=== PATIENT | female | born 1950 | race Two or more races ===

== ENCOUNTER 2020-08-19 11:34 | Outpatient (REF) | payer MEDICARE, MEDICAID, SELFPAY | END 2020-08-19 11:35 | disposition home or self-care (01) | LOC: HO.LAB 11:34 | PROVIDERS: PCP Nurse Practitioner Family; Visit Provider Internal Medicine | DX: Z20.828 Contact with and (suspected) exposure to other viral communicable diseases (principal) | CPT/HCPCS: 87635 ==

== ENCOUNTER 2020-09-21 17:20 | Outpatient (REF) | payer MEDICARE, MEDICAID, SELFPAY | END 2020-09-21 17:21 | disposition home or self-care (01) | LOC: HO.LAB 17:20 | PROVIDERS: PCP Nurse Practitioner Family; Visit Provider Internal Medicine | DX: Z20.828 Contact with and (suspected) exposure to other viral communicable diseases (principal) | CPT/HCPCS: C9803; U0003 ==

== ENCOUNTER 2020-11-17 10:04 | Outpatient (REF) | payer MEDICARE, MEDICAID, SELFPAY ==
--- NOTE | 2020-11-17 10:09 | MM_ITS ---
EXAMINATION: MM SCREENING DIGITAL BREAST TOMOSYNTHESIS, BILATERAL CLINICAL INFORMATION: Screening. Asymptomatic. The lifetime risk of breast cancer based on the Tyrer-Cuzick Model is 3.1%. COMPARISON: Mammography: July 17, 2019 and studies dating back to May 09, 2012 TECHNIQUE: Digital breast tomosynthesis is performed in both the craniocaudal and mediolateral oblique views along with computer-aided detection (CAD). Synthesized 2D images are generated from the tomosynthesis. FINDINGS: There are scattered areas of fibroglandular density (ACR BI-RADS breast composition Category b). There are no significant masses, abnormal calcifications, or other abnormalities. MM/MM tomosynthesis screening BI IMPRESSION: There are no significant changes from prior study. ASSESSMENT: BI-RADS 1: Negative RECOMMENDATION: Routine annual mammography screening. This patient's information was entered into a reminder system with a target due date for their next mammogram.
== END 2020-11-17 10:05 | disposition home or self-care (01) ==
LOC: HO.MAMMO 10:04
PROVIDERS: PCP Internal Medicine; Visit Provider Internal Medicine
DX: Z12.31 Encounter for screening mammogram for malignant neoplasm of breast (principal)
CPT/HCPCS: 77063; 77067

== ENCOUNTER 2021-01-13 12:54 | Outpatient (REF) | payer MEDICARE, MEDICAID, SELFPAY ==
--- NOTE | ~2021-01-13 | XR_ITS ---
EXAMINATION: XR LUMBOSACRAL SPINE CLINICAL INFORMATION: Low back pain COMPARISON: None TECHNIQUE: Three views of the lumbosacral spine. FINDINGS: There is normal lumbar lordosis. The vertebral heights, alignment are normal. There is loss of disc height virtually at every disc level with mild ventral spondylosis. There is no visible acute fracture, dislocation or lytic process seen. The soft tissues are normal. XR/XR lumbar spine 2-3V IMPRESSION: Mild degenerative disc changes L2-L3 through L5-S1 disc levels. No visible acute fracture or dislocation seen.
== END 2021-01-13 12:55 | disposition home or self-care (01) ==
LOC: HO.XRAY 12:54
PROVIDERS: PCP Nurse Practitioner Family; Visit Provider Nurse Practitioner Family
DX: M54.5 Low back pain (principal)
CPT/HCPCS: 72100

== ENCOUNTER 2021-02-17 13:07 | Outpatient (REF) | payer MEDICARE, MEDICAID, SELFPAY | END 2021-02-17 13:08 | disposition home or self-care (01) | LOC: HO.LAB 13:07 | PROVIDERS: Visit Provider Internal Medicine | DX: Z20.822 Contact with and (suspected) exposure to COVID-19 (principal) | CPT/HCPCS: C9803; U0003; U0005 ==

== ENCOUNTER 2021-11-27 14:19 | Emergency (ER) | payer MEDICARE, MEDICAID, SELFPAY ==
--- NOTE | ~2021-11-27 | XR_ITS ---
EXAMINATION: XR HUMERUS, LEFT CLINICAL INFORMATION: Fall COMPARISON: None TECHNIQUE: AP and lateral views of the left humerus. FINDINGS: The bones and soft tissues are normal. No fracture. Imaged portions of the shoulder and elbow are unremarkable. XR/XR humerus LT IMPRESSION: No fracture.
--- NOTE | ~2021-11-27 | XR_ITS ---
EXAMINATION: XR RIBS, LEFT CLINICAL INFORMATION: Fall, rib pain. COMPARISON: None TECHNIQUE: 3 views of the left ribs were obtained. FINDINGS: The lungs are well-expanded and clear of acute process. The heart size and pulmonary vascularity is normal. No gross bony abnormality seen. Multiple views of left ribs reveal no visible acute fracture or bony abnormality. The soft tissues are normal. XR/XR ribs LT min 3V w CXR1V IMPRESSION: Unremarkable chest and left rib exam.
[2021-11-27 14:24] VITALS: BP 161/67; PULSE 76; RESP 16; TEMP 36.1; O2SAT 99; BMI 24.5
--- NOTE | 2021-11-27 15:05 | ED_ITS ---
HPI - Fall General Chief Complaint: Fall Stated Complaint: fell 11/25 arm rib pain Time Seen by Provider: 11/27/21 14:55 Source: patient Mode of arrival: ambulatory Limitations: no limitations History of Present Illness HPI Narrative: Pt slipped and fell on steps 2 nights ago. Pt with pain to left upper arm and left ribs. Pt denies hitting head, no SOB, no pain with inspiration. Pt denies blood thinners. complaint: fall Onset (ago): day(s) (2 days ago) Fall from: standing Place fall occurred: home Loss of consciousness: none Prolonged down time: no Symptoms prior to fall: none Context: tripped/slipped Location of injury: chest (left ribs) Severity: moderate Quality: dull Associated symptoms (after fall): denies Related Data Allergies Allergy/AdvReac Type Severity Reaction Status Date / Time Seafood Allergy Mild THROAT Uncoded 07/16/20 14:58 ITCHING Shellfish Allergy Mild UNKNOWN Uncoded 07/16/20 14:58 seeafood Allergy Unknown throat Uncoded 01/30/18 00:00 swelling, itching Review of Systems Verdana 4l Review of Systems: Verdana 4d Verdana 4d Constitutional : No trauma, No Weight loss, No Fever, No Chills, ENT/Mouth : No Hearing loss, No Ear Pain, No Nasal Congestion, No Sinus Pain, No Hoarseness, No sore throat, No Rhinorrhea, No Swallowing Difficulty Cardiovascular : No ChestChest Pain, No SOB, left rib pain Respiratory : No Cough, No Dyspnea Gastrointestinal : No Nausea, No Vomiting, No Diarrhea, No abdominal Pain, Genitourinary : No Dysuria, No Urinary Frequency, No Hematuria, No Urinary or Bowel Incontinence/retention? Musculoskeletal : No Back pain, No neck pain, No joint stiffness, No joint swelling Skin : No Skin Lesions, No rash or signs of infection Neuro : No Weakness, No radiation, No Numbness, No Paresthesias, No headache, Psych : No SI/HI/thoughts of self injury Yes all other systems are reviewed and are negative [facility] Past Medical History Attestation statement: The following information was validated with the patient. Medical History (Updated 11/27/21 @ 16:05 by ROMERO Salcedo) Diabetes GERD (gastroesophageal reflux disease) HTN (hypertension) Hyperlipidemia Hypothyroid Social History Social History Advance Directives: Yes Advance Directives Information Provided: No Advance Directives on File: No Physical Exam Verdana 4l Vital Signs: Verdana 4d Verdana 4d Vital Signs: Verdana 4d Verdana 4Bd Last Vital Signs Verdana 4d Entomology Professor New 4d Hector New 4d Temp 97 F 11/27/21 14:24 Entomology Professor New 4d Pulse 76 11/27/21 14:24 Entomology Professor New 4d Resp 16 11/27/21 14:24 BP 161/67 H 11/27/21 14:24 Pulse Ox 99 11/27/21 14:24 BMI result Body Mass Index 24.5 vital signs have been reviewed as normal and appeared to be correct.? Blood pressure elevated, probably due to pain.? Heart rate normal.? Respiration rate normal.? Temperature normal.? Oxygen saturation normal. Appearance: Alert. Oriented X3. No acute distress. ? Head: Normal external exam. Normocephalic. Atraumatic.? Eyes: PERRLA. EOMI. Conjunctiva and sclera normal. Eyelids normal. ? ENT: EAC normal. Pharynx normal. Neck: Normal inspection. Neck supple. Normal ROM. No adenopathy. No meningeal signs. No neck mass noted. CVS: Normal heart rate and rhythm. Heart sound normal. No murmurs noted. Respiratory: No respiratory distress. Painless inspiration. Breath sounds normal. No wheezes/rales/rhonchi noted. Chest tenderness left lateral ribs. Moderate ecchymosis over same.? No accessory muscle usage noted or decreased air movement noted. Abdomen: Soft and nontender. Bowel sounds normal in all 4 quadrants. No distention noted.? No organomegaly noted.? No visible injury noted. Back: ?No CVA tenderness.? Full range of motion noted. Skin: Skin warm and dry.? ? Normal skin turgor. No rashes/lesions/lacerations noted. Extremities: ? Extremities exhibit normal range of motion.?ecchymmosis left upper arm, full ROM Extremities nontender. Normal gait Neuro: Oriented X 3.? No motor deficit noted. No sensory deficit noted. MDM - Fall Imaging Data left ribs and left humerus: Attestation: I personally reviewed and interpreted this imaging study as follows: Radiologist's impression: Fall, rib pain. COMPARISON: None TECHNIQUE: 3 views of the left ribs were obtained. FINDINGS: The lungs are well-expanded and clear of acute process. The heart size and pulmonary vascularity is normal. No gross bony abnormality seen. Multiple views of left ribs reveal no visible acute fracture or bony abnormality. The soft tissues are normal. XR/XR ribs LT min 3V w CXR1V IMPRESSION: Unremarkable chest and left rib exam. Discharge Plan Discharge Clinical Impression: Rib contusion, Ecchymosis Patient Disposition: Home, Self-Care Instructions: Rib Contusion (ED), Ecchymosis (ED) Additional Instructions: Your xrays are normal today. There are no broken bones. You may take tylenol or motrin as needed for pain. A bruise or contusion to the ribs usually takes several weeks to heal. Please follow up with your primary care provider as needed. Return to ER if worsening symtoms. Interventions: ED Discharge Assessment Last Done: 11/27/21 16:18 Discharge Date/Time: 11/27/21 16:18 Print Language: Latvian
== END 2021-11-27 16:18 | disposition home or self-care (01) ==
PROVIDERS: Emergency Provider Emergency Medicine
DX: S20.212A Contusion of left front wall of thorax, initial encounter (principal); S40.022A Contusion of left upper arm, initial encounter; W01.0XXA Fall on same level from slipping, tripping and stumbling without subsequent striking against object, initial encounter; E11.9 Type 2 diabetes mellitus without complications; I10 Essential (primary) hypertension; E78.5 Hyperlipidemia, unspecified; Y93.9 Activity, unspecified; Y92.039 Unspecified place in apartment as the place of occurrence of the external cause; Y99.9 Unspecified external cause status
CPT/HCPCS: 71101; 73060; 99283

== ENCOUNTER 2021-12-13 15:06 | Outpatient (REF) | payer OTHER, MEDICAID, SELFPAY ==
--- NOTE | ~2021-12-13 | MM_ITS ---
EXAMINATION: MM SCREENING DIGITAL BREAST TOMOSYNTHESIS, BILATERAL CLINICAL INFORMATION: Screening. Asymptomatic. The lifetime risk of breast cancer based on the Tyrer-Cuzick Model is 3%. COMPARISON: Mammography: 11/17/2020, 07/17/2019, 07/04/2018 TECHNIQUE: Digital breast tomosynthesis is performed in both the craniocaudal and mediolateral oblique views along with computer-aided detection (CAD). Synthesized 2D images are generated from the tomosynthesis. FINDINGS: There are scattered areas of fibroglandular density (ACR BI-RADS breast composition Category b). There are no significant masses, abnormal calcifications, or other abnormalities. Parenchymal pattern is similar to prior studies. There is no developing density or architectural abnormality. Incidental bilateral vascular calcifications again noted. The axilla and skin contours are unremarkable. No significant changes. MM/MM tomosynthesis screening BI IMPRESSION: No mammographic evidence of malignancy. ASSESSMENT: BI-RADS 1: Negative RECOMMENDATION: Routine annual mammography screening. This patient's information was entered into a reminder system with a target due date for their next mammogram.
== END 2021-12-13 15:07 | disposition home or self-care (01) ==
LOC: HO.MAMMO 15:06
PROVIDERS: PCP Nurse Practitioner Family; Visit Provider Nurse Practitioner Family
DX: Z12.31 Encounter for screening mammogram for malignant neoplasm of breast (principal)
CPT/HCPCS: 77063; 77067

== ENCOUNTER 2022-02-12 13:15 | Emergency (ER) | payer OTHER, MEDICAID, SELFPAY ==
--- NOTE | ~2022-02-12 | CT_ITS ---
EXAMINATION: CT ABDOMEN AND PELVIS WITHOUT CONTRAST CLINICAL INFORMATION: Evaluate for stones, right flank pain COMPARISON: 03/28/2013 TECHNIQUE: Multidetector volumetric imaging was performed from the superior aspect of the liver through the pubic symphysis. Sagittal and coronal reformatted images were obtained on the technologist's workstation. This CT examination was performed using dose optimization techniques as appropriate, variously including the following: *Automated exposure control *Adjustment of mA and/or kV according to patient size (this includes techniques or standardized protocols for targeted exams where dose is matched to indication/reason for exam; i.e. extremities or head) *Use of iterative reconstruction technique DLP: 358 mGy-cm FINDINGS: LUNG BASES: The visualized lung bases are unremarkable. LIVER, GALLBLADDER, AND BILIARY TREE: The liver is normal in size, shape, and attenuation. No focal hepatic lesion or biliary ductal dilatation is present. There is 0.5 cm low-attenuation lesion in the gallbladder most likely polyp PANCREAS: Unremarkable. SPLEEN: Unremarkable. ADRENAL GLANDS: Unremarkable. KIDNEYS AND URETERS: The kidneys are normal in size, shape, and attenuation. No hydronephrosis, hydroureter, or calculi seen. No perinephric stranding. Vascular calcifications seen in the right kidney. There is no hydronephrosis or BLADDER: Unremarkable. GASTROINTESTINAL TRACT: The small and large bowel are unremarkable. The appendix demonstrate appendicoliths. ABDOMINAL WALL: No significant hernia is appreciated. LYMPH NODES: Normal. VASCULAR: Unremarkable. PELVIC VISCERA: Uterus is heterogeneous and enlarged with multiple calcified fibroids OSSEOUS STRUCTURES: Degenerative changes at the level of L4-L5 and L5-S1 CT/CT abdomen pelvis wo con IMPRESSION: No evidence of nephrolithiasis. Calcified uterine fibroids. Gallbladder polyp. Fleischner guidelines were followed.
[2022-02-12 13:25] VITALS: BP 159/71; PULSE 80; RESP 18; O2SAT 96
[2022-02-12 13:29] VITALS: BP 146/78; BP 159/71; PULSE 80; PULSE 88; RESP 18; TEMP 36.9; O2SAT 97; O2SAT 99; BMI 24.7
--- NOTE | 2022-02-12 13:32 | ED.BACK ---
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: EMS Limitations: no limitations Related Data Allergies Allergy/AdvReac Type Severity Reaction Status Date / Time Seafood Allergy Mild THROAT Uncoded 07/16/20 14:58 ITCHING Shellfish Allergy Mild UNKNOWN Uncoded 07/16/20 14:58 seeafood Allergy Unknown throat Uncoded 01/30/18 00:00 swelling, itching PMFSH Past Medical History Medical History (Updated 11/28/21 @ 00:01 by Background Daemon) Diabetes GERD (gastroesophageal reflux disease) HTN (hypertension) Hyperlipidemia Hypothyroid Social History Social History Advance Directives: Yes Advance Directives Information Provided: Yes Advance Directives on File: No Physical Exam Vital Signs: Vital Signs: Last Vital Signs Temp 98.4 F 02/12/22 13:29 Pulse 80 02/12/22 13:29 Resp 18 02/12/22 13:29 BP 159/71 H 02/12/22 13:29 Pulse Ox 97 02/12/22 13:29 BMI result Body Mass Index 24.7
[2022-02-12 13:51] LABS: MANUAL DIFF FLAG NO
--- NOTE | 2022-02-12 13:52 | ED_ITS ---
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 Mode of arrival: EMS Limitations: no limitations History of Present Illness MD elicited complaint: flank pain Pertinent past history: none Onset (ago): day(s) (3) Pain Consistency: constant Location: R flank Severity: severe Quality: stabbing Radiation: RLQ Migration to: RLQ Exacerbating factors: nothing Relieving factors: nothing Associated symptoms: nausea Related Data Previous Rx's Medication Instructions Recorded cyclobenzaprine 5 mg tablet 5 mg PO TID PRN #10 tab 02/12/22 hydrocodone 5 mg-acetaminophen 325 1 tab PO Q6H PRN #7 tab 02/12/22 mg tablet lidocaine 5 % topical ointment 1 appl TOPICAL DAILY PRN #30 g 02/12/22 Allergies Allergy/AdvReac Type Severity Reaction Status Date / Time Seafood Allergy Mild THROAT Uncoded 07/16/20 14:58 ITCHING Shellfish Allergy Mild UNKNOWN Uncoded 07/16/20 14:58 seeafood Allergy Unknown throat Uncoded 01/30/18 00:00 swelling, itching Review of Systems Review of Systems Constitutional : No Weight loss, No Fever, No Chills ENT/Mouth : No sore throat, No Rhinorrhea Eyes: No Swelling, No Redness Cardiovascular : No Chest Pain, No SOB, NoEdema Respiratory : No Cough, No Sputum, No Wheezing Gastrointestinal : Positive Nausea, no Vomiting, no Diarrhea, positive abdominal Pain, No Hematochezia, No Melena Genitourinary : No Dysuria, No Urinary Frequency, No Hematuria, No Urgency Musculoskeletal : No joint pain, No Myalgias, No Joint Swelling Skin : No Skin Lesions, No rash Neuro : No Weakness, No Numbness, No Dizziness, No Headache Psych : No Anxiety/Panic, No Depression Heme/Lymph: No Bruising, No Lymphadenopathy Endocrine : No Polyuria, No Polydipsia All other systems reviewed and are negative. [facility] Past Medical History Attestation statement: The following information was validated with the patient. Medical History Diabetes GERD (gastroesophageal reflux disease) HTN (hypertension) Hyperlipidemia Hypothyroid Social History Social History (Updated 02/12/22 @ 13:53 by Susan Chahal DO) Patient Tobacco Use Status: Never used Tobacco Advance Directives: Yes Advance Directives Information Provided: Yes Advance Directives on File: No Physical Exam ED Vital Signs: Vital Signs - 24 hr 02/12/22 13:25 02/12/22 13:29 Temperature 98.4 F Pulse Rate 80 80 Respiratory Rate 18 18 Blood Pressure 159/71 H 159/71 H Pulse Oximetry 96 97 BMI result Body Mass Index 24.7 Appearance: Alert. Oriented X3. No acute distress. Eyes: Pupils equal, round and reactive to light. ENT: Pharynx normal. Neck: Normal inspection. Neck supple. CVS: Normal heart rate and rhythm. Pulses normal. Respiratory: No respiratory distress. Breath sounds normal. Abdomen: Soft and non-tender. Back: R CVA ttp Skin: Skin warm and dry. Normal skin color. Normal skin turgor. Extremities: No lower extremity edema. No calf ttp Neuro: Oriented X 3. No motor deficit. No sensory deficit. Course Course Course Narrative: CT scan negative signed out pending urine if negative stable for DC MDM - Abdominal Pain MDM Narrative Medical decision making narrative: 72 yo female with hx of HTN, DM, HLD here with c/o R flank pain without trauma or injury radiating to right lower groin with nausea - at this time will need labs, CT scan for renal colic, UA, IV morphine for pain. Dispo per results and findings. Lab Data Result diagrams: 02/12/22 13:47 02/12/22 13:47 Labs: Lab Results 02/12/22 02/12/22 02/12/22 Range/Units 13:47 13:47 13:47 WBC 8.3 (4.8-10.8) X10*3/uL RBC 3.94 L (4.20-5.50) X10*6/uL Hgb 12.1 (12.0-16.0) g/dl Hct 36.2 L (37.0-47.0) % MCV 91.9 (80.0-98.0) fL MCH 30.7 (27.0-33.0) pg MCHC 33.4 (31.0-35.0) g/dl RDW 12.9 (11.0-16.0) % Plt Count 328 (160-400) X10*3/uL MPV 10.6 (9.4-12.3) fL Immature Gran % (Auto) 0.4 (0.0-0.4) % Neut % (Auto) 68.5 (45-73) % Lymph % (Auto) 23.0 (20-40) % Jefferson % (Auto) 5.9 (2-11) % Eos % (Auto) 1.6 (0-4) % Baso % (Auto) 0.6 (0-2) % Lymph # (Auto) 1.9 (1.2-4.9) X10*3/uL Jefferson # (Auto) 0.5 (0.1-1.2) X10*3/uL Eos # (Auto) 0.1 (0.0-0.4) X10*3/uL Baso # (Auto) 0.1 (0.0-0.2) X10*3/uL Abs Immat Gran (auto) 0.03 (0.00-0.03) X10*3/uL Absolute Neuts (auto) 5.7 (2.0-8.3) x10*3/uL Absolute Nucleated RBC 0.000 (0.0-0.012) X10*3/uL Nucleated RBC % (auto) 0.0 (0.0-0.2) /100WBC Sodium 137 (135-145) mmol/L Potassium 4.4 (3.3-5.1) mmol/L Chloride 100 (96-108) mmol/L Carbon Dioxide 22 (22-29) mmol/L Anion Gap 19 (12-20) BUN 20 H (9-16) mg/dL Creatinine 1.07 (0.5-1.4) mg/dL Estim Creat Clear Calc 41.6 Estimated GFR 51 Random Glucose 212 H (60-115) mg/dL Calcium 10.1 (8.4-10.2) mg/dL Magnesium 1.8 (1.6-2.6) mg/dL Total Bilirubin 0.8 (0.0-1.0) mg/dL Direct Bilirubin 0.3 (0.0-0.5) mg/dL AST 23 (5-31) U/L ALT 25 (0-31) U/L Alkaline Phosphatase 73 (39-117) U/L Total Protein 7.7 (6.5-8.0) g/dL Albumin 4.5 (3.5-5.0) g/dL Lipase 35 (8-78) U/L COVID-19 (NEO) Negative (Negative) COVID-19 Clin Com See Note Discharge Plan Discharge Clinical Impression: Acute right flank pain Patient Disposition: Still a Patient Instructions: Flank Pain (ED) Additional Instructions: return to ED for any worsening symptoms or concerns CT/CT abdomen pelvis wo con IMPRESSION: No evidence of nephrolithiasis. Calcified uterine fibroids. Gallbladder polyp. ? ? Fleischner guidelines were followed. NON EMERGENT ULTRASOUND OF GALLBLADDER WITH DOCTOR - NOT CAUSE OF TODAY'S SYMPTOMS Prescriptions: New lidocaine 5 % ointment 1 appl topical DAILY PRN (Reason: pain) Qty: 30 0RF cyclobenzaprine 5 mg tablet 5 mg PO TID PRN (Reason: muscle spasm) Qty: 10 0RF hydrocodone-acetaminophen 5-325 mg tablet 1 tab PO Q6H PRN (Reason: pain) Qty: 7 0RF Referrals: Elly Pierce [Primary Care Provider] - 3 days Print Language: Tanzanian
[2022-02-12 13:53] LABS: Basophils Absolute Auto 0.1 X10*3/uL (0.0-0.2); Basophils Percent Auto 0.6 % (0-2); Eosinophils Absolute Auto 0.1 X10*3/uL (0.0-0.4); Eosinophils Percent Auto 1.6 % (0-4); Hematocrit 36.2 % (37.0-47.0); Hemoglobin 12.1 g/dl (12.0-16.0); Imm Gran Abs Auto 0.03 X10*3/uL (0.00-0.03); Imm Gran Pct Auto 0.4 % (0.0-0.4); Lymphocytes Absolute Auto 1.9 X10*3/uL (1.2-4.9); Mean Corpuscular HGB Conc 33.4 g/dl (31.0-35.0); Mean Corpuscular Hemoglobin 30.7 pg (27.0-33.0); Mean Corpuscular Volume 91.9 fL (80.0-98.0); Mean Platelet Volume 10.6 fL (9.4-12.3); Monocytes Absolute Auto 0.5 X10*3/uL (0.1-1.2); Monocytes Percent Auto 5.9 % (2-11); Neutrophils Absolute Auto 5.7 x10*3/uL (2.0-8.3); Neutrophils Percent Auto 68.5 % (45-73); Platelet Count 328 X10*3/uL (160-400); Red Blood Count 3.94 X10*6/uL (4.20-5.50); Red Cell Distribution Width 12.9 % (11.0-16.0); White Blood Count 8.3 X10*3/uL (4.8-10.8)
[2022-02-12 14:11] LABS: Alanine Aminotransferase 25 U/L (0-31); Albumin Level 4.5 g/dL (3.5-5.0); Alkaline Phosphatase 73 U/L (39-117); Anion Gap 19 (12-20); Aspartate Amino Transferase 23 U/L (5-31); Bilirubin Direct 0.3 mg/dL (0.0-0.5); Bilirubin Total 0.8 mg/dL (0.0-1.0); Blood Urea Nitrogen 20 mg/dL (9-16); COVID-19 Test Negative (Negative); Calcium 10.1 mg/dL (8.4-10.2); Carbon Dioxide 22 mmol/L (22-29); Chloride 100 mmol/L (96-108); Creatinine Clr Calc Pharmacy 41.6; Estimated Glomerular Filt Rate 51; Glucose Random 212 mg/dL (60-115); IDNOW Serial# 16C4AD1C; Lipase 35 U/L (8-78); Magnesium 1.8 mg/dL (1.6-2.6); Potassium 4.4 mmol/L (3.3-5.1); Sodium 137 mmol/L (135-145); Total Protein 7.7 g/dL (6.5-8.0)
[2022-02-12] MEDS: Morphine Sulfate 4 MG/ML CARTRIDGE IVPUSH ×2 (14:36→17:07)
[2022-02-12] MEDS: ondansetron HCL 4 MG/2 ML VIAL IVPUSH (14:36)
[2022-02-12] MEDS: 0.9 % Sodium Chloride 1,000 ML 999 ML IVCONT (14:37)
[2022-02-12 16:55] VITALS: BP 168/65; PULSE 88; RESP 20; TEMP 36.7; O2SAT 97
[2022-02-12 17:18] LABS: Appearance Urine CLEAR; Color Urine STRAW; Glucose Urine UA >=1000 MG/DL (NEG); Leukocyte Esterase Urine NEG (NEG); Nitrite Urine NEG (NEG); PH 5.5 (5.0-8.0); Urine Blood NEG (NEG); Urine Ketones 40 MG/DL (NEG); Urine Protein NEG (NEG-TRACE)
[2022-02-12 17:42] LABS: WBC Urine 0-2 /HPF (0-4)
[2022-02-12 17:43] LABS: RBC Urine 0 /HPF (0); Squamous Epithelial Cell Urine TRACE /LPF
== END 2022-02-12 18:33 | disposition home or self-care (01) ==
PROVIDERS: Emergency Provider Emergency Medicine; PCP Nurse Practitioner Family
DX: R10.31 Right lower quadrant pain (principal); I10 Essential (primary) hypertension; E11.9 Type 2 diabetes mellitus without complications; Z20.822 Contact with and (suspected) exposure to COVID-19
CPT/HCPCS: 74176; 80048; 80076; 81001; 83690; 83735; 85025; 87635; 96361; 96374; 96375; 96376; 99283; 99284; J2270; J2405

== ENCOUNTER 2022-03-04 12:20 | Outpatient (REF) | payer OTHER, MEDICAID, SELFPAY ==
--- NOTE | ~2022-03-04 | US_ITS ---
EXAMINATION: US ABDOMEN COMPLETE CLINICAL INFORMATION: Follow up gallbladder polyp seen on CT. COMPARISON: CT of abdomen and pelvis without contrast dated 02/12/2022. Ultrasound abdomen complete dated 09/03/2014. Bilateral renal ultrasound dated 06/13/2011. TECHNIQUE: Real-time imaging of the abdominal viscera. FINDINGS: PANCREAS: Normal. ABDOMINAL AORTA: The proximal, mid, and distal segments are normal in caliber. INFERIOR VENA CAVA: Visualized portions are normal. LIVER: Liver echotexture is slightly increased. The liver is normal in size. The liver contour is normal. No focal hepatic lesion. There is no intrahepatic biliary duct dilatation seen. GALLBLADDER: Normal. The gallbladder is physiologically distended without evidence of stones, sludge, polyps, wall thickening or pericholecystic fluid. COMMON BILE DUCT: Normal in caliber measuring 0.22 cm in diameter. RIGHT KIDNEY: Normal. No hydronephrosis. No renal calculi or focal parenchymal lesions. The kidney measures 10.0 cm in maximum dimension. LEFT KIDNEY: Normal. No hydronephrosis. No renal calculi or focal parenchymal lesions. The kidney measures 10.4 cm in maximum dimension. SPLEEN: Normal. The spleen measures 9.7 cm in maximum dimension. FREE FLUID: None. US/US abdomen complete IMPRESSION: No gallstones or gallbladder wall polyp appreciated. Slightly echogenic liver probably representing fatty infiltration.
== END 2022-03-04 12:21 | disposition home or self-care (01) ==
LOC: HO.US 12:20
PROVIDERS: Visit Provider Nurse Practitioner Family
DX: K82.4 Cholesterolosis of gallbladder (principal)
CPT/HCPCS: 76700

== ENCOUNTER 2022-05-25 10:25 | Outpatient (REF) | payer OTHER, MEDICAID, SELFPAY ==
--- NOTE | ~2022-05-25 | MM_ITS ---
EXAMINATION: BONE DENSITOMETRY CLINICAL INDICATION: Screening. COMPARISON: Previous BD dated 07/17/2019 and baseline BD dated 04/07/2011. TECHNIQUE: Using a [employer] DXA System (software version: 13.1) manufactured by [employer], dual-energy x-ray absorptiometry was performed of the lumbar spine and left hip. The images are of good technical quality. Summary results are attached. FINDINGS: AP SPINE L1-L4: Current: BMD 1.275 g/cm2, Z-score 2.7, T-score 0.8, normal, 3.5% increase from previous, 12.9% increase from baseline (<5% change is not significant). Prior: BMD 1.232 g/cm2. Baseline: BMD 1.129 g/cm2. LEFT FEMUR, NECK: Current: BMD 1.130 g/cm2, Z-score 2.5, T-score 0.7, normal. Prior: BMD 1.118 g/cm2. Baseline: BMD 1.159 g/cm2. LEFT FEMUR, TOTAL: Current: BMD 1.107 g/cm2, Z-score 2.4, T-score 0.8, normal, 1.0% increase from previous, 0.2% decrease from baseline (<5% change is not significant). Prior: BMD 1.096 g/cm2. Baseline: BMD 1.109 g/cm2. IDENTIFIED RISK FACTORS: Menopause, glucocorticoids (chronic). HISTORY OF FRACTURE: None listed. MEDICATIONS: Calcium, vitamin D. MM/XR DEXA axial skeleton IMPRESSION: 1. DIAGNOSIS: Normal bone density based on the lowest T-score value of 0.7 in the femoral neck applying World Health Organization criteria. 2. 10-YEAR FRACTURE RISK PREDICTION, FRAX: According to the guidelines, FRAX calculation should only be performed on patients in the osteopenia bone density category. Therefore, FRAX was not performed on this patient. 3. Treatment Recommendations: NOF guidelines recommend consideration for treatment in postmenopausal women and men age 50 and older presenting with the following: -A hip or vertebral (clinical or morphometric) fracture. -T-score less than or equal to -2.5 at the femoral neck or spine after appropriate evaluation to exclude secondary causes. -Low bone mass at the hip or spine and a 10-year fracture probability by FRAX of greater than or equal to 3% for hip fracture or greater than or equal to 20% for major osteoporotic fracture based on the [place] adapted WHO algorithm. 4. Other Recommendations: All treatment decisions require clinical judgment and consideration of individual patient factors, including patient preferences, comorbidities, previous drug use, risk factors not captured in the FRAX model (e.g. frailty, falls, vitamin D deficiency, increased bone turnover, interval significant decline in bone density) and possible under or overestimation of fracture risk by FRAX. FUTURE SCAN RECOMMENDATION: People with diagnosed cases of osteoporosis or at high risk for fracture should have regular bone mineral density tests. For patients eligible for Medicare, routine testing is allowed once every 2 years. The testing frequency can be increased to one year for patients who have rapidly progressing disease, those who are receiving or discontinuing medical therapy to restore bone mass, or have additional risk factors.
== END 2022-05-25 10:26 | disposition home or self-care (01) ==
LOC: HO.MAMMO 10:25
PROVIDERS: Visit Provider Nurse Practitioner Family
DX: Z13.820 Encounter for screening for osteoporosis (principal); Z78.0 Asymptomatic menopausal state
CPT/HCPCS: 77080

== ENCOUNTER → 2022-07-28 09:55 | Outpatient (BNVA) | payer OTHER, MEDICAID, SELFPAY | PROVIDERS: PCP Nurse Practitioner Family; Visit Provider Anesthesiology | DX: M46.1 Sacroiliitis, not elsewhere classified (principal); M53.3 Sacrococcygeal disorders, not elsewhere classified | CPT/HCPCS: 99202 ==

== ENCOUNTER 2022-08-08 10:43 | Emergency (ER) | payer OTHER, MEDICAID, SELFPAY ==
--- NOTE | ~2022-08-08 | XR_ITS ---
EXAMINATION: XR SHOULDER, RIGHT CLINICAL INFORMATION: Pain COMPARISON: None TECHNIQUE: AP external rotation, Grashey, scapular Y, and axillary views of the right shoulder. FINDINGS: Bone alignment is normal. No fracture or dislocation is seen. The glenohumeral joint is normal. There is arthritis at the acromioclavicular joint. There are soft tissue calcifications seen on the transaxillary view anterior and posterior to the humeral head. XR/XR shoulder RT min 2V IMPRESSION: Degenerative changes.
[2022-08-08 10:48] VITALS: BP 150/69; PULSE 82; RESP 16; TEMP 528.8; TEMP 984; O2SAT 96; BMI 24.3
--- NOTE | 2022-08-08 11:27 | ED.GENADULT ---
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 No known injury or trauma. No radiation of pain into the arm. No associated weakness, numbness or tingling of the arm. No chest pain, shortness of breath, fevers or chills. Patient also reports lower back pain which is chronic. She tells me that she has had some intermittent pain which has radiated to the right lower leg but this pain does feel worse than the right leg. She is scheduled for A steroid injection later this month for her chronic back pain. She denies any associated weakness of the right leg. No numbness or tingling of the right leg. No saddle anesthesia. No bowel or bladder incontinence. Patient taking Tylenol at home for pain Related Data Home Medications Medication Instructions Recorded Confirmed acetaminophen 500 mg tablet mg PO 07/28/22 aspirin 81 mg tablet,delayed 81 mg PO DAILY 07/28/22 release atorvastatin 40 mg tablet 40 mg PO BEDTIME 07/28/22 calcium carbonate 600 mg-vitamin 1 tab PO 07/28/22 D3 10 mcg (400 unit) tablet cetirizine 10 mg tablet 10 mg PO DAILY 07/28/22 empagliflozin 25 mg tablet 25 mg PO DAILY 07/28/22 (Jardiance) fluticasone propionate 50 spray intranasal 07/28/22 mcg/actuation nasal spray,suspension gabapentin 100 mg capsule 100 mg PO TID 07/28/22 hydrochlorothiazide 12.5 mg tablet 12.5 mg PO DAILY 07/28/22 levothyroxine 75 mcg tablet 75 mcg PO DAILY 07/28/22 lisinopril 40 mg tablet 40 mg PO BID 07/28/22 metformin 500 mg tablet,extended 1,000 mg PO BID 07/28/22 release 24 hr metoprolol tartrate 50 mg tablet mg PO 07/28/22 omeprazole 20 mg capsule,delayed 20 mg PO QAM 07/28/22 release repaglinide 1 mg tablet 2 mg PO BID 07/28/22 Previous Rx's Medication Instructions Recorded lidocaine 5 % topical ointment 1 appl topical DAILY PRN pain #30 02/12/22 grams cyclobenzaprine 5 mg tablet 5 mg PO TID PRN muscle spasm #10 08/08/22 tabs diclofenac sodium 1 % topical gel 4 g topical QID PRN pain #100 grams 08/08/22 (Voltaren Arthritis Pain) lidocaine 5 % topical patch 1 patch topical DAILY #15 ea 08/08/22 (Lidoderm) Allergies Allergy/AdvReac Type Severity Reaction Status Date / Time Seafood Allergy Mild THROAT Uncoded 07/16/20 14:58 ITCHING Shellfish Allergy Mild UNKNOWN Uncoded 07/16/20 14:58 seeafood Allergy Unknown throat Uncoded 01/30/18 00:00 swelling, itching Review of Systems Review of Systems: Yes all other systems are reviewed and are negative Constitutional: Constitutional: Reports no additional constitutional complaints, Denies body ache(s), Denies chills, Denies fever(s), Denies headache(s) and Denies weakness Eyes: Eyes: Reports no additional eye complaints and Denies change in vision ENT: Reports system reviewed and no additional complaints, except as documented, Denies dizziness, Denies headache(s), Denies nasal congestion, Denies nasal discharge and Reports neck pain Cardiovascular: Cardiovascular: Reports no additional cardiovascular complaints, Denies chest pain, Denies leg edema and Denies dyspnea Respiratory: Respiratory: Reports no additional respiratory complaints, Denies cough and Denies dyspnea Gastrointestinal: Gastrointestinal: Reports no additional gastrointestinal complaints, Denies abdominal pain, Denies diarrhea, Denies nausea and Denies vomiting Genitourinary: Genitourinary: Reports no additional female genitourinary complaints and Denies urinary incontinence Musculoskeletal: Musculoskeletal: Reports no additional musculoskeletal complaints, Reports back pain, Reports arthralgias, Denies joint swelling, Reports neck pain, Denies numbness, Reports radiating pain into limb and Denies tingling Integumentary/Breasts: Skin/Breast: Reports system reviewed and no additional complaints, except as docu and Denies rash Neurologic: Reports system reviewed and no additional complaints, except as documented, Denies dizziness, Denies headache(s), Denies numbness, Denies tingling and Denies weakness PMFSH Past Medical History Attestation statement: The following information was validated with the patient. Source: old records reviewed and nursing notes reviewed Medical History Diabetes GERD (gastroesophageal reflux disease) HTN (hypertension) Hyperlipidemia Hypothyroid Social History Social History Patient Tobacco Use Status: Never used Tobacco Advance Directives: No Advance Directives Information Provided: Yes Physical Exam ED Vital Signs: Vital Signs - 24 hr 08/08/22 10:48 Temperature 984 F H Pulse Rate 82 Respiratory Rate 16 Blood Pressure 150/69 H Pulse Oximetry 96 Oxygen Delivery Method Room Air BMI result Body Mass Index 24.3 Const General: cooperative, healthy appearing, comfortable and no acute distress Orientation/consciousness: patient oriented x3 Limitations: no limitations HENMT Head: Yes normal to inspection Ears: hearing grossly normal bilaterally Eyes General: appearance normal, both eyes and all related structures Pupils: Equal, round and reactive pupils present Neck Other: Tenderness the right and left trapezius which is worsened with rotation of the head. No midline tenderness, step-offs deformities. No appreciable swelling, thrill or bruit of the neck. Neck: Yes normal visual inspection, Yes full ROM, Yes no lymphadenopathy and Yes no meningeal signs Chest Chest palpation & inspection: normal inspection of the chest Resp Effort & Inspection: normal respiratory effort Auscultation: clear to auscultation bilaterally Cardio Rate: regular rate Rhythm: regular rhythm Peripheral pulses: Peripheral pulses 2+ throughout GI Inspection: Yes normal to inspection General: Yes no CVA tenderness Back/Spine/Pelvis Other: Tenderness to the lumbar mid spine with no step-offs or deformities. Pain is worsened with right straight leg raise. Back: no CVA tenderness Thoracic/Lumbar Spine: thoracic and lumbar spine normal to inspection Skin General skin exam: no rashes or lesions noted Neuro General: patient oriented x3, moves all extremities and no meningeal signs Cranial nerves: Yes CN's II-XII intact bilaterally, Yes Equal, round and reactive pupils present, Yes Bilaterally intact EOM present, Yes Nystagmus not present, Yes Normal facial strength present and Yes Midline tongue present Cognition (Neuro): normal cognition Gait exam (Neuro): Normal gait present Motor exam (neuro): 5/5 motor strength present throughout Sensory Exam: Normal double simultaneous stimulation for sensation Deep tendon reflexes (DTR's): Right patellar reflex intensity grade: 2+ and Left patellar reflex intensity grade: 2+ Extrem Other: Tenderness to the right anterior shoulder and proximal humerus which is worsened with abduction of the extremity. Neurovascularly intact distally. Normal radial and ulnar pulses. Strength is 5/5. Course Course Course Narrative: X-rays of the right shoulder show degenerative changes at likely secondary to underlying arthritis. Patient will be treated with Tylenol, low-dose Flexeril, Voltaren, Lidoderm patches. Recommended heat or ice. Patient has a follow-up appointment already for her lower back pain which is chronic with plan for cortisone injection. Reviewed worrisome signs and symptoms of when to return to the emergency room. Comfortable discharge home. Medical Decision Making MDM Narrative Medical decision making narrative: 72-year-old female here with atraumatic right shoulder pain as well as pain in the right and left trapezius area. Patient also reports chronic lower back pain with pain that radiates into the right leg. Patient has pain over the right shoulder specially over the proximal humerus and anterior shoulder which is worsened with abduction. Patient has had no injury or trauma. She has no real associated weakness, numbness or tingling of extremity. Consider bursitis, tendonitis, underlying bony abnormality. Will check x-rays. Patient also reports some pain of the right and left trapezius which appears musculoskeletal on exam. No midline cervical tenderness or limited range of motion or meningeal signs or lymphadenopathy. Patient also some chronic lower back pain which radiates to the right leg with no associated weakness, sensory changes, incontinence of urine or stool or saddle anesthesia or fever. She is scheduled for a cortisone injection later this month. No overt neurological deficits or red flag symptoms to suggest underlying cord compression, epidural abscess. Medical Records Medical records reviewed: Yes I reviewed the patient's medical records. Lab Data Lab results reviewed: Yes I reviewed the patient's lab results. Imaging Data shoulder x-ray: Attestation: I personally reviewed and interpreted this imaging study as follows: Radiologist's impression: [address] [address] XRay Report Signed Patient: Jacquelyn Scott MR#: [id number] : 1950 Acct:[id number] Age/Sex: 72 / F ADM Date: 08/08/22 Loc: HO.ED Attending Dr: Ordering Physician: Chen Cheema NP Date of Service: 08/08/22 Procedure(s): XR shoulder RT min 2V Accession Number(s): [id number] cc: Chen Cheema NP~ EXAMINATION: XR SHOULDER, RIGHT CLINICAL INFORMATION: Pain? COMPARISON: None? TECHNIQUE: AP external rotation, Grashey, scapular Y, and axillary views of the right shoulder. FINDINGS: Bone alignment is normal. No fracture or dislocation is seen. The glenohumeral joint is normal. There is arthritis at the acromioclavicular joint. There are soft tissue calcifications seen on the transaxillary view anterior and posterior to the humeral head.? XR/XR shoulder RT min 2V IMPRESSION: Degenerative changes. Discharge Plan Discharge Clinical Impression: Osteoarthritis of right shoulder, Chronic back pain, Chronic lumbar radiculopathy, Muscle spasm Patient Disposition: Home, Self-Care Instructions: Osteoarthritis (ED), Lumbar Radiculopathy (ED), Muscle Spasm (ED), Chronic Back Pain (DC) Additional Instructions: Calor o hielo en la diego afectada Estiramiento suave. Whyte radiograf?a muestra artritis en whyte hombro. Seguimiento con whyte m?dico de atenci?n primaria en 1 semana por cualquier problema persistente. Contin?e con Tylenol. Prescriptions: New diclofenac sodium [Voltaren Arthritis Pain] 1 % gel 4 g topical QID PRN (Reason: pain) Qty: 100 0RF cyclobenzaprine 5 mg tablet 5 mg PO TID PRN (Reason: muscle spasm) Qty: 10 0RF lidocaine [Lidoderm] 5 % adhesive patch,medicated 1 patch topical DAILY Qty: 15 0RF Rx Instructions: leave on most painful area for up to 12 hrs No Action lidocaine 5 % ointment 1 appl topical DAILY PRN (Reason: pain) Qty: 30 0RF Jardiance 25 mg tablet 25 mg PO DAILY hydrochlorothiazide 12.5 mg tablet 12.5 mg PO DAILY repaglinide 1 mg tablet 2 mg PO BID metformin 500 mg tablet extended release 24 hr 1,000 mg PO BID fluticasone propionate 50 mcg/actuation spray,suspension intranasal lisinopril 40 mg tablet 40 mg PO BID gabapentin 100 mg capsule 100 mg PO TID metoprolol tartrate 50 mg tablet PO levothyroxine 75 mcg tablet 75 mcg PO DAILY aspirin 81 mg tablet,delayed release (DR/EC) 81 mg PO DAILY cetirizine 10 mg tablet 10 mg PO DAILY acetaminophen 500 mg tablet PO calcium carbonate-vitamin D3 600 mg-10 mcg (400 unit) tablet 1 tab PO omeprazole 20 mg capsule,delayed release(DR/EC) 20 mg PO QAM atorvastatin 40 mg tablet 40 mg PO BEDTIME Referrals: Physician,None [Primary Care Provider] - 10 days (PCP as needed) Interventions: ED Discharge Assessment Last Done: 08/08/22 12:34 Discharge Date/Time: 08/08/22 12:35 Print Language: Slovenian
== END 2022-08-08 12:35 | disposition home or self-care (01) ==
PROVIDERS: Emergency Provider Student in an Organized Health Care Education/Training Program
DX: M19.011 Primary osteoarthritis, right shoulder (principal); G89.29 Other chronic pain; M54.50 Low back pain, unspecified; M54.16 Radiculopathy, lumbar region; M62.830 Muscle spasm of back; E11.9 Type 2 diabetes mellitus without complications; I10 Essential (primary) hypertension; E78.5 Hyperlipidemia, unspecified; Z79.82 Long term (current) use of aspirin; Z79.899 Other long term (current) drug therapy; Z79.84 Long term (current) use of oral hypoglycemic drugs; Z79.02 Long term (current) use of antithrombotics/antiplatelets
CPT/HCPCS: 73030; 99283

== ENCOUNTER 2022-08-16 06:13 | Outpatient (REF) | payer OTHER, MEDICAID, SELFPAY ==
--- NOTE | ~2022-08-16 | FL_ITS ---
EXAMINATION: XR FLUOROSCOPY WITH IMAGES CLINICAL INFORMATION: M53.3 - Sacrococcygeal disorders, not elsewhere classified COMPARISON: CT pelvis 02/12/2022 TECHNIQUE: Fluoroscopy performed by Dr. Solomon Kelley. Fluoroscopy time: 0.2 minutes. Cumulative Dose: 1.43 mGy. DAP: 0.390 Gy-cm2. Images: 1. FINDINGS: Spinal needle overlies the mid right SI joint. There is contrast in the periarticular soft tissues with probable early intra-articular contrast. No definite vasculature communication appreciated. FL/FL guidance in treatment room IMPRESSION: Fluoroscopy for pain management procedure.
== END 2022-08-16 06:14 | disposition home or self-care (01) ==
LOC: CF 06:13
PROVIDERS: Visit Provider Anesthesiology
DX: M46.1 Sacroiliitis, not elsewhere classified (principal); M53.3 Sacrococcygeal disorders, not elsewhere classified
CPT/HCPCS: 27096; J2795

== ENCOUNTER 2022-12-15 09:47 | Outpatient (REF) | payer OTHER, MEDICAID, SELFPAY ==
--- NOTE | ~2022-12-15 | MM_ITS ---
EXAMINATION: MM SCREENING DIGITAL BREAST TOMOSYNTHESIS, BILATERAL CLINICAL INFORMATION: Screening. Asymptomatic. The lifetime risk of breast cancer based on the Tyrer-Cuzick Model is 3%. COMPARISON: Mammography: 12/13/2021, 11/17/2020, 07/17/2019 TECHNIQUE: Digital breast tomosynthesis is performed in both the craniocaudal and mediolateral oblique views along with computer-aided detection (CAD). Synthesized 2D images are generated from the tomosynthesis. FINDINGS: There are scattered areas of fibroglandular density (ACR BI-RADS breast composition Category b). There are no significant masses, abnormal calcifications, or other abnormalities. No architectural abnormality or developing density or significant change from prior studies. There are scattered bilateral predominantly vascular calcifications. The axilla and skin contours are unremarkable. No significant changes. MM/MM tomosynthesis screening BI IMPRESSION: No mammographic evidence of malignancy. ASSESSMENT: BI-RADS 2: Benign RECOMMENDATION: Routine annual mammography screening. This patient's information was entered into a reminder system with a target due date for their next mammogram.
== END 2022-12-15 09:48 | disposition home or self-care (01) ==
LOC: HO.MAMMO 09:47
PROVIDERS: PCP Nurse Practitioner Primary Care
DX: Z12.31 Encounter for screening mammogram for malignant neoplasm of breast (principal)
CPT/HCPCS: 77063; 77067

== ENCOUNTER 2023-03-10 12:27 | Emergency (ER) | payer OTHER, SELFPAY ==
--- NOTE | ~2023-03-10 | CT_ITS ---
EXAMINATION: CT HEAD WITHOUT CONTRAST CLINICAL INFORMATION: Dizziness. Headache. COMPARISON: CT head 05/29/2008 TECHNIQUE: Contiguous axial imaging was performed from the skull base to vertex without intravenous administration of contrast. Coronal and sagittal reformatted images are performed at the CT scanner. [This CT examination was performed using dose optimization techniques as appropriate, variously including the following: *Automated exposure control *Adjustment of mA and/or kV according to patient size (this includes techniques or standardized protocols for targeted exams where dose is matched to indication/reason for exam; i.e. extremities or head) *Use of iterative reconstruction technique] DLP: 609 mGy-cm. FINDINGS: Extra-axial calcification consistent with meningioma right frontal region measuring 9 mm. This measured 6 mm on the CAT scan 05/29/2008. No associated mass effect or edema of the brain parenchyma. Stable 4 mm calcification adjacent to the right tentorial leaflet. There is no evidence of acute intracranial hemorrhage or acute territorial infarction. No abnormal mass-effect or midline shift is seen. Riggins to white matter differentiation is well preserved. No extra-axial fluid collections are identified. The ventricles are normal in size. There is no abnormal attenuation within the brain parenchyma. There is no osseous abnormality. The mastoid air cells and visualized portions of the paranasal sinuses are well-aerated. CT/CT head/brain wo IV con IMPRESSION: No acute intracranial pathology.
--- NOTE | ~2023-03-10 | XR_ITS ---
EXAMINATION: XR CHEST CLINICAL INFORMATION: Chest pain and shortness of breath COMPARISON: Previous chest x-ray October 2021 TECHNIQUE: Frontal view of the chest was obtained. FINDINGS: The cardiac and mediastinal contours are normal. Probable nipple shadow at the left lung base. The lungs are otherwise clear. No pleural effusion or pneumothorax. There are degenerative changes of the spine. XR/XR chest 1V IMPRESSION: No evidence for acute disease in the chest.
--- NOTE | 2023-03-10 12:54 | ED.GENADULT ---
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 She reports the pain shoots down the left posteriorly at times. She states she has a history of similar headaches along with her usual seasonal allergy symptoms. She states they usually do not last this long however. She reports she has some mild intermittent dizziness and shortness of breath as well. No associated chest pain. No current dizziness. She denies any weakness, numbness, tingling, vision changes. She reports the headache is in the occipital region and throbbing. She has not taken any medications for this. MD complaint: Posterior headache Onset (ago): day(s) (3) Location: head Radiation: neck and extremity Severity: moderate Severity scale (1-10): 7 Quality: other (Throbbing) Pain Consistency: constant Relieving factors: none Exacerbating factors: none Associated symptoms: headaches, shortness of breath and other (Dizziness) Treatments prior to arrival: none Related Data Home Medications Medication Instructions Recorded Confirmed acetaminophen 500 mg tablet mg PO 07/28/22 aspirin 81 mg tablet,delayed 81 mg PO DAILY 07/28/22 release atorvastatin 40 mg tablet 40 mg PO BEDTIME 07/28/22 calcium carbonate 600 mg-vitamin 1 tab PO 07/28/22 D3 10 mcg (400 unit) tablet cetirizine 10 mg tablet 10 mg PO DAILY 07/28/22 empagliflozin 25 mg tablet 25 mg PO DAILY 07/28/22 (Jardiance) fluticasone propionate 50 spray intranasal 07/28/22 mcg/actuation nasal spray,suspension gabapentin 100 mg capsule 100 mg PO TID 07/28/22 hydrochlorothiazide 12.5 mg tablet 12.5 mg PO DAILY 07/28/22 levothyroxine 75 mcg tablet 75 mcg PO DAILY 07/28/22 lisinopril 40 mg tablet 40 mg PO BID 07/28/22 metformin 500 mg tablet,extended 1,000 mg PO BID 07/28/22 release 24 hr metoprolol tartrate 50 mg tablet mg PO 07/28/22 omeprazole 20 mg capsule,delayed 20 mg PO QAM 07/28/22 release repaglinide 1 mg tablet 2 mg PO BID 07/28/22 Previous Rx's Medication Instructions Recorded lidocaine 5 % topical ointment 1 appl topical DAILY PRN pain #30 02/12/22 grams cyclobenzaprine 5 mg tablet 5 mg PO TID PRN muscle spasm #10 08/08/22 tabs diclofenac sodium 1 % topical gel 4 g topical QID PRN pain #100 grams 08/08/22 (Voltaren Arthritis Pain) lidocaine 5 % topical patch 1 patch topical DAILY #15 ea 08/08/22 (Lidoderm) Allergies Allergy/AdvReac Type Severity Reaction Status Date / Time Seafood Allergy Mild THROAT Uncoded 08/16/22 10:56 ITCHING Shellfish Allergy Mild UNKNOWN Uncoded 08/16/22 10:56 seeafood Allergy Unknown throat Uncoded 08/16/22 10:56 swelling, itching Review of Systems Review of Systems: Yes all other systems are reviewed and are negative [facility] Past Medical History Medical History Diabetes GERD (gastroesophageal reflux disease) HTN (hypertension) Hyperlipidemia Hypothyroid Social History Social History Patient Tobacco Use Status: Never used Tobacco Advance Directives: No Physical Exam ED Vital Signs: Vital Signs - 24 hr 03/10/23 12:55 03/10/23 14:08 03/10/23 12:57 Temperature 97.8 F Pulse Rate 66 62 59 Respiratory Rate 18 18 Blood Pressure 154/64 H 154/79 H 154/62 H Pulse Oximetry 96 97 Oxygen Delivery Method Room Air Room Air 03/10/23 14:33 03/10/23 14:33 Temperature Pulse Rate 60 60 Respiratory Rate Blood Pressure 157/69 H 156/63 H Pulse Oximetry Oxygen Delivery Method BMI result Body Mass Index 24.1 Appearance: Alert. Oriented X3. No acute distress. Head: normocephalic, atraumatic. Eyes: Pupils equal, round and reactive to light. EOMI, no nystagmus. ENT: Pharynx normal. No tonsillar swelling or exudate. Normal TMs bilaterally. Neck: Normal inspection. Neck supple. CVS: Normal heart rate and rhythm. Pulses normal. Respiratory: No respiratory distress. Breath sounds normal. Abdomen: Soft and nontender. +BS x4 Skin: Skin warm and dry. Normal skin color. Normal skin turgor. No rashes. Extremities: No lower extremity edema. No joint swelling. Neuro/psych: Oriented X 3. No motor deficit. No sensory deficit. CN II-XII intact. Normal speech and cognition. Normal finger to toe and heel to naik bilaterally. Course Course Course Narrative: RME: 73-year-old female with a past medical history of diabetes, GERD, HTN, HLD, hypothyroid presenting to the ED complaining of pounding LENZ x2 days with assoc radiation to brain and LUE, lightheadedness, and SOB. Also reports CP last night. Admits to similar LENZ's in the past Ambulating with steady gait. EKG, labs, UA, CXR, orthostatics ordered Full HPI, ROS and PE to be performed by primary ED provider. Medications Administered Discontinued Medications Generic Name Dose Route Start Last Admin Trade Name Gómezq PRN Reason Stop Dose Admin Acetaminophen 975 mg 03/10/23 14:14 03/10/23 14:33 Acetaminophen 325 Mg Tablet PO 03/10/23 14:15 975 mg ONCE ONE Administration Magnesium Sulfate 2 gm in 50 mls @ 25 mls/hr 03/10/23 13:51 03/10/23 14:18 Magnesium Sulfate/H2o IV 03/10/23 15:50 25 mls/hr ONCE ONE Administration Sodium Chloride 1,000 mls @ 999 mls/hr 03/10/23 14:30 03/10/23 15:39 Ns IVCONT 03/10/23 15:30 Infused .Q1H1M ROLAND Infusion Medical Decision Making Medical Decision Making [facility] Narrative: 73 yo female with history of chronic back pain, DM, HTN, HLD, hypothyroidism, GERD,who presents to the ER for evaluation of an occipital headache for the last 3 days. She is neurologically intact. She denies any current dizziness, states it is mild, comes and goes and is chronic. She denies any history of vertigo. She denies any weakness, numbness, tingling. She reports the aching pain radiates from the back of her head down her neck and arm. She denies any chest pain. Her lab workup was unremarkable. Her orthostatic vital signs are negative. Her EKG has no concerning ischemic changes. She has no current chest pain. Her CT head was unremarkable. She is feeling better after Tylenol. At this time she is stable for discharge home. She was encouraged up with her primary care doctor next week. Return precautions were discussed. Differential Diagnosis Differential Diagnoses: The differential diagnosis associated with the presentation includes Migraine headache, cluster headache, atypical migraine, cervical radiculopathy, muscular strain/spasm, vertigo, no evidence of a posterior stroke Lab Data MDM Lab Attestation statement: I reviewed the patient's lab results. Stable anemia, hypomagnesemia which was replaced IV. 03/10/23 13:12 03/10/23 13:12 Labs: Lab Results 03/10/23 03/10/23 03/10/23 Range/Units 13:12 13:12 13:12 WBC 6.0 (4.8-10.8) X10*3/uL RBC 3.95 L (4.20-5.50) X10*6/uL Hgb 11.8 L (12.0-16.0) g/dl Hct 36.0 L (37.0-47.0) % MCV 91.1 (80.0-98.0) fL MCH 29.9 (27.0-33.0) pg MCHC 32.8 (31.0-35.0) g/dl RDW 13.7 (11.0-16.0) % Plt Count 352 (160-400) X10*3/uL MPV 10.2 (9.4-12.3) fL Immature Gran % (Auto) 0.5 H (0.0-0.4) % Neut % (Auto) 51.2 (45-73) % Lymph % (Auto) 36.8 (20-40) % Clark % (Auto) 8.0 (2-11) % Eos % (Auto) 2.2 (0-4) % Baso % (Auto) 1.3 (0-2) % Lymph # (Auto) 2.2 (1.2-4.9) X10*3/uL Clark # (Auto) 0.5 (0.1-1.2) X10*3/uL Eos # (Auto) 0.1 (0.0-0.4) X10*3/uL Baso # (Auto) 0.1 (0.0-0.2) X10*3/uL Abs Immat Gran (auto) 0.03 (0.00-0.03) X10*3/uL Absolute Neuts (auto) 3.1 (2.0-8.3) x10*3/uL Absolute Nucleated RBC 0.000 (0.0-0.012) X10*3/uL Nucleated RBC % (auto) 0.0 (0.0-0.2) /100WBC PT 11.3 (10.0-13.1) SEC INR 1.0 (0.9-1.1) Sodium 137 (135-145) mmol/L Potassium 4.2 (3.3-5.1) mmol/L Chloride 104 (96-108) mmol/L Carbon Dioxide 24 (22-29) mmol/L Anion Gap 13 (12-20) BUN 19 H (9-16) mg/dL Creatinine 0.87 (0.5-1.4) mg/dL Estim Creat Clear Calc 46.2 Estimated GFR > 60 Random Glucose 206 H (60-115) mg/dL Calcium 9.8 (8.4-10.2) mg/dL Magnesium 1.3 L* (1.6-2.6) mg/dL Total Bilirubin 0.6 (0.0-1.0) mg/dL Direct Bilirubin 0.2 (0.0-0.5) mg/dL AST 20 (5-31) U/L ALT 23 (0-31) U/L Alkaline Phosphatase 65 (39-117) U/L Troponin I High Sens (<3.5-17.0) ng/L B-Natriuretic Peptide (<100) pg/mL Total Protein 7.0 (6.5-8.0) g/dL Albumin 4.4 (3.5-5.0) g/dL Urine Color Urine Appearance Urine pH (5.0-9.0) Ur Specific [place] (1.005-1.025) Urine Protein (Neg-Trace) mg/dL Urine Glucose (UA) (Negative) mg/dL Urine Ketones (Negative) mg/dL Urine Blood (Negative) Urine Nitrite (Negative) Ur Leukocyte Esterase (Negative) Urine RBC (0-2) /HPF Urine WBC (0-5) /HPF Ur Squamous Epith Cells (0-2) /HPF Urine Bacteria (None Seen) Hyaline Casts (0-2) /LPF 03/10/23 03/10/23 03/10/23 Range/Units 13:12 13:12 13:12 WBC (4.8-10.8) X10*3/uL RBC (4.20-5.50) X10*6/uL Hgb (12.0-16.0) g/dl Hct (37.0-47.0) % MCV (80.0-98.0) fL MCH (27.0-33.0) pg MCHC (31.0-35.0) g/dl RDW (11.0-16.0) % Plt Count (160-400) X10*3/uL MPV (9.4-12.3) fL Immature Gran % (Auto) (0.0-0.4) % Neut % (Auto) (45-73) % Lymph % (Auto) (20-40) % Clark % (Auto) (2-11) % Eos % (Auto) (0-4) % Baso % (Auto) (0-2) % Lymph # (Auto) (1.2-4.9) X10*3/uL Clark # (Auto) (0.1-1.2) X10*3/uL Eos # (Auto) (0.0-0.4) X10*3/uL Baso # (Auto) (0.0-0.2) X10*3/uL Abs Immat Gran (auto) (0.00-0.03) X10*3/uL Absolute Neuts (auto) (2.0-8.3) x10*3/uL Absolute Nucleated RBC (0.0-0.012) X10*3/uL Nucleated RBC % (auto) (0.0-0.2) /100WBC PT (10.0-13.1) SEC INR (0.9-1.1) Sodium (135-145) mmol/L Potassium (3.3-5.1) mmol/L Chloride (96-108) mmol/L Carbon Dioxide (22-29) mmol/L Anion Gap (12-20) BUN (9-16) mg/dL Creatinine (0.5-1.4) mg/dL Estim Creat Clear Calc Estimated GFR Random Glucose (60-115) mg/dL Calcium (8.4-10.2) mg/dL Magnesium (1.6-2.6) mg/dL Total Bilirubin (0.0-1.0) mg/dL Direct Bilirubin (0.0-0.5) mg/dL AST (5-31) U/L ALT (0-31) U/L Alkaline Phosphatase (39-117) U/L Troponin I High Sens < 2.7 (<3.5-17.0) ng/L B-Natriuretic Peptide 49 (<100) pg/mL Total Protein (6.5-8.0) g/dL Albumin (3.5-5.0) g/dL Urine Color Yellow Urine Appearance Clear Urine pH 7.0 (5.0-9.0) Ur Specific [place] 1.020 (1.005-1.025) Urine Protein Negative (Neg-Trace) mg/dL Urine Glucose (UA) >=1000 H (Negative) mg/dL Urine Ketones Negative (Negative) mg/dL Urine Blood Negative (Negative) Urine Nitrite Negative (Negative) Ur Leukocyte Esterase Negative (Negative) Urine RBC 0-2 (0-2) /HPF Urine WBC 0-5 (0-5) /HPF Ur Squamous Epith Cells 0-2 (0-2) /HPF Urine Bacteria None Seen (None Seen) Hyaline Casts 0-2 (0-2) /LPF Independent Interpretation I performed an independent interpretation of an: EKG and CT Scan Interpretation: normal CT head, agree w/ radiology EKG with normal sinus rhythm, ventricular rate 67 beats per minute, left bundle-branch block which is old compared to prior 2020. Normal WA interval, normal QTC, no ST segment elevations or depressions. Radiology Impression Discussion of test interpretation with radiology: I have reviewed the radiologist's reading. Radiologist Impression: CT/CT head/brain wo IV con IMPRESSION: No acute intracranial pathology. ? Independent Historian Clinical information obtained from an independent historian. History obtained from or confirmed by: Friend External Record Review External record reviewed: Outpatient record, Prior outpatient labs and Prior outpatient radiology Prescription Management I considered prescription management with: Pain Medication Chronic Conditions Patient?s care impacted by: Diabetes and Hypertension Critical Care Time Critical Care Time Critical Care Time: No Discharge Plan Discharge Clinical Impression: Headache Patient Disposition: Home, Self-Care Instructions: General Headache (ED) Additional Instructions: Your lab workup, EKG, CT head were all unremarkable. Recommend Tylenol 975 mg as needed for headache. Also recommend Excedrin migraine as needed for headaches. Rest and stay hydrated. Follow-up with primary care doctor next week. If you develop new or worsening symptoms call 911 or come back to the ER for further evaluation. Whyte an?lisis de laboratorio, electrocardiograma, tomograf?a computarizada de la clair fueron todos normales. Recomiende Tylenol 975 mg seg?n sea necesario para el dolor de clair. Tambi?n recomiendo Excedrin migra?a seg?n sea necesario para los yuki de clair. Descansa y mantente hidratado. Seguimiento con el m?dico de atenci?n primaria la pr?xima semana. Si desarrolla s?ntomas nuevos o que empeoran, llame al 911 o regrese a la gilmar de emergencias para uzma evaluaci?n adicional. Prescriptions: No Action lidocaine 5 % ointment 1 appl topical DAILY PRN (Reason: pain) Qty: 30 0RF diclofenac sodium [Voltaren Arthritis Pain] 1 % gel 4 g topical QID PRN (Reason: pain) Qty: 100 0RF cyclobenzaprine 5 mg tablet 5 mg PO TID PRN (Reason: muscle spasm) Qty: 10 0RF lidocaine [Lidoderm] 5 % adhesive patch,medicated 1 patch topical DAILY Qty: 15 0RF Rx Instructions: leave on most painful area for up to 12 hrs Jardiance 25 mg tablet 25 mg PO DAILY hydrochlorothiazide 12.5 mg tablet 12.5 mg PO DAILY repaglinide 1 mg tablet 2 mg PO BID metformin 500 mg tablet extended release 24 hr 1,000 mg PO BID fluticasone propionate 50 mcg/actuation spray,suspension intranasal lisinopril 40 mg tablet 40 mg PO BID gabapentin 100 mg capsule 100 mg PO TID metoprolol tartrate 50 mg tablet PO levothyroxine 75 mcg tablet 75 mcg PO DAILY aspirin 81 mg tablet,delayed release (DR/EC) 81 mg PO DAILY cetirizine 10 mg tablet 10 mg PO DAILY acetaminophen 500 mg tablet PO calcium carbonate-vitamin D3 600 mg-10 mcg (400 unit) tablet 1 tab PO omeprazole 20 mg capsule,delayed release(DR/EC) 20 mg PO QAM atorvastatin 40 mg tablet 40 mg PO BEDTIME Referrals: Kimberly Jon, [employer] REPAIR PERSON [Primary Care Provider] - Print Language: Malaysian
[2023-03-10 12:55] VITALS: BP 154/64; PULSE 66; RESP 18; TEMP 36.6; O2SAT 96; BMI 24.1
[2023-03-10 12:57] VITALS: BP 154/62; PULSE 59
--- NOTE | 2023-03-10 12:57 | ECG_ITS ---
Test Reason : weakness Blood Pressure : / mmHG Vent. Rate : 067 BPM Atrial Rate : 067 BPM P-R Int : 142 ms QRS Dur : 122 ms QT Int : 426 ms P-R-T Axes : 000 010 098 degrees QTc Int : 450 ms Normal sinus rhythm Left bundle branch block Abnormal ECG When compared with ECG of 23-APR-2011 12:05, No significant change was found Referred By: Isabelle Barker Electronically Signed By:TRISTEN LAW
[2023-03-10 13:18] LABS: Basophils Absolute Auto 0.1 X10*3/uL (0.0-0.2); Basophils Percent Auto 1.3 % (0-2); Eosinophils Absolute Auto 0.1 X10*3/uL (0.0-0.4); Eosinophils Percent Auto 2.2 % (0-4); Hemoglobin 11.8 g/dl (12.0-16.0); Imm Gran Abs Auto 0.03 X10*3/uL (0.00-0.03); Imm Gran Pct Auto 0.5 % (0.0-0.4); Lymphocytes Absolute Auto 2.2 X10*3/uL (1.2-4.9); Lymphocytes Percent Auto 36.8 % (20-40); MANUAL DIFF FLAG NO; Mean Corpuscular HGB Conc 32.8 g/dl (31.0-35.0); Mean Corpuscular Hemoglobin 29.9 pg (27.0-33.0); Mean Corpuscular Volume 91.1 fL (80.0-98.0); Mean Platelet Volume 10.2 fL (9.4-12.3); Monocytes Absolute Auto 0.5 X10*3/uL (0.1-1.2); Neutrophils Absolute Auto 3.1 x10*3/uL (2.0-8.3); Neutrophils Percent Auto 51.2 % (45-73); Platelet Count 352 X10*3/uL (160-400); Red Blood Count 3.95 X10*6/uL (4.20-5.50); Red Cell Distribution Width 13.7 % (11.0-16.0)
[2023-03-10 13:20] LABS: Appearance Urine Clear; Color Urine Yellow; Glucose Urine UA >=1000 mg/dL (Negative); Leukocyte Esterase Urine Negative (Negative); Nitrite Urine Negative (Negative); UMIC TRIGGER UACC YES; Urine Blood Negative (Negative); Urine Ketones Negative (Negative); Urine Protein Negative (Neg-Trace)
[2023-03-10 13:22] LABS: Bacteria Urine None Seen (None Seen); Hyaline Casts Urine 0-2 /LPF (0-2); RBC Urine 0-2 /HPF (0-2); Squamous Epithelial Cell Urine 0-2 /HPF (0-2); WBC Urine 0-5 /HPF (0-5)
[2023-03-10 13:24] LABS: Prothrombin Time 11.3 SEC (10.0-13.1)
[2023-03-10 13:43] LABS: B Type Natriuretic Peptide 49 pg/mL (<100)
[2023-03-10 13:51] LABS: Alanine Aminotransferase 23 U/L (0-31); Albumin Level 4.4 g/dL (3.5-5.0); Alkaline Phosphatase 65 U/L (39-117); Anion Gap 13 (12-20); Aspartate Amino Transferase 20 U/L (5-31); Bilirubin Direct 0.2 mg/dL (0.0-0.5); Bilirubin Total 0.6 mg/dL (0.0-1.0); Blood Urea Nitrogen 19 mg/dL (9-16); Calcium 9.8 mg/dL (8.4-10.2); Carbon Dioxide 24 mmol/L (22-29); Chloride 104 mmol/L (96-108); Creatinine Clr Calc Pharmacy 46.2; Estimated Glomerular Filt Rate > 60; Glucose Random 206 mg/dL (60-115); Magnesium 1.3 mg/dL (1.6-2.6); Potassium 4.2 mmol/L (3.3-5.1); Sodium 137 mmol/L (135-145); Troponin-I High Sensitivity < 2.7 ng/L (<3.5-17.0)
[2023-03-10 14:08] VITALS: BP 154/79; PULSE 62; RESP 18; O2SAT 97
[2023-03-10] MEDS: Magnesium Sulfate/H2O 2 GM/50 ML PIGGYBACK IV (14:18)
[2023-03-10 14:33] VITALS: BP 156/63; BP 157/69; PULSE 60
[2023-03-10] MEDS: 0.9 % Sodium Chloride 1,000 ML 999 ML IVCONT (14:33)
[2023-03-10] MEDS: Acetaminophen 325 MG TABLET 975 MG PO (14:33)
== END 2023-03-10 16:13 | disposition home or self-care (01) ==
PROVIDERS: Physician Assistant; Emergency Provider Emergency Medicine; PCP Nurse Practitioner Primary Care
DX: R51.9 Headache, unspecified (principal); R06.02 Shortness of breath; R42 Dizziness and giddiness; I10 Essential (primary) hypertension; E11.9 Type 2 diabetes mellitus without complications; E78.5 Hyperlipidemia, unspecified; Z79.02 Long term (current) use of antithrombotics/antiplatelets; Z79.899 Other long term (current) drug therapy
CPT/HCPCS: 36415; 70450; 71045; 80048; 80076; 81001; 83735; 83880; 84484; 85025; 85610; 93005; 96361; 96374; 99284; J3475

== ENCOUNTER 2023-05-10 11:08 | Outpatient (REF) | payer OTHER, SELFPAY ==
[2023-05-10 13:22] LABS: Appearance Urine Clear; Color Urine Yellow; Glucose Urine UA >=1000 mg/dL (Negative); Leukocyte Esterase Urine Negative (Negative); Nitrite Urine Negative (Negative); Specific Gravity - Urine 1.025 (1.005-1.025); UMIC TRIGGER UACC YES; Urine Blood Negative (Negative); Urine Ketones Negative (Negative); Urine Protein Negative (Neg-Trace)
[2023-05-10 13:27] LABS: Bacteria Urine None Seen (None Seen); Hyaline Casts Urine 0-2 /LPF (0-2); RBC Urine 0-2 /HPF (0-2); Squamous Epithelial Cell Urine 0-2 /HPF (0-2); WBC Urine 0-5 /HPF (0-5)
[2023-05-10 14:23] LABS: Anion Gap 15 (12-20); Blood Urea Nitrogen 14 mg/dL (9-16); Calcium 10.9 mg/dL (8.4-10.2); Carbon Dioxide 25 mmol/L (22-29); Chloride 102 mmol/L (96-108); Cholesterol 113 mg/dL; Estimated Glomerular Filt Rate > 60; Glucose Random 136 mg/dL (60-115); HDL Cholesterol 46 mg/dL; LDL Cholesterol Calculated 45 mg/dl; Magnesium 1.7 mg/dL (1.6-2.6); Potassium 4.3 mmol/L (3.3-5.1); Sodium 138 mmol/L (135-145); Triglycerides 112 mg/dL
[2023-05-10 14:37] LABS: Creatinine Urine 55.93 mg/dL; Microalbumin Urine < 5.0 mg/L
[2023-05-10 14:49] LABS: TSH reflex Free T4 0.87 uIU/mL (0.32-4.0)
== END 2023-05-10 11:09 | disposition home or self-care (01) ==
LOC: HO.HHCL 11:08
PROVIDERS: Visit Provider Nurse Practitioner Primary Care
DX: E11.69 Type 2 diabetes mellitus with other specified complication (principal); E78.5 Hyperlipidemia, unspecified; R30.0 Dysuria
CPT/HCPCS: 36415; 80048; 80061; 81001; 82043; 83735; 84443

== ENCOUNTER 2023-05-15 13:43 | Emergency (ER) | payer OTHER, SELFPAY ==
[2023-05-15 13:47] VITALS: BP 158/54; PULSE 67; RESP 16; TEMP 36.4; O2SAT 96; BMI 23.2
--- NOTE | 2023-05-15 13:47 | ED_ITS ---
HPI - General Adult General Chief complaint: Wound/Laceration Stated complaint: l thumb laceration Time Seen by Provider: 05/15/23 20:43 Source: patient Mode of arrival: ambulatory Limitations: language barrier (Serbian-speaking medical delivery technician utilized) History of Present Illness HPI narrative: Patient is a 73-year-old female presents emergency department for evaluation of a laceration to the left thumb that she sustained from a knife prior to arrival while cooking. Last tetanus vaccination is unknown. Bleeding is currently controlled. Denies use of anticoagulants or coagulation disorder. Denies numb ness or tingling. Able to flex and extend the digit. Related Data Home Medications Medication Instructions Recorded Confirmed acetaminophen 500 mg tablet mg PO 07/28/22 aspirin 81 mg tablet,delayed 81 mg PO DAILY 07/28/22 release atorvastatin 40 mg tablet 40 mg PO BEDTIME 07/28/22 calcium carbonate 600 mg-vitamin 1 tab PO 07/28/22 D3 10 mcg (400 unit) tablet cetirizine 10 mg tablet 10 mg PO DAILY 07/28/22 empagliflozin 25 mg tablet 25 mg PO DAILY 07/28/22 (Jardiance) fluticasone propionate 50 spray intranasal 07/28/22 mcg/actuation nasal spray,suspension gabapentin 100 mg capsule 100 mg PO TID 07/28/22 hydrochlorothiazide 12.5 mg tablet 12.5 mg PO DAILY 07/28/22 levothyroxine 75 mcg tablet 75 mcg PO DAILY 07/28/22 lisinopril 40 mg tablet 40 mg PO BID 07/28/22 metformin 500 mg tablet,extended 1,000 mg PO BID 07/28/22 release 24 hr metoprolol tartrate 50 mg tablet mg PO 07/28/22 omeprazole 20 mg capsule,delayed 20 mg PO QAM 07/28/22 release repaglinide 1 mg tablet 2 mg PO BID 07/28/22 Previous Rx's Medication Instructions Recorded lidocaine 5 % topical ointment 1 appl topical DAILY PRN pain #30 02/12/22 grams cyclobenzaprine 5 mg tablet 5 mg PO TID PRN muscle spasm #10 08/08/22 tabs diclofenac sodium 1 % topical gel 4 g topical QID PRN pain #100 grams 08/08/22 (Voltaren Arthritis Pain) lidocaine 5 % topical patch 1 patch topical DAILY #15 ea 08/08/22 (Lidoderm) cephalexin 500 mg capsule 500 mg PO QID 5 days #20 caps 05/15/23 Allergies Allergy/AdvReac Type Severity Reaction Status Date / Time Seafood Allergy Mild THROAT Uncoded 05/15/23 13:47 ITCHING Shellfish Allergy Mild UNKNOWN Uncoded 05/15/23 13:47 seeafood Allergy Unknown throat Uncoded 05/15/23 13:47 swelling, itching Review of Systems Review of Systems: Yes all other systems are reviewed and are negative [facility] Past Medical History Attestation statement: The following information was validated with the patient. Source: old records reviewed Medical History Diabetes GERD (gastroesophageal reflux disease) HTN (hypertension) Hyperlipidemia Hypothyroid Social History Social History Patient Tobacco Use Status: Never used Tobacco Advance Directives: No Advance Directives Information Provided: Yes Physical Exam ED Vital Signs: Vital Signs - 24 hr 05/15/23 13:47 Temperature 97.6 F Pulse Rate 67 Respiratory Rate 16 Blood Pressure 158/54 H Pulse Oximetry 96 Oxygen Delivery Method Room Air BMI result Body Mass Index 23.2 Appearance: Alert.?Oriented to person, place and time. No acute distress.?Normal affect. CVS: Heart sounds normal. Normal heart rate and rhythm.? Pulses normal.?? Respiratory: No respiratory distress.? Lung sounds clear to auscultation bilaterally?? Abdomen: Soft and non-tender. Skin: Skin warm and dry.? Normal skin color.???3 cm linear laceration over left 1st digit DIP Neuro: Moves all extremities spontaneously. Sensation intact bilaterally. Ambulates with normal steady gait. Course Course Course Narrative: This is an RME: Additional HPI, ROS, PE not included below will be deferred to primary provider. 73-year-old female presenting to the emergency department for evaluation of left thumb laceration since today. Patient accidentally lacerated her left thumb on and off while cutting ham today. She is unsure when her last tetanus is.Linear 3 cm partial-thickness laceration noted, no active bleeding. Trauma verses suture repair and wound cleansing needed and main department. Plan: Updated tetanus and wound repair Procedures Laceration Laceration 1: Site: hand Side (If applicable): left Size (cm): 3 Description: linear Depth: simple, single layer Local Anesthetic: lidocaine 1% Amount of anesthesia used (mL): 2 Pre-repair: wound explored, irrigated extensively and deep structures intact Skin layer closed with: nylon Size (cm): 5-0 Number of sutures: 3 Technique: simple, interrupted Medical Decision Making Medical Decision Making MDM Narrative: Patient is a 73-year-old female presents emergency department for evaluation of left thumb laceration. Range of motion is intact. Low suspicion for tendon involvement or acute fracture. Tdap updated. Wound irrigated extensively. No foreign bodies noted. Repair with sutures as per procedure note. Tolerated well. Outpatient follow-up with PCP and/or return to the emergency department for suture removal in 8-10 days. Reviewed signs of infection. All questions answered. Stable for discharge.. Differential Diagnosis Differential Diagnoses: The differential diagnosis associated with the presentation includes (As noted above) Independent Historian Clinical information obtained from an independent historian. History obtained from or confirmed by: Other (Daughter who confirms history) Tests considered The following testing was considered but not selected: Considered XR imaging for evaluation of foreign body and/or acute fracture, based on physical examination did not feel warranted, XR imaging was deferred Prescription Management I considered prescription management with: Pain Medication Chronic Conditions Patient?s care impacted by: Diabetes Discharge Plan Discharge Clinical Impression: Laceration Patient Disposition: Home, Self-Care Additional Instructions: Your tetanus vaccine was updated today. Sutures were placed to year left thumb, these will need to be removed in 8-10 days. You may return back to the [facility] department or follow-up with your primary care provider for removal. Take entire course of antibiotic as prescribed to prevent infection. If you develop increasing pain, swelling, redness, warmth, fevers, chills, pus-like discharge than you should have this re-evaluated. Feel free to return to the emergency department any new or worsening symptoms or concerns. Prescriptions: New cephalexin 500 mg capsule 500 mg PO QID 5 Days Qty: 20 0RF No Action lidocaine 5 % ointment 1 appl topical DAILY PRN (Reason: pain) Qty: 30 0RF diclofenac sodium [Voltaren Arthritis Pain] 1 % gel 4 g topical QID PRN (Reason: pain) Qty: 100 0RF cyclobenzaprine 5 mg tablet 5 mg PO TID PRN (Reason: muscle spasm) Qty: 10 0RF lidocaine [Lidoderm] 5 % adhesive patch,medicated 1 patch topical DAILY Qty: 15 0RF Rx Instructions: leave on most painful area for up to 12 hrs Jardiance 25 mg tablet 25 mg PO DAILY hydrochlorothiazide 12.5 mg tablet 12.5 mg PO DAILY repaglinide 1 mg tablet 2 mg PO BID metformin 500 mg tablet extended release 24 hr 1,000 mg PO BID fluticasone propionate 50 mcg/actuation spray,suspension intranasal lisinopril 40 mg tablet 40 mg PO BID gabapentin 100 mg capsule 100 mg PO TID metoprolol tartrate 50 mg tablet PO levothyroxine 75 mcg tablet 75 mcg PO DAILY aspirin 81 mg tablet,delayed release (DR/EC) 81 mg PO DAILY cetirizine 10 mg tablet 10 mg PO DAILY acetaminophen 500 mg tablet PO calcium carbonate-vitamin D3 600 mg-10 mcg (400 unit) tablet 1 tab PO omeprazole 20 mg capsule,delayed release(DR/EC) 20 mg PO QAM atorvastatin 40 mg tablet 40 mg PO BEDTIME Referrals: Kimberly Jon NP [Primary Care Provider] -
[2023-05-15] MEDS: Lidocaine HCl 1 % MPF 5 ML VIAL SUBCUT (21:37)
[2023-05-15] MEDS: Diphth,Pertus(ACell),Tet Adult 0.5 ML SYRINGE IM (21:37)
[2023-05-15 22:14] VITALS: BP 170/76; PULSE 77; RESP 18; TEMP 36.6; O2SAT 98
== END 2023-05-15 22:30 | disposition home or self-care (01) ==
PROVIDERS: Emergency Provider Student in an Organized Health Care Education/Training Program; PCP Nurse Practitioner Primary Care
DX: S61.012A Laceration without foreign body of left thumb without damage to nail, initial encounter (principal); W26.0XXA Contact with knife, initial encounter; E11.9 Type 2 diabetes mellitus without complications; I10 Essential (primary) hypertension; E78.5 Hyperlipidemia, unspecified; Y93.G1 Activity, food preparation and clean up; Y92.9 Unspecified place or not applicable; Y99.9 Unspecified external cause status
CPT/HCPCS: 12002; 90471; 90715; 99282; 99283; 99284

== ENCOUNTER 2023-05-23 11:08 | Emergency (ER) | payer OTHER, SELFPAY ==
[2023-05-23 11:18] VITALS: BP 137/56; PULSE 63; RESP 18; TEMP 36; O2SAT 97; BMI 23.2
--- NOTE | 2023-05-23 11:23 | ED.GENADULT ---
HPI - General Adult General Chief complaint: General Medical Stated complaint: suture removal Time Seen by Provider: 05/23/23 11:19 Source: patient, family and RN notes reviewed Mode of arrival: ambulatory Limitations: language barrier History of Present Illness HPI narrative: 73-year-old female presents for evaluation of a suture removal to the left thumb. She had 3 sutures placed 8 days ago at this facility after accidentally cutting herself while cooking Denies any issues with the wounds Related Data Home Medications Medication Instructions Recorded Confirmed acetaminophen 500 mg tablet mg PO 07/28/22 aspirin 81 mg tablet,delayed 81 mg PO DAILY 07/28/22 release atorvastatin 40 mg tablet 40 mg PO BEDTIME 07/28/22 calcium carbonate 600 mg-vitamin 1 tab PO 07/28/22 D3 10 mcg (400 unit) tablet cetirizine 10 mg tablet 10 mg PO DAILY 07/28/22 empagliflozin 25 mg tablet 25 mg PO DAILY 07/28/22 (Jardiance) fluticasone propionate 50 spray intranasal 07/28/22 mcg/actuation nasal spray,suspension gabapentin 100 mg capsule 100 mg PO TID 07/28/22 hydrochlorothiazide 12.5 mg tablet 12.5 mg PO DAILY 07/28/22 levothyroxine 75 mcg tablet 75 mcg PO DAILY 07/28/22 lisinopril 40 mg tablet 40 mg PO BID 07/28/22 metformin 500 mg tablet,extended 1,000 mg PO BID 07/28/22 release 24 hr metoprolol tartrate 50 mg tablet mg PO 07/28/22 omeprazole 20 mg capsule,delayed 20 mg PO QAM 07/28/22 release repaglinide 1 mg tablet 2 mg PO BID 07/28/22 Previous Rx's Medication Instructions Recorded lidocaine 5 % topical ointment 1 appl topical DAILY PRN pain #30 02/12/22 grams cyclobenzaprine 5 mg tablet 5 mg PO TID PRN muscle spasm #10 08/08/22 tabs diclofenac sodium 1 % topical gel 4 g topical QID PRN pain #100 grams 08/08/22 (Voltaren Arthritis Pain) lidocaine 5 % topical patch 1 patch topical DAILY #15 ea 08/08/22 (Lidoderm) cephalexin 500 mg capsule 500 mg PO QID 5 days #20 caps 05/15/23 Allergies Allergy/AdvReac Type Severity Reaction Status Date / Time Seafood Allergy Mild THROAT Uncoded 05/15/23 13:47 ITCHING Shellfish Allergy Mild UNKNOWN Uncoded 05/15/23 13:47 seeafood Allergy Unknown throat Uncoded 05/15/23 13:47 swelling, itching PMFSH Past Medical History Medical History Diabetes GERD (gastroesophageal reflux disease) HTN (hypertension) Hyperlipidemia Hypothyroid Social History Social History Patient Tobacco Use Status: Never used Tobacco Physical Exam ED Vital Signs: Vital Signs - 24 hr 05/23/23 11:18 Temperature 96.8 F Pulse Rate 63 Respiratory Rate 18 Blood Pressure 137/56 L Pulse Oximetry 97 Oxygen Delivery Method Room Air BMI result Body Mass Index 23.2 Skin Other: Patient has 3 sutures intact to the dorsal surface of the left thumb. No active bleeding, no surrounding erythema. No evidence of wound dehiscence, wound appears well healed Medical Decision Making Medical Decision Making MDM Narrative: I was easily able to remove 3 sutures from the left thumb without any complications or bleeding. Differential Diagnosis Suture removal Wound check Laceration Puncture Discharge Plan Discharge Clinical Impression: Encounter for removal of sutures Patient Disposition: Home, Self-Care Instructions: Stitches Removal (ED) Prescriptions: No Action lidocaine 5 % ointment 1 appl topical DAILY PRN (Reason: pain) Qty: 30 0RF diclofenac sodium [Voltaren Arthritis Pain] 1 % gel 4 g topical QID PRN (Reason: pain) Qty: 100 0RF cyclobenzaprine 5 mg tablet 5 mg PO TID PRN (Reason: muscle spasm) Qty: 10 0RF lidocaine [Lidoderm] 5 % adhesive patch,medicated 1 patch topical DAILY Qty: 15 0RF Rx Instructions: leave on most painful area for up to 12 hrs cephalexin 500 mg capsule 500 mg PO QID 5 Days Qty: 20 0RF Jardiance 25 mg tablet 25 mg PO DAILY hydrochlorothiazide 12.5 mg tablet 12.5 mg PO DAILY repaglinide 1 mg tablet 2 mg PO BID metformin 500 mg tablet extended release 24 hr 1,000 mg PO BID fluticasone propionate 50 mcg/actuation spray,suspension intranasal lisinopril 40 mg tablet 40 mg PO BID gabapentin 100 mg capsule 100 mg PO TID metoprolol tartrate 50 mg tablet PO levothyroxine 75 mcg tablet 75 mcg PO DAILY aspirin 81 mg tablet,delayed release (DR/EC) 81 mg PO DAILY cetirizine 10 mg tablet 10 mg PO DAILY acetaminophen 500 mg tablet PO calcium carbonate-vitamin D3 600 mg-10 mcg (400 unit) tablet 1 tab PO omeprazole 20 mg capsule,delayed release(DR/EC) 20 mg PO QAM atorvastatin 40 mg tablet 40 mg PO BEDTIME
== END 2023-05-23 11:30 | disposition home or self-care (01) ==
PROVIDERS: Emergency Provider Emergency Medicine; PCP Nurse Practitioner Primary Care
DX: Z48.02 Encounter for removal of sutures (principal); S61.012D Laceration without foreign body of left thumb without damage to nail, subsequent encounter; W26.0XXD Contact with knife, subsequent encounter; I10 Essential (primary) hypertension; E11.9 Type 2 diabetes mellitus without complications; E78.5 Hyperlipidemia, unspecified; Z79.899 Other long term (current) drug therapy
CPT/HCPCS: 99282

== ENCOUNTER 2023-07-29 10:51 | Emergency (ER) | payer OTHER, SELFPAY ==
--- NOTE | ~2023-07-29 | CT_ITS ---
EXAMINATION: CT ABDOMEN AND PELVIS WITHOUT CONTRAST CLINICAL INFORMATION: Right back pain radiating to the right lower abdomen. COMPARISON: CT scan of the abdomen and pelvis dated 02/12/2022 and 03/28/2013. Abdominal ultrasound dated 03/04/2022. TECHNIQUE: Multidetector volumetric imaging was performed from the superior aspect of the liver through the pubic symphysis. Sagittal and coronal reformatted images were obtained on the technologist workstation. This CT examination was performed using dose optimization techniques as appropriate, variously including the following: *Automated exposure control *Adjustment of mA and/or kV according to patient size (this includes techniques or standardized protocols for targeted exams where dose is matched to indication/reason for exam; i.e. extremities or head) *Use of iterative reconstruction technique DLP: 644.07 mGy-cm. FINDINGS: LUNG BASES: Small amount of linear dependent atelectasis seen adjacent to the left major fissure in the lingula. Small amount of reticular opacity with mild traction bronchiolectasis partially included in the paraspinal right lower lobe (series 6, image 1), consistent with minimal scarring, similar to the prior exams. LIVER, GALLBLADDER, AND BILIARY TREE: The liver is normal in size, shape, and attenuation. No focal hepatic lesion on noncontrast imaging. No biliary ductal dilatation is present. The gallbladder is unremarkable with no evidence of radiopaque gallstones, gallbladder wall thickening, or obvious pericholecystic inflammatory changes. PANCREAS: Unremarkable on noncontrast imaging. SPLEEN: Unremarkable. ADRENAL GLANDS: The right adrenal gland is normal. There is a 1 cm diameter low-attenuation left adrenal nodule arising from the lateral limb (series 3, image 20) with mean attenuation values of -6.1 Hounsfield units, consistent with a benign lipid rich adenoma, unchanged dating back to 03/28/2013. KIDNEYS AND URETERS: The kidneys are normal in size, shape, and attenuation. No hydronephrosis, hydroureter, or calculi seen. Mild prominence of the extrarenal pelvis sees is seen bilaterally. The proximal and mid right ureter is mildly dilated down to the crossing iliac vessels with the distal right ureter decompressed. No renal or ureteral calculi are seen. No perinephric stranding. There is a small 0.6 cm low-attenuation mass in the mid right kidney, with mean attenuation values of 8.9 Hounsfield units, consistent with a benign cyst, similar to prior exams. No additional imaging follow-up is recommended. No suspicious renal mass noted. BLADDER: Partially distended and suboptimally assessed, but grossly unremarkable. No bladder calculi seen. PELVIC VISCERA: Uterus anteverted and anteflexed and mildly enlarged for a postmenopausal patient, measuring 7.2 x 4.8 x 6.1 cm, similar to the previous exam. There is a large partially calcified anterior uterine body contour deforming intramural fibroid with subserosal extension, measuring approximately 3.3 cm in diameter. Ovaries bilaterally are prominent in size for the late postmenopausal patient but grossly unremarkable, appearing bilaterally symmetric. Appearance of the pelvic organs is unchanged from prior exams dating back to 03/28/2013. GASTROINTESTINAL TRACT: Large amount of fecal material is seen in the ascending colon and in the descending and rectosigmoid colon. Mild rectal fecal impaction is seen without significant wall thickening or surrounding fat stranding or edema seen to suspect stercoral colitis. Appendix is visualized. There is a 0.6 cm calcified appendicolith within the proximal appendix and more amorphous hyperdensity in the downstream appendix, similar to the previous exam. No abnormal appendiceal dilatation or surrounding periappendiceal fat stranding or edema is seen. ABDOMINAL WALL: No significant hernia is appreciated. LYMPH NODES, VASCULAR: Abdominal aorta is normal in caliber with moderate to severe atherosclerotic calcification seen extending into the branch vessels, including the iliofemoral vessels. No periaortic collections. No significant abdominal or pelvic adenopathy or free fluid collection seen. OSSEOUS STRUCTURES: There is straightening of the normal lumbar lordosis and severe degenerative disc disease is seen at L4-L5 and moderate degenerative disc disease at L5-S1 with disc space narrowing, vertebral endplate sclerosis, spurring, cystic changes and vacuum disc phenomenon. Mild degenerative disc disease is seen in the remaining lumbar spine and in the lower thoracic spine. Mild facet arthropathy seen in the mid and lower lumbar spine. Minimal S-shaped thoracolumbar scoliosis is seen. CT/CT abdomen pelvis wo IV con IMPRESSION: 1. No acute intra-abdominal or pelvic findings seen to explain the patient's right back pain. An appendicolith is noted within the appendix as discussed above, but no evidence of acute appendicitis is seen. 2. Chronic mild prominence of the proximal and mid right ureter down to the crossing iliac vessels at the pelvic brim. No evidence of nephrolithiasis or obstructive uropathy. 3. Prominent amount of fecal material is seen in the colon with mild rectal fecal impaction seen. No evidence of bowel obstruction or perforation. 4. Chronic benign findings of a small left adrenal adenoma and mildly enlarged uterus with large intramural fibroid, and prominent bilateral ovaries. No suspicious pelvic mass. 5. Moderate to severe atherosclerotic vascular calcifications. 6. Degenerative changes in the spine, most severe at L4-L5 and L5-S1.
[2023-07-29 10:54] VITALS: BP 155/92; PULSE 70; RESP 15; TEMP 36.4; O2SAT 98; BMI 23.2
--- NOTE | 2023-07-29 11:09 | ED.GENADULT ---
HPI - General Adult General Chief complaint: Extremity Problem Stated complaint: r hip pain no inj Time Seen by Provider: 07/29/23 11:00 Source: patient and family Mode of arrival: ambulatory Limitations: language barrier History of Present Illness HPI narrative: 73-year-old female with a history of diabetes, hypertension, high cholesterol, hypothyroidism, sacroiliitis presents the ER with complaints of right-sided back pain with trigger radiates to her right buttocks and down her right leg and into her right abdomen. Patient reports she has had pain for 2-3 days. No injury or trauma. She does have this history of sacroiliitis and has had cortisone injections under fluoroscopy and states this pain feels similar however she does not normally have associated abdominal pain with her sacroiliitis. She has no urinary symptoms. No fevers, chills, vomiting, diarrhea. No numbness in the groin. No bowel or bladder incontinence. Patient is ambulatory. Patient has been taking Tylenol at home with continued symptoms of note, patient is Czech-speaking. She has her family at the bedside and they declined parts interpreter services as they want to interpret for the patient and she is comfortable with this plan Related Data Home Medications Medication Instructions Recorded Confirmed acetaminophen 500 mg tablet mg PO 07/28/22 aspirin 81 mg tablet,delayed 81 mg PO DAILY 07/28/22 release atorvastatin 40 mg tablet 40 mg PO BEDTIME 07/28/22 calcium carbonate 600 mg-vitamin 1 tab PO 07/28/22 D3 10 mcg (400 unit) tablet cetirizine 10 mg tablet 10 mg PO DAILY 07/28/22 empagliflozin 25 mg tablet 25 mg PO DAILY 07/28/22 (Jardiance) fluticasone propionate 50 spray intranasal 07/28/22 mcg/actuation nasal spray,suspension gabapentin 100 mg capsule 100 mg PO TID 07/28/22 hydrochlorothiazide 12.5 mg tablet 12.5 mg PO DAILY 07/28/22 levothyroxine 75 mcg tablet 75 mcg PO DAILY 07/28/22 lisinopril 40 mg tablet 40 mg PO BID 07/28/22 metformin 500 mg tablet,extended 1,000 mg PO BID 07/28/22 release 24 hr metoprolol tartrate 50 mg tablet mg PO 07/28/22 omeprazole 20 mg capsule,delayed 20 mg PO QAM 07/28/22 release repaglinide 1 mg tablet 2 mg PO BID 07/28/22 Previous Rx's Medication Instructions Recorded lidocaine 5 % topical ointment 1 appl topical DAILY PRN pain #30 02/12/22 grams cyclobenzaprine 5 mg tablet 5 mg PO TID PRN muscle spasm #10 08/08/22 tabs diclofenac sodium 1 % topical gel 4 g topical QID PRN pain #100 grams 08/08/22 (Voltaren Arthritis Pain) lidocaine 5 % topical patch 1 patch topical DAILY #15 ea 08/08/22 (Lidoderm) cephalexin 500 mg capsule 500 mg PO QID 5 days #20 caps 05/15/23 cyclobenzaprine 10 mg tablet 10 mg PO TID PRN muscle spasm #15 07/29/23 tabs lidocaine 5 % topical patch 1 patch topical DAILY #15 ea 07/29/23 (Lidoderm) naproxen 500 mg tablet 500 mg PO BID PRN pain #20 tabs 07/29/23 Allergies Allergy/AdvReac Type Severity Reaction Status Date / Time Seafood Allergy Mild THROAT Uncoded 05/15/23 13:47 ITCHING Shellfish Allergy Mild UNKNOWN Uncoded 05/15/23 13:47 seeafood Allergy Unknown throat Uncoded 05/15/23 13:47 swelling, itching Review of Systems Review of Systems: Yes all other systems are reviewed and are negative Constitutional: Constitutional: Reports no additional constitutional complaints, Denies body ache(s), Denies chills, Denies fever(s), Denies headache(s) and Denies weakness Eyes: Eyes: Reports no additional eye complaints and Denies change in vision ENT: Reports system reviewed and no additional complaints, except as documented, Denies dizziness, Denies headache(s), Denies nasal congestion, Denies nasal discharge and Denies neck pain Cardiovascular: Cardiovascular: Reports no additional cardiovascular complaints, Denies chest pain, Denies leg edema and Denies dyspnea Respiratory: Respiratory: Reports no additional respiratory complaints, Denies cough and Denies dyspnea Gastrointestinal: Gastrointestinal: Reports no additional gastrointestinal complaints, Reports abdominal pain, Denies diarrhea, Denies nausea and Denies vomiting Genitourinary: Genitourinary: Reports no additional female genitourinary complaints and Denies urinary incontinence Musculoskeletal: Musculoskeletal: Reports no additional musculoskeletal complaints, Reports back pain, Denies arthralgias, Denies joint swelling, Denies neck pain, Denies numbness, Reports radiating pain into limb and Denies tingling Integumentary/Breasts: Skin/Breast: Reports system reviewed and no additional complaints, except as docu and Denies rash Neurologic: Reports system reviewed and no additional complaints, except as documented, Denies Abnormal speech present, Denies dizziness, Denies headache(s), Denies numbness, Denies tingling and Denies weakness PMFSH Past Medical History Attestation statement: The following information was validated with the patient. Source: old records reviewed and nursing notes reviewed Medical History Hyperlipidemia Hypothyroid Diabetes HTN (hypertension) GERD (gastroesophageal reflux disease) Social History Social History Patient Tobacco Use Status: Never used Tobacco Advance Directives: No Advance Directives Information Provided: Yes Physical Exam ED Vital Signs: Vital Signs - 24 hr 07/29/23 10:54 Temperature 97.6 F Pulse Rate 70 Respiratory Rate 15 Blood Pressure 155/92 H Pulse Oximetry 98 Oxygen Delivery Method Room Air BMI result Body Mass Index 23.2 Const General: cooperative, healthy appearing, comfortable and no acute distress Orientation/consciousness: patient oriented x3 Limitations: no limitations HENMT Head: Yes normal to inspection Ears: hearing grossly normal bilaterally General nose exam: Normal external nose present Face and sinus: Yes normal facial exam Mouth: Normal oral and palatal mucosa present Throat: Yes posterior oropharynx normal Eyes General: appearance normal, both eyes and all related structures Pupils: Equal, round and reactive pupils present Neck Neck: Yes normal visual inspection Chest Chest palpation & inspection: normal inspection of the chest Resp Effort & Inspection: normal respiratory effort Auscultation: clear to auscultation bilaterally Cardio Rate: regular rate Rhythm: regular rhythm Peripheral pulses: Peripheral pulses 2+ throughout GI Inspection: Yes normal to inspection and No distended Palpation (GI): Soft to palpation, Tenderness to palpation present (GI) ( Tenderness the suprapubic area and right lower quadrant with no rebound) and no guarding Auscultation: normal bowel sounds Back/Spine/Pelvis Other: pain on palpation to the right posterior SI joint and over the right buttocks. Pain is worsened with straight leg raise right-side. Thoracic/Lumbar Spine: thoracic and lumbar spine normal to inspection Sacroiliac joints: on the right tender to palpation and by passive hyperextension of lower ext Skin General skin exam: no rashes or lesions noted Neuro General: patient oriented x3, no focal motor deficits and normal sensation to monofilament Cranial nerves: Yes Equal, round and reactive pupils present Cognition (Neuro): normal cognition Speech: No Abnormal speech present Gait exam (Neuro): Normal gait present Motor exam (neuro): 5/5 motor strength present throughout Sensory Exam: Normal double simultaneous stimulation for sensation Deep tendon reflexes (DTR's): Right patellar reflex intensity grade: 2+ and Left patellar reflex intensity grade: 2+ Extrem General: Yes normal to inspection Course Course Course Narrative: multiple incidental finding seen on CT scan. These were reviewed with the patient and her daughter. Pain is likely secondary to sacroiliitis. Urine shows no signs of infection. Pain is well controlled. Plan for discharge home with NSAID, muscle relaxant and medicated patches. Patient has had improvement with cortisone injections in the past underneath pain management care in fluoroscopy. I did recommend patient reach out to Pain Management again. Reviewed worrisome signs and symptoms of when to return to the emergency room. Comfortable plan for discharge home Medications Administered Discontinued Medications Generic Name Dose Route Start Last Admin Trade Name Freq PRN Reason Stop Dose Admin Ketorolac Tromethamine 30 mg 07/29/23 11:08 07/29/23 11:20 Ketorolac Tromethamine 30 Mg/Ml Vial IM 07/29/23 11:09 30 mg ONCE ONE Administration Medical Decision Making Medical Decision Making [facility] Narrative: 73-year-old female with a history of diabetes, hypertension, high cholesterol, hypothyroidism, sacroiliitis presents the ER with complaints of right-sided back pain with trigger radiates to her right buttocks and down her right leg and into her right abdomen. Patient reports she has had pain for 2-3 days. No injury or trauma. She does have this history of sacroiliitis and has had cortisone injections under fluoroscopy and states this pain feels similar however she does not normally have associated abdominal pain with her sacroiliitis. She has no urinary symptoms. No fevers, chills, vomiting, diarrhea. No numbness in the groin. No bowel or bladder incontinence. Patient is ambulatory. Patient has been taking Tylenol at home with continued symptoms Of note, patient is Czech-speaking. She has her family at the bedside and they declined parts interpreter services as they want to interpret for the patient and she is comfortable with this plan. Pain on palpation to the right posterior SI joint and over the right buttocks. Pain is worsened with straight leg raise right-side. Mild TTP to suprapubic area and RLQ with no rebound or guarding. Normal neuro exam with no focal neurological deficits or red flag symptoms. Likely sacral ileitis however due to abdominal pain complaints will obtain UA and CT abdomen and pelvis. Patient was provided with analgesia Differential Diagnosis Differential Diagnoses: The differential diagnosis associated with the presentation includes sacroiliitis consider renal colic, UTI, pyelonephritis low concern for appendicitis, diverticulitis, cord compression, cauda equina, epidural abscess,AAA Admission/Observation Consideration of admission/observation: Escalation of care including admission/observation considered Pain is well controlled with no need for her admission for intractable pain. No neurological deficits or red flag symptoms suggest need for MRI and emergent nurse surgery evaluation or transfer to [facility] Lab Data MDM Lab Attestation statement: I reviewed the patient's lab results. Labs: Lab Results 07/29/23 Range/Units 11:13 Urine Color Yellow Urine Appearance Clear Urine pH 8.0 (5.0-9.0) Ur Specific [place] 1.025 (1.005-1.025) Urine Protein Negative (Neg-Trace) mg/dL Urine Glucose (UA) >=1000 H (Negative) mg/dL Urine Ketones Negative (Negative) mg/dL Urine Blood Negative (Negative) Urine Nitrite Negative (Negative) Ur Leukocyte Esterase Negative (Negative) Urine RBC 0-2 (0-2) /HPF Urine WBC 0-5 (0-5) /HPF Ur Squamous Epith Cells 0-2 (0-2) /HPF Urine Bacteria None Seen (None Seen) Hyaline Casts 0-2 (0-2) /LPF Independent Interpretation I performed an independent interpretation of an: CT Scan Interpretation: I independently reviewed the CT scan and agree with the rad report Radiology Impression Discussion of test interpretation with radiology: I have reviewed the radiologist's reading. Radiologist Impression: FINDINGS: LUNG BASES: Small amount of linear dependent atelectasis seen adjacent to the left major fissure in the lingula. Small amount of reticular opacity with mild traction bronchiolectasis partially included in the paraspinal right lower lobe (series 6, image 1), consistent with minimal scarring, similar to the prior exams. LIVER, GALLBLADDER, AND BILIARY TREE: The liver is normal in size, shape, and attenuation. No focal hepatic lesion on noncontrast imaging. No biliary ductal dilatation is present. The gallbladder is unremarkable with no evidence of radiopaque gallstones, gallbladder wall thickening, or obvious pericholecystic inflammatory changes. PANCREAS: Unremarkable on noncontrast imaging. SPLEEN: Unremarkable. ADRENAL GLANDS: The right adrenal gland is normal. There is a 1 cm diameter low-attenuation left adrenal nodule arising from the lateral limb (series 3, image 20) with mean attenuation values of -6.1 Hounsfield units, consistent with a benign lipid rich adenoma, unchanged dating back to 03/28/2013. KIDNEYS AND URETERS: The kidneys are normal in size, shape, and attenuation. No hydronephrosis, hydroureter, or calculi seen. Mild prominence of the extrarenal pelvis sees is seen bilaterally. The proximal and mid right ureter is mildly dilated down to the crossing iliac vessels with the distal right ureter decompressed. No renal or ureteral calculi are seen. No perinephric stranding. There is a small 0.6 cm low-attenuation mass in the mid right kidney, with mean attenuation values of 8.9 Hounsfield units, consistent with a benign cyst, similar to prior exams. No additional imaging follow-up is recommended. No suspicious renal mass noted. BLADDER: Partially distended and suboptimally assessed, but grossly unremarkable. No bladder calculi seen. PELVIC VISCERA: Uterus anteverted and anteflexed and mildly enlarged for a postmenopausal patient, measuring 7.2 x 4.8 x 6.1 cm, similar to the previous exam. There is a large partially calcified anterior uterine body contour deforming intramural fibroid with subserosal extension, measuring approximately 3.3 cm in diameter. Ovaries bilaterally are prominent in size for the late postmenopausal patient but grossly unremarkable, appearing bilaterally symmetric. Appearance of the pelvic organs is unchanged from prior exams dating back to 03/28/2013. GASTROINTESTINAL TRACT: Large amount of fecal material is seen in the ascending colon and in the descending and rectosigmoid colon. Mild rectal fecal impaction is seen without significant wall thickening or surrounding fat stranding or edema seen to suspect stercoral colitis. Appendix is visualized. There is a 0.6 cm calcified appendicolith within the proximal appendix and more amorphous hyperdensity in the downstream appendix, similar to the previous exam. No abnormal appendiceal dilatation or surrounding periappendiceal fat stranding or edema is seen. ABDOMINAL WALL: No significant hernia is appreciated. LYMPH NODES, VASCULAR: Abdominal aorta is normal in caliber with moderate to severe atherosclerotic calcification seen extending into the branch vessels, including the iliofemoral vessels. No periaortic collections. No significant abdominal or pelvic adenopathy or free fluid collection seen. OSSEOUS STRUCTURES: There is straightening of the normal lumbar lordosis and severe degenerative disc disease is seen at L4-L5 and moderate degenerative disc disease at L5-S1 with disc space narrowing, vertebral endplate sclerosis, spurring, cystic changes and vacuum disc phenomenon. Mild degenerative disc disease is seen in the remaining lumbar spine and in the lower thoracic spine. Mild facet arthropathy seen in the mid and lower lumbar spine. Minimal S-shaped thoracolumbar scoliosis is seen. CT/CT abdomen pelvis wo IV con IMPRESSION: 1. No acute intra-abdominal or pelvic findings seen to explain the patient's right back pain. An appendicolith is noted within the appendix as discussed above, but no evidence of acute appendicitis is seen. 2. Chronic mild prominence of the proximal and mid right ureter down to the crossing iliac vessels at the pelvic brim. No evidence of nephrolithiasis or obstructive uropathy. 3. Prominent amount of fecal material is seen in the colon with mild rectal fecal impaction seen. No evidence of bowel obstruction or perforation. 4. Chronic benign findings of a small left adrenal adenoma and mildly enlarged uterus with large intramural fibroid, and prominent bilateral ovaries. No suspicious pelvic mass. 5. Moderate to severe atherosclerotic vascular calcifications. 6. Degenerative changes in the spine, most severe at L4-L5 and L5-S1. Independent Historian clinical information obtained from daughter at the bedside and confirmed with patient External Record Review External record reviewed: Office record reviewed records from Pain Management Dr. Walter bernardo were patient had a cortisone injection on her niece fluoroscopy for her sacroiliitis Tests considered The following testing was considered but not selected: No neurological deficits or red flag symptoms suggest need for MRI Prescription Management I considered prescription management with: Pain Medication see discussion course of care Chronic Conditions Patient?s care impacted by: Diabetes Discharge Plan Discharge Clinical Impression: Sacroiliitis Patient Disposition: Home, Self-Care Instructions: Sacroiliitis (ED) Additional Instructions: your CT scan shows constipation, arthritis in your spine, a small left adrenal adenoma and mildly enlarged uterus and ovaries. These are incidental findings that you can follow-up with your primary care doctor in regards to. Your urine shows no signs of infection You likely have inflammation of your sacroiliac joint. You have had injections of steroids in the past. I do recommend that you follow-up with pain management to have a repeat injection. No heavy lifting or bending Apply heat or ice to the area Take the medications as prescribed Return for any worsening symptoms. valenzuela tomograf?a computarizada muestra estre?imiento, artritis en la columna, un santo?o adenoma suprarrenal marcelina y ?tero y ovarios ligeramente agrandados. Estos son hallazgos incidentales sobre los cuales puede realizar un seguimiento con valenzuela m?dico de atenci?n primaria. Tu orina no muestra signos de infecci?n. Probablemente tengas inflamaci?n de la articulaci?n sacroil?esequiel. Kendrick recibido inyecciones de esteroides en el pasado. Le recomiendo que realice un seguimiento con el control del dolor para repetir la inyecci?n. Sin levantar objetos pesados ??ni agacharse Aplicar calor o hielo en la diego. [place] los medicamentos seg?n lo recetado. Regrese si los s?ntomas empeoran. Prescriptions: New naproxen 500 mg tablet 500 mg PO BID PRN (Reason: pain) Qty: 20 0RF cyclobenzaprine 10 mg tablet 10 mg PO TID PRN (Reason: muscle spasm) Qty: 15 0RF lidocaine [Lidoderm] 5 % adhesive patch,medicated 1 patch topical DAILY Qty: 15 0RF Rx Instructions: leave on most painful area for up to 12 hrs No Action lidocaine 5 % ointment 1 appl topical DAILY PRN (Reason: pain) Qty: 30 0RF diclofenac sodium [Voltaren Arthritis Pain] 1 % gel 4 g topical QID PRN (Reason: pain) Qty: 100 0RF cyclobenzaprine 5 mg tablet 5 mg PO TID PRN (Reason: muscle spasm) Qty: 10 0RF lidocaine [Lidoderm] 5 % adhesive patch,medicated 1 patch topical DAILY Qty: 15 0RF Rx Instructions: leave on most painful area for up to 12 hrs cephalexin 500 mg capsule 500 mg PO QID 5 Days Qty: 20 0RF Jardiance 25 mg tablet 25 mg PO DAILY hydrochlorothiazide 12.5 mg tablet 12.5 mg PO DAILY repaglinide 1 mg tablet 2 mg PO BID metformin 500 mg tablet extended release 24 hr 1,000 mg PO BID fluticasone propionate 50 mcg/actuation spray,suspension intranasal lisinopril 40 mg tablet 40 mg PO BID gabapentin 100 mg capsule 100 mg PO TID metoprolol tartrate 50 mg tablet PO levothyroxine 75 mcg tablet 75 mcg PO DAILY aspirin 81 mg tablet,delayed release (DR/EC) 81 mg PO DAILY cetirizine 10 mg tablet 10 mg PO DAILY acetaminophen 500 mg tablet PO calcium carbonate-vitamin D3 600 mg-10 mcg (400 unit) tablet 1 tab PO omeprazole 20 mg capsule,delayed release(DR/EC) 20 mg PO QAM atorvastatin 40 mg tablet 40 mg PO BEDTIME Referrals: Solomon Kelley MD [Physician] - 1 week Print Language: Czech
[2023-07-29] MEDS: Ketorolac Tromethamine 30 MG/ML VIAL IM (11:20)
[2023-07-29 11:33] LABS: Appearance Urine Clear; Color Urine Yellow; Glucose Urine UA >=1000 mg/dL (Negative); Leukocyte Esterase Urine Negative (Negative); Nitrite Urine Negative (Negative); Specific Gravity - Urine 1.025 (1.005-1.025); UMIC TRIGGER UACC YES; Urine Blood Negative (Negative); Urine Ketones Negative (Negative); Urine Protein Negative (Neg-Trace)
[2023-07-29 11:36] LABS: Bacteria Urine None Seen (None Seen); Hyaline Casts Urine 0-2 /LPF (0-2); RBC Urine 0-2 /HPF (0-2); Squamous Epithelial Cell Urine 0-2 /HPF (0-2); WBC Urine 0-5 /HPF (0-5)
== END 2023-07-29 12:25 | disposition home or self-care (01) ==
PROVIDERS: Nurse Practitioner Family; Emergency Provider Emergency Medicine; PCP Nurse Practitioner Primary Care
DX: M46.1 Sacroiliitis, not elsewhere classified (principal); E11.9 Type 2 diabetes mellitus without complications; I10 Essential (primary) hypertension; E78.5 Hyperlipidemia, unspecified; Z79.899 Other long term (current) drug therapy; Z79.82 Long term (current) use of aspirin; Z79.84 Long term (current) use of oral hypoglycemic drugs
CPT/HCPCS: 74176; 81001; 96372; 99283; 99284; J1885

== ENCOUNTER 2023-11-16 11:44 | Emergency (ER) | payer OTHER, SELFPAY ==
--- NOTE | ~2023-11-16 | CT_ITS ---
EXAMINATION: CT CERVICAL SPINE WITHOUT CONTRAST CLINICAL INFORMATION: Left neck pain. COMPARISON: None TECHNIQUE: CT of the cervical spine was performed without contrast. Multiplanar reformats were rendered and reviewed. This CT examination was performed using dose optimization techniques as appropriate, variously including the following: *Automated exposure control *Adjustment of mA and/or kV according to patient size (this includes techniques or standardized protocols for targeted exams where dose is matched to indication/reason for exam; i.e. extremities or head) *Use of iterative reconstruction technique DLP: 128 mGy-cm FINDINGS: The cervical vertebral bodies demonstrate normal heights. There is mild anterolisthesis of C2 on C3. No fractures seen. Severe degenerative changes are seen at the atlantodental articulation with retrodental pannus noted without significant narrowing of the cervical canal. There is multilevel facet arthropathy. No fracture is seen. The upper lungs are clear. Atheromatous changes are seen within the arteries. There is no acute intracranial abnormality. Cervical soft tissues are within normal limits. SPINAL LEVELS: C2-C3: No posterior disc abnormality. Moderate left facet arthropathy. No spinal canal or neural foraminal stenosis. C3-C4: Disc osteophyte complex with left uncovertebral hypertrophy and severe left facet arthropathy results in severe left neural foraminal stenosis. No spinal canal stenosis. C4-C5: Disc osteophyte complex with uncovertebral hypertrophy and moderate right facet arthropathy. No spinal canal or neural foraminal stenosis. C5-C6: Disc osteophyte complex with uncovertebral hypertrophy. Mild left facet arthropathy. No spinal canal or neural foraminal stenosis. C6-C7: Prominent disc osteophyte complex with uncovertebral hypertrophy resulting in moderate left and mild right neural foraminal stenosis. Mild left facet arthropathy. No spinal canal stenosis. C7-T1: No posterior disc abnormality. No spinal canal or neural foraminal stenosis. CT/CT cervical spine wo IV con IMPRESSION: Multilevel degenerative spondylotic changes without significant narrowing of the spinal canal. Neural foraminal stenosis appears severe on the left at C3-C4 and moderate on the left at C6-C7.
[2023-11-16 11:51] VITALS: BP 122/74; PULSE 65; RESP 15; TEMP 36.6; O2SAT 99; BMI 23.0
--- NOTE | 2023-11-16 11:53 | ECG_ITS ---
Test Reason : chest pain Blood Pressure : / mmHG Vent. Rate : 061 BPM Atrial Rate : 061 BPM P-R Int : 128 ms QRS Dur : 120 ms QT Int : 424 ms P-R-T Axes : 000 010 096 degrees QTc Int : 426 ms Normal sinus rhythm Left bundle branch block Abnormal ECG When compared with ECG of 10-MAR-2023 13:00, No significant changes seen Referred By: Luiz Coon Electronically Signed By:TRISTEN LAW
--- NOTE | 2023-11-16 11:53 | ED_ITS ---
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 No recent fall or neck injury. Related Data Home Medications Medication Instructions Recorded Confirmed acetaminophen 500 mg tablet mg PO 07/28/22 aspirin 81 mg tablet,delayed 81 mg PO DAILY 07/28/22 release atorvastatin 40 mg tablet 40 mg PO BEDTIME 07/28/22 calcium carbonate 600 mg-vitamin 1 tab PO 07/28/22 D3 10 mcg (400 unit) tablet cetirizine 10 mg tablet 10 mg PO DAILY 07/28/22 empagliflozin 25 mg tablet 25 mg PO DAILY 07/28/22 (Jardiance) fluticasone propionate 50 spray intranasal 07/28/22 mcg/actuation nasal spray,suspension gabapentin 100 mg capsule 100 mg PO TID 07/28/22 hydrochlorothiazide 12.5 mg tablet 12.5 mg PO DAILY 07/28/22 levothyroxine 75 mcg tablet 75 mcg PO DAILY 07/28/22 lisinopril 40 mg tablet 40 mg PO BID 07/28/22 metformin 500 mg tablet,extended 1,000 mg PO BID 07/28/22 release 24 hr metoprolol tartrate 50 mg tablet mg PO 07/28/22 omeprazole 20 mg capsule,delayed 20 mg PO QAM 07/28/22 release repaglinide 1 mg tablet 2 mg PO BID 07/28/22 Previous Rx's Medication Instructions Recorded lidocaine 5 % topical ointment 1 appl topical DAILY PRN pain #30 02/12/22 grams cyclobenzaprine 5 mg tablet 5 mg PO TID PRN muscle spasm #10 08/08/22 tabs diclofenac sodium 1 % topical gel 4 g topical QID PRN pain #100 grams 08/08/22 (Voltaren Arthritis Pain) lidocaine 5 % topical patch 1 patch topical DAILY #15 ea 08/08/22 (Lidoderm) cephalexin 500 mg capsule 500 mg PO QID 5 days #20 caps 05/15/23 cyclobenzaprine 10 mg tablet 10 mg PO TID PRN muscle spasm #15 07/29/23 tabs lidocaine 5 % topical patch 1 patch topical DAILY #15 ea 07/29/23 (Lidoderm) naproxen 500 mg tablet 500 mg PO BID PRN pain #20 tabs 07/29/23 oxycodone 5 mg tablet 5 mg PO BEDTIME PRN pain #10 tabs 11/16/23 Allergies Allergy/AdvReac Type Severity Reaction Status Date / Time Seafood Allergy Mild THROAT Uncoded 11/16/23 11:51 ITCHING Shellfish Allergy Mild UNKNOWN Uncoded 11/16/23 11:51 seeafood Allergy Unknown throat Uncoded 11/16/23 11:51 swelling, itching Review of Systems 2 Review of Systems: All other systems are reviewed and are negative Constitutional: Reports as per HPI and Reports no additional constitutional complaints Eyes: Reports as per HPI and Reports no additional eye complaints Reports system reviewed and no additional complaints, except as documented Cardiovascular: Reports as per HPI and Reports no additional cardiovascular complaints Respiratory: Reports as per HPI and Reports no additional respiratory complaints Gastrointestinal: Reports as per HPI and Reports no additional gastrointestinal complaints Genitourinary: Reports no additional female genitourinary complaints Musculoskeletal: Reports no additional musculoskeletal complaints Skin/Breast: Reports system reviewed and no additional complaints, except as docu Psychiatric: Reports no additional psychiatric complaints Endocrine: Reports no additional endocrine complaints Hematologic/Lymphatic: Reports no additional hematologic/lymphatic complaints Allergic/Immunologic: Reports no additional allergic/immunologic complaints Reports system reviewed and no additional complaints, except as documented and Reports Abnormal speech present PMFSH Past Medical History Onset Date is defined in the Problem List Problems that require an onset date and time if occurred within 24 hrs of arrival to the ED Aortic Dissection and Rupture; Neurologic impairment; Cardiopulmonary Arrest; Endotracheal Intubation; Insertion or Replacement of Mechanical Circulatory Assist Device Medical History Hyperlipidemia Hypothyroid Diabetes HTN (hypertension) GERD (gastroesophageal reflux disease) Social History Social History Alcohol intake: never Patient Tobacco Use Status: Never used Tobacco Smoked in Last 30 Days: No Use of substances other than those prescribed or required for medical reasons: No Advance Directives: No Advance Directives Information Provided: Yes Physical Exam ED Vital Signs: Vital Signs - 24 hr 11/16/23 11:51 11/16/23 15:31 Temperature 98 F Pulse Rate 65 60 Respiratory Rate 15 14 Blood Pressure 122/74 156/63 H Pulse Oximetry 99 96 Oxygen Delivery Method Room Air Room Air BMI result Body Mass Index 23.0 Vital signs have been reviewed and appear to be correct. Blood pressure elevated. Heart rate normal. Respiratory rate normal. Temperature normal. Oxygen saturation normal. Appearance: Alert. Oriented X3. No acute distress. Head: Normal external exam. Normocephalic. Atraumatic. No Condon signs noted. No raccoon eyes noted Eyes: PERRLA. EOMI. Conjunctiva and sclera normal. Eyelids normal. ENT: TM's Normal. Pharynx normal. Uvula midline. Moist mucous membranes. No trismus noted. No drooling noted. No muffled voice noted. Neck: Normal inspection. Neck supple. FROM. No adenopathy. Thyroid Normal. No meningeal signs. No neck mass noted, spasm of the sternomastoid muscle, increased pain with turning the head to the right, no step-off, no deformity. CVS: Normal heart rate and rhythm. Heart sound normal. No murmurs noted. Pulses normal throughout. Respiratory: No respiratory distress. Painless inspiration. Breath sounds normal. No wheezes/rales/rhonchi noted. Chest nontender. No accessory muscle usage noted or decreased air movement noted. Abdomen: Soft and nontender. Bowel sounds normal in all 4 quadrants. No distention noted. No organomegaly noted. No visible injury noted. Back: No CVA tenderness. Full range of motion noted. Skin: Skin warm and dry. Normal skin color. Normal skin turgor. No rashes/lesions/lacerations noted. Extremities: No lower extremity edema. Extremities exhibit normal range of motion. Extremities nontender. Neuro: Oriented X 3. Cranial nerve exam: II-XII are grossly intact No motor deficit. No sensory deficit. Reflexes normal. Course Course Course Narrative: RME- 73-year-old female presents for evaluation of left neck pain that radiates down her left arm. Symptoms started over a week ago and she went to a walk-in clinic and was told it was muscular. She reports no improvement. She endorses occasional chest pain. Given her age and vague symptoms will get a cardiac workup that we have a lower suspicion for ACS. Plan for EKG, lab Reevaluation(s) Reevaluation #1: CT of the cervical spine showing multilevel degenerative disease, no acute pathology, normal neuro exam, pain is likely myofascial in origin. As discussed with the patient and daughter to continue heating pad, rest avoid heavy lifting or strenuous activity, will add oxycodone to medication to be used in case of very severe pain. Time: 17:58 Medications Administered Discontinued Medications Generic Name Dose Route Start Last Admin Trade Name Freq PRN Reason Stop Dose Admin Oxycodone HCl 5 mg 11/16/23 15:01 11/16/23 15:42 Oxycodone Hcl Immed Release 5 Mg Tablet PO 11/16/23 15:02 5 mg ONCE ONE Administration Medical Decision Making Differential Diagnosis Differential Diagnoses: The differential diagnosis associated with the presentation includes (ACS, cervical radiculopathy, myofascial cervical pain, soft tissue abscess, severe anemia, electrolyte abnormality.) Admission/Observation Consideration of admission/observation: Escalation of care including admission/observation considered Lab Data MDM Lab Attestation statement: I reviewed the patient's lab results. 11/16/23 12:07 11/16/23 12:07 Labs: Lab Results 11/16/23 Range/Units 12:07 WBC 6.7 (4.8-10.8) X10*3/uL RBC 3.71 L (4.20-5.50) X10*6/uL Hgb 11.4 L (12.0-16.0) g/dl Hct 34.5 L (37.0-47.0) % MCV 93.0 (80.0-98.0) fL MCH 30.7 (27.0-33.0) pg MCHC 33.0 (31.0-35.0) g/dl RDW 13.8 (11.0-16.0) % Plt Count 298 (160-400) X10*3/uL MPV 10.4 (9.4-12.3) fL Immature Gran % (Auto) 0.6 H (0.0-0.4) % Neut % (Auto) 54.9 (45-73) % Lymph % (Auto) 29.4 (20-40) % Cecil % (Auto) 8.1 (2-11) % Eos % (Auto) 5.8 H (0-4) % Baso % (Auto) 1.2 (0-2) % Lymph # (Auto) 2.0 (1.2-4.9) X10*3/uL Cecil # (Auto) 0.5 (0.1-1.2) X10*3/uL Eos # (Auto) 0.4 (0.0-0.4) X10*3/uL Baso # (Auto) 0.1 (0.0-0.2) X10*3/uL Abs Immat Gran (auto) 0.04 H (0.00-0.03) X10*3/uL Absolute Neuts (auto) 3.7 (2.0-8.3) x10*3/uL Absolute Nucleated RBC 0.000 (0.0-0.012) X10*3/uL Nucleated RBC % (auto) 0.0 (0.0-0.2) /100WBC PT 11.2 (11.1-13.3) SEC INR 0.9 (0.9-1.1) APTT 29.6 (26.0-36.4) SEC Sodium 138 (135-145) mmol/L Potassium 4.1 (3.3-5.1) mmol/L Chloride 103 (96-108) mmol/L Carbon Dioxide 25 (22-29) mmol/L Anion Gap 14 (12-20) BUN 22 H (9-16) mg/dL Creatinine 1.07 (0.5-1.4) mg/dL Estim Creat Clear Calc 37.6 Estimated GFR 50 Random Glucose 228 H (60-115) mg/dL Calcium 9.8 D (8.4-10.2) mg/dL Total Bilirubin 0.4 (0.0-1.0) mg/dL AST 18 (5-31) U/L ALT 34 H (0-31) U/L Alkaline Phosphatase 70 (39-117) U/L Troponin I High Sens < 2.7 (<3.5-17.0) ng/L Total Protein 7.2 (6.5-8.0) g/dL Albumin 4.3 (3.5-5.0) g/dL Lipase 57 (8-78) U/L Independent Interpretation I performed an independent interpretation of an: EKG (Normal sinus rhythm at 61 beats per minute, LVH, LBBB) and CT Scan (Cervical:Multilevel degenerative spondylotic changes without significant narrowing of the spinal canal. Neural foraminal stenosis appears severe on the left at C3-C4 and moderate on the left at C6-C7. ) Radiology Impression Discussion of test interpretation with radiology: I have reviewed the radiologist's reading. Discharge Plan Discharge Clinical Impression: Cervical myofascial strain Patient Disposition: Home, Self-Care Instructions: Muscle Strain (ED) Prescriptions: New oxycodone 5 mg tablet 5 mg PO BEDTIME PRN (Reason: pain) Qty: 10 0RF Rx Instructions: Partial Fill upon patient request. No Action lidocaine 5 % ointment 1 appl topical DAILY PRN (Reason: pain) Qty: 30 0RF diclofenac sodium [Voltaren Arthritis Pain] 1 % gel 4 g topical QID PRN (Reason: pain) Qty: 100 0RF cyclobenzaprine 5 mg tablet 5 mg PO TID PRN (Reason: muscle spasm) Qty: 10 0RF lidocaine [Lidoderm] 5 % adhesive patch,medicated 1 patch topical DAILY Qty: 15 0RF Rx Instructions: leave on most painful area for up to 12 hrs cephalexin 500 mg capsule 500 mg PO QID 5 Days Qty: 20 0RF naproxen 500 mg tablet 500 mg PO BID PRN (Reason: pain) Qty: 20 0RF cyclobenzaprine 10 mg tablet 10 mg PO TID PRN (Reason: muscle spasm) Qty: 15 0RF lidocaine [Lidoderm] 5 % adhesive patch,medicated 1 patch topical DAILY Qty: 15 0RF Rx Instructions: leave on most painful area for up to 12 hrs Jardiance 25 mg tablet 25 mg PO DAILY hydrochlorothiazide 12.5 mg tablet 12.5 mg PO DAILY repaglinide 1 mg tablet 2 mg PO BID metformin 500 mg tablet extended release 24 hr 1,000 mg PO BID fluticasone propionate 50 mcg/actuation spray,suspension intranasal lisinopril 40 mg tablet 40 mg PO BID gabapentin 100 mg capsule 100 mg PO TID metoprolol tartrate 50 mg tablet PO levothyroxine 75 mcg tablet 75 mcg PO DAILY aspirin 81 mg tablet,delayed release (/EC) 81 mg PO DAILY cetirizine 10 mg tablet 10 mg PO DAILY acetaminophen 500 mg tablet PO calcium carbonate-vitamin D3 600 mg-10 mcg (400 unit) tablet 1 tab PO omeprazole 20 mg capsule,delayed release(DR/EC) 20 mg PO QAM atorvastatin 40 mg tablet 40 mg PO BEDTIME Referrals: Kimberly Jon, SUBSTATION SUPERINTENDENT [Primary Care Provider] -
[2023-11-16 12:13] LABS: MANUAL DIFF FLAG NO
[2023-11-16 12:18] LABS: Basophils Absolute Auto 0.1 X10*3/uL (0.0-0.2); Basophils Percent Auto 1.2 % (0-2); Eosinophils Absolute Auto 0.4 X10*3/uL (0.0-0.4); Eosinophils Percent Auto 5.8 % (0-4); Hematocrit 34.5 % (37.0-47.0); Hemoglobin 11.4 g/dl (12.0-16.0); Imm Gran Abs Auto 0.04 X10*3/uL (0.00-0.03); Imm Gran Pct Auto 0.6 % (0.0-0.4); Lymphocytes Percent Auto 29.4 % (20-40); Mean Corpuscular Hemoglobin 30.7 pg (27.0-33.0); Mean Platelet Volume 10.4 fL (9.4-12.3); Monocytes Absolute Auto 0.5 X10*3/uL (0.1-1.2); Monocytes Percent Auto 8.1 % (2-11); Neutrophils Absolute Auto 3.7 x10*3/uL (2.0-8.3); Neutrophils Percent Auto 54.9 % (45-73); Platelet Count 298 X10*3/uL (160-400); Red Blood Count 3.71 X10*6/uL (4.20-5.50); Red Cell Distribution Width 13.8 % (11.0-16.0); White Blood Count 6.7 X10*3/uL (4.8-10.8)
[2023-11-16 12:24] LABS: INTERNATIONAL NORM RATIO 0.9 (0.9-1.1); Prothrombin Time 11.2 SEC (11.1-13.3)
[2023-11-16 12:27] LABS: Partial Thromboplastin Time 29.6 SEC (26.0-36.4)
[2023-11-16 12:34] LABS: Alanine Aminotransferase 34 U/L (0-31); Albumin Level 4.3 g/dL (3.5-5.0); Alkaline Phosphatase 70 U/L (39-117); Anion Gap 14 (12-20); Aspartate Amino Transferase 18 U/L (5-31); Bilirubin Total 0.4 mg/dL (0.0-1.0); Blood Urea Nitrogen 22 mg/dL (9-16); Calcium 9.8 mg/dL (8.4-10.2); Carbon Dioxide 25 mmol/L (22-29); Chloride 103 mmol/L (96-108); Creatinine Clr Calc Pharmacy 37.6; Estimated Glomerular Filt Rate 50; Glucose Random 228 mg/dL (60-115); Lipase 57 U/L (8-78); Potassium 4.1 mmol/L (3.3-5.1); Sodium 138 mmol/L (135-145); Total Protein 7.2 g/dL (6.5-8.0)
[2023-11-16 12:43] LABS: Troponin-I High Sensitivity < 2.7 ng/L (<3.5-17.0)
[2023-11-16 15:31] VITALS: BP 156/63; PULSE 60; RESP 14; O2SAT 96
[2023-11-16] MEDS: oxyCODONE HCl Immed Release 5 MG TABLET PO (15:42)
--- NOTE | 2023-11-16 16:00 | PC.NURSE ---
med given as documented. pt's daughter is at her bedside.
--- NOTE | 2023-11-16 16:13 | PC.NURSE ---
pt in ct scan at this time
== END 2023-11-16 18:18 | disposition home or self-care (01) ==
PROVIDERS: Physician Assistant; Emergency Provider Emergency Medicine; PCP Nurse Practitioner Primary Care
DX: M54.2 Cervicalgia (principal); M79.602 Pain in left arm; R07.89 Other chest pain; Z79.899 Other long term (current) drug therapy
CPT/HCPCS: 36415; 72125; 80053; 83690; 84484; 85025; 85610; 85730; 93005; 99284

== ENCOUNTER → 2023-11-16 11:53 | Outpatient (BNV) | payer OTHER, SELFPAY | PROVIDERS: Emergency Provider Emergency Medicine; PCP Nurse Practitioner Primary Care; Visit Provider Internal Medicine | DX: I44.7 Left bundle-branch block, unspecified (principal) | CPT/HCPCS: 93010 ==

== ENCOUNTER 2024-01-02 10:08 | Outpatient (REF) | payer OTHER, SELFPAY ==
--- NOTE | ~2024-01-02 | MM_ITS ---
EXAMINATION: MM SCREENING DIGITAL BREAST TOMOSYNTHESIS, BILATERAL CLINICAL INFORMATION: Screening. Asymptomatic. COMPARISON: Mammography: 12/15/2022, 12/13/2021, 11/17/2020, 07/17/2019 TECHNIQUE: Digital breast tomosynthesis is performed in both the craniocaudal and mediolateral oblique views along with computer-aided detection (CAD). Synthesized 2D images are generated from the tomosynthesis. FINDINGS: There are scattered areas of fibroglandular density (ACR BI-RADS breast composition Category b). There are bilateral vascular calcifications present. There are no suspicious masses, suspicious grouped calcifications, or areas of architectural distortion in either breast. The parenchymal pattern is stable from prior exams. No skin or axillary abnormality. MM/MM tomosynthesis screening BI IMPRESSION: No mammographic evidence of malignancy. Stable benign findings. ASSESSMENT: BI-RADS BI-RADS 2 - Benign Findings RECOMMENDATION: Routine annual mammography screening. 1 year F/U This examination should not preclude the clinical evaluation of a suspicious palpable abnormality. This patient's information was entered into a reminder system with a target due date for their next mammogram.
== END 2024-01-02 10:09 | disposition home or self-care (01) ==
LOC: HO.MAMMO 10:08
PROVIDERS: PCP Nurse Practitioner Primary Care; Visit Provider Nurse Practitioner Primary Care
DX: Z12.31 Encounter for screening mammogram for malignant neoplasm of breast (principal)
CPT/HCPCS: 77063; 77067

== ENCOUNTER → 2024-01-02 10:15 | Outpatient (BNV) | payer OTHER, SELFPAY | PROVIDERS: PCP Nurse Practitioner Primary Care; Visit Provider Radiology Diagnostic Radiology | DX: Z12.31 Encounter for screening mammogram for malignant neoplasm of breast (principal) | CPT/HCPCS: 77063; 77067 ==

== ENCOUNTER 2024-02-27 12:06 | Emergency (ER) | payer OTHER, SELFPAY ==
--- NOTE | 2024-02-27 12:29 | ED.NECK ---
HPI - Neck Pain/Injury General Chief Complaint: General Medical Stated Complaint: Stiff Neck Time Seen by Provider: 02/27/24 16:24 Source: patient Mode of arrival: ambulatory Limitations: no limitations History of Present Illness HPI Narrative: 74 yo f with pmhx of sacroiliitis , recently seen for cervical myofascial strain presenting with complaints of stiff neck, radiating into her head, this has been ongoing the past few days, patient has physical therapy scheduled for this however she did not go due to worsening pain. Patient reports she has been seen for this in the past however today it seems worse, she reports it usually goes away on its own with muscle relaxers and [id number] medicine.. Patient denies recent illness, fevers, chills, chest pain, shortness of breath, nausea, vomiting, abdominal pain, vision changes, dizziness or weakness. No blunt trauma. Related Data Home Medications ?Medication ?Instructions ?Recorded ?Confirmed acetaminophen 500 mg tablet mg PO 07/28/22 aspirin 81 mg tablet,delayed 81 mg PO DAILY 07/28/22 release atorvastatin 40 mg tablet 40 mg PO BEDTIME 07/28/22 calcium carbonate 600 mg-vitamin 1 tab PO 07/28/22 D3 10 mcg (400 unit) tablet cetirizine 10 mg tablet 10 mg PO DAILY 07/28/22 empagliflozin 25 mg tablet 25 mg PO DAILY 07/28/22 (Jardiance) fluticasone propionate 50 spray intranasal 07/28/22 mcg/actuation nasal spray,suspension gabapentin 100 mg capsule 100 mg PO TID 07/28/22 hydrochlorothiazide 12.5 mg tablet 12.5 mg PO DAILY 07/28/22 levothyroxine 75 mcg tablet 75 mcg PO DAILY 07/28/22 lisinopril 40 mg tablet 40 mg PO BID 07/28/22 metformin 500 mg tablet,extended 1,000 mg PO BID 07/28/22 release 24 hr metoprolol tartrate 50 mg tablet mg PO 07/28/22 omeprazole 20 mg capsule,delayed 20 mg PO QAM 07/28/22 release repaglinide 1 mg tablet 2 mg PO BID 07/28/22 Previous Rx's ?Medication ?Instructions ?Recorded lidocaine 5 % topical ointment 1 appl topical DAILY PRN pain #30 02/12/22 grams cyclobenzaprine 5 mg tablet 5 mg PO TID PRN muscle spasm #10 08/08/22 tabs diclofenac sodium 1 % topical gel 4 g topical QID PRN pain #100 grams 08/08/22 (Voltaren Arthritis Pain) lidocaine 5 % topical patch 1 patch topical DAILY #15 ea 08/08/22 (Lidoderm) cephalexin 500 mg capsule 500 mg PO QID 5 days #20 caps 05/15/23 cyclobenzaprine 10 mg tablet 10 mg PO TID PRN muscle spasm #15 07/29/23 tabs lidocaine 5 % topical patch 1 patch topical DAILY #15 ea 07/29/23 (Lidoderm) naproxen 500 mg tablet 500 mg PO BID PRN pain #20 tabs 07/29/23 oxycodone 5 mg tablet 5 mg PO BEDTIME PRN pain #10 tabs 11/16/23 acetaminophen 325 mg capsule 325 mg PO Q4H PRN pain #30 caps 02/27/24 (Tylenol) prednisone 20 mg tablet 20 mg PO DAILY 5 days #5 tabs 02/27/24 tramadol 25 mg tablet 25 mg PO Q6H PRN pain #6 tabs 02/27/24 Allergies Allergy/AdvReac Type Severity Reaction Status Date / Time Seafood Allergy Mild THROAT Uncoded 02/27/24 12:32 ITCHING Shellfish Allergy Mild UNKNOWN Uncoded 02/27/24 12:32 seeafood Allergy Unknown throat Uncoded 02/27/24 12:32 swelling, itching Review of Systems Review of Systems: Yes all other systems are reviewed and are negative PMFSH Past Medical History Attestation statement: The following information was validated with the patient. Source: old records reviewed and nursing notes reviewed Medical History Hyperlipidemia Hypothyroid Diabetes HTN (hypertension) GERD (gastroesophageal reflux disease) Social History Social History Alcohol intake: never Patient Tobacco Use Status: Never used Tobacco Smoked in Last 30 Days: No Use of substances other than those prescribed or required for medical reasons: No Advance Directives: Yes Advance Directives Information Provided: Yes Advance Directives on File: No Do you have a plan to hurt others: No Plan Physical Exam Vital Signs: Vital Signs: Last Vital Signs Temp 97.3 F 02/27/24 12:30 Pulse 65 02/27/24 12:30 Resp 18 02/27/24 12:30 BP 141/64 H 02/27/24 12:30 Pulse Ox 97 02/27/24 12:30 O2 Del Method Room Air 02/27/24 12:30 BMI result Body Mass Index 39.2 vss Appearance: Alert.? Oriented X3.? No acute distress.? Patient well-appearing Head: Normocephalic, atraumatic, no step-offs or deformities Eyes: Pupils equal, round and reactive to light.? ENT: Pharynx normal.? Neck: Normal inspection.? Neck supple.?+ bilateral cervical paraspinous muscle tenderness to palpation as well as tenderness to palpation overlying bilateral sternocleidomastoid muscles. Negative Kernig and Brudzinski CVS: Normal heart rate and rhythm.? Pulses normal.? Respiratory: No respiratory distress.? Breath sounds normal.? Abdomen: Soft and nontender.? Skin: Skin warm and dry.? Normal skin color.? Normal skin turgor.? Extremities: No lower extremity edema.? No calf ttp. 5/5 strength to bilateral upper and lower extremities Neuro: Oriented X 3.? No motor deficit.? No sensory deficit. CN 2-12 intact Course Course Course Narrative: This is a rapid medical exam completed by Charles CRYOGENICS REPAIRER: Additional HPI, ROS, PE not included below will be deferred to primary provider. Complaints of neck stiffiness and pain traveling up to her head with decreased movement of neck and generalized body aches since last night. Denies fevers, trauma, over use injury Reevaluation(s) Reevaluation #1: CBC unremarkable. Chemistry no acute findings requiring intervention. Slightly elevated BUN and creatinine at baseline, patient tolerating p.o.. Educated on p.o. hydration. Again no indication for imaging this is atraumatic pain, this has been going on for awhile this is just an acute episode of the pain, patient is currently being followed by Physical therapy for this. Advised her to continue and follow-up with PCP. Patient was given tramadol safe narcotic handling and taking instructions have been gone over with patient and attached her discharge. Educated patient on diagnosis and treatment plan, answered all question, patient verbalizes understanding. At this time patient will be discharged home, advised to return with new or worsening symptoms. Educated on worrisome signs and symptoms and when to return. At this time I feel comfortable discharge home. Time: 18:30 Reevaluation #2: To note, patient was seen for similar symptoms on 11/16/2023, she reports this was exactly the same presentation. Time: 18:32 Medications Administered Discontinued Medications Generic Name Dose Route Start Last Admin Trade Name Katie PRN Reason Stop Dose Admin Lidocaine 1 patch 02/27/24 16:49 02/27/24 17:20 Lidocaine 4 % Patch Adh..Patch TRANSDERMA 02/27/24 16:50 1 patch ONCE ONE Administration Protocol Tramadol HCl 25 mg 02/27/24 16:49 02/27/24 17:20 Tramadol Hcl 50 Mg Tablet PO 02/27/24 16:50 25 mg ONCE ONE Administration Medical Decision Making Medical Decision Making [facility] Narrative: 1645 74-year-old female presents with atraumatic neck pain since last night . No sick contacts. Reports similar presentation in October 2023. Physical exam + spasm of the sternomastoid muscle and cervical paraspinous muscles b/l, increased pain with turning the head b/l, no step-off, no deformity. Negative Kernig and Brudzinski. No midline pain. History and physical exam concerning for viral illness versus torticollis versus cervical paraspinous muscle spasms versus sternocleidomastoid spasm. Unlikely meningitis, encephalitis, cervical spine fracture, dislocation or traumatic subluxations. No signs of cervical myelopathy, cord compression. Plan- will medicate with tramadol, Lidoderm patch. Differential Diagnosis Differential Diagnoses: The differential diagnosis associated with the presentation includes History and physical exam concerning for viral illness versus torticollis versus cervical paraspinous muscle spasms versus sternocleidomastoid spasm. Unlikely meningitis, encephalitis, cervical spine fracture, dislocation or traumatic subluxations. No signs of cervical myelopathy, cord compression. Admission/Observation Consideration of admission/observation: Escalation of care including admission/observation considered Lab Data [facility] Lab Attestation statement: I reviewed the patient's lab results. 02/27/24 12:42 02/27/24 12:42 Labs: Lab Results 02/27/24 Range/Units 12:42 WBC 9.0 (4.8-10.8) X10*3/uL RBC 3.99 L (4.20-5.50) X10*6/uL Hgb 12.4 (12.0-16.0) g/dl Hct 36.5 L (37.0-47.0) % MCV 91.5 (80.0-98.0) fL MCH 31.1 (27.0-33.0) pg MCHC 34.0 (31.0-35.0) g/dl RDW 13.2 (11.0-16.0) % Plt Count 336 (160-400) X10*3/uL MPV 10.1 (9.4-12.3) fL Immature Gran % (Auto) 0.2 (0.0-0.4) % Neut % (Auto) 62.4 (45-73) % Lymph % (Auto) 25.8 (20-40) % Blount % (Auto) 9.4 (2-11) % Eos % (Auto) 1.4 (0-4) % Baso % (Auto) 0.8 (0-2) % Lymph # (Auto) 2.3 (1.2-4.9) X10*3/uL Blount # (Auto) 0.9 (0.1-1.2) X10*3/uL Eos # (Auto) 0.1 (0.0-0.4) X10*3/uL Baso # (Auto) 0.1 (0.0-0.2) X10*3/uL Abs Immat Gran (auto) 0.02 (0.00-0.03) X10*3/uL Absolute Neuts (auto) 5.6 (2.0-8.3) x10*3/uL Absolute Nucleated RBC 0.000 (0.0-0.012) X10*3/uL Nucleated RBC % (auto) 0.0 (0.0-0.2) /100WBC Sodium 137 (135-145) mmol/L Potassium 4.2 (3.3-5.1) mmol/L Chloride 103 (96-108) mmol/L Carbon Dioxide 23 (22-29) mmol/L Anion Gap 15 (12-20) BUN 21 H (9-16) mg/dL Creatinine 0.79 (0.5-1.4) mg/dL Estim Creat Clear Calc 69.0 Estimated GFR > 60 Random Glucose 141 H (60-115) mg/dL Calcium 10.1 (8.4-10.2) mg/dL Total Bilirubin 0.5 (0.0-1.0) mg/dL AST 19 (5-31) U/L ALT 25 (0-31) U/L Alkaline Phosphatase 70 (39-117) U/L Total Protein 7.8 (6.5-8.0) g/dL Albumin 4.5 (3.5-5.0) g/dL Influenza Type A (PCR) NEGATIVE (Negative) Influenza Type B (PCR) NEGATIVE (Negative) RSV RNA Qual (PCR) NEGATIVE (Negative) SARS-CoV-2 RNA (RT-PCR) NEGATIVE (Negative) Independent Interpretation Interpretation: No indication for imaging Tests considered The following testing was considered but not selected: Atraumatic pain, NIH stroke scale 0 unlikely intracranial hemorrhage, stroke, posterior stroke. No indication for imaging at this time. Unlikely meningitis or encephalitis no need for lumbar puncture. Prescription Management I considered prescription management with: Pain Medication and Other (prednsione ) Chronic Conditions Patient?s care impacted by: Diabetes, Hypertension and Other (Hypothyroidism, hyperlipidemia, GERD) Discharge Plan Discharge Clinical Impression: Neck stiffness, Torticollis Patient Disposition: Home, Self-Care Instructions: Neck Pain (ED) Additional Instructions: Take your medications as prescribed. If you were prescribed antibiotics today, it is important that you take your medication to their entirety, do not skip any doses, do not finish them early. Follow-up with your primary care provider this week. Return to the emergency department with new or worsening symptoms. Such as fevers, chills, chest pain, shortness of breath, nausea, vomiting, dizziness, headache, vision changes, lethargy In case of emergency call 911 Return with any new or worsening symptoms such as headache, visual disturbances, shooting pain down the spine, fevers, chills, lower extremity weakness or any new or worsening symptoms. A narcotic tramadol has been sent to your pharmacy please take this as prescribed. Do not take more than the prescribed dose. Narcotic medications can cause addiction. Please do not mix them with alcohol. Do not take them while driving or operating machinery. Do not take them with any other narcotics ( such as oxycodone or morphine). Do not share them with friends or family. They can cause constipation. Take them only for severe pain. Prescriptions: New tramadol 25 mg tablet 25 mg PO Q6H PRN (Reason: pain) Qty: 6 0RF acetaminophen [Tylenol] 325 mg capsule 325 mg PO Q4H PRN (Reason: pain) Qty: 30 0RF prednisone 20 mg tablet 20 mg PO DAILY 5 Days Qty: 5 0RF No Action lidocaine 5 % ointment 1 appl topical DAILY PRN (Reason: pain) Qty: 30 0RF diclofenac sodium [Voltaren Arthritis Pain] 1 % gel 4 g topical QID PRN (Reason: pain) Qty: 100 0RF cyclobenzaprine 5 mg tablet 5 mg PO TID PRN (Reason: muscle spasm) Qty: 10 0RF lidocaine [Lidoderm] 5 % adhesive patch,medicated 1 patch topical DAILY Qty: 15 0RF Rx Instructions: leave on most painful area for up to 12 hrs cephalexin 500 mg capsule 500 mg PO QID 5 Days Qty: 20 0RF naproxen 500 mg tablet 500 mg PO BID PRN (Reason: pain) Qty: 20 0RF cyclobenzaprine 10 mg tablet 10 mg PO TID PRN (Reason: muscle spasm) Qty: 15 0RF lidocaine [Lidoderm] 5 % adhesive patch,medicated 1 patch topical DAILY Qty: 15 0RF Rx Instructions: leave on most painful area for up to 12 hrs oxycodone 5 mg tablet 5 mg PO BEDTIME PRN (Reason: pain) Qty: 10 0RF Rx Instructions: Partial Fill upon patient request. Jardiance 25 mg tablet 25 mg PO DAILY hydrochlorothiazide 12.5 mg tablet 12.5 mg PO DAILY repaglinide 1 mg tablet 2 mg PO BID metformin 500 mg tablet extended release 24 hr 1,000 mg PO BID fluticasone propionate 50 mcg/actuation spray,suspension intranasal lisinopril 40 mg tablet 40 mg PO BID gabapentin 100 mg capsule 100 mg PO TID metoprolol tartrate 50 mg tablet PO levothyroxine 75 mcg tablet 75 mcg PO DAILY aspirin 81 mg tablet,delayed release (DR/EC) 81 mg PO DAILY cetirizine 10 mg tablet 10 mg PO DAILY acetaminophen 500 mg tablet PO calcium carbonate-vitamin D3 600 mg-10 mcg (400 unit) tablet 1 tab PO omeprazole 20 mg capsule,delayed release(DR/EC) 20 mg PO QAM atorvastatin 40 mg tablet 40 mg PO BEDTIME Referrals: [facility] [Provider Group] - 1 day Kimberly Jon CRYOGENICS REPAIRER [Primary Care Provider] - 2 days Interventions: ED Discharge Assessment Last Done: 02/27/24 18:29 Print Language: Slovenian
[2024-02-27 12:30] VITALS: BP 141/64; PULSE 65; RESP 18; TEMP 36.3; O2SAT 97; BMI 39.2
[2024-02-27 12:46] LABS: MANUAL DIFF FLAG NO
[2024-02-27 12:47] LABS: Basophils Absolute Auto 0.1 X10*3/uL (0.0-0.2); Basophils Percent Auto 0.8 % (0-2); Eosinophils Absolute Auto 0.1 X10*3/uL (0.0-0.4); Eosinophils Percent Auto 1.4 % (0-4); Hematocrit 36.5 % (37.0-47.0); Hemoglobin 12.4 g/dl (12.0-16.0); Imm Gran Abs Auto 0.02 X10*3/uL (0.00-0.03); Imm Gran Pct Auto 0.2 % (0.0-0.4); Lymphocytes Absolute Auto 2.3 X10*3/uL (1.2-4.9); Lymphocytes Percent Auto 25.8 % (20-40); Mean Corpuscular Hemoglobin 31.1 pg (27.0-33.0); Mean Corpuscular Volume 91.5 fL (80.0-98.0); Mean Platelet Volume 10.1 fL (9.4-12.3); Monocytes Absolute Auto 0.9 X10*3/uL (0.1-1.2); Monocytes Percent Auto 9.4 % (2-11); Neutrophils Absolute Auto 5.6 x10*3/uL (2.0-8.3); Neutrophils Percent Auto 62.4 % (45-73); Platelet Count 336 X10*3/uL (160-400); Red Blood Count 3.99 X10*6/uL (4.20-5.50); Red Cell Distribution Width 13.2 % (11.0-16.0)
[2024-02-27 13:03] LABS: Alanine Aminotransferase 25 U/L (0-31); Albumin Level 4.5 g/dL (3.5-5.0); Alkaline Phosphatase 70 U/L (39-117); Anion Gap 15 (12-20); Aspartate Amino Transferase 19 U/L (5-31); Bilirubin Total 0.5 mg/dL (0.0-1.0); Blood Urea Nitrogen 21 mg/dL (9-16); Calcium 10.1 mg/dL (8.4-10.2); Carbon Dioxide 23 mmol/L (22-29); Chloride 103 mmol/L (96-108); Estimated Glomerular Filt Rate > 60; Glucose Random 141 mg/dL (60-115); Potassium 4.2 mmol/L (3.3-5.1); Sodium 137 mmol/L (135-145); Total Protein 7.8 g/dL (6.5-8.0)
[2024-02-27 13:40] LABS: Influenza A PCR NEGATIVE (Negative); Influenza B PCR NEGATIVE (Negative); Resp Syncy Virus RNA Qual PCR NEGATIVE (Negative); SARS COV2 PCR INHOUSE NEGATIVE (Negative)
[2024-02-27] MEDS: traMADoL HCL 50 MG TABLET 25 MG PO (17:20)
[2024-02-27] MEDS: Lidocaine 4 % Patch ADH..PATCH 1 PATCH TRANSDERMA (17:20)
[2024-02-27 18:29] VITALS: BP 141/64; PULSE 65; RESP 18; TEMP 36.3; O2SAT 97
== END 2024-02-27 18:31 | disposition home or self-care (01) ==
PROVIDERS: Nurse Practitioner Family; Emergency Provider Student in an Organized Health Care Education/Training Program; PCP Nurse Practitioner Primary Care
DX: M43.6 Torticollis (principal); E11.9 Type 2 diabetes mellitus without complications; I10 Essential (primary) hypertension; Z03.818 Encounter for observation for suspected exposure to other biological agents ruled out
CPT/HCPCS: 0241U; 36415; 80053; 85025; 99283; 99284

== ENCOUNTER 2024-06-28 12:25 | Emergency (ER) | payer OTHER, SELFPAY ==
--- NOTE | ~2024-06-28 | CT_ITS ---
EXAMINATION: CT ABDOMEN AND PELVIS WITHOUT CONTRAST CLINICAL INFORMATION: Right flank pain COMPARISON: CT scan of the pelvis July 29, 2023. Ultrasound of the abdomen March 04, 2022 TECHNIQUE: Multidetector volumetric imaging was performed from the superior aspect of the liver through the pubic symphysis. Sagittal and coronal reformatted images were obtained on the technologist's workstation. This CT examination was performed using dose optimization techniques as appropriate, variously including the following: *Automated exposure control *Adjustment of mA and/or kV according to patient size (this includes techniques or standardized protocols for targeted exams where dose is matched to indication/reason for exam; i.e. extremities or head) *Use of iterative reconstruction technique DLP: 328 mGy-cm FINDINGS: LUNG BASES: The visualized lung bases are unremarkable. LIVER, GALLBLADDER, AND BILIARY TREE: The liver is normal in size, shape, and attenuation. No focal hepatic lesion or biliary ductal dilatation is present. Small isodense 5 mm nodule at the fundus of gallbladder possible gallstone versus polyp. Axial image 257/79 series 3. This is unchanged since CAT scan February 12, 2017. No gallbladder wall thickening or pericholecystic fluid. No bile duct dilatation. PANCREAS: Unremarkable. SPLEEN: Unremarkable. ADRENAL GLANDS: 0.8 cm left adrenal adenoma. Density measurement -15 Hounsfield units. No further follow-up imaging required. This is unchanged since casting February 12, 2022. Right adrenal gland is normal. KIDNEYS AND URETERS: The kidneys are normal in size, shape, and attenuation. No hydronephrosis, hydroureter, or calculi seen. No perinephric stranding. BLADDER: Unremarkable. GASTROINTESTINAL TRACT: The small and large bowel are unremarkable. The appendix is unremarkable. ABDOMINAL WALL: No significant hernia is appreciated. LYMPH NODES: Normal. VASCULAR: Vascular wall calcifications in the abdomen and pelvis. There is no aneurysm. PELVIC VISCERA: Calcified fibroids in the uterus. Uterus is anteverted. No adnexal abnormality. No fluid in the cul-de-sac. OSSEOUS STRUCTURES: Multilevel degenerative spondylosis finding. 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 CT/CT abdomen pelvis wo IV con IMPRESSION: 1. No acute abnormality CT scan abdomen pelvis. 2. Small isodense nodule at the fundus of the gallbladder possible gallstone versus polyp. No gallbladder wall thickening or pericholecystic fluid. No bile duct dilatation. 3. Small left adrenal adenoma. No further follow-up imaging required. 4. Calcified fibroids in the uterus. Fleischner guidelines were followed. Electronically signed by: Jimi Chaparro MD 06/28/2024 03:09 PM EDT RP
[2024-06-28 12:43] VITALS: BP 134/57; PULSE 67; RESP 16; TEMP 36.3; O2SAT 96; BMI 23.3
--- NOTE | 2024-06-28 12:46 | ED_ITS ---
HPI - Abdominal Pain General Chief Complaint: Urogenital-Female Stated Complaint: Abd pain Time Seen by Provider: 06/28/24 13:11 Source: patient Mode of arrival: ambulatory Limitations: language barrier (Frisian-speaking offal icer poultry utilized) History of Present Illness HPI narrative: Patient is a 74-year-old female with past medical history of diabetes, hypertension, hypercholesterolemia, hypothyroidism, sacroiliitis who presents emergency department for evaluation of urinary urgency and frequency without dysuria, intermittent nausea, pain to the suprapubic region after voiding that radiates now to the right lower quadrant and right lower back. Pain is intermittent in nature, typically lasting approximately 20-50 minutes and then resolves. Admits to a history of recurrent urinary tract infections, states she has not been on any antibiotics in the past 3 months. Related Data Home Medications ?Medication ?Instructions ?Recorded ?Confirmed acetaminophen 500 mg tablet mg PO 07/28/22 aspirin 81 mg tablet,delayed 81 mg PO DAILY 07/28/22 release atorvastatin 40 mg tablet 40 mg PO BEDTIME 07/28/22 calcium carbonate 600 mg-vitamin 1 tab PO 07/28/22 D3 10 mcg (400 unit) tablet cetirizine 10 mg tablet 10 mg PO DAILY 07/28/22 empagliflozin 25 mg tablet 25 mg PO DAILY 07/28/22 (Jardiance) fluticasone propionate 50 spray intranasal 07/28/22 mcg/actuation nasal spray,suspension gabapentin 100 mg capsule 100 mg PO TID 07/28/22 hydrochlorothiazide 12.5 mg tablet 12.5 mg PO DAILY 07/28/22 levothyroxine 75 mcg tablet 75 mcg PO DAILY 07/28/22 lisinopril 40 mg tablet 40 mg PO BID 07/28/22 metformin 500 mg tablet,extended 1,000 mg PO BID 07/28/22 release 24 hr metoprolol tartrate 50 mg tablet mg PO 07/28/22 omeprazole 20 mg capsule,delayed 20 mg PO QAM 07/28/22 release repaglinide 1 mg tablet 2 mg PO BID 07/28/22 Previous Rx's ?Medication ?Instructions ?Recorded lidocaine 5 % topical ointment 1 appl topical DAILY PRN pain #30 02/12/22 grams cyclobenzaprine 5 mg tablet 5 mg PO TID PRN muscle spasm #10 08/08/22 tabs diclofenac sodium 1 % topical gel 4 g topical QID PRN pain #100 grams 08/08/22 (Voltaren Arthritis Pain) lidocaine 5 % topical patch 1 patch topical DAILY #15 ea 08/08/22 (Lidoderm) cephalexin 500 mg capsule 500 mg PO QID 5 days #20 caps 05/15/23 cyclobenzaprine 10 mg tablet 10 mg PO TID PRN muscle spasm #15 07/29/23 tabs lidocaine 5 % topical patch 1 patch topical DAILY #15 ea 07/29/23 (Lidoderm) naproxen 500 mg tablet 500 mg PO BID PRN pain #20 tabs 07/29/23 oxycodone 5 mg tablet 5 mg PO BEDTIME PRN pain #10 tabs 11/16/23 acetaminophen 325 mg capsule 325 mg PO Q4H PRN pain #30 caps 02/27/24 (Tylenol) prednisone 20 mg tablet 20 mg PO DAILY 5 days #5 tabs 02/27/24 tramadol 25 mg tablet 25 mg PO Q6H PRN pain #6 tabs 02/27/24 Allergies Allergy/AdvReac Type Severity Reaction Status Date / Time Seafood Allergy Mild THROAT Uncoded 06/28/24 12:46 ITCHING Shellfish Allergy Mild UNKNOWN Uncoded 06/28/24 12:46 Review of Systems Review of Systems Yes all other systems are reviewed and are negative PMFSH Past Medical History Attestation statement: The following information was validated with the patient. Source: old records reviewed Medical History Hyperlipidemia Hypothyroid Diabetes HTN (hypertension) GERD (gastroesophageal reflux disease) Social History Social History Alcohol intake: never Patient Tobacco Use Status: Never used Tobacco Smoked in Last 30 Days: No Use of substances other than those prescribed or required for medical reasons: No Advance Directives: Yes Advance Directives Information Provided: Yes Advance Directives on File: No Physical Exam ED Vital Signs: Vital Signs - 24 hr 06/28/24 12:43 06/28/24 13:18 06/28/24 14:10 Temperature 97.4 F 97.7 F Pulse Rate 67 67 69 Respiratory Rate 16 14 16 Blood Pressure 134/57 L 144/60 H 140/67 H Pulse Oximetry 96 99 98 Oxygen Delivery Method Room Air Room Air Room Air 06/28/24 15:56 06/28/24 17:00 Temperature 97.8 F 97.9 F Pulse Rate 61 65 Respiratory Rate 16 16 Blood Pressure 119/60 138/58 L Pulse Oximetry 97 97 Oxygen Delivery Method Room Air Room Air BMI result Body Mass Index 23.3 Course Course Course Narrative: This is a Rapid Medical Examination (RME) performed by Mariusz Romero PA-C in triage. Full HPI, ROS, assessment and treatment plan per primary provider in the Main ED. 74 yo female here from [facility] for eval of RLQ and right flank pain x3 days. denies fever,chills, n/v. UA negative at [facility]. + abd soft, ND/NT, no rebound or gaurding. no cvat. Plan: labs, ua, ct scan Reevaluation(s) Reevaluation #1: CT of the abdomen and pelvis without evidence of acute pathology, small nodule at the fundus of the gallbladder possible calculi versus polyp, no wall thickening or pericholecystic fluid, no CBD dilation. LFTs and lipase within normal range, no pain localized to the right upper quadrant, negative Puente sign. Suspect less likely to be biliary etiology. CT also revealing incidental left adrenal adenoma, calcified fibroids in the uterus. Patient reports improvement in pain at this time. Feel that she is stable for discharge home, outpatient follow-up with primary care doctor. Time: 15:43 Medical Decision Making Medical Decision Making [facility] Narrative: Patient is a 74-year-old female with past medical history of diabetes, hypertension, hypercholesterolemia, hypothyroidism, GERD, sacroiliitis who presents emergency department for evaluation of abdominal pain and genitourinary symptoms as per HPI. Will obtain CBC to evaluate for leukocytosis/ anemia, CMP and lipase to evaluate for abnormal electrolytes /abnormal renal function/ abnormal hepatic/biliary function, CT of the abdomen and pelvis and Urinalysis. Differential Diagnosis Differential Diagnoses: The differential diagnosis associated with the presentation includes (Pyelonephritis, ureteral calculi, hydronephrosis, urinary tract infection, appendicitis, suspect less likely ovarian torsion, TOA) Admission/Observation Consideration of admission/observation: Escalation of care including admission/observation considered Lab Data [facility] Lab Attestation statement: I reviewed the patient's lab results. CBC is without leukocytosis, no anemia, no thrombocytopenia. Chemistries revealing hypomagnesemia 1.4, replaced with 2 g IV, no further electrolyte derangement, no DEENA. LFTs lipase within normal range. Urinalysis without evidence of infection or microscopic hematuria. 06/28/24 12:56 06/28/24 12:56 Labs: Lab Results 06/28/24 06/28/24 Range/Units 12:56 13:33 WBC 7.5 (4.8-10.8) X10*3/uL RBC 4.11 L (4.20-5.50) X10*6/uL Hgb 12.8 (12.0-16.0) g/dl Hct 37.8 (37.0-47.0) % MCV 92.0 (80.0-98.0) fL MCH 31.1 (27.0-33.0) pg MCHC 33.9 (31.0-35.0) g/dl RDW 13.0 (11.0-16.0) % Plt Count 332 (160-400) X10*3/uL MPV 10.2 (9.4-12.3) fL Immature Gran % (Auto) 0.3 (0.0-0.4) % Neut % (Auto) 50.4 (45-73) % Lymph % (Auto) 37.2 (20-40) % [place] % (Auto) 8.0 (2-11) % Eos % (Auto) 2.9 (0-4) % Baso % (Auto) 1.2 (0-2) % Lymph # (Auto) 2.8 (1.2-4.9) X10*3/uL [place] # (Auto) 0.6 (0.1-1.2) X10*3/uL Eos # (Auto) 0.2 (0.0-0.4) X10*3/uL Baso # (Auto) 0.1 (0.0-0.2) X10*3/uL Abs Immat Gran (auto) 0.02 (0.00-0.03) X10*3/uL Absolute Neuts (auto) 3.8 (2.0-8.3) x10*3/uL Absolute Nucleated RBC 0.000 (0.0-0.012) X10*3/uL Nucleated RBC % (auto) 0.0 (0.0-0.2) /100WBC Sodium 136 (135-145) mmol/L Potassium 4.6 (3.3-5.1) mmol/L Chloride 101 (96-108) mmol/L Carbon Dioxide 24 (22-29) mmol/L Anion Gap 16 (12-20) BUN 23 H (9-16) mg/dL Creatinine 0.98 (0.5-1.4) mg/dL Estim Creat Clear Calc 40.4 Estimated GFR 56 Random Glucose 260 H (60-115) mg/dL Calcium 10.2 (8.4-10.2) mg/dL Magnesium 1.4 L* (1.6-2.6) mg/dL Total Bilirubin 0.5 (0.0-1.0) mg/dL AST 18 (5-31) U/L ALT 21 (0-31) U/L Alkaline Phosphatase 60 (39-117) U/L Total Protein 7.8 (6.5-8.0) g/dL Albumin 4.6 (3.5-5.0) g/dL Lipase 58 (8-78) U/L Urine Color Yellow Urine Appearance Clear Urine pH 6.0 (5.0-9.0) Ur Specific [place] 1.010 (1.005-1.025) Urine Protein Negative (Neg-Trace) mg/dL Urine Glucose (UA) >=1000 H (Negative) mg/dL Urine Ketones Negative (Negative) mg/dL Urine Blood Negative (Negative) Urine Nitrite Negative (Negative) Ur Leukocyte Esterase Trace H (Negative) Urine RBC 0-2 (0-2) /HPF Urine WBC 0-5 (0-5) /HPF Ur Squamous Epith Cells 0-2 (0-2) /HPF Urine Bacteria None Seen (None Seen) Hyaline Casts 0-2 (0-2) /LPF Independent Interpretation I performed an independent interpretation of an: EKG Interpretation: Rate: 64 Rhythm:? Normal sinus rhythm, LBBB as seen on prior Normal P waves.? Normal TERRELL.?? Normal QRS complex.?? ST T wave :??No ST elevation, no ST depression qTC: 447 prior studies:? October of 2023 The study has been interpreted contemporaneously by me. Radiology Impression Discussion of test interpretation with radiology: I have reviewed the radiologist's reading. Independent Historian Clinical information obtained from an independent historian. History obtained from or confirmed by: Other (Daughter) External Record Review External record reviewed: Outpatient record Medications Administered Discontinued Medications Generic Name Dose Route Start Last Admin Trade Name Freq PRN Reason Stop Dose Admin Magnesium Sulfate 2 gm in 50 mls @ 150 mls/hr 06/28/24 13:23 06/28/24 15:43 Magnesium Sulfate/H2o IV 06/28/24 13:42 Infused ONCE ONE Infusion Discharge Plan Discharge Clinical Impression: Abdominal pain Patient Disposition: Home, Self-Care Instructions: Abdominal Pain (ED) Additional Instructions: Your testing today does not show evidence of abnormal kidney function. There is no urinary tract infection. CT scan does not show evidence of a kidney stone, kidney infection, urinary infection, appendicitis. Please be sure to rest over the next few days, apply warm compress to the area, You can take Tylenol 500 mg, 2 tablets (1,000mg) every 4-6 hours as needed for pain, but not to exceed 3 doses daily (3,000mg). Please contact your primary care doctor and arrange for a follow-up visit within 1-3 days. You may return back to emergency department any new or worsening symptoms or concerns. ? Prescriptions: No Action lidocaine 5 % ointment 1 appl topical DAILY PRN (Reason: pain) Qty: 30 0RF diclofenac sodium [Voltaren Arthritis Pain] 1 % gel 4 g topical QID PRN (Reason: pain) Qty: 100 0RF cyclobenzaprine 5 mg tablet 5 mg PO TID PRN (Reason: muscle spasm) Qty: 10 0RF lidocaine [Lidoderm] 5 % adhesive patch,medicated 1 patch topical DAILY Qty: 15 0RF Rx Instructions: leave on most painful area for up to 12 hrs cephalexin 500 mg capsule 500 mg PO QID 5 Days Qty: 20 0RF naproxen 500 mg tablet 500 mg PO BID PRN (Reason: pain) Qty: 20 0RF cyclobenzaprine 10 mg tablet 10 mg PO TID PRN (Reason: muscle spasm) Qty: 15 0RF lidocaine [Lidoderm] 5 % adhesive patch,medicated 1 patch topical DAILY Qty: 15 0RF Rx Instructions: leave on most painful area for up to 12 hrs tramadol 25 mg tablet 25 mg PO Q6H PRN (Reason: pain) Qty: 6 0RF acetaminophen [Tylenol] 325 mg capsule 325 mg PO Q4H PRN (Reason: pain) Qty: 30 0RF prednisone 20 mg tablet 20 mg PO DAILY 5 Days Qty: 5 0RF oxycodone 5 mg tablet 5 mg PO BEDTIME PRN (Reason: pain) Qty: 10 0RF Rx Instructions: Partial Fill upon patient request. Jardiance 25 mg tablet 25 mg PO DAILY hydrochlorothiazide 12.5 mg tablet 12.5 mg PO DAILY repaglinide 1 mg tablet 2 mg PO BID metformin 500 mg tablet extended release 24 hr 1,000 mg PO BID fluticasone propionate 50 mcg/actuation spray,suspension intranasal lisinopril 40 mg tablet 40 mg PO BID gabapentin 100 mg capsule 100 mg PO TID metoprolol tartrate 50 mg tablet PO levothyroxine 75 mcg tablet 75 mcg PO DAILY aspirin 81 mg tablet,delayed release (DR/EC) 81 mg PO DAILY cetirizine 10 mg tablet 10 mg PO DAILY acetaminophen 500 mg tablet PO calcium carbonate-vitamin D3 600 mg-10 mcg (400 unit) tablet 1 tab PO omeprazole 20 mg capsule,delayed release(DR/EC) 20 mg PO QAM atorvastatin 40 mg tablet 40 mg PO BEDTIME Referrals: Kimberly Jon, HE[employer] INSTALLER [Primary Care Provider] - Interventions: ED Discharge Assessment Last Done: 06/28/24 17:00 Discharge Date/Time: 06/28/24 17:04 Print Language: Frisian
[2024-06-28 13:00] LABS: MANUAL DIFF FLAG NO
[2024-06-28 13:01] LABS: Basophils Absolute Auto 0.1 X10*3/uL (0.0-0.2); Basophils Percent Auto 1.2 % (0-2); Eosinophils Absolute Auto 0.2 X10*3/uL (0.0-0.4); Eosinophils Percent Auto 2.9 % (0-4); Hematocrit 37.8 % (37.0-47.0); Hemoglobin 12.8 g/dl (12.0-16.0); Imm Gran Abs Auto 0.02 X10*3/uL (0.00-0.03); Imm Gran Pct Auto 0.3 % (0.0-0.4); Lymphocytes Absolute Auto 2.8 X10*3/uL (1.2-4.9); Lymphocytes Percent Auto 37.2 % (20-40); Mean Corpuscular HGB Conc 33.9 g/dl (31.0-35.0); Mean Corpuscular Hemoglobin 31.1 pg (27.0-33.0); Mean Platelet Volume 10.2 fL (9.4-12.3); Monocytes Absolute Auto 0.6 X10*3/uL (0.1-1.2); Neutrophils Absolute Auto 3.8 x10*3/uL (2.0-8.3); Neutrophils Percent Auto 50.4 % (45-73); Platelet Count 332 X10*3/uL (160-400); Red Blood Count 4.11 X10*6/uL (4.20-5.50); White Blood Count 7.5 X10*3/uL (4.8-10.8)
[2024-06-28 13:18] VITALS: BP 144/60; PULSE 67; RESP 14; TEMP 36.5; O2SAT 99
[2024-06-28 13:24] LABS: Alanine Aminotransferase 21 U/L (0-31); Albumin Level 4.6 g/dL (3.5-5.0); Alkaline Phosphatase 60 U/L (39-117); Anion Gap 16 (12-20); Aspartate Amino Transferase 18 U/L (5-31); Bilirubin Total 0.5 mg/dL (0.0-1.0); Blood Urea Nitrogen 23 mg/dL (9-16); Calcium 10.2 mg/dL (8.4-10.2); Carbon Dioxide 24 mmol/L (22-29); Chloride 101 mmol/L (96-108); Creatinine Clr Calc Pharmacy 40.4; Estimated Glomerular Filt Rate 56; Glucose Random 260 mg/dL (60-115); Lipase 58 U/L (8-78); Magnesium 1.4 mg/dL (1.6-2.6); Potassium 4.6 mmol/L (3.3-5.1); Sodium 136 mmol/L (135-145); Total Protein 7.8 g/dL (6.5-8.0)
--- NOTE | 2024-06-28 13:24 | ECG_ITS ---
Test Reason : HYPOMAGNESEMIA Blood Pressure : / mmHG Vent. Rate : 064 BPM Atrial Rate : 064 BPM P-R Int : 154 ms QRS Dur : 124 ms QT Int : 434 ms P-R-T Axes : 048 014 091 degrees QTc Int : 447 ms Normal sinus rhythm Left bundle branch block Abnormal ECG When compared with ECG of 16-NOV-2023 12:03, No significant change was found Referred By: Nimco Lan Electronically Signed By:KERRI GARCIA
[2024-06-28 13:39] LABS: Appearance Urine Clear; Color Urine Yellow; Glucose Urine UA >=1000 mg/dL (Negative); Leukocyte Esterase Urine Trace (Negative); Nitrite Urine Negative (Negative); UMIC TRIGGER UACC YES; Urine Blood Negative (Negative); Urine Ketones Negative (Negative); Urine Protein Negative (Neg-Trace)
[2024-06-28 13:45] LABS: Bacteria Urine None Seen (None Seen); Hyaline Casts Urine 0-2 /LPF (0-2); RBC Urine 0-2 /HPF (0-2); Squamous Epithelial Cell Urine 0-2 /HPF (0-2); WBC Urine 0-5 /HPF (0-5)
[2024-06-28] MEDS: Magnesium Sulfate/H2O 2 GM/50 ML PIGGYBACK IV (14:07)
[2024-06-28 14:10] VITALS: BP 140/67; PULSE 69; RESP 16; O2SAT 98
[2024-06-28 15:56] VITALS: BP 119/60; PULSE 61; RESP 16; TEMP 36.6; O2SAT 97
[2024-06-28 17:00] VITALS: BP 138/58; PULSE 65; RESP 16; TEMP 36.6; O2SAT 97
== END 2024-06-28 17:04 | disposition home or self-care (01) ==
PROVIDERS: Physician Assistant Medical; Emergency Provider Emergency Medicine; PCP Nurse Practitioner Primary Care
DX: R10.31 Right lower quadrant pain (principal); E11.9 Type 2 diabetes mellitus without complications; I10 Essential (primary) hypertension; E78.00 Pure hypercholesterolemia, unspecified; Z79.82 Long term (current) use of aspirin; Z79.02 Long term (current) use of antithrombotics/antiplatelets; Z79.84 Long term (current) use of oral hypoglycemic drugs; Z79.899 Other long term (current) drug therapy
CPT/HCPCS: 36415; 74176; 80053; 81001; 83690; 83735; 85025; 93005; 96365; 96366; 99284; 99285; J3475

== ENCOUNTER 2024-07-05 11:25 | Outpatient (REF) | payer OTHER, SELFPAY ==
[2024-07-05 14:20] LABS: Cholesterol 133 mg/dL (<200); HDL Cholesterol 43 mg/dL (>40); LDL Cholesterol Calculated 56 mg/dL (<100); Magnesium 1.5 mg/dL (1.6-2.6); Triglycerides 170 mg/dL (<150)
== END 2024-07-05 11:26 | disposition home or self-care (01) ==
LOC: HO.HHCL 11:25
PROVIDERS: Visit Provider Nurse Practitioner Primary Care
DX: E11.69 Type 2 diabetes mellitus with other specified complication (principal); E78.5 Hyperlipidemia, unspecified; E83.42 Hypomagnesemia
CPT/HCPCS: 36415; 80061; 83735

== ENCOUNTER 2024-09-06 12:02 | Outpatient (REF) | payer OTHER, SELFPAY ==
[2024-09-06 14:13] LABS: Anion Gap 14 (12-20); Blood Urea Nitrogen 17 mg/dL (9-16); Calcium 9.8 mg/dL (8.4-10.2); Carbon Dioxide 26 mmol/L (22-29); Chloride 103 mmol/L (96-108); Estimated Glomerular Filt Rate > 60; Glucose Random 131 mg/dL (60-115); Magnesium 1.5 mg/dL (1.6-2.6); Potassium 4.9 mmol/L (3.3-5.1); Sodium 138 mmol/L (135-145)
[2024-09-06 14:15] LABS: Creatinine Urine 39.05 mg/dL; Microalbumin Urine < 5.0 mg/L
[2024-09-06 14:33] LABS: Vitamin B12 441 pg/mL (200-900)
[2024-09-06 14:35] LABS: TSH reflex Free T4 0.81 uIU/mL (0.32-4.0)
== END 2024-09-06 12:03 | disposition home or self-care (01) ==
LOC: HO.HHCL 12:02
PROVIDERS: Visit Provider Nurse Practitioner Primary Care
DX: E11.69 Type 2 diabetes mellitus with other specified complication (principal); E78.5 Hyperlipidemia, unspecified; R25.1 Tremor, unspecified; E03.9 Hypothyroidism, unspecified; E83.42 Hypomagnesemia
CPT/HCPCS: 36415; 80048; 82043; 82570; 82607; 83735; 84443

== ENCOUNTER 2024-10-08 06:20 | Outpatient (REF) | payer OTHER, SELFPAY ==
--- NOTE | 2024-10-08 | EMG_ITS ---
Right median and ulnar motor and sensory studies were performed. Right radial sensory study was performed and paraspinal muscles were tested with a needle. IMPRESSION: 1. 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 2. Mild right ulnar neuropathy across cubital tunnel. MD SORIN Casiano/DOTTY / [phone]
== END 2024-10-08 06:21 | disposition home or self-care (01) ==
LOC: HO.NEURO 06:20
PROVIDERS: PCP Nurse Practitioner Primary Care; Visit Provider Nurse Practitioner Primary Care
DX: R25.1 Tremor, unspecified (principal)
CPT/HCPCS: 95886; 95909

== ENCOUNTER 2024-12-22 19:53 | Emergency (ER) | payer OTHER, SELFPAY ==
--- NOTE | 2024-12-22 | ECG_ITS ---
Test Reason : cp Blood Pressure : */* mmHG Vent. Rate : 82 BPM Atrial Rate : 82 BPM P-R Int : 132 ms QRS Dur : 116 ms QT Int : 386 ms P-R-T Axes : 32 19 123 degrees QTcB Int : 450 ms Normal sinus rhythm Left bundle branch block Abnormal ECG When compared with ECG of 28-Jun-2024 13:36, No significant changes seen Referred By: Generic ED Physician Electronically Signed By: TRISTEN LAW
--- NOTE | ~2024-12-22 | CT_ITS ---
CLINICAL HISTORY: c3-[address] cervical spine without contrast Comparison: CT of the cervical spine from 11/16/2023 Findings: No acute fracture of the cervical spine. Mild reversal of the cervical lordosis. No significant change in mild anterolisthesis at C2-C3 and C3-C4. Redemonstration of multifocal disc osteophyte complexes with mild spinal canal stenosis. Redemonstration of severe left-sided foraminal narrowing at C3-C4 and moderate bilateral at C6-C7. No significant change in additional mild-moderate foraminal narrowing. Multifocal facet arthropathy and ligament calcifications are redemonstrated. No paraspinal hematoma. Vascular calcifications are redemonstrated. Mild scarring of the imaged lung apices. IMPRESSION: 1. No acute fracture of the cervical spine 2. significant change when compared to 11/16/2023; again with multifocal foraminal narrowing. This document has been electronically signed by: Alejandro Christopher MD on 12/22/2024 22:31:49
--- NOTE | 2024-12-22 20:10 | ED.CHESTPAIN ---
HPI - Chest Pain General Stated Complaint: pain traveling from chest to head Related Data Home Medications ?Medication ?Instructions ?Recorded ?Confirmed acetaminophen 500 mg tablet mg PO 07/28/22 aspirin 81 mg tablet,delayed 81 mg PO DAILY 07/28/22 release atorvastatin 40 mg tablet 40 mg PO BEDTIME 07/28/22 calcium 600 mg (as 1 tab PO 07/28/22 carbonate)-vitamin D3 10 mcg (400 unit) tablet cetirizine 10 mg tablet 10 mg PO DAILY 07/28/22 empagliflozin 25 mg tablet 25 mg PO DAILY 07/28/22 (Jardiance) fluticasone propionate 50 spray intranasal 07/28/22 mcg/actuation nasal spray,suspension gabapentin 100 mg capsule 100 mg PO TID 07/28/22 hydrochlorothiazide 12.5 mg tablet 12.5 mg PO DAILY 07/28/22 levothyroxine 75 mcg tablet 75 mcg PO DAILY 07/28/22 lisinopril 40 mg tablet 40 mg PO BID 07/28/22 metformin 500 mg tablet,extended 1,000 mg PO BID 07/28/22 release 24 hr metoprolol tartrate 50 mg tablet mg PO 07/28/22 omeprazole 20 mg capsule,delayed 20 mg PO QAM 07/28/22 release repaglinide 1 mg tablet 2 mg PO BID 07/28/22 Previous Rx's ?Medication ?Instructions ?Recorded lidocaine 5 % topical ointment 1 appl topical DAILY PRN pain #30 02/12/22 grams cyclobenzaprine 5 mg tablet 5 mg PO TID PRN muscle spasm #10 08/08/22 tabs diclofenac sodium 1 % topical gel 4 g topical QID PRN pain #100 grams 08/08/22 (Voltaren Arthritis Pain) lidocaine 5 % topical patch 1 patch topical DAILY #15 ea 08/08/22 (Lidoderm) cephalexin 500 mg capsule 500 mg PO QID 5 days #20 caps 05/15/23 cyclobenzaprine 10 mg tablet 10 mg PO TID PRN muscle spasm #15 07/29/23 tabs lidocaine 5 % topical patch 1 patch topical DAILY #15 ea 07/29/23 (Lidoderm) naproxen 500 mg tablet 500 mg PO BID PRN pain #20 tabs 07/29/23 oxycodone 5 mg tablet 5 mg PO BEDTIME PRN pain #10 tabs 01/18/24 acetaminophen 325 mg capsule 325 mg PO Q4H PRN pain #30 caps 02/27/24 (Tylenol) prednisone 20 mg tablet 20 mg PO DAILY 5 days #5 tabs 02/27/24 tramadol 25 mg tablet 25 mg PO Q6H PRN pain #6 tabs 02/27/24 Allergies Allergy/AdvReac Type Severity Reaction Status Date / Time shellfish derived [shellfish] Allergy Intermediate Unknown Verified 12/22/24 20:15 Seafood Allergy Mild THROAT Uncoded 06/28/24 12:46 ITCHING PMFSH Past Medical History Medical History Hyperlipidemia Hypothyroid Diabetes HTN (hypertension) GERD (gastroesophageal reflux disease) Social History Social History Alcohol intake: never Patient Tobacco Use Status: Never used Tobacco Course Course Course Narrative: This is an RME performed by Mague Lan CNP: Additional HPI, ROS, PE not included below will be deferred to primary provider. Patient is a 74-year-old female who presents emergency department for evaluation of headache, neck pain, bilateral shoulder pain x 1 week. Reports a history of similar pain approximately 1 year ago, she received an injection into the which was significantly helpful for her. She states that she is due for another injection in 3 days. She reports over the past 3 days the pain has been severe. She denies any fall or injury. She has been able to take ibuprofen gets relief from pain for about 1-2 hours but then pain returns. States pain is 10/10, requesting analgesia. Prior CT scan revealing multilevel degenerative spondylitic changes without significant narrowing of the spinal canal and neural foraminal stenosis. Discharge Plan Discharge Prescriptions: No Action lidocaine 5 % ointment 1 appl topical DAILY PRN (Reason: pain) Qty: 30 0RF diclofenac sodium [Voltaren Arthritis Pain] 1 % gel 4 g topical QID PRN (Reason: pain) Qty: 100 0RF cyclobenzaprine 5 mg tablet 5 mg PO TID PRN (Reason: muscle spasm) Qty: 10 0RF lidocaine [Lidoderm] 5 % adhesive patch,medicated 1 patch topical DAILY Qty: 15 0RF Rx Instructions: leave on most painful area for up to 12 hrs cephalexin 500 mg capsule 500 mg PO QID 5 Days Qty: 20 0RF naproxen 500 mg tablet 500 mg PO BID PRN (Reason: pain) Qty: 20 0RF cyclobenzaprine 10 mg tablet 10 mg PO TID PRN (Reason: muscle spasm) Qty: 15 0RF lidocaine [Lidoderm] 5 % adhesive patch,medicated 1 patch topical DAILY Qty: 15 0RF Rx Instructions: leave on most painful area for up to 12 hrs tramadol 25 mg tablet 25 mg PO Q6H PRN (Reason: pain) Qty: 6 0RF acetaminophen [Tylenol] 325 mg capsule 325 mg PO Q4H PRN (Reason: pain) Qty: 30 0RF prednisone 20 mg tablet 20 mg PO DAILY 5 Days Qty: 5 0RF oxycodone 5 mg tablet 5 mg PO BEDTIME PRN (Reason: pain) Qty: 10 0RF Rx Instructions: Partial Fill upon patient request. Jardiance 25 mg tablet 25 mg PO DAILY hydrochlorothiazide 12.5 mg tablet 12.5 mg PO DAILY repaglinide 1 mg tablet 2 mg PO BID metformin 500 mg tablet extended release 24 hr 1,000 mg PO BID fluticasone propionate 50 mcg/actuation spray,suspension intranasal lisinopril 40 mg tablet 40 mg PO BID gabapentin 100 mg capsule 100 mg PO TID metoprolol tartrate 50 mg tablet PO levothyroxine 75 mcg tablet 75 mcg PO DAILY aspirin 81 mg tablet,delayed release (DR/EC) 81 mg PO DAILY cetirizine 10 mg tablet 10 mg PO DAILY acetaminophen 500 mg tablet PO calcium carbonate-vitamin D3 600 mg-10 mcg (400 unit) tablet 1 tab PO omeprazole 20 mg capsule,delayed release(DR/EC) 20 mg PO QAM atorvastatin 40 mg tablet 40 mg PO BEDTIME Print Language: Turkish
[2024-12-22 20:13] VITALS: BP 156/53; PULSE 80; RESP 16; TEMP 36.4; O2SAT 97; BMI 21.9
--- OUTSIDE RECORDS SUMMARY | 2024-12-22 21:28 | XMS_ITS | Encounter Summary ---
Author Organization [employer] Address [address] [place] [address] Care Team Providers Care Heat Treat Supervisor Name Role Phone Kimberly Jon Primary Care Provider [phone] Alex Mares PharmD Unavailable [phone] Encounter Details Date Type Department Care Team ([facility] Contact Info) Description 12/29/2022 Abstract [facility] [address] [place] [address] Dk Sald[place], [place] [address] [place] [address] Social History Tobacco Use Types Packs/Day Years Used Date Smoking Tobacco: Never Smokeless Tobacco: Never Alcohol Use Standard Drinks/Week Comments Never 0 (1 standard drink = 0.6 oz pur e alcohol) Comments Unknown Sex and Gender Information Value Date Recorded Sex Assigned at Female 08/29/2022 10:14 AM EDT Legal Sex Female 10:14 AM EDT Gender Identity Female 08/29/2022 10:14 AM EDT Sexual Orientation Straight 08/29/2022 10 :14 AM EDT COVID-19 Exposure Response Date Recorded In the last 10 days, have yo u been in contact with someone who was confirmed or suspected to have Coronavirus/COVID-19? No / Unsure 12/30/2022 9:49 AM EST documented as of this encounter Plan of Treatment Upcoming Encounters Date Type Department Care Team (Late Contact Info) Description 01/30/2025 10:00 AM EDT Office Visit [facility] [address] [place] [address] Kimberly Jon ANP [address] [place] [address] documented as of this encounter Visit Diagnoses Not on filedocumented in this encounter Care Teams Heat Treat Supervisor Relationship Specialty Start Date End Date Kimberly Jon ANP [address] [place] [address] PCP - General Family Medicine 06/24/22 Alex Mares, SerenityD [address] [place] [id number] Pharmacist Internal Medicine 06/07/24 documented as of this encounter
--- OUTSIDE RECORDS SUMMARY | 2024-12-22 21:28 | XMS_ITS | Clinical Summary ---
Author Organization [employer] Address [address] [place] [address] Care Team Providers Care Services Executive Name Role Phone Shahla Akin STILL Primary Care Provider [phone] Alex Mares PharmD Unavailable [phone] Allergies Active Allergy Reactions Criticality Noted Date Comments Shellfish Allergy Low 08/16/2022 Other reaction(s): throat swelling, itching Other reaction(s): THROAT ITCHING, UNKNOWN Medications Blood Pressure kitIndications:Pu lmonary hypertension (CMS/HCC),Essenti al hypertension 1 kit in the morning. 1 kit 08/11/20 23 Active Blood Glucose Monitoring Suppl (ONE TOUCH ULTRA 2) w/Device kit 1 each if needed (blood sugar). Use to test blood sugar once daily as directed 1 kit 01/05/20 24 Active Lancets (OneTouch Delica Plus [id number]) misc TEST BLOOD SUGAR 3 TIMES A DAY 100 each 11 02/21/20 24 Active OneTouch Ultra Test test strip TEST BLOOD SUGAR THREE TIMES DAILY 100 strip 11 02/21/20 24 Active meloxicam (Mobic) 7.5 MG tabletIndications :Foraminal stenosis of cervical region Take 1 tab in AM, may take BID if needed for pain, take with food 30 tablet 06/06/20 24 Active famotidine (Pepcid) 20 MG tabletIndications :Chronic abdominal pain 1 tab BID for 1 week and then as needed for abdominal pain 40 tablet 06/06/20 24 Active hydroCHLOROthiazi de 12.5 MG tablet TAKE 1 TABLET BY MOUTH EVERY MORNING 90 tablet 3 07/02/20 24 Active Calcium Carb-Cholecalcife rol 600-10 MG-MCG tablet TAKE 1 TABLET BY MOUTH TWICE DAILY IN THE MORNING AND IN THE EVENING 180 tablet 3 07/30/20 24 Active metFORMIN XR (Glucophage-XR) 500 MG 24 hr tabletIndications :Hyperlipidemia associated with type 2 diabetes mellitus (CMS/HCC) (CMS/HCC) TAKE 2 TABLETS BY MOUTH ONCE DAILY IN THE MORNING and TAKE 1 TABLET EVERY EVENING WITH MEALS 90 tablet 5 08/26/20 24 Active Aspirin Low Dose 81 MG EC tablet TAKE 1 TABLET BY MOUTH EVERY MORNING 90 tablet 1 08/26/20 24 Active Continuous Glucose Classifying Machine Operator (FreeStyle Edgardo 2 Barrow) deviceIndications :Type 2 diabetes mellitus with hyperlipidemia (CMS/HCC) (CMS/[facility]),Needle phobia Scan sensor every 8 hours 1 each 09/06/20 24 Active Continuous Glucose Sensor (FreeStyle Edgardo 2 Sensor) miscIndications:T ype 2 diabetes mellitus with hyperlipidemia (CMS/HCC) (CMS/HCC),Needle phobia Apply 1 sensor every 14 days 2 each 09/06/20 24 Active glucose blood (FreeStyle Precision Jon Test) test stripIndications: Type 2 diabetes mellitus with hyperlipidemia (CMS/HCC) (CMS/[facility]),Needle phobia Use to test blood sugar 3 times daily 100 each 12 09/06/20 24 025 Active 27-1 MG tabletIndications :Healthcare maintenance TAKE 1 TABLET BY MOUTH EVERY MORNING WITH A MEAL 90 tablet 3 09/24/20 24 Active atorvastatin (Lipitor) 40 MG tabletIndications :Type 2 diabetes mellitus with hyperlipidemia (CMS/HCC) ([facility]) TAKE 1 TABLET BY MOUTH AT BEDTIME 90 tablet 3 09/24/20 24 Active magnesium oxide (Mag-Ox) 400 MG tabletIndications :Hypomagnesemia TAKE 1 TABLET BY MOUTH ONCE DAILY 30 tablet 1 10/24/20 24 Active omeprazole (PriLOSEC) [address] capsule TAKE 1 CAPSULE BY MOUTH EVERY MORNING BEFORE BREAKFAST 90 capsule 10/25/20 24 Active Jardiance 25 MGIndications:Polly betes mellitus with coincident hypertension (CMS/HCC) (CMS/HCC) TAKE 1 TABLET BY MOUTH EVERY MORNING 90 tablet 10/28/20 24 Active metoprolol tartrate (Lopressor) 50 MG tablet TAKE 1 TABLET BY MOUTH EVERY MORNING and TAKE 1 AND 1/2 TABLETS BY MOUTH EVERY EVENING 225 tablet 10/28/20 24 Active SITagliptin (Januvia) 100 MG tabletIndications :Type 2 diabetes mellitus with hyperlipidemia (CMS/HCC) ([facility]) Take 1 tablet (100 mg) by mouth Once per day. 90 tablet 3 11/07/19 25 Active levothyroxine (Synthroid, Levoxyl) 75 MCG tablet TAKE 1 TABLET BY MOUTH EVERY MORNING 30 tablet 3 11/20/19 25 Active cetirizine (ZyrTEC) 10 MG tablet TAKE 1 TABLET BY MOUTH EVERY MORNING 30 tablet 3 11/20/19 25 Active gabapentin (Neurontin) 100 MG capsuleIndication s:Pain TAKE 1 CAPSULE BY MOUTH THREE TIMES DAILY IN THE MORNING, EVENING, AND BEDTIME 90 capsule 3 11/20/19 25 Active lisinopril 40 MG tabletIndications :Essential hypertension,Pulm onary hypertension ([facility]) TAKE 1 TABLET BY MOUTH TWICE DAILY IN THE MORNING AND IN THE EVENING 180 tablet 3 11/25/19 25 Active mometasone (Nasonex) 50 MCG/ACT nasal sprayIndications: Nasal congestion INSTILL 2 SPRAYS IN EACH NOSTRIL ONCE DAILY NEEDED FOR ALLERGIES 17 g 11/27/19 25 Active Acetaminophen Extra Strength 500 MG tabletIndications :Pain TAKE 1 TABLET BY MOUTH EVERY 6 HOURS NEEDED 90 tablet 12/20/19 25 Active lisinopril 40 MG tabletIndications :Essential hypertension,Pulm onary hypertension ([facility]) TAKE 1 TABLET BY MOUTH TWICE DAILY IN THE MORNING AND IN THE EVENING 180 tablet 3 12/08/19 24 025 Discontinued mometasone (Nasonex) 50 MCG/ACT nasal sprayIndications: Nasal congestion INSTILL 2 SPRAYS IN EACH NOSTRIL ONCE DAILY NEEDED FOR ALLERGIES 17 g 09/06/20 24 025 Discontinued Acetaminophen Extra Strength 500 MG tabletIndications :Pain TAKE 1 TABLET BY MOUTH EVERY 6 HOURS NEEDED 90 tablet 10/24/20 24 025 Discontinued Active Problems Problem Noted Date Diagnosed Date Torticollis 06/07/2024 History of tooth extraction 01/25/2024 Open fracture of tooth 01/23/2024 Headache 05/08/2023 Sacroiliac joint pain 05/08/2023 Sacroiliitis 05/08/2023 Healthcare maintenance 12/30/2022 Overview (12/30/2022): Pap NIL/HPV neg 06/2022. Fibroids on CT 01/2022. Mammogram BIRADS 1 in 11/2021. Normal bone density 04/2022. Colon CA Screen 2017, repeat 2027 Declines additional COVID vaccines UTD on vaccines otherwise Steatosis of liver 05/03/2022 Type 2 diabetes mellitus with hyperlipidemia (CM S/HCC) 07/12/2019 Overview (03/05/2024): Lab Results Component Value Date HGBA1C 7.5 (A) 03/05/2024 HGBA1C 7.2 (A) 11/30/2023 HGBA1C 7.0 (A) 05/09/2023 HGBA1C 6.9 (A) 12/30/2022 Meds: 2 tabs metformin 500mg BID, jardiance 25mg daily, prandin 1 tab w/ bfast and lunch, 2 with dinner Cr/Urine albumin: Foot exam: normal 03/05/24 Eye exam: no retinopathy 05/2023 follows w/ Dr. Gutierrez Dental: UTD oer pt PNA (PCV 20 +/- past PPSV): PCV13 2015 and PPSV23, agrees to PCV 20 TDap/Td: Td 2015 JULISSA/ARB: yes Statin: yes ASA: no Sleep disorder 04/05/2019 Hyperlipidemia 01/21/2019 Diverticula of intestine 07/27/2018 Acute low back pain 04/06/2018 Acquired hypothyroidism 08/14/2015 Allergic rhinitis 08/14/2015 Chronic abdominal pain 08/14/2015 Essential hypertension 08/14/2015 Pulmonary hypertension 08/14/2015 Rosacea 08/14/2015 Left bundle branch block 10/21/2013 Encounters Date Type Department Care Team Description 12/17/2024 Refill [facility] [address] [place] [address] Akin Gale ANP Pain 12/02/2024 Telephone [facility] [address] [place] [address] Sandra Álvarez MA January recall 11/26/2024 Refill [facility] [address] [place], [place] [phone] Akin Gale ANP Nasal congestion 11/24/2024 Refill [facility] [address] [place] [address] Akin Gale ANP Essential hypertension; Pulmonary hypertension (CMS/HCC) 11/20/2024 Refill [facility] [address] [place] [address] Akin Gale ANP Pain 11/07/2024 Travel 10/31/2024 11:15 AM EST Office Visit [facility] [address] [place] [address] Akin Gale ANP Tremor (Primary Dx); Ulnar neuropathy of right upper extremity; Median neuropathy, right 10/31/2024 Travel 10/28/2024 Telephone [facility] [address] [place] [phone] Milagros Reilly MA chart prep 10/28/2024 Refill [facility] [address] [place] [phone] Akin Gale ANP Diabetes mellitus with coincident hypertension (CMS/HCC) (CMS/HCC) 10/25/2024 Refill [facility] [address] [place] [address] Akin Gale ANP 10/24/2024 Refill [facility] [address] [place] [address] Akin Gale ANP Pain 10/23/2024 Refill [facility] [address] [place] [address] Akin Gale ANP Hypomagnesemia 09/24/2024 Refill [facility] [address] [place] [address] Akin Gale ANP Healthcare maintenance; Type 2 diabetes mellitus with hyperlipidemia (CMS/HCC) (CMS/[facility]) from Last 3 Months Immunizations Name Administration Dates Next Due Hep B, adult 10/04/2016,06/09/2016,05/09/2016 Influenza High-dose Quadriva lent Preservative Free 08/11/2023,07/14/2022,08/23/2021,08/19 Influenza injectable quadriv alent IIV4 with preservative 09/15/2017,08/14/2015 Influenza injectable quadriv alent preservative free 10/04/2016 Influenza, High Dose Seasona l, Preservative Free 07/12/2024,10/22/2019,07/27/2018 Influenza, IIV3, injectable 08/25/2014 Influenza, Split (incl. hafsa fied surface antigen) 10/31/2013,07/10/2012 Moderna Covid-19 Vaccine 12+ 01/21/2021,12/24/19 21 Pneumococcal Conjugate PCV 13 05/09/2016 Pneumococcal Conjugate PCV 20 03/05/2024 Pneumococcal Polysaccharide PPSV23 06/23/2017, RSV Bivalent 07/30/2024 Td (adult), 5 Lf tetanus tox oid, preservative free, adsorbed 02/27/2016 Tdap 05/15/2023,07/10/2012 Zoster, Recombinant 05/22/2020,01/07/2020 Zoster, live 01/29/2015 Family History Medical History Relation Name Comments Uterine cancer Daughter Relation Name Status Comments Daughter Social History Tobacco Use Types Packs/Day Years Used Date Smoking Tobacco: Never Passive Smoke Exposure: Never Smokeless Tobacco: Never Tobacco Cessation:Counseling Given: Not Answered Alcohol Use Standard Drinks/Week Comments Never 0 (1 standard drink = 0.6 oz pur e alcohol) Depression Answer Date Recorded Patient Health Questionnaire-9 Score 0 06/06/2024 Patient Health Questionnaire-9 Score 0 06/06/2024 Last PHQ-9: Questionnaire Data Not on file 0 06/06/2024 Housing Stability Answer Date Recorded What is your housing situation today? I have bud harp 06/06/[address] you li ve. Do you have problems with any of the following? None of the above 06/06/2024 Food Insecurity Answer Date Recorded Within the past 12 months, y ou worried that your food would run out before you got money to buy more: Never True 06/06/2024 Within the past 12 months,th e food you bought just didn't last and you didn't have enough money to get more: Never True 05/2024 Transportation Answer Date Recorded In the past 12 months, has l ack of transportation kept you from medical appts, meetings, work or from getting things needed for daily living? No 06/06/2024 Utilities Answer Date Recorded In the past 12 months, has t he electric, gas, oil or water company threatened to shut off services in your home? I am not sure 06/06/2024 Depression Answer Date Recorded Patient Health Questionnaire-2 Score 0 06/06/2024 Internet Access Answer Date Recorded Internet Access Q1 Yes 06/28/2024 Internet Access Q2 Not on file 06/28/2024 Comments No Sex and Gender Information Value Date Recorded Sex Assigned at Female 08/29/2022 10:14 AM EDT Legal Sex Female 10:14 AM EDT Gender Identity Female 08/29/2022 10:14 AM EDT Sexual Orientation Straight 08/29/2022 10 :14 AM EDT Last Filed Vital Signs Vital Sign Reading Time Taken Comments Blood Pressure 118/76 11/07/2024 10:27 AM EST Pulse 60 11/07/2024 10:27 AM EST Temperature 36.1 ??C (96.9 ??F) 10/31/2024 10:[address] Respiratory Rate 16 10/31/2024 10:58 AM EST Oxygen Saturation 99% 09/06/2024 11:16 AM EST Inhaled Oxygen Concentration - - Weight 56.7 kg (125 lb) 10/31/2024 10:58 AM EST Height 157.5 cm (5' 2 ) 10/31/2024 10:58 AM EST Body Mass Index 22.86 10/31/2024 10:58 AM EST Plan of Treatment Upcoming Encounters Date Type Department Care Team (Late st Contact Info) Description 01/30/2025 10:00 AM EDT Office Visit [facility] [address] [place] [address] Akin Gale, ANP [address] [place] [address] Health Maintenance Due Date Last Done Comments CT Colonography 1950 Dental Oral Exam 1950 Dental Prophylaxis 1950 Dental X-Ray: Bitewings 1950 FIT DNA/Cologuard 1950 FIT 1950 FOBT 1950 Sigmoidoscopy 1950 Diabetes: Foot Exam 1961 Eye Exam 1961 Alcohol/Substance Use Screening 1963 Hepatitis C Screening 1969 Hepatitis A Vaccines (1 of 2 - Risk 2-dose series) 1970 COVID-19 Vaccine (3 - season) 2024 01/21/2021, 12/24/2020 Diabetes: Hemoglobin A1C 12/07/2024 024, 06/07/2024, 03/05/2024, Additional history exists Mammogram 01/01/2025 01/02/2024, 04/30, 12/13/2021, Additional history exists Depression Screening 06/06/2025 06/06/2024, 06/06/20 24 SDOH Screening 06/06/2025 06/06/2024 Lipid Panel 07/05/2025 07/05/2024, 04/29, 05/05/2022, Additional history exists Diabetes: Urine Protein Screening 09/06/2025 09/06/2024, 05/10/2023, 05/05/2022, Additional history exists Tobacco Screening 11/06/2025 11/06/2024 Dental X-Ray: Full Mouth 02/13/2027 02/13/2024 Colonoscopy 04/29/2028 Colorectal Cancer Screening 04/29/2028 DTaP/Tdap/Td Vaccines (4 - Td or Tdap) 05/15/2033 05/15/2023, 02/27/2016, 07/10/2012 Hepatitis B Vaccines Completed 10/04/2016, 06/09/2016, 05/09/2016 Zoster Vaccines Completed 05/22/2020, 12/28, 01/29/2015 Pneumococcal Vaccine: 50+ Years Completed 03/05/2024, 06/23/2017, 05/09/2016, Additional history exists Influenza Vaccine Completed 07/12/2024, , 07/14/2022, Additional history exists RSV Patients and Patients Aged 60 years or older Completed 07/30/2024 HIB Vaccines Aged Out No longer eligi ble based on patient's age to complete this topic HPV Vaccines Aged Out No longer eligi ble based on patient's age to complete this topic IPV Vaccines Aged Out No longer eligi ble based on patient's age to complete this topic Meningococcal Vaccine Aged Out No alycia brittaney eligible based on patient's age to complete this topic RSV under 20 months Aged Out No longe r eligible based on patient's age to complete this topic Rotavirus Vaccines Aged Out No longer eligible based on patient's age to complete this topic Goals Goal Patient Goal Type Associated Problems Recent Progress Patient-Stated? Author Blood Pressure < 140/90 Blood Pressure 118/76(2024 10:27 AM EST) No Alex Mares PharmD Hemoglobin A1c < 7 Result Component 7.3( 12:07 PM EST) No Alex Mares PharmD Procedures Procedure Name Priority Date/Time Associated Diagnosis Comments POCT GLYCATED HEMOGLOBIN, TOTAL Routine 09/06/2024 12:07 PM EST Type 2 diabetes mellitus with hyperlipidemia (CMS/HCC) ([facility]) ALBUMIN, RANDOM URINE W/CREATININE Routine 09/06/2024 12:05 PM EST LIPID PANEL, STANDARD Routine 07/05/2024 11:26 AM EDT Type 2 diabetes mellitus with hyperlipidemia (CMS/HCC) ([facility]) PANORAMIC RADIOGRAPHIC IMAGE Routine 02/13/2024 3:30 PM EDT BI MAMMOGRAM SCREENING TOMOSYNTHESIS BILATERAL Routine 01/02/2024 10:25 AM EST from Last 3 Months or Most Recently Relevant to Health Maintenance Results * (ABNORMAL) POCT HGB A1C (09/06/2024 12:07 PM EST) Hemoglobin A1C 7.3(A) 4.0 - 6.0 % QC Media Lot # [id number] Lot# Expiration Date Blood 09/06/2024 12:0 7 PM EST Akin [facility] POINT OF CARE TEST ENTER/EDIT OR DERABLES Final Result * Albumin, Random Urine W/Creatinine (09/06/2024 12:05 PM EST) Creatinine, Urine 39.05 mg/dL [facility] Microalbumin Urine <5.0 mg/L [facility] Microalbum Creatinine Ratio Ur TNP <30 ug/mg cr [facility] Comment:Unable to calculate albumin/creatinine ratio due to lowmicroalbumin or creatinine result. 09/06/2024 12:0 5 PM EST 09/06/2024 1:26 PM EST Akin Gale ANP LAB URINE ORDERABLES Final Resul t Performing Organization Address [facility] Co de Phone Number [facility] [address] [place] [phone] * (ABNORMAL) Lipid Panel, Standard (07/05/2024 11:26 AM EDT) Triglycerides 170(H) <150 mg/dL [facility] Comment:Desirable Triglyceri de: less than 150 mg/dLBorderline High Triglyceride 150-199 mg/dLHigh Triglyceride: 200-499 mg/dLVery High Triglyceride: greater than or equal to 5OO mg/dL Cholesterol 133 <200 mg/dL [facility] Comment:Desirable Cholestero l: less than 200 mg/dLBorderline High Cholesterol: 200-239 mg/dLHigh Cholesterol: greater than 239 mg/dL LDL Cholesterol Calculated 56 <100 mg/dL [facility] Comment:Desirable LDL: less than 100 mg/dLNear Optimal/Above Optimal LDL: 110- 129 mg/dLBorderline High LDL: 130-159 mg/dLHigh LDL: 160-189 mg/dLVery High LDL: greater than or equal to 190 mg/dL HDL Cholesterol 43 >40 mg/dL [facility] Comment:Desirable HDL: great er than 40 mg/dL Note: This HDL assay may give artificially low results in patients with liver disease. Blood Venous blood specimen / Unknown 07/05/2024 11:26 AM EDT 07/05/2024 1:26 PM EDT Akin Gale ANP LAB BLOOD ORDERABLES Final Resul t Performing Organization Address [facility] Co de Phone Number [facility] [address] [place] [address] [phone] * BI Mammogram Screening Tomosynthesis Bilateral (01/02/2024 10:25 AM EST) Anatomical Region Laterality Modality Breast Bilateral Mammography 01/02/2024 10:2 5 AM EST Narrative 01/16/2024 10:15 AM EDT ? [facility] ? [address] ?[place] [id number] ? Mammography Report ? Signed ? Patient: Tyler,Jacquelyn S ?MR#: [id number] ? : 1950 ?Acct:[id number] ? Age/Sex: 73 / F ?ADM Date: 01/02/24 ? Loc: HO.MAMMO ? Attending Dr: Akin Gale YOGA INSTRUCTOR ? Ordering Physician: SHAHLA,AKIN YOGA INSTRUCTOR ?Results: 2Benign Fin ?? dings ? Date of Service: 01/02/24 ?Follow Up: 1 Year From Orig ?? inal Mammogram ? Procedure(s): MM tomosynthesis screening BI ?? Accession Number(s): [id number] ? cc: AKIN GALE NP ? EXAMINATION: ?? MM SCREENING DIGITAL BREAST TOMOSYNTHESIS, BILATERAL ? CLINICAL INFORMATION: ? Screening. Asymptomatic. ? COMPARISON: ?? Mammography: 12/15/2022, 12/13/2021, 11/17/2020, 07/17/2019 ?? TECHNIQUE: ?? Digital breast tomosynthesis is performed in both the craniocaudal and ?? mediolateral oblique views along with computer-aided detection (CAD). ?? Synthesized 2D images are generated from the tomosynthesis. ? FINDINGS: ?? There are scattered areas of fibroglandular density (ACR BI-RADS breast ?? composition Category b). ? There are bilateral vascular calcifications present. There are no ?? suspicious masses, suspicious grouped calcifications, or areas of ?? architectural distortion in either breast. The parenchymal pattern is ?? stable from prior exams. ??No skin or axillary abnormality. ? MM/MM tomosynthesis screening BI ?? IMPRESSION: ?? No mammographic evidence of malignancy. ? Stable benign findings. ? ASSESSMENT: ? BI-RADS BI-RADS 2 - Benign Findings ? RECOMMENDATION: ?? Routine annual mammography screening. ? 1 year F/U ? This examination should not preclude the clinical evaluation of a ?? suspicious palpable abnormality. ? This patient's information was entered into a reminder system with a ?? target due date for their next mammogram. ? Dictated By: ?Leodan Elliott MD ? Signed By: ?<Electronically signed by Leodan Elliott MD in OV> ?01/16/24 1011 ? DD/ 1025 ? TD/TT: ? It Senior Software Engineer Java: ? Procedure Note Donrikyinterpreter, Image - 01/16/2024 [facility] [address] [place] [address] Mammography Report Signed Patient: Jacquelyn Scott SMR#: [id number] : 1Acct:[id number] Age/Sex: 73 / FADM Date: 01/02/24 Loc: [facility] Attending Dr: Akin Gale YOGA INSTRUCTOR Ordering Physician: AKIN GALEults: 2Bjuan j karimi Date of Service: 01/02/24Follow Up: 1 Year From Orig inal Mammogram Procedure(s): MM tomosynthesis screening BI Accession Number(s): [id number] cc: AKIN GALE YOGA INSTRUCTOR EXAMINATION: MM SCREENING DIGITAL BREAST TOMOSYNTHESIS, BILATERAL CLINICAL INFORMATION: Screening. Asymptomatic. COMPARISON: Mammography: 12/15/2022, 12/13/2021, 11/17/2020, 07/17/2019 TECHNIQUE: Digital breast tomosynthesis is performed in both the craniocaudal and mediolateral oblique views along with computer-aided detection (CAD). Synthesized 2D images are generated from the tomosynthesis. FINDINGS: There are scattered areas of fibroglandular density (ACR BI-RADS breast composition Category b). There are bilateral vascular calcifications present. There are no suspicious masses, suspicious grouped calcifications, or areas of architectural distortion in either breast. The parenchymal pattern is stable from prior exams. No skin or axillary abnormality. MM/MM tomosynthesis screening BI IMPRESSION: No mammographic evidence of malignancy. Stable benign findings. ASSESSMENT: BI-RADS BI-RADS 2 - Benign Findings RECOMMENDATION: Routine annual mammography screening. 1 year F/U This examination should not preclude the clinical evaluation of a suspicious palpable abnormality. This patient's information was entered into a reminder system with a target due date for their next mammogram. Dictated By: Leodan Elliott MD Signed By: <Electronically signed by Leodan Elliott MD in OV> 01/16/24 1011 DD/ 1025 TD/TT: It Senior Software Engineer Java: Akin Gale [facility] BI PROCEDURES Final Result from Last 3 Months or Most Recently Relevant to Health Maintenance Insurance [facility] Care Teams Services Executive Relationship Specialty Start Date End Date Akin Gale ANP [address] [place] [address] PCP - General Family Medicine 06/24/22 Alex Mares PharmD [address] [place] [address] Pharmacist Internal Medicine 06/07/24
--- OUTSIDE RECORDS SUMMARY | 2024-12-22 21:28 | XMS_ITS | Encounter Summary ---
Author Organization [employer] Address [address] [place] [address] [address] [place] [address] Care Team Providers Care Flanging Operator Name Role Phone Kimberly Jon Primary Care Provider [phone] Alex Mares PharmD Unavailable [phone] Encounter Details Date Type Department Care Team ([facility] Contact Info) Description 06/21/2023 Orders Only [facility] [address] [place], [place] [phone] Genoveva Ga LPN Social History Tobacco Use Types Packs/Day Years Used Date Smoking Tobacco: Never Smokeless Tobacco: Never Alcohol Use Standard Drinks/Week Comments Never 0 (1 standard drink = 0.6 oz pur e alcohol) PHQ-2 Answer Date Recorded Patient Health Questionnaire-2 Score 0 05/09/2023 Depression Answer Date Recorded Patient Health Questionnaire-2 Score 0 05/09/2023 Comments Unknown Sex and Gender Information Value Date Recorded Sex Assigned at Female 08/29/2022 10:14 AM EDT Legal Sex Female 10:14 AM EDT Gender Identity Female 08/29/2022 10:14 AM EDT Sexual Orientation Straight 08/29/2022 10 :14 AM EDT documented as of this encounter Plan of Treatment Upcoming Encounters Date Type Department Care Team (Late Contact Info) Description 01/30/2025 10:00 AM EDT Office Visit [facility] [address] [place], [place] [phone] Kimberly Jon ANP [address] [place], [place] [phone] documented as of this encounter Visit Diagnoses Not on filedocumented in this encounter Care Teams Flanging Operator Relationship Specialty Start Date End Date Kimberly Jon ANP [address] [place], [place] [phone] PCP - General Family Medicine 06/24/22 Alex Mares PharmD [address] [place] [address] Pharmacist Internal Medicine 06/07/24 documented as of this encounter
--- OUTSIDE RECORDS SUMMARY | 2024-12-22 21:28 | XMS_ITS | Encounter Summary ---
Author Organization [employer] Address [address] [facility] 7t [place] [address] Care Team Providers Care Warehouse Delivery Driver Name Role Phone Kimberly Jon Primary Care Provider [phone] Alex Mares PharmD Unavailable [phone] Encounter Details Date Type Department Care Team ([facility] st Contact Info) Description 08/21/2023 Orders Only [facility] CHC MED & PEDS [address] [place], [place] [phone] Marisel Asencio LPN Social History Tobacco Use Types Packs/Day Years Used Date Smoking Tobacco: Never Smokeless Tobacco: Never Alcohol Use Standard Drinks/Week Comments Never 0 (1 standard drink = 0.6 oz pur e alcohol) PHQ-2 Answer Date Recorded Patient Health Questionnaire-2 Score 0 05/09/2023 Housing Stability Answer Date Recorded What is your housing situation today? I have bud harp 08/14/[address] you li ve. Do you have problems with any of the following? None of the above 08/14/2023 Food Insecurity Answer Date Recorded Within the past 12 months, y ou worried that your food would run out before you got money to buy more: Never True 08/14/2023 Within the past 12 months,th e food you bought just didn't last and you didn't have enough money to get more: Never True Transportation Answer Date Recorded In the past 12 months, has l ack of transportation kept you from medical appts, meetings, work or from getting things needed for daily living? No 08/14/2023 Utilities Answer Date Recorded In the past 12 months, has t he electric, gas, oil or water company threatened to shut off services in your home? No 08/14/2023 Depression Answer Date Recorded Patient Health Questionnaire-2 Score 0 05/09/2023 Comments No Sex and Gender Information Value [...] Description 01/30/2025 10:00 AM EDT Office Visit [facility] MEDICINE [address] [place] [address] Kimberly Jon ANP [address] [place] [address] documented as of this encounter Visit Diagnoses Not on filedocumented in this encounter Care Teams Warehouse Delivery Driver Relationship Specialty Start Date End Date Kimberly Jon ANP [address] [place] [phone] PCP - General Family Medicine 06/24/22 Alex Mares, Laura [address] [place] [address] Pharmacist Internal Medicine 06/07/24 documented as of this encounter
--- OUTSIDE RECORDS SUMMARY | 2024-12-22 21:28 | XMS_ITS | Encounter Summary ---
Author Organization [employer] Address [address] [facility] 7t [place] [address] Care Team Providers Care Asset Protection Representative Name Role Phone Kimberly Jon Primary Care Provider [phone] Alex Mares PharmD Unavailable [phone] Reason for Visit * Reason Comments Med Refill Encounter Details Date Type Department Care Team ([facility] st Contact Info) Description 11/24/2024 Refill [facility] CHC MED & PEDS [address] [place], [place] [phone] Kimberly Jon ANP [address] [place] [address] Essential hypertension; Pulmonary hypertension (CMS/HCC) Social History Tobacco Use Types Packs/Day Years Used Date Smoking Tobacco: Never Passive Smoke Exposure: Never Smokeless Tobacco: Never Alcohol Use Standard [...] Description 01/30/2025 10:00 AM EDT Office Visit [facility] MEDICINE [address] [place] [address] Kimberly Jon ANP [address] [place] [address] documented as of this encounter Goals Goal Patient Goal Type Associated Problems Recent Progress Patient-Stated? Author Blood Pressure < 140/90 Blood Pressure 118/76(2024 10:27 AM EST) No Alex Mares PharmD Hemoglobin A1c < 7 Result Component 7.3( 12:07 PM EST) No Alex Mares PharmD documented as of this encounter Visit Diagnoses Diagnosis Essential hypertension Unspecified essential hypertension Pulmonary hypertension (CMS/HCC) Other chronic pulmonary heart diseases documented in this encounter Additional Health Concerns Assessment Noted Time PHQ-9 Depression Total Score: 0 06/06/20 24 10:22 AM EDT documented as of this encounter Care Teams Asset Protection Representative Relationship Specialty Start Date End Date Kimberly Jon ANP [address] [place] [address] PCP - General Family Medicine 06/24/22 Alex Mares, SerenityD [address] [place] [phone] Pharmacist Internal Medicine 06/07/24 documented as of this encounter
--- OUTSIDE RECORDS SUMMARY | 2024-12-22 21:28 | XMS_ITS | Encounter Summary ---
Author Organization [employer] Address [address] [place] [address] 7t [place] [address] Care Team Providers Care Purchasing Department Clerk Name Role Phone Kimberly Jon Primary Care Provider [phone] Alex Mares PharmD Unavailable Encounter Details Date Type Department Care Team ([facility] Contact Info) Description 07/20/2023 Orders Only [facility] CHC MED & PEDS [address] [place], [place] [phone] Genoveva Ga LPN Social History Tobacco Use [...] Description 01/30/2025 10:00 AM EDT Office Visit [facility] MEDICINE 230 [place], [place] [phone] Kimberly Jon ANP 230 [place], [place] [phone] documented as of this encounter Visit Diagnoses Not on filedocumented in this encounter Care Teams Purchasing Department Clerk Relationship Specialty Start Date End Date Kimberly Jon ANP 230 [place], [place] [phone] PCP - General Family Medicine 06/24/22 Alex Mares PharmD 230 [place] [address] Pharmacist Internal Medicine 06/07/24 documented as of this encounter
--- OUTSIDE RECORDS SUMMARY | 2024-12-22 21:28 | XMS_ITS | Encounter Summary ---
Author Organization [employer] Address [address] [place] [address] 7t [place] [address] Care Team Providers Care Nurse Researcher Name Role Phone Kimberly Jon Primary Care Provider [phone] Alex Mares PharmD Unavailable [phone] Encounter Details Date Type Department Care Team (Late st Contact Info) Description 03/23/2023 Orders Only [facility] CHC MED & PEDS [address] [place], [place] [phone] Genoveva Ga LPN Social History Tobacco Use [...] Description 01/30/2025 10:00 AM EDT Office Visit [facility] MEDICINE [address] [place], [place] [phone] Kimberly Jon ANP 230 [place] [address] documented as of this encounter Visit Diagnoses Not on filedocumented in this encounter Care Teams Nurse Researcher Relationship Specialty Start Date End Date Kimberly Jon ANP [address] [place] [address] PCP - General Family Medicine 06/24/22 Alex Mares, SerenityD [address] [place] [phone] Pharmacist Internal Medicine 06/07/24 documented as of this encounter
--- OUTSIDE RECORDS SUMMARY | 2024-12-22 21:28 | XMS_ITS | Encounter Summary ---
Author Organization [employer] Address [address] [facility] 7t [place] [address] Care Team Providers Care Rehabilitation Tech Name Role Phone Kimberly Jon Primary Care Provider [phone] Alex Mares PharmD Unavailable [phone] Reason for Visit * Reason Comments Med Refill Encounter Details Date Type Department Care Team ([facility] st Contact Info) Description 11/26/2024 Refill [facility] CHC MED & PEDS [address] [place], [place] [phone] Kimberly Jon ANP [address] [place] [address] Nasal congestion Social History Tobacco Use Types Packs/Day Years [...] Description 01/30/2025 10:00 AM EDT Office Visit [facility] MEDICINE [address] [place] [address] Kimberly Jon ANP 230 [place] [address] documented as of this encounter Goals Goal Patient Goal Type Associated Problems Recent Progress Patient-Stated? Author Blood Pressure < 140/90 Blood Pressure 118/76(2024 10:27 AM EST) No Alex Mares PharmD Hemoglobin A1c < 7 Result Component 7.3( 12:07 PM EST) No Alex Mares PharmD documented as of this encounter Visit Diagnoses Diagnosis Nasal congestion Other diseases of nasal cavity and sinuses documented in this encounter Additional Health Concerns Assessment Noted Time PHQ-9 Depression Total Score: 0 06/06/20 24 10:22 AM EDT documented as of this encounter Care Teams Rehabilitation Tech Relationship Specialty Start Date End Date Kimberly Jon ANP [address] [place] [address] PCP - General Family Medicine 06/24/22 Alex Mares, PharmD [address] [place] [phone] Pharmacist Internal Medicine 06/07/24 documented as of this encounter
--- OUTSIDE RECORDS SUMMARY | 2024-12-22 21:28 | XMS_ITS | Encounter Summary ---
Author Organization [employer] Address [address] [facility] 7t [place] [address] Care Team Providers Care Aircraft Engine Technician Name Role Phone Kimberly Jon Primary Care Provider [phone] Alex Mares PharmD Unavailable [phone] Encounter Details Date Type Department Care Team ([facility] st Contact Info) Description 04/30/2024 Telephone [facility] ADULT DENTAL [address] [place], [place] [phone] Dk Saldana, STALIN [address] [place], [place] [phone] Social History Tobacco Use Types Packs/Day Years [...] AM EDT documented as of this encounter Miscellaneous Notes * Telephone Encounter - Candy Mejia - 04/30/2024 9:51 AM EDT Patient been waiting for dentures since february 2024 documented in this encounter Plan of Treatment Upcoming Encounters Date Type Department Care Team (Late st Contact Info) Description 01/30/2025 10:00 AM EDT Office Visit [facility] MEDICINE [address] [place] [address] Kimberly Jon ANP [address] [place] [address] documented as of this encounter Visit Diagnoses Not on filedocumented in this encounter Care Teams Aircraft Engine Technician Relationship Specialty Start Date End Date Kimberly Jon ANP [address] [place] [address] PCP - General Family Medicine 06/24/22 Alex Mares, SerenityD [address] [place] [address] Pharmacist Internal Medicine 06/07/24 documented as of this encounter
--- OUTSIDE RECORDS SUMMARY | 2024-12-22 21:28 | XMS_ITS | Encounter Summary ---
Author Organization [employer] Address [address] [facility] 7t [place] [address] Care Team Providers Care Automobile Wrecker Name Role Phone Kimberly Jon Primary Care Provider [phone] Alex Mares PharmD Unavailable [phone] Encounter Details Date Type Department Care Team (Late st Contact Info) Description 11/03/[address] [facility] CHC MED & PEDS [address] [place], [place] [phone] Genoveva Ga LPN Social History Tobacco Use Types Packs/Day Years Used Date Smoking Tobacco: Never Assessed Comments Unknown Sex and Gender Information Value [...] Description 01/30/2025 10:00 AM EDT Office Visit [facility] MEDICINE 230 [place], [place] [phone] Kimberly Jon ANP 230 [place], [place] [phone] documented as of this encounter Procedures Procedure Name Priority Date/Time Associated Diagnosis Comments HIGH SENSITIVITY TROPONIN I Routine 03/10/2023 1:12 PM EDT URINALYSIS, COMPLETE, WITH REFLEX TO CULTURE Routine 03/10/2023 1:12 PM EDT CBC WITH AUTO DIFFERENTIAL Routine 03/10/2023 1:12 PM EDT PROTHROMBIN TIME-INR Routine 03/10/2023 1:12 PM EDT B TYPE NATRIURETIC PEPTIDE (BNP) Routine 03/10/2023 1:12 PM EDT MAGNESIUM Routine 03/10/2023 1:12 PM EDT HEPATIC FUNCTION PANEL Routine 03/10/2023 1:12 PM EDT BASIC METABOLIC PANEL Routine 03/10/2023 1:12 PM EDT documented in this encounter Results * High Sensitivity Troponin I (03/10/2023 1:12 PM EDT) Pathologist [facility] TROPONIN I HIGH SENSITIVITY <2.7 <3.5 - 17.0 ng/L [facility] Comment:The Nichole high sens itivity Troponin-I results should beused in conjunction with other diagnostic information suchas ECG, clinical observations and information, and patientsymptoms to aid in the diagnosis of AL. 03/10/2023 1:12 PM EDT 03/10/2023 1:16 PM EDT us [facility] External Provider LAB BLO OD ORDERABLES Final Result [facility] [address] [place] [address] [phone] * (ABNORMAL) Magnesium (03/10/2023 1:12 PM EDT) Magnesium 1.3(LL) 1.6 - 2.6 mg/dL [facility] Comment:Critical value for M AG: Results called to and read gladis: NAKIA Person calling: SHAI Date: 03/10/23 Time: 1350 03/10/2023 1:12 PM EDT 03/10/2023 1:16 PM EDT [facility] External Provider LAB BLO OD ORDERABLES Final Result Performing Organization Address City/[facility]/ZIP Co de Phone Number [facility] [address] [place] [address] [phone] * (ABNORMAL) Basic Metabolic Panel (03/10/2023 1:12 PM EDT) Sodium 137 135 - 145 mmol/L [facility] Potassium 4.2 3.3 - 5.1 mmol/L [facility] Chloride 104 96 - 108 mmol/L [facility] Carbon Dioxide 24 22 - 29 mmol/L [facility] Anion Gap 13 12 - 20 [facility] Urea Nitrogen (BUN) 19(H) 9 - 16 mg/dL [facility] Creatinine, Serum 0.87 0.5 - 1.4 mg/dL [facility] Creatinine Clr Calc Pharmacy 46.2 [facility] Comment:Provided height and weight: 157.48 cm,59.874 kg.eGFR (calculated from the MDRD study equation) and eCrCl(calculated from the Cockcroft-Gault equation) are based ondifferent parameters and may not yield comparable results.If eCrCl result is absurd, please check patient'sheight/weight. Estimated Glomerular Filt Rate >60 [facility] Comment:NOTE: For -Am erican individuals, multiply the result by 1.210.Chronic Kidney Disease: Estimated GFR < 60 mL/min/1.94t7Devipf Kidney Disease: Estimated GFR < 15 mL/min/1.73m2 Glucose 206(H) 60 - 115 mg/dL [facility] Calcium 9.8 8.4 - 10.2 mg/dL [facility] 03/10/2023 1:12 PM EDT 03/10/2023 1:16 PM EDT [facility] External Provider LAB BLO OD ORDERABLES Final Result [facility] [address] [place] [address] [phone] * Hepatic Function Panel (03/10/2023 1:12 PM EDT) Bilirubin, Total 0.6 0.0 - 1.0 mg/dL [facility] Bilirubin, Direct 0.2 0.0 - 0.5 mg/dL [facility] Aspartate Amino Transferase 20 5 - 31 U/L [facility] Alanine Aminotransferase 23 0 - 31 U/L [facility] Total Protein 7.0 6.5 - 8.0 g/dL [facility] Albumin Level 4.4 3.5 - 5.0 g/dL [facility] Alkaline Phosphatase 65 39 - 117 U/L [facility] 03/10/2023 1:12 PM EDT 03/10/2023 1:16 PM EDT [facility] External Provider LAB BLO OD ORDERABLES Final Result Performing Organization Address City/[facility] Co de Phone Number [facility] [address] [place] [address] [phone] * B Type Natriuretic Peptide (BNP) (03/10/2023 1:12 PM EDT) [facility] B Type Natriuretic Peptide 49 <100 pg/mL [facility] Comment:For those patients w ho are being treated with Natrecor(nesiritide, recombinant BNP), BNP testing should beperformed at least two hours post treatment in order toensure that only endogenous levels of BNP are detected. 03/10/2023 1:12 PM EDT 03/10/2023 1:16 PM EDT [facility] External Provider LAB BLO OD ORDERABLES Final Result Performing Organization Address City/[facility]/ZIP Co de Phone Number [facility] [address] [place] [address] [phone] * Prothrombin Time-INR (03/10/2023 1:12 PM EDT) Prothrombin Time 11.3 10.0 - 13.1 SEC [facility] INTERNATIONAL NORM RATIO 1.0 0.9 - 1.1 [facility] Comment:INTERNATIONAL NORMAL IZED RATIO (INR) REFERENCE RANGES Reference RangeFor patients not on anticoagulant therapy: 0.9 - 1.1INR ranges for oral anticoagulanttherapy:For prevention and treatment of venous thrombosis and pulmonary embolism: 2.0 - 3.0For acute myocardial infarction with aspirin therapy: 2.0 - 3.0For acute myocardial infarction without aspirin therapy: 3.0 - 4.0For patients with mechanical prosthetic heart valves: 2.5 - 3.5 03/10/2023 1:12 PM EDT 03/10/2023 1:16 PM EDT [facility] External Provider LAB BLO OD ORDERABLES Final Result Performing Organization Address City/State/[facility] Co de Phone Number [facility] [address] [place] [phone] * (ABNORMAL) Urinalysis, Complete, with Reflex to Culture (03/10/2023 1:12 PM EDT) Color Urine Yellow [facility] Appearance Urine Clear [facility] PH 7.0 5.0 - 9.0 [facility] Glucose Urine UA >=1000(A) Negative mg/dL [facility] Urine Blood Negative Negative [facility] Specific [place] - Urine 1.020 1.005 - 1.025 [facility] Urine Protein Negative Neg-Trace mg/dL [facility] Urine Ketones Negative Negative mg/dL [facility] Nitrite Urine Negative Negative [facility] Leukocyte Esterase Urine Negative Negative [facility] RBC Urine 0-2 0 - 2 /HPF [facility] Urine WBC 0-5 0 - 5 /HPF [facility] Urine Squamous Epithelial Cell 0-2 0 - 2 /HPF [facility] Urine Bacteria None Seen None Seen [facility] Hyaline Casts, Urine 0-2 0 - 2 /LPF [facility] 03/10/2023 1:12 PM EDT 03/10/2023 1:16 PM EDT Narrative [facility] - 03/10/2023 1:22 PM EDT [id number], Clean Catch us [facility] External Provider LAB URI NE ORDERABLES Final Result [facility] [address] [place] [address] [phone] * (ABNORMAL) CBC auto differential (03/10/2023 1:12 PM EDT) White Blood Count 6.0 4.8 - 10.8 X10*3/uL [facility] Red Blood Count 3.95(L) 4.20 - 5.50 X10*6/uL [facility] Hemoglobin 11.8(L) 12.0 - 16.0 g/dl [facility] Hematocrit 36.0(L) 37.0 - 47.0 % [facility] Mean Corpuscular Volume 91.1 80.0 - 98.0 fL [facility] Mean Corpuscular Hemoglobin 29.9 27.0 - 33.0 pg [facility] Mean Corpuscular HGB Conc 32.8 31.0 - 35.0 g/dl [facility] Red Cell Distribution Width 13.7 11.0 - 16.0 % [facility] Platelet Count 352 160 - 400 X10*3/uL [facility] Mean Platelet Volume 10.2 9.4 - 12.3 fL [facility] Neutrophils Percent Auto 51.2 45 - 73 % [facility] Imm Gran Pct Auto 0.5(H) 0.0 - 0.4 % [facility] Lymphocytes Percent Auto 36.8 20 - 40 % [facility] Monocytes Percent Auto 8.0 2 - 11 % [facility] Eosinophils Percent Auto 2.2 0 - 4 % [facility] Basophils Percent Auto 1.3 0 - 2 % [facility] NRBC Pct Auto 0.0 0.0 - 0.2 /100WBC [facility] Neutrophils Absolute Auto 3.1 2.0 - 8.3 x10*3/uL [facility] Imm Gran Abs Auto 0.03 0.00 - 0.03 X10*3/uL [facility] Lymphocytes Absolute Auto 2.2 1.2 - 4.9 X10*3/uL [facility] Monocytes Absolute Auto 0.5 0.1 - 1.2 X10*3/uL [facility] Eosinophils Absolute Auto 0.1 0.0 - 0.4 X10*3/uL [facility] Basophils Absolute Auto 0.1 0.0 - 0.2 X10*3/uL [facility] NRBC Abs Auto 0.000 0.0 - 0.012 X10*3/uL [facility] 03/10/2023 1:12 PM EDT 03/10/2023 1:16 PM EDT us [facility] External Provider LAB BLO OD ORDERABLES Final Result [facility] [address] [place] [address] [phone] documented in this encounter Visit Diagnoses Not on filedocumented in this encounter Care Teams Automobile Wrecker Relationship Specialty Start Date End Date Kimberly Jon ANP [address] [place] [phone] PCP - General Family Medicine 06/24/22 Alex Mares, Laura [address] [place] [address] Pharmacist Internal Medicine 06/07/24 documented as of this encounter
--- OUTSIDE RECORDS SUMMARY | 2024-12-22 21:28 | XMS_ITS | Encounter Summary ---
Author Organization [employer] Address [address] [place] [address] 7t [place] [address] Care Team Providers Care Bagger Meat Name Role Phone Kimberly Jon Primary Care Provider [phone] Alex Mares PharmD Unavailable [phone] Reason for Visit * Reason Comments Med Refill Encounter Details Date Type Department Care Team (Late st Contact Info) Description 03/23/2023 Refill [facility] MEDICINE [address] [place] [address] [facility] [address] [place], [place] [phone] Social History Tobacco Use Types Packs/Day Years [...] Description 01/30/2025 10:00 AM EDT Office Visit [facility] MEDICINE [address] [place], [place] [phone] Kimberly Jon ANP [address] [place], [place] [phone] documented as of this encounter Visit Diagnoses Not on filedocumented in this encounter Care Teams Bagger Meat Relationship Specialty Start Date End Date Kimberly Jon ANP [address] [place], [place] [phone] PCP - General Family Medicine 06/24/22 Alex Mares PharmD [address] [place] [address] Pharmacist Internal Medicine 06/07/24 documented as of this encounter
--- OUTSIDE RECORDS SUMMARY | 2024-12-22 21:28 | XMS_ITS | Encounter Summary ---
Author Organization [employer] Address 75 [facility] 7t [place] [address] Care Team Providers Care Software Configuration Manager Name Role Phone Kimberly Jon Primary Care Provider [phone] Alex Mares PharmD Unavailable [phone] Reason for Visit * Reason Onset Date Comments January recall 12/02/2024 Encounter Details Date Type Department Care Team ([facility] st Contact Info) Description 12/02/2024 Telephone [facility] MEDICINE [address] [place] [address] [facility] [place] January recall Social History Tobacco Use Types Packs/Day Years [...] encounter Miscellaneous Notes * Telephone Encounter - Sandra Álvarez [place] - 12/02/2024 2:02 PM EST T/C to pt to schedule a recall f/u chronic condition. PT agreed to come in on 01/30/25 at 10am. documented in this encounter Plan of Treatment Upcoming Encounters Date Type Department Care Team (Late st Contact Info) Description 01/30/2025 10:00 AM EDT Office Visit [facility] MEDICINE [address] [place] [address] Kimberly Jon, ANP [address] [place] [address] documented as of this encounter Goals Goal Patient Goal Type Associated Problems Recent Progress Patient-Stated? Author Blood Pressure < 140/90 Blood Pressure 118/76(2024 10:27 AM EST) No Alex Mares PharmD Hemoglobin A1c < 7 Result Component 7.3( 12:07 PM EST) No Alex Mares PharmD documented as of this encounter Visit Diagnoses Not on filedocumented in this encounter Additional Health Concerns Assessment Noted Time PHQ-9 Depression Total Score: 0 06/06/20 24 10:22 AM EDT documented as of this encounter Care Teams Software Configuration Manager Relationship Specialty Start Date End Date Kimberly Jon ANP [address] [place] [address] PCP - General Family Medicine 06/24/22 Alex Mares PharmD [address] [place] [address] Pharmacist Internal Medicine 06/07/24 documented as of this encounter
--- OUTSIDE RECORDS SUMMARY | 2024-12-22 21:28 | XMS_ITS | Encounter Summary ---
Author Organization [employer] Address [address] [facility] [address] [place] [address] Care Team Providers Care Supervisor Tellers Name Role Phone Kimberly Jon Primary Care Provider Alex Mares PharmD Unavailable [phone] Reason for Visit * Reason Comments Med Refill Encounter Details Date Type Department Care Team ([facility] st Contact Info) Description 12/17/2024 Refill [facility] MED & PEDS [address] [place], [place] [phone] Kimberly Jon ANP [address] [place] [address] Pain Social History Tobacco Use Types Packs/Day Years [...] Description 01/30/2025 10:00 AM EDT Office Visit [facility] MEDICINE [address] [place] [id number] Kimberly Jon ANP [address] [place] [address] documented as of this encounter Goals Goal Patient Goal Type Associated Problems Recent Progress Patient-Stated? Author Blood Pressure < 140/90 Blood Pressure 118/76(2024 10:27 AM EST) No Alex Mares PharmD Hemoglobin A1c < 7 Result Component 7.3( 12:07 PM EST) No Alex Mares PharmD documented as of this encounter Visit Diagnoses Diagnosis Pain Generalized pain documented in this encounter Additional Health Concerns Assessment Noted Time PHQ-9 Depression Total Score: 0 06/06/20 24 10:22 AM EDT documented as of this encounter Care Teams Supervisor Tellers Relationship Specialty Start Date End Date Kimberly Jon ANP [address] [place] [id number] PCP - General Family Medicine 06/24/22 Alex Mares PharmD [address] [place] [address] Pharmacist Internal Medicine 06/07/24 documented as of this encounter
--- OUTSIDE RECORDS SUMMARY | 2024-12-22 21:28 | XMS_ITS | Encounter Summary ---
Author Organization [employer] Address [address] [facility] 7[address] [place] [address] Care Team Providers Care Leathersmith Name Role Phone Kimberly Jon Primary Care Provider Alex Mares PharmD Unavailable [phone] Encounter Details Date Type Department Care Team ([facility] st Contact Info) Description 08/17/2023 Orders Only [facility] MED & PEDS [address] [place], [place] [phone] Genoveva Ga LPN Social History Tobacco Use [...] Description 01/30/2025 10:00 AM EDT Office Visit [facility] MEDICINE [address] [place] [address] Kimberly Jon ANP [address] [place] [address] documented as of this encounter Visit Diagnoses Not on filedocumented in this encounter Care Teams Leathersmith Relationship Specialty Start Date End Date Kimberly Jon ANP [address] [place] [id number] PCP - General Family Medicine 06/24/22 Alex Mares, Laura [address] [place] [phone] Pharmacist Internal Medicine 06/07/24 documented as of this encounter
--- NOTE | 2024-12-22 21:31 | ED_ITS ---
HPI - Back Pain/Injury General Chief Complaint: General Medical Stated Complaint: pain traveling from chest to head Time Seen by Provider: 12/22/24 21:22 Source: patient Mode of arrival: ambulatory Limitations: no limitations History of Present Illness ED Provider: HPI Narrative: Patient with severe cervical osteoarthritis with narrowing of the foramina C3-C4 on the left side with history of fibromyalgia comes here for increased pain in the neck and the left upper back no paresthesia no and weak patient is supposed to get noerve blocks next week from audio specialist no recent trauma Related Data Home Medications ?Medication ?Instructions ?Recorded ?Confirmed acetaminophen 500 mg tablet mg PO 07/28/22 aspirin 81 mg tablet,delayed 81 mg PO DAILY 07/28/22 release atorvastatin 40 mg tablet 40 mg PO BEDTIME 07/28/22 calcium 600 mg (as 1 tab PO 07/28/22 carbonate)-vitamin D3 10 mcg (400 unit) tablet cetirizine 10 mg tablet 10 mg PO DAILY 07/28/22 empagliflozin 25 mg tablet 25 mg PO DAILY 07/28/22 (Jardiance) fluticasone propionate 50 spray intranasal 07/28/22 mcg/actuation nasal spray,suspension gabapentin 100 mg capsule 100 mg PO TID 07/28/22 hydrochlorothiazide 12.5 mg tablet 12.5 mg PO DAILY 07/28/22 levothyroxine 75 mcg tablet 75 mcg PO DAILY 07/28/22 lisinopril 40 mg tablet 40 mg PO BID 07/28/22 metformin 500 mg tablet,extended 1,000 mg PO BID 07/28/22 release 24 hr metoprolol tartrate 50 mg tablet mg PO 07/28/22 omeprazole 20 mg capsule,delayed 20 mg PO QAM 07/28/22 release repaglinide 1 mg tablet 2 mg PO BID 07/28/22 Previous Rx's ?Medication ?Instructions ?Recorded lidocaine 5 % topical ointment 1 appl topical DAILY PRN pain #30 02/12/22 grams cyclobenzaprine 5 mg tablet 5 mg PO TID PRN muscle spasm #10 08/08/22 tabs diclofenac sodium 1 % topical gel 4 g topical QID PRN pain #100 grams 08/08/22 (Voltaren Arthritis Pain) lidocaine 5 % topical patch 1 patch topical DAILY #15 ea 08/08/22 (Lidoderm) cephalexin 500 mg capsule 500 mg PO QID 5 days #20 caps 05/15/23 cyclobenzaprine 10 mg tablet 10 mg PO TID PRN muscle spasm #15 07/29/23 tabs lidocaine 5 % topical patch 1 patch topical DAILY #15 ea 07/29/23 (Lidoderm) naproxen 500 mg tablet 500 mg PO BID PRN pain #20 tabs 07/29/23 oxycodone 5 mg tablet 5 mg PO BEDTIME PRN pain #10 tabs 11/16/23 acetaminophen 325 mg capsule 325 mg PO Q4H PRN pain #30 caps 02/27/24 (Tylenol) prednisone 20 mg tablet 20 mg PO DAILY 5 days #5 tabs 02/27/24 tramadol 25 mg tablet 25 mg PO Q6H PRN pain #6 tabs 02/27/24 cyclobenzaprine 5 mg tablet 5 mg PO TID PRN muscle spasm #20 12/22/24 tabs oxycodone 5 mg tablet 5 mg PO Q6H PRN pain #20 tabs 12/22/24 Allergies Allergy/AdvReac Type Severity Reaction Status Date / Time shellfish derived [shellfish] Allergy Intermediate Unknown Verified 12/22/24 20:15 Seafood Allergy Mild THROAT Uncoded 06/28/24 12:46 ITCHING Review of Systems Review of Systems: Yes all other systems are reviewed and are negative [facility] Past Medical History Medical History Hyperlipidemia Hypothyroid Diabetes HTN (hypertension) GERD (gastroesophageal reflux disease) Social History Social History Alcohol intake: never Patient Tobacco Use Status: Never used Tobacco Physical Exam Vital Signs: Vital Signs: Last Vital Signs Temp 97.9 F 12/22/24 23:22 Pulse 77 12/22/24 23:22 Resp 14 12/22/24 23:22 BP 161/72 H 12/22/24 23:22 Pulse Ox 97 12/22/24 23:22 O2 Del Method Room Air 12/22/24 23:22 BMI result Body Mass Index 21.9 Appearance: Alert. Oriented X3. No acute distress. Eyes: No pallor or icterus ENT: Pharynx normal. Oral Mucosa moist Neck: Normal inspection. Neck supple. With painful movements diffuse midline tenderness diffuse tenderness left trapezius area CVS: Normal heart rate and rhythm. Pulses normal. Respiratory: No respiratory distress. Equal air entry bilateral, no wheezing/rales/rhonchi Abdomen: Soft and nontender. Bowel sounds are present, no mass palpable, no CVA tenderness Skin: Skin warm and dry. Normal skin color. Normal skin turgor. Extremities: No lower extremity edema. No calf tenderness no dermatomal paresthesia in the upper extremities Neuro: Oriented X 3. No motor deficit. No sensory deficit.No cerebellar signs , cranial nerves II-XII intact Medications Administered Discontinued Medications Generic Name Dose Route Start Last Admin Trade Name Freq PRN Reason Stop Dose Admin Cyclobenzaprine HCl 5 mg 12/22/24 21:32 12/22/24 22:12 Cyclobenzaprine Hcl 5 Mg Tablet PO 12/22/24 21:33 5 mg ONCE ONE Administration Oxycodone HCl 10 mg 12/22/24 21:32 12/22/24 22:12 Oxycodone Hcl Immed Release 5 Mg Tablet PO 12/22/24 21:33 10 mg ONCE ONE Administration Medical Decision Making Medical Decision Making [facility] Narrative: Patient with significant osteoarthritis of cervical spine with significant severe left-sided foraminal narrowing of C3-C4 and moderate bilateral C6-C7 patient has been followed by a audio specialist in [place] plan to get injections this in the spine next week will discharge patient home on oxycodone and muscle relaxant no neuro deficit at this time no muscular weakness Independent Interpretation I performed an independent interpretation of an: CT Scan Radiology Impression Discussion of test interpretation with radiology: I have reviewed the radiologist's reading. Radiologist Impression: [place] [id number] CT Scan Report Signed Patient: Jacquelyn Scott MR#: [id number] : 1950 Acct:[id number] Age/Sex: 74 / F ADM Date: 12/22/24 Loc: HO.ED Attending Dr: Ordering Physician: Connor Ngo MD Date of Service: 12/22/24 Procedure(s): CT cervical spine wo IV con Accession Number(s): [id number] cc: [employer]; Connor Ngo MD~ Report Number: [id number]: Total DLP = 293.00 mGy-cm CLINICAL HISTORY: c3-[address] cervical spine without contrast Comparison: CT of the cervical spine from 11/16/2023 Findings: No acute fracture of the cervical spine. Mild reversal of the cervical lordosis. No significant change in mild anterolisthesis at C2-C3 and C3-C4. Redemonstration of multifocal disc osteophyte complexes with mild spinal canal stenosis. Redemonstration of severe left-sided foraminal narrowing at C3-C4 and moderate bilateral at C6-C7. No significant change in additional mild-moderate foraminal narrowing. Multifocal facet arthropathy and ligament calcifications are redemonstrated. No paraspinal hematoma. Vascular calcifications are redemonstrated. Mild scarring of the imaged lung apices. IMPRESSION: 1. No acute fracture of the cervical spine 2. significant change when compared to 11/16/2023; again with multifocal foraminal narrowing. This document has been electronically signed by: Alejandro Christopher MD on 12/22/2024 22:31:49 Discharge Plan Discharge Clinical Impression: Cervical radiculopathy, Fibromyalgia Patient Disposition: Home, Self-Care Instructions: Fibromyalgia (ED), Cervical Radiculopathy (ED) Additional Instructions: Follow-up with your audio specialist as scheduled Pain medication and muscle relaxants as prescribed Apply ice pack Prescriptions: New oxycodone 5 mg tablet 5 mg PO Q6H PRN (Reason: pain) Qty: 20 0RF Rx Instructions: Partial Fill upon patient request. cyclobenzaprine 5 mg tablet 5 mg PO TID PRN (Reason: muscle spasm) Qty: 20 0RF No Action lidocaine 5 % ointment 1 appl topical DAILY PRN (Reason: pain) Qty: 30 0RF diclofenac sodium [Voltaren Arthritis Pain] 1 % gel 4 g topical QID PRN (Reason: pain) Qty: 100 0RF cyclobenzaprine 5 mg tablet 5 mg PO TID PRN (Reason: muscle spasm) Qty: 10 0RF lidocaine [Lidoderm] 5 % adhesive patch,medicated 1 patch topical DAILY Qty: 15 0RF Rx Instructions: leave on most painful area for up to 12 hrs cephalexin 500 mg capsule 500 mg PO QID 5 Days Qty: 20 0RF naproxen 500 mg tablet 500 mg PO BID PRN (Reason: pain) Qty: 20 0RF cyclobenzaprine 10 mg tablet 10 mg PO TID PRN (Reason: muscle spasm) Qty: 15 0RF lidocaine [Lidoderm] 5 % adhesive patch,medicated 1 patch topical DAILY Qty: 15 0RF Rx Instructions: leave on most painful area for up to 12 hrs tramadol 25 mg tablet 25 mg PO Q6H PRN (Reason: pain) Qty: 6 0RF acetaminophen [Tylenol] 325 mg capsule 325 mg PO Q4H PRN (Reason: pain) Qty: 30 0RF prednisone 20 mg tablet 20 mg PO DAILY 5 Days Qty: 5 0RF oxycodone 5 mg tablet 5 mg PO BEDTIME PRN (Reason: pain) Qty: 10 0RF Rx Instructions: Partial Fill upon patient request. Jardiance 25 mg tablet 25 mg PO DAILY hydrochlorothiazide 12.5 mg tablet 12.5 mg PO DAILY repaglinide 1 mg tablet 2 mg PO BID metformin 500 mg tablet extended release 24 hr 1,000 mg PO BID fluticasone propionate 50 mcg/actuation spray,suspension intranasal lisinopril 40 mg tablet 40 mg PO BID gabapentin 100 mg capsule 100 mg PO TID metoprolol tartrate 50 mg tablet PO levothyroxine 75 mcg tablet 75 mcg PO DAILY aspirin 81 mg tablet,delayed release (DR/EC) 81 mg PO DAILY cetirizine 10 mg tablet 10 mg PO DAILY acetaminophen 500 mg tablet PO calcium carbonate-vitamin D3 600 mg-10 mcg (400 unit) tablet 1 tab PO omeprazole 20 mg capsule,delayed release(DR/EC) 20 mg PO QAM atorvastatin 40 mg tablet 40 mg PO BEDTIME Interventions: ED Discharge Assessment Last Done: 12/22/24 23:22 Discharge Date/Time: 12/22/24 23:35 Print Language: Vietnamese
[2024-12-22] MEDS: Cyclobenzaprine HCl 5 MG TABLET PO (22:12)
[2024-12-22] MEDS: oxyCODONE HCl Immed Release 5 MG TABLET 10 MG PO (22:12)
[2024-12-22 23:12] VITALS: BP 161/72; PULSE 77; RESP 14; TEMP 36.6; O2SAT 97
[2024-12-22 23:22] VITALS: BP 161/72; PULSE 77; RESP 14; TEMP 36.6; O2SAT 97
== END 2024-12-22 23:35 | disposition home or self-care (01) ==
PROVIDERS: Emergency Provider Internal Medicine; PCP Nurse Practitioner Primary Care
DX: M54.12 Radiculopathy, cervical region (principal); M54.2 Cervicalgia; M79.7 Fibromyalgia; R07.89 Other chest pain; I44.7 Left bundle-branch block, unspecified; M54.6 Pain in thoracic spine; Z79.899 Other long term (current) drug therapy
CPT/HCPCS: 72125; 93005; 99284

== ENCOUNTER → 2024-12-22 20:02 | Outpatient (BNV) | payer OTHER, SELFPAY | PROVIDERS: Emergency Provider Internal Medicine; PCP Nurse Practitioner Primary Care; Visit Provider Internal Medicine | DX: R07.9 Chest pain, unspecified (principal); I44.7 Left bundle-branch block, unspecified; R94.31 Abnormal electrocardiogram [ECG] [EKG] | CPT/HCPCS: 93010 ==

== ENCOUNTER → 2024-12-22 21:48 | Outpatient (BNV) | payer OTHER, SELFPAY | PROVIDERS: Emergency Provider Internal Medicine; PCP Nurse Practitioner Primary Care; Visit Provider Radiology Neuroradiology | DX: M54.12 Radiculopathy, cervical region (principal) | CPT/HCPCS: 72125 ==

== ENCOUNTER 2025-01-17 10:14 | Outpatient (AMB) | payer OTHER, SELFPAY ==
[2025-01-17 10:23] VITALS: BMI 21.8
--- NOTE | 2025-01-17 10:23 | MHC.OFFVIS ---
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 Patient reports numbness and tingling on all of her fingers occurring most days, on and off. Patient states she is having trouble carrying items, opening and closing jars. Patient states the numbness is waking her up through the night. She has tried a wrist brace that she is using occasionally. Denies prior injuries or surgeries to the right hand. 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 Patient states that her numbness and tingling is throughout the digits of the right hand. Patient states that numbness and tingling is intermittent, daily, worse at night. Patient also reports discomfort in her hand and in her forearm radiating up into the right elbow. No other acute complaints or concerns at this time. [facility] Medical History Hyperlipidemia Hypothyroid Diabetes HTN (hypertension) GERD (gastroesophageal reflux disease) Social History Alcohol intake: never Patient Tobacco Use Status: Never used Tobacco Review of Systems Const All systems reviewed & are unremarkable except as noted in HPI and below Physical Exam Vital Signs: BMI result Body Mass Index 21.8 Extrem Other: Neuro: Normal sensation of the tips of all digits of the right hand in the office today No thenar or intrinsic wasting. Good APB muscle firing and good finger cross. Vascular: Capillary refill brisk. ROM: Patient can make a fist and extend all their digits. Skin: No lacerations or abrasions noted. General: No ecchymosis. No erythema or evidence of infection. Results Reviewed Results Reviewed: IMPRESSION: 1. Sdni-og-zulioryv right median neuropathy across carpal tunnel. 2. Mild right ulnar neuropathy across cubital tunnel. Octavio Campbell MD MZK/MODL Assessment & Plan Assessment & Plan (1) Cubital tunnel syndrome on right: Code(s): G56.21 - Lesion of ulnar nerve, right upper limb Category: Medical (2) Right carpal tunnel syndrome: Code(s): G56.01 - Carpal tunnel syndrome, right upper limb Category: Medical Plan 1. Right cubital tunnel syndrome 2. Right carpal tunnel syndrome Symptoms intermittent, daily, worse at night I educated the patient about the condition. I discussed both operative and nonoperative treatment options. The patient would like to proceed with surgery. The risks and benefits of operative treatment were discussed with the patient and the patient wishes to proceed with surgery. These risks include, but are not limited to, risk of damage to blood vessels, nerves, tendons, infection, recurrence, incomplete relief of preoperative symptoms, persistent pain, possible need for further surgery, and the risks associated with regional blocks and/or anesthesia. Plan is to take the patient to the operating room at some point in the next few weeks for the following procedures: 1. Right cubital tunnel release under general anesthesia 2. Right carpal tunnel release under general anesthesia All of the preoperative paperwork including the consent was discussed today. All of the patient's questions were answered in the clinic today. The patient understands that they will be in contact with our surgical services assistant to discuss scheduling their procedure. Patient reports diabetes, last A1c unknown, we will get this value prior to surgery Denies blood thinners, cardiac or kidney issues, current smoking Coding Level of Care Code New Pt Level 4 (96111) Diagnoses Cubital tunnel syndrome on right G56.21 Right carpal tunnel syndrome G56.01
== END 2025-01-17 10:57 | disposition home or self-care (01) ==
PROVIDERS: PCP Nurse Practitioner Primary Care
DX: G56.21 Lesion of ulnar nerve, right upper limb (principal); G56.01 Carpal tunnel syndrome, right upper limb
CPT/HCPCS: 99204

== ENCOUNTER → 2025-01-17 10:14 | Outpatient (BNVA) | payer OTHER, SELFPAY | PROVIDERS: PCP Nurse Practitioner Primary Care | DX: G56.21 Lesion of ulnar nerve, right upper limb (principal); G56.01 Carpal tunnel syndrome, right upper limb | CPT/HCPCS: 99202 ==

== ENCOUNTER 2025-01-21 11:13 | Outpatient (AMB) | payer MEDICARE, SELFPAY ==
--- NOTE | 2025-01-21 11:19 | MHC.OFFVIS ---
Vital Signs 01/21/25 11:37 Height 5 ft 2 in Weight 119 lb 14.903 oz BMI 21.9 BP 132/64 Blood Pressure Location Rt brachial Position Sitting Pulse 66 Pulse Source Pulse Oximeter Pulse Oximetry (%) 96 Oxygen Delivery Method Room Air Intake Visit Reasons: Positive FIT Fecal Immunochemical test R19.5 Intake Note: NEW PATIENT for + FIT test. Initial eval. Prior hx of colo/egd? 2017 w/ Dr. Bullard, 2007 w/ Dr. Riggins. 10 yr Recalls. Chief Complaint; C/O occasional reflux which seems dietary dependent, pt does report associated epigastric pain w/o dysphagia. No additional GI concerns at this time. Pt does not have hx of EGD despite chronic hx x multiple years of GERD. Artificial Marble Worker Required: Yes Artificial Marble Worker Services: Artificial Marble Worker Offered & Declined Information Interpreted: clinical only Accompanied by: Family/Other Allergies shellfish derived [shellfish] Allergy (Severe, Verified 01/21/25 11:19) Anaphylaxis Medication List - Last Reviewed 01/21/25 by ASHLEY Sanders aspirin (Adult Aspirin Regimen) 81 mg PO DAILY atorvastatin 40 mg PO BEDTIME blood sugar diagnostic (SIGFOXTouch Ultra Test strips) As directed calcium carbonate-vitamin D3 600 mg-10 mcg (400 unit) 1 tab PO cetirizine 10 mg PO DAILY empagliflozin (Jardiance) 25 mg PO DAILY fluticasone propionate 50 mcg/actuation sprays intranasal gabapentin 100 mg PO TID hydrochlorothiazide 12.5 mg PO DAILY lancets (OneTouch Delica Plus Lancet) As directed levothyroxine 75 mcg PO DAILY lisinopril 40 mg PO BID metformin ER 1,000 mg PO BID metoprolol tartrate mg PO mometasone 50 mcg/actuation 2 sprays intranasal DAILY PRN omeprazole 20 mg PO QAM PNV,calcium 26-gntt-tuzbh acid 27 mg iron- 1 mg ( Vitamins Plus Low Iron) 1 tab PO DAILY HPI HPI Positive FIT Fecal Immunochemical test R19.5: Details: 74 year old? female with past medical history of hyperlipidemia, hypertension, hypothyroidism, GERD, diabetes is here today for pre colonoscopy screening.? Patient was sent to us by her PCP.? Last colonoscopy in [address] Bullard, no polyps diverticulosis found. Before then patient had also normal colonoscopy in 2007.? Positive fit test and patient is sent to us for colonoscopy. Patient denies any gastrointestinal symptoms in the past or at present.? Denies any personal or family history of gastrointestinal disease, colon polyps, or CRC.? Denies history of difficulty with sedation or anesthesia in the past.? Negative for history of sleep apnea.? Denies any history of cardiac, renal, pulmonary, or hepatic disease.?? No history of infectious? diseases like hepatitis A, B, C, HIV or tuberculosis.? Patient is on low-dose aspirin [facility] Medical History Hyperlipidemia Hypothyroid Diabetes HTN (hypertension) GERD (gastroesophageal reflux disease) Surgical History History of colonoscopy Social History Alcohol intake: never Patient Tobacco Use Status: Never used Tobacco Review of Systems Const Denies weight gain and Denies weight loss ENT Reports no additional complaints, Denies dysphagia and Denies odynophagia Card Reports no additional complaints Resp Reports no additional complaints GI Denies abdominal pain, Denies belching, Denies melena, Denies bloating, Denies change in bowel habits, Denies dysphagia, Denies excessive flatus, Denies dyspepsia, Reports heartburn (Occasional), Denies diarrhea, Denies loose stools, Denies nausea, Denies odynophagia and Denies vomiting Reports no additional complaints Musc Reports no additional complaints Neuro Reports no additional complaints Psych Reports no additional complaints Endo Reports no additional complaints Physical Exam Vital Signs: Last Vital Signs Pulse 66 01/21/25 11:37 BP 132/64 01/21/25 11:37 Pulse Ox 96 01/21/25 11:37 Oxygen Delivery Method Room Air 01/21/25 11:37 BMI result Body Mass Index 21.9 Const General: healthy appearing, no acute distress and well developed Nutritional Appearance: well nourished Orientation/consciousness: patient oriented x3 Resp Effort & Inspection: normal respiratory effort, able to speak in complete sentences, no tracheal deviation and symmetric chest movement Auscultation: clear to auscultation bilaterally Cardio Rate: regular rate GI Inspection: Yes normal to inspection and No distended Palpation (GI): Soft to palpation, not firm, nontender and No hepatosplenomegaly present Auscultation: normal bowel sounds General: Yes no CVA tenderness Back/Spine/Pelvis Back: no CVA tenderness Skin General skin exam: elasticity normal, turgor normal and dry skin Neuro General: patient oriented x3 Psych Appearance: grossly normal Mental Status: mental status grossly normal Assessment & Plan Assessment & Plan (1) Screen for colon cancer: Code(s): Z12.11 - Encounter for screening for malignant neoplasm of colon Plan Patient denies any cardiac or respiratory symptoms.? Patient reports occasional acid reflux, takes omeprazole with results. History of reflux for several years. Will send patient for upper endoscopy as well. Denies any issues with anesthesia in the past.? Denies any history of sleep apnea.? No history infectious diseases in the past or present.? Patient is on low-dose aspirin.? No family or personal history of colon cancer or polyps.? Patient denies melena, hematochezia, unintentional weight loss or ribbon like stools.? Discussed at length the pre-procedure,? prep, diet & medications as well as what to expect prior, during and after the procedure.?? Stressed the importance of good bowel prep.? Recommended the use of Vaseline or Calmoseptine OTC & baby wipes with bowel movements to promote comfort.? ?Patient verbalizes understanding and agrees to plan of care.? She was given the opportunity to ask questions and all questions answered.? We will see her after the procedure.? Medications: New PNV,calcium 19-kgmw-oyfkq acid 27 mg iron- 1 mg ( Vitamins Plus Low Iron) 1 tab PO DAILY polyethylene glycol 3350 (Miralax) As directed by gastroenterology department at [facility] 238 grams PO ONCE 238 grams 0RF Z12.11 - Encounter for screening for malignant neoplasm of colon mometasone 50 mcg/actuation administer into each nostril 2 sprays intranasal DAILY PRN bisacodyl (Dulcolax (bisacodyl)) take 4 tabs at noon the day before your colonoscopy 20 mg (4 x 5 mg) PO ONCE 4 tabs 0RF 1 day Z12.11 - Encounter for screening for malignant neoplasm of colon Coding Level of Care Code New Pt Level 3 (57101) Diagnoses Screen for colon cancer Z12.11 Time Spent (min) 40 Comment 30 minutes spent with patient and additional 10 minutes spent reviewing her records
[2025-01-21 11:37] VITALS: BP 132/64; PULSE 66; O2SAT 96; BMI 21.9
== END 2025-01-21 12:21 | disposition home or self-care (01) ==
LOC: HO.HGI 11:14
PROVIDERS: PCP Nurse Practitioner Primary Care; Visit Provider Nurse Practitioner Family
DX: Z01.818 Encounter for other preprocedural examination (principal); Z12.11 Encounter for screening for malignant neoplasm of colon; R19.5 Other fecal abnormalities
CPT/HCPCS: 99024

== ENCOUNTER → 2025-01-21 11:13 | Outpatient (BNVA) | payer MEDICARE, SELFPAY | PROVIDERS: PCP Nurse Practitioner Primary Care; Visit Provider Nurse Practitioner Family | DX: Z12.11 Encounter for screening for malignant neoplasm of colon (principal) | CPT/HCPCS: 99212 ==

== ENCOUNTER 2025-01-30 16:27 | Outpatient (REF) | payer OTHER, SELFPAY ==
--- OUTSIDE RECORDS SUMMARY | 2025-01-30 17:11 | XMS_ITS | Clinical Summary ---
Author Organization [employer] Address [address] [facility] 7t [place] [address] Care Team Providers Care Worm Raiser Name Role Phone Shahla Akin STILL Primary Care Provider [phone] Alex Mares PharmD Unavailable [phone] Allergies Active Allergy Reactions Criticality Noted Date [...] 01/05/20 24 Active Lancets (OneTouch Delica Plus [id number]) misc TEST BLOOD SUGAR 3 TIMES A [...] associated with type 2 diabetes mellitus (CMS/HCC) TAKE 2 TABLETS BY MOUTH ONCE DAILY IN THE MORNING and TAKE 1 TABLET EVERY EVENING WITH MEALS 90 tablet 5 08/26/20 24 Active Aspirin Low Dose 81 MG EC tablet TAKE 1 TABLET BY MOUTH EVERY MORNING 90 tablet 1 08/26/20 24 Active Continuous Glucose Arch Cushion Press Operator (FreeStyle Edgardo 2 Hamilton) deviceIndications :Type 2 diabetes mellitus with hyperlipidemia (CMS/HCC) (CMS/HCC),Needle phobia Scan sensor every 8 hours 1 each 09/06/20 24 Active Continuous Glucose Sensor (FreeStyle Edgardo 2 Sensor) miscIndications:T ype 2 diabetes mellitus with hyperlipidemia (CMS/HCC) (CMS/HCC),Needle phobia Apply 1 sensor every 14 days 2 each 09/06/20 24 Active glucose blood (FreeStyle Precision Jon Test) test stripIndications: Type 2 diabetes mellitus with hyperlipidemia (CMS/HCC) (CMS/HCC),Needle phobia Use to test blood sugar 3 times daily 100 each 12 09/06/20 24 2024 Active 27-1 MG tabletIndications :Healthcare maintenance TAKE 1 TABLET BY MOUTH EVERY MORNING WITH A MEAL 90 tablet 3 09/24/20 24 Active atorvastatin (Lipitor) 40 MG tabletIndications :Type 2 diabetes mellitus with hyperlipidemia (CMS/HCC) (CMS/HCC) TAKE 1 TABLET BY MOUTH AT BEDTIME 90 tablet 3 09/24/20 24 Active SITagliptin (Januvia) 100 MG tabletIndications :Type 2 diabetes mellitus with hyperlipidemia (CMS/HCC) (CMS/HCC) Take 1 tablet (100 mg) by mouth [...] 40 MG tabletIndications :Essential hypertension,Pulm onary hypertension ([facility]/HCC) TAKE 1 TABLET BY MOUTH TWICE DAILY [...] HOURS NEEDED 90 tablet 12/20/19 25 Active magnesium oxide (Mag-Ox) 400 MG tabletIndications :Hypomagnesemia TAKE 1 TABLET BY MOUTH EVERY DAY 30 tablet 1 01/01/20 25 Active Jardiance 25 MGIndications:Polly betes mellitus with coincident hypertension (CMS/HCC) ([facility]) TAKE 1 TABLET BY MOUTH EVERY MORNING 90 tablet 01/29/20 25 Active metoprolol tartrate (Lopressor) 50 MG tablet TAKE 1 TABLET BY MOUTH EVERY MORNING and TAKE 1 AND 1/2 TABLETS BY MOUTH EVERY EVENING 225 tablet 01/29/20 25 Active omeprazole (PriLOSEC) [address] capsule TAKE 1 CAPSULE BY MOUTH EVERY MORNING BEFORE BREAKFAST 90 capsule 01/29/20 25 Active fluconazole (Diflucan) 150 MG tabletIndications :Vaginal itching Take 1 tablet (150 mg) by mouth 1 (one) time for 1 dose. 1 tablet 01/31/20 25 2024 Active omeprazole (PriLOSEC) [address] capsule TAKE 1 CAPSULE BY MOUTH EVERY MORNING BEFORE BREAKFAST 90 capsule 10/25/20 24 2024 Discontinued(R eorder (will not trigger notification to Pharmacy)) Jardiance 25 MGIndications:Polly betes mellitus with coincident hypertension (CMS/HCC) ([facility]) TAKE 1 TABLET BY MOUTH EVERY MORNING 90 tablet 10/28/20 24 2024 Discontinued(R eorder (will not trigger notification to Pharmacy)) metoprolol tartrate (Lopressor) 50 MG tablet TAKE 1 TABLET BY MOUTH EVERY MORNING and TAKE 1 AND 1/2 TABLETS BY MOUTH EVERY EVENING 225 tablet 10/28/20 24 2024 Discontinued(R eorder (will not trigger notification to Pharmacy)) Active Problems Problem Noted Date Diagnosed Date [...] yes ASA: no Sleep disorder 04/05/2019 Hyperlipidemia associated with type 2 diabetes m ellitus 01/21/2019 Diverticula of intestine 07/27/2018 Acute low back pain 04/06/2018 Acquired hypothyroidism 08/14/2015 Allergic rhinitis 08/14/2015 Chronic abdominal pain 08/14/2015 Essential hypertension 08/14/2015 Pulmonary hypertension 08/14/2015 Rosacea 08/14/2015 Left bundle branch block 10/21/2013 Encounters Date Type Department Care Team Description 01/30/2025 10:00 AM EDT Office Visit [facility] MEDICINE [address] [place] [phone] Akin Gale ANP Vaginal itching (Primary Dx); Essential hypertension; Hyperlipidemia associated with type 2 diabetes mellitus (CMS/HCC) 01/30/2025 Refill [facility] [address] [place] [address] Akin Gale ANP Nasal congestion 01/30/2025 Travel 01/27/2025 Refill [facility] MEDICINE [address] [place] [address] Akin Gale ANP Diabetes mellitus with coincident hypertension (CMS/HCC) (CMS/HCC) 01/21/2025 Patient Outreach [facility] MEDICINE [address] [place] [address] Akin Gale ANP Pre-visit Planning (SDOH Screening negative and Tobacco screening negative) 01/17/2025 Telephone [facility] MEDICINE [address] [place] [address] Akin Gale ANP Pre-op Exam 01/06/2025 Travel 12/31/2024 Refill [facility] MEDICINE [address] [place] [address] Akin Gale ANP Hypomagnesemia 12/22/2024 Orders Only [facility] External Provider, [facility] 12/17/2024 Refill [facility] [address] [place] [address] Akin Gale ANP Pain 12/02/2024 Telephone [facility] MEDICINE [address] [place] [address] Sandra Álvarez [place] Theodora recall 11/26/2024 Refill [facility] & PEDS [address] [place] [address] Akin Gale ANP Nasal congestion 11/24/2024 Refill [facility] [address] [place] [address] Akin Gale ANP Essential hypertension; Pulmonary hypertension (CMS/HCC) 11/20/2024 Refill [facility] MEDICINE [address] [place] [address] Akin Gale ANP Pain 11/07/2024 Travel from Last 3 Months Immunizations Name Administration [...] shut off services in your home? No 01/21/2025 Depression Answer Date Recorded Patient Health Questionnaire-2 [...] Sign Reading Time Taken Comments Blood Pressure 118/62 01/30/2025 10:23 AM EDT Pulse 60 01/30/2025 9:57 AM EDT Temperature 36.2 ??C (97.2 ??F) 01/30/2025 9:57 AM ED T Respiratory Rate 14 01/30/2025 9:57 AM EDT Oxygen Saturation 99% 01/30/2025 9:57 AM EDT Inhaled Oxygen Concentration - - Weight 53.9 kg (118 lb 12.8 oz) 01/30/2025 9:57 AM EDT Height 157.5 cm (5' 2 ) 10/31/2024 10:5 8 AM EST Body Mass Index 21.73 10/31/2024 10:58 AM EST Plan of Treatment Upcoming Encounters Date Type Department Care Team (Late st Contact Info) Description 03/06/2025 10:30 AM EDT Office Visit [facility] MEDICINE [address] [place] [address] Akin Gale ANP [address] [place] [address] 04/14/2025 9:30 AM EDT Medication Management [address] [address] Alex Mares PharmD [address] [place] [address] Health Maintenance Due Date Last Done Comments CT Colonography 1951 Dental Oral Exam 1950 Dental Prophylaxis 1950 Dental X-Ray: Bitewings 1950 FIT DNA/Cologuard 1950 FIT 1950 FOBT 1950 Sigmoidoscopy 1950 Diabetes: Foot Exam 1961 Eye Exam 1961 Hepatitis C Screening 1969 Hepatitis A Vaccines (1 of 2 - Risk 2-dose series) 1970 Mammogram 01/01/2025 01/02/2024, 04/30, 12/13/2021, Additional history exists Diabetes: Hemoglobin A1C 04/08/2025 025, 09/06/2024, 06/07/2024, Additional history exists Depression Screening 06/06/2025 06/06/2024, 06/06/20 24 Lipid Panel 07/05/2025 07/05/2024, 04/29, 05/05/2022, Additional history exists Diabetes: Urine Protein Screening 09/06/2025 09/06/2024, 05/10/2023, 05/05/2022, Additional history exists SDOH Screening 01/21/2026 01/21/2025 Alcohol/Substance Use Screening 01/30/2026 01/30/2025 COVID-19 Vaccine ( season) 2026 01/21/2021, 12/24/2020 Postponed from 06/30/2024 (Patient Refused) Tobacco Screening 01/30/2026 01/30/2025 Dental X-Ray: Full Mouth 02/13/2027 02/13/2024 Colonoscopy [...] Author Blood Pressure < 140/90 Blood Pressure 118/62(2024 10:23 AM EDT) No Alex Mares, Laura Hemoglobin A1c < 7 Result Component 7.5( 9:27 AM EDT) No Alex Mares PharmD Procedures Procedure Name Priority Date/Time Associated Diagnosis Comments POCT GLYCATED HEMOGLOBIN, TOTAL Routine 01/06/2025 9:27 AM EDT Type 2 diabetes mellitus with hyperlipidemia (CMS/HCC) (CMS/[facility]) CT CERVICAL SPINE WO CONTRAST Routine 12/22/2024 10:31 PM EST ALBUMIN, RANDOM URINE W/CREATININE Routine 09/06/2024 12:05 PM EST LIPID PANEL, STANDARD Routine 07/05/2024 11:26 AM EDT Type 2 diabetes mellitus with hyperlipidemia (CMS/HCC) (CMS/HCC) PANORAMIC RADIOGRAPHIC IMAGE Routine 02/13/2024 3:30 PM EDT BI MAMMOGRAM SCREENING TOMOSYNTHESIS BILATERAL Routine 01/02/2024 10:25 AM EST from Last 3 Months or Most Recently Relevant to Health Maintenance Results * (ABNORMAL) POCT HGB A1C (01/06/2025 9:27 AM EDT) Hemoglobin A1C 7.5(A) 4.0 - 6.0 % QC Media Lot # [id number] Lot# Expiration Date , Blood 01/06/2025 9:27 AM EDT us Akin STILL POINT OF CARE TEST ENTER/EDIT OR DERABLES Final Result * CT Cervical Spine w/o Contrast (12/22/2024 10:31 PM EST) Anatomical Region Laterality Modality Spine, C-spine Computed Tomogra phy 12/22/2024 10:3 1 PM EST Narrative 12/22/2024 10:34 PM EST ? [facility] ?[address] ?[place] [address] ? CT Scan Report ? Signed ? Patient: Jacquelyn Scott ?MR#: [id number] ? : 1950 ?Acct:[id number] ? Age/Sex: 74 / F ?ADM Date: 12/22/24 ? Loc: HO.ED ? Attending Dr: ? Ordering Physician: Connor Ngo MD ?? Date of Service: 12/22/24 ?? Procedure(s): CT cervical spine wo IV con ?? Accession Number(s): [id number] ? cc: AKIN GALE NP; Connor Ngo MD ? Report Number: ?? [id number]: Total DLP = ??293.00 mGy-cm ? CLINICAL HISTORY: c3-4 radiculopathy ? CT cervical spine without contrast ? Comparison: CT of the cervical spine from 11/16/2023 ? Findings: ?? No acute fracture of the cervical spine. ?? Mild reversal of the cervical lordosis. No significant change in mild ?? anterolisthesis at C2-C3 and C3-C4. ?? Redemonstration of multifocal disc osteophyte complexes with mild spinal ?? canal stenosis. Redemonstration of severe left-sided foraminal narrowing ?? at C3-C4 and moderate bilateral at C6-C7. No significant change in ?? additional mild-moderate foraminal narrowing. ?? Multifocal facet arthropathy and ligament calcifications are ?? redemonstrated. ?? No paraspinal hematoma. Vascular calcifications are redemonstrated. Mild ?? scarring of the imaged lung apices. ? IMPRESSION: ?? 1. No acute fracture of the cervical spine ?? 2. significant change when compared to 11/16/2023; again with multifocal ?? foraminal narrowing. ? This document has been electronically signed by: Alejandro Christopher MD on ?? 12/22/2024 22:31:49 ? Dictated By: ?Alejandro Christopher MD ? Signed By: ?<Electronically signed by Alejandro Christopher MD in OV> ? 12/22/243 ? DD/ 30 ? TD/TT: 12/22/242230 ? 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 Procedure Note Donjacob, Image - 12/22/[address] [place] [address] [address] Scan Report Signed Patient: Jacquelyn Scott SMR#: [id number] : 1950cct:[id number] Age/Sex: 74 / FADM Date: 12/22/24 Loc: HO.ED Attending Dr: Ordering Physician: Connor Ngo MD Date of Service: 12/22/24 Procedure(s): CT cervical spine wo IV con Accession Number(s): [id number] cc: AKIN GALE NP; Connor Ngo MD Report Number: [id number]: Total DLP = 293.00 mGy-cm CLINICAL HISTORY: c3-[address] cervical spine without contrast Comparison: CT of the cervical spine from 11/16/2023 Findings: No acute fracture of the cervical spine. Mild reversal of the cervical lordosis. No significant change in mild anterolisthesis at C2-C3 and C3-C4. Redemonstration of multifocal disc osteophyte complexes with mild spinal canal stenosis. Redemonstration of severe left-sided foraminal narrowing at C3-C4 and moderate bilateral at C6-C7. No significant change in additional mild-moderate foraminal narrowing. Multifocal facet arthropathy and ligament calcifications are redemonstrated. No paraspinal hematoma. Vascular calcifications are redemonstrated. Mild scarring of the imaged lung apices. IMPRESSION: 1. No acute fracture of the cervical spine 2. significant change when compared to 11/16/2023; again with multifocal foraminal narrowing. 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 09/06/2024 12:0 5 PM EST 09/06/2024 1:26 PM EST [facility] URINE ORDERABLES Final Resul t [facility] [address] [place] [phone] * (ABNORMAL) Lipid Panel, Standard (07/05/2024 11:26 AM EDT) Triglycerides 170(H) <150 mg/dL [facility] Comment:Desirable Triglyceri de: less than 150 mg/dLBorderline High Triglyceride 150-199 mg/dLHigh Triglyceride: 200-499 mg/dLVery High Triglyceride: greater than or equal to 5OO mg/dL Cholesterol 133 <200 mg/dL [facility] Comment:Desirable Cholestero l: less than 200 mg/dLBorderline High Cholesterol: 200-239 mg/dLHigh Cholesterol: greater than 239 mg/dL LDL Cholesterol Calculated 56 <100 mg/dL [facility] Comment:Desirable LDL: less than 100 mg/dLNear Optimal/Above Optimal LDL: 110- 129 mg/dLBorderline High LDL: 130-159 mg/dLHigh LDL: 160-189 mg/dLVery High LDL: greater than or equal to 190 mg/dL HDL Cholesterol 43 >40 mg/dL [facility] Comment:Desirable HDL: great er than 40 mg/dL Note: This HDL assay may give artificially low results in patients with liver disease. Blood Venous blood specimen / Unknown 07/05/2024 11:26 AM EDT 07/05/2024 1:26 PM EDT us Akin Gale [facility] BLOOD ORDERABLES Final Resul t [facility] [address] [place] [address] [phone] * BI Mammogram Screening Tomosynthesis Bilateral (01/02/2024 10:25 AM EST) Anatomical Region Laterality Modality Breast Bilateral Mammography 01/02/2024 10:2 5 AM EST Narrative 01/16/2024 10:15 AM EDT ? [facility] ? [address] ?[place] [address] ? Mammography Report ? Signed ? Patient: Tyler,Jacquelyn S ?MR#: [id number] ? : 1950 ?Acct:[id number] ? Age/Sex: 73 / F ?ADM Date: 03/05/24 ? Loc: HO.MAMMO ? Attending Dr: Akin Gale SENIOR PATIENT ACCOUNT REPRESENTATIVE ? Ordering Physician: AKIN GALE SENIOR PATIENT ACCOUNT REPRESENTATIVE ?Results: 2Benign Fin ?? dings ? Date of Service: 01/02/24 ?Follow Up: 1 Year From Orig ?? inal Mammogram ? Procedure(s): MM tomosynthesis screening BI ?? Accession Number(s): [id number] ? cc: SHAHLA,AKIN DIXON ? EXAMINATION: ?? MM SCREENING DIGITAL BREAST [...] 1011 ? DD/ 1025 ? TD/TT: ? 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 Procedure Note Donotchicainterpreter, Image - 01/16/2024 [facility] [address] 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
--- OUTSIDE RECORDS SUMMARY | 2025-01-30 17:11 | XMS_ITS | Encounter Summary ---
Author Organization [employer] Address [address] [facility] 7t [place] [address] Care Team Providers Care Hide Splitter Name Role Phone Kimberly Jon Primary Care Provider [phone] Alex Mares PharmD Unavailable [phone] Reason for Visit * Reason Comments Med Refill Encounter Details Date Type Department Care Team ([facility] st Contact Info) Description 01/30/2025 Refill [facility] MED & PEDS [address] [place], [place] [phone] Kimberly Jon ANP [address] [place] [address] Nasal congestion Social History Tobacco Use Types [...] Description 03/06/2025 10:30 AM EDT Office Visit [facility] MEDICINE [address] [place] [address] Kimberly Jon ANP [address] [place] [address] 04/14/2025 9:30 AM EDT Medication Management [facility] MEDICINE [address] [place] [address] Alex Mares PharmD [address] [place] [address] documented as of this encounter Goals Goal Patient Goal Type Associated Problems Recent Progress Patient-Stated? Author Blood Pressure < 140/90 Blood Pressure 118/62(2024 10:23 AM EDT) No Alex Mares PharmD Hemoglobin A1c < 7 Result Component 7.5( 9:27 AM EDT) No Alex Mares PharmD documented as of this encounter Visit Diagnoses Diagnosis Nasal congestion Other diseases of nasal cavity and sinuses documented in this encounter Additional Health Concerns Assessment Noted Time PHQ-9 Depression Total Score: 0 06/06/20 24 10:22 AM EDT documented as of this encounter Care Teams Hide Splitter Relationship Specialty Start Date End Date Kimberly Jon ANP [address] [place] [address] PCP - General Family Medicine 06/24/22 Alex Mares PharmD [address] [place] [address] Pharmacist Internal Medicine 06/07/24 documented as of this encounter
--- OUTSIDE RECORDS SUMMARY | 2025-01-30 17:11 | XMS_ITS | Encounter Summary ---
Author Organization [employer] Address 75 [facility] 7t [place] [address] Care Team Providers Care Nursing Consultant Name Role Phone Kimberly Jon Primary Care Provider [phone] Alex Mares PharmD Unavailable [phone] Encounter Details Date Type Department Care Team (Late st Contact Info) Description 03/23/2023 Orders Only [facility] MED & PEDS [address] [place], [place] [phone] Genoveva Ga LPN Social History Tobacco Use [...] Description 03/06/2025 10:30 AM EDT Office Visit [facility] MEDICINE [address] [place], [place] [phone] Kimberly Jon ANP [address] [place], [place] [phone] 04/14/2025 9:30 AM EDT Medication Management [facility] MEDICINE [address] [place], [place] [phone] Alex Mares, PharmD [address] [place] [address] documented as of this encounter Visit Diagnoses Not on filedocumented in this encounter Care Teams Nursing Consultant Relationship Specialty Start Date End Date Kimberly Jon ANP [address] [place] [address] PCP - General Family Medicine 06/24/22 Alex Mares, SerenityD [address] [place] [address] Pharmacist Internal Medicine 06/07/24 documented as of this encounter
--- OUTSIDE RECORDS SUMMARY | 2025-01-30 17:11 | XMS_ITS | Encounter Summary ---
Author Organization [employer] Address [address] [facility] 7t [place] [address] Care Team Providers Care Tax Associate Name Role Phone Kimberly Jon Primary Care Provider [phone] Alex Mares PharmD Unavailable [phone] Encounter Details Date Type Department Care Team ([facility] st Contact Info) Description 04/30/2024 Telephone [facility] ADULT DENTAL [address] [place], [place] [phone] Dk Saldana, STALIN [address] [place], [place] [phone] Social History Tobacco Use Types Packs/Day Years [...] Description 03/06/2025 10:30 AM EDT Office Visit [facility] MEDICINE [address] [place] [phone] Kimberly Jon ANP [address] [place] [address] 04/14/2025 9:30 AM EDT Medication Management [facility] MEDICINE [address] [place] [address] Alex Mares PharmD [address] [place] [address] documented as of this encounter Visit Diagnoses Not on filedocumented in this encounter Care Teams Tax Associate Relationship Specialty Start Date End Date Kimberly Jon ANP [address] [place] [phone] PCP - General Family Medicine 06/24/22 Alex Mares, Laura [address] [place] [address] Pharmacist Internal Medicine 06/07/24 documented as of this encounter
--- OUTSIDE RECORDS SUMMARY | 2025-01-30 17:11 | XMS_ITS | Encounter Summary ---
Author Organization [employer] Address [address] [facility] 7t [place] [address] Care Team Providers Care Anode Machine Operator Name Role Phone Kimberly Jon Primary Care Provider [phone] Alex Mares PharmD Unavailable [phone] Reason for Visit * Reason Comments Follow-up Encounter Details Date Type Department Care Team ([facility] st Contact Info) Description 01/30/2025 10:00 AM EDT Office Visit [facility] MEDICINE [address] [place] [address] Kimberly Jon ANP [address] [place], [place] [phone] Vaginal itching (Primary Dx); Essential hypertension; Hyperlipidemia associated with type 2 diabetes mellitus ([facility]/HCC) Social History Tobacco Use Types Packs/Day Years [...] AM EDT documented as of this encounter Last Filed Vital Signs Vital Sign Reading [...] 12.8 oz) 01/30/2025 9:57 AM EDT Height - - Body Mass Index 21.73 10/31/2024 10:58 AM EST documented in this encounter Plan of Treatment Upcoming Encounters Date Type Department Care Team (Late st Contact Info) Description 03/06/2025 10:30 AM EDT Office Visit [facility] MEDICINE [address] [place] [address] Kimberly Jon ANP [address] [place] [address] 04/14/2025 9:30 AM EDT Medication Management [address] [address] Alex Mares PharmD [address] [place] [address] Scheduled Orders Name Type Priority Associated Diagnoses Orde r Schedule Bacterial Vaginosis Panel Microbiology Routine Vaginal itching Ordered: 01/30/2025 documented as of this encounter Goals Goal Patient Goal Type Associated Problems Recent Progress Patient-Stated? Author Blood Pressure < 140/90 Blood Pressure 118/62(2024 10:23 AM EDT) No Alex Mares PharmD Hemoglobin A1c < 7 Result Component 7.5( 9:27 AM EDT) No Alex Mares PharmD documented as of this encounter Visit Diagnoses Diagnosis Vaginal itching- Primary Pruritus of genital organs Essential hypertension Unspecified essential hypertension Hyperlipidemia associated with type 2 diabetes mellitus ([facility]) documented in this encounter Additional Health Concerns Assessment Noted Time PHQ-9 Depression Total Score: 0 06/06/20 24 10:22 AM EDT documented as of this encounter Care Teams Anode Machine Operator Relationship Specialty Start Date End Date Kimberly Jon ANP [address] [place] [address] PCP - General Family Medicine 06/24/22 Alex Mares, Laura [address] [place] [phone] Pharmacist Internal Medicine 06/07/24 documented as of this encounter
--- OUTSIDE RECORDS SUMMARY | 2025-01-30 17:11 | XMS_ITS | Encounter Summary ---
Author Organization [employer] Address 75 [facility] 7t [place] [address] Care Team Providers Care Woven Wood Shade Assembler Name Role Phone Kimberly Jon Primary Care Provider [phone] Alex Mares PharmD Unavailable [phone] Encounter Details Date Type Department Care Team ([facility] Contact Info) Description 12/29/2022 Abstract [facility] ADULT DENTAL [address] [place] [address] Dk Saldana, STALIN [address] [place] [address] Social History Tobacco Use Types Packs/Day Years [...] Upcoming Encounters Date Type Department Care Team ([facility] Contact Info) Description 03/06/2025 10:30 AM EDT Office Visit [facility] MEDICINE [address] [place] [address] Kimberly Jon ANP [address] [place] [address] 04/14/2025 9:30 AM EDT Medication Management [facility] MEDICINE [address] [place] [address] [phone] Alex Mares, Laura [address] [place] [address] documented as of this encounter Visit Diagnoses Not on filedocumented in this encounter Care Teams Woven Wood Shade Assembler Relationship Specialty Start Date End Date Kimberly Jon ANP [address] [place] [address] [phone] PCP - General Family Medicine 06/24/22 Alex Mares, PharmD [address] [place] [address] [phone] Pharmacist Internal Medicine 06/07/24 documented as of this encounter
--- OUTSIDE RECORDS SUMMARY | 2025-01-30 17:11 | XMS_ITS | Encounter Summary ---
Author Organization [employer] Address [address] [place] [address] 7t [place] [address] Care Team Providers Care Labor Delivery Specialist Name Role Phone Kimberly Jon Primary Care Provider [phone] Alex Mares PharmD Unavailable [phone] Encounter Details Date Type Department Care Team (Late st Contact Info) Description 11/03/2022 Orders Only [facility] CHC MED & PEDS [address] [place], [place] [phone] Genoveva Ga LPN Social History Tobacco Use [...] 10:30 AM EDT Office Visit [facility] MEDICINE [address] [place] [address] Kimberly Jon ANP [address] [place], [place] [phone] 04/14/2025 9:30 AM EDT Medication Management [facility] MEDICINE [address] [place], [place] [phone] Alex Mares, PharmD [address] [place], [place] [phone] documented as of this encounter Procedures Procedure [...] Sensitivity Troponin I (03/10/2023 1:12 PM EDT) [facility] TROPONIN I HIGH SENSITIVITY <2.7 <3.5 - 17.0 ng/L [facility] Comment:The Nichole high sens itivity Troponin-I results should beused in conjunction with other diagnostic information suchas ECG, clinical observations and information, and patientsymptoms to aid in the diagnosis of GA. 03/10/2023 1:12 PM EDT 03/10/2023 1:16 PM EDT us [facility] External Provider LAB BLO OD ORDERABLES Final Result [facility] [address] [place] [address] [phone] * (ABNORMAL) Magnesium (03/10/2023 1:12 PM EDT) Pathologist [facility] Magnesium 1.3(LL) 1.6 - 2.6 mg/dL [facility] Comment:Critical value for M AG: Results called to and read amanday: NAKIA Person calling: SHAI Date: 03/10/23 Time: 1350 03/10/2023 1:12 PM EDT 03/10/2023 1:16 PM EDT us [facility] External Provider LAB BLO OD ORDERABLES Final Result [facility] [address] [place] [address] [phone] * (ABNORMAL) Basic Metabolic Panel (03/10/2023 1:12 PM EDT) Sodium 137 135 - 145 mmol/L [facility] Potassium 4.2 3.3 - 5.1 mmol/L [facility] Chloride 104 96 - 108 mmol/L [facility] Carbon Dioxide 24 22 - 29 mmol/L [facility] Anion Gap 13 12 - 20 [facility] Urea Nitrogen (BUN) 19(H) 9 - 16 mg/dL [facility] Creatinine, Serum 0.87 0.5 - 1.4 mg/dL [facility] Creatinine Clr Calc Pharmacy 46.2 [facility] Comment:Provided height and weight: 157.48 cm,59.874 kg.eGFR (calculated from the MDRD study equation) and eCrCl(calculated from the Cockcroft-Gault equation) are based ondifferent parameters and may not yield comparable results.If eCrCl result is absurd, please check patient'sheight/weight. Estimated Glomerular Filt Rate >60 [facility] Comment:NOTE: For -Am erican individuals, multiply the result by 1.210.Chronic Kidney Disease: Estimated GFR < 60 mL/min/1.99n3Elacqn Kidney Disease: Estimated GFR < 15 mL/min/1.73m2 Glucose 206(H) 60 - 115 mg/dL [facility] Calcium 9.8 8.4 - 10.2 mg/dL [facility] 03/10/2023 1:12 PM EDT 03/10/2023 1:16 PM EDT [facility] External Provider LAB BLO OD ORDERABLES Final Result Performing Organization Address City/[facility]/ZIP Co de Phone Number [facility] [address] [place] [address] [phone] * Hepatic Function Panel (03/10/2023 1:12 PM EDT) Bilirubin, Total 0.6 0.0 - 1.0 mg/dL [facility] Bilirubin, Direct 0.2 0.0 - 0.5 mg/dL [facility] Aspartate Amino Transferase 20 5 - 31 U/L [facility] Alanine Aminotransferase 23 0 - 31 U/L [facility] Total Protein 7.0 6.5 - 8.0 g/dL [facility] Albumin Level 4.4 3.5 - 5.0 g/dL [facility] Alkaline Phosphatase 65 39 - 117 U/L [facility] 03/10/2023 1:12 PM EDT 03/10/2023 1:16 PM EDT [facility] External Provider LAB BLO OD ORDERABLES Final Result Performing Organization Address [facility] Co de Phone Number [facility] [address] [place] [address] [phone] * B Type Natriuretic Peptide (BNP) (03/10/2023 1:12 PM EDT) B Type Natriuretic Peptide 49 <100 pg/mL [facility] Comment:For those patients w ho are being treated with Natrecor(nesiritide, recombinant BNP), BNP testing should beperformed at least two hours post treatment in order toensure that only endogenous levels of BNP are detected. 03/10/2023 1:12 PM EDT 03/10/2023 1:16 PM EDT [facility] External Provider LAB BLO OD ORDERABLES Final Result Performing Organization Address [facility] Co de Phone Number [facility] [address] [place] [phone] * Prothrombin Time-INR (03/10/2023 1:12 PM EDT) Prothrombin Time 11.3 10.0 - 13.1 SEC [facility] INTERNATIONAL NORM RATIO 1.0 0.9 - 1.1 [facility] Comment:INTERNATIONAL NORMAL IZED RATIO (INR) [...] 1:12 PM EDT 03/10/2023 1:16 PM EDT [facility] External Provider LAB BLO OD ORDERABLES Final Result Performing Organization Address [facility] Co de Phone Number [facility] [address] [place] [phone] * (ABNORMAL) Urinalysis, Complete, with Reflex to Culture (03/10/2023 1:12 PM EDT) Color Urine Yellow [facility] Appearance Urine Clear [facility] PH 7.0 5.0 - 9.0 [facility] Glucose Urine UA >=1000(A) Negative mg/dL [facility] Urine Blood Negative Negative [facility] Specific [place] - Urine 1.020 1.005 - 1.025 [facility] Urine Protein Negative Neg-Trace mg/dL [facility] Urine Ketones Negative Negative mg/dL [facility] Nitrite Urine Negative Negative [facility] Leukocyte Esterase Urine Negative Negative [facility] RBC Urine 0-2 0 - 2 /HPF [facility] Urine WBC 0-5 0 - 5 /HPF [facility] Urine Squamous Epithelial Cell 0-2 0 - 2 /HPF [facility] Urine Bacteria None Seen None Seen [facility] Hyaline Casts, Urine 0-2 0 - 2 /LPF [facility] 03/10/2023 1:12 PM EDT 03/10/2023 1:16 PM EDT Narrative [facility] - 03/10/2023 1:22 PM EDT [id number], Clean Catch us [facility] External Provider LAB URI NE ORDERABLES Final Result [facility] [address] [place] [address] [phone] * (ABNORMAL) CBC auto differential (03/10/2023 1:12 PM EDT) White Blood Count 6.0 4.8 - 10.8 X10*3/uL [facility] Red Blood Count 3.95(L) 4.20 - 5.50 X10*6/uL [facility] Hemoglobin 11.8(L) 12.0 - 16.0 g/dl [facility] Hematocrit 36.0(L) 37.0 - 47.0 % [facility] Mean Corpuscular Volume 91.1 80.0 - 98.0 fL [facility] Mean Corpuscular Hemoglobin 29.9 27.0 - 33.0 pg [facility] Mean Corpuscular HGB Conc 32.8 31.0 - 35.0 g/dl [facility] Red Cell Distribution Width 13.7 11.0 - 16.0 % [facility] Platelet Count 352 160 - 400 X10*3/uL [facility] Mean Platelet Volume 10.2 9.4 - 12.3 fL [facility] Neutrophils Percent Auto 51.2 45 - 73 % [facility] Imm Gran Pct Auto 0.5(H) 0.0 - 0.4 % [facility] Lymphocytes Percent Auto 36.8 20 - 40 % [facility] Monocytes Percent Auto 8.0 2 - 11 % [facility] Eosinophils Percent Auto 2.2 0 - 4 % [facility] Basophils Percent Auto 1.3 0 - 2 % [facility] NRBC Pct Auto 0.0 0.0 - 0.2 /100WBC [facility] Neutrophils Absolute Auto 3.1 2.0 - 8.3 x10*3/uL [facility] Imm Gran Abs Auto 0.03 0.00 - 0.03 X10*3/uL [facility] Lymphocytes Absolute Auto 2.2 1.2 - 4.9 X10*3/uL [facility] Monocytes Absolute Auto 0.5 0.1 - 1.2 X10*3/uL [facility] Eosinophils Absolute Auto 0.1 0.0 - 0.4 X10*3/uL [facility] Basophils Absolute Auto 0.1 0.0 - 0.2 X10*3/uL [facility] NRBC Abs Auto 0.000 0.0 - 0.012 X10*3/uL [facility] 03/10/2023 1:12 PM EDT 03/10/2023 1:16 PM EDT us [facility] External Provider LAB BLO OD ORDERABLES Final Result [facility] [address] [place] [address] [phone] documented in this encounter Visit Diagnoses Not on filedocumented in this encounter Care Teams Labor Delivery Specialist Relationship Specialty Start Date End Date Kimberly Jon ANP [address] [place] [address] PCP - General Family Medicine 06/24/22 Alex Mares, Laura [address] [place] [address] Pharmacist Internal Medicine 06/07/24 documented as of this encounter
--- OUTSIDE RECORDS SUMMARY | 2025-01-30 17:11 | XMS_ITS | Encounter Summary ---
Author Organization [employer] Address [address] [facility] 7t [place] [address] Care Team Providers Care Director Biostatistics Name Role Phone Kimberly Jon Primary Care Provider [phone] Alex Mares PharmD Unavailable [phone] Reason for Visit * Reason Comments Med Refill Encounter Details Date Type Department Care Team ([facility] st Contact Info) Description 01/27/2025 Refill [facility] MEDICINE [address] [place], [place] [phone] Kimberly Jon ANP [address] [place], [place] [phone] Diabetes mellitus with coincident hypertension (CMS/HCC) ([facility]/HCC) Social History Tobacco Use Types Packs/Day Years [...] Description 03/06/2025 10:30 AM EDT Office Visit [facility] MEDICINE [address] [place] [address] Kimberly Jon ANP [address] [place] [address] 04/14/2025 9:30 AM EDT Medication Management [facility] MEDICINE [address] [place] [address] Alex Mares PharmD [address] [place] [address] documented as of this encounter Goals Goal Patient Goal Type Associated Problems Recent Progress Patient-Stated? Author Blood Pressure < 140/90 Blood Pressure 118/62(2024 10:23 AM EDT) No Alex Mares PharmD Hemoglobin A1c < 7 Result Component 7.5( 9:27 AM EDT) No Alex Mares PharmD documented as of this encounter Visit Diagnoses Diagnosis Diabetes mellitus with coincident hypertension (CMS/HCC) ([facility]) documented in this encounter Additional Health Concerns Assessment Noted Time PHQ-9 Depression Total Score: 0 06/06/20 24 10:22 AM EDT documented as of this encounter Care Teams Director Biostatistics Relationship Specialty Start Date End Date Kimberly Jon ANP [address] [place] [address] PCP - General Family Medicine 06/24/22 Alex Mares PharmD [address] [place] [address] Pharmacist Internal Medicine 06/07/24 documented as of this encounter
--- OUTSIDE RECORDS SUMMARY | 2025-01-30 17:11 | XMS_ITS | Encounter Summary ---
Author Organization [employer] Address 75 [facility] 7t [place] [address] Care Team Providers Care Probate Clerk Name Role Phone Kimberly Jon Primary Care Provider [phone] Alex Mares PharmD Unavailable [phone] Encounter Details Date Type Department Care Team (Latest Contact Info) Description 01/30/2025 Travel Social History Tobacco Use Types Packs/Day Years [...] Description 03/06/2025 10:30 AM EDT Office Visit [address] [address] Kimberly Jon ANP [address] [place] [address] 04/14/2025 9:30 AM EDT Medication Management [address] [address] Alex Mares PharmD [address] [place] [address] documented as of this encounter Goals Goal [...] documented as of this encounter Care Teams Probate Clerk Relationship Specialty Start Date End Date Kimberly Jon ANP [address] [place] [address] PCP - General Family Medicine 06/24/22 Alex Mares PharmD [address] [place] [address] Pharmacist Internal Medicine 06/07/24 documented as of this encounter
--- OUTSIDE RECORDS SUMMARY | 2025-01-30 17:11 | XMS_ITS | Encounter Summary ---
Author Organization [employer] Address [address] [place] [address] 7t [place] [address] Care Team Providers Care Patrol Driver Name Role Phone Kimberly Jon Primary Care Provider [phone] Alex Mares PharmD Unavailable [phone] Encounter Details Date Type Department Care Team (Late Contact Info) Description 07/20/2023 Orders Only [facility] CHC MED & PEDS [address] [place], [place] [phone] Genoveva Ga LPN Social History Tobacco Use [...] Department Care Team (Late Contact Info) Description 03/06/2025 10:30 AM EDT Office Visit [facility] MEDICINE [address] [place], [place] [phone] Kimberly Jon ANP [address] [place], [place] [phone] 04/14/2025 9:30 AM EDT Medication Management [facility] MEDICINE [address] [place] [address] Alex Mares, Laura [address] [place] [address] documented as of this encounter Visit Diagnoses Not on filedocumented in this encounter Care Teams Patrol Driver Relationship Specialty Start Date End Date Kimberly Jon ANP [address] [place] [address] PCP - General Family Medicine 06/24/22 Alex Mares, Laura [address] [place] [address] Pharmacist Internal Medicine 06/07/24 documented as of this encounter
--- OUTSIDE RECORDS SUMMARY | 2025-01-30 17:11 | XMS_ITS | Encounter Summary ---
Author Organization [employer] Address [address] [place] [address] 7t [place] [address] Care Team Providers Care Automatic Spinning Lathe Operator Name Role Phone Kimberly Jon Primary Care Provider [phone] Alex Mares PharmD Unavailable [phone] Encounter Details Date Type Department Care Team (Late Contact Info) Description 06/21/2023 Orders Only [facility] CHC MED & PEDS [address] [place], [place] [phone] Genoveva Ga LPN Social History Tobacco Use [...] Description 03/06/2025 10:30 AM EDT Office Visit [facility] MEDICINE [address] [place], [place] [phone] Kimberly Jon ANP [address] [place], [place] [phone] 04/14/2025 9:30 AM EDT Medication Management [facility] MEDICINE [address] [place] [address] Alex Mares, Laura [address] [place] [address] documented as of this encounter Visit Diagnoses Not on filedocumented in this encounter Care Teams Automatic Spinning Lathe Operator Relationship Specialty Start Date End Date Kimberly Jon ANP [address] [place] [address] PCP - General Family Medicine 06/24/22 Alex Mares, Laura [address] [place] [address] Pharmacist Internal Medicine 06/07/24 documented as of this encounter
--- OUTSIDE RECORDS SUMMARY | 2025-01-30 17:11 | XMS_ITS | Encounter Summary ---
Author Organization [employer] Address 75 [facility] 7t [place] [address] Care Team Providers Care [place] Tribunal Member Name Role Phone Kimberly Jon Primary Care Provider [phone] Alex Mares PharmD Unavailable [phone] Encounter Details Date Type Department Care Team ([facility] st Contact Info) Description 08/17/2023 Orders Only [facility] MED & PEDS [address] [place], [place] [phone] Genoveva Ga LPN Social History Tobacco Use [...] Description 03/06/2025 10:30 AM EDT Office Visit [facility] MEDICINE [address] [place] [address] Kimberly Jon ANP [address] [place] [address] 04/14/2025 9:30 AM EDT Medication Management [facility] MEDICINE [address] [place] [address] Alex Mares, Laura [address] [place] [address] documented as of this encounter Visit Diagnoses Not on filedocumented in this encounter Care Teams [place] Tribunal Member Relationship Specialty Start Date End Date Kimberly Jon ANP [address] [place] [address] PCP - General Family Medicine 06/24/22 Alex Mares, SerenityD [address] [place] [address] Pharmacist Internal Medicine 06/07/24 documented as of this encounter
--- OUTSIDE RECORDS SUMMARY | 2025-01-30 17:11 | XMS_ITS | Encounter Summary ---
Author Organization [employer] Address [address] [place] [address] 7t [place] [address] Care Team Providers Care Telephone Instrument Supervisor Name Role Phone Kimberly Jon Primary Care Provider [phone] Alex Mares PharmD Unavailable [phone] Reason for Visit * Reason Comments Med Refill Encounter Details Date Type Department Care Team (Late st Contact Info) Description 03/23/2023 Refill [facility] MEDICINE [address] [place] [address] [facility] [address] [place], [place] [phone] Social History Tobacco Use Types Packs/Day Years [...] Description 03/06/2025 10:30 AM EDT Office Visit [facility] MEDICINE [address] [place], [place] [phone] Kimberly Jon ANP [address] [place], [place] [phone] 04/14/2025 9:30 AM EDT Medication Management [facility] MEDICINE [address] [place] [address] Alex Mares, Laura [address] [place] [address] documented as of this encounter Visit Diagnoses Not on filedocumented in this encounter Care Teams Telephone Instrument Supervisor Relationship Specialty Start Date End Date Kimberly Jon ANP [address] [place] [address] PCP - General Family Medicine 06/24/22 Alex Mares, Laura [address] [place] [address] Pharmacist Internal Medicine 06/07/24 documented as of this encounter
--- OUTSIDE RECORDS SUMMARY | 2025-01-30 17:11 | XMS_ITS | Encounter Summary ---
Author Organization [employer] Address 75 [facility] 7t [place] [address] Care Team Providers Care Package Designer Name Role Phone Kimberly Jon Primary Care Provider [phone] Alex Mares PharmD Unavailable [phone] Encounter Details Date Type Department Care Team ([facility] st Contact Info) Description 08/21/2023 Orders Only [facility] CHC MED & PEDS [address] [place], [place] [phone] Marisel Asencio LPN Social History Tobacco Use [...] Description 03/06/2025 10:30 AM EDT Office Visit [facility] MEDICINE [address] [place] [address] Kimberly Jon ANP [address] [place] [address] 04/14/2025 9:30 AM EDT Medication Management [facility] MEDICINE [address] [place] [address] Alex Mares, Laura [address] [place] [address] documented as of this encounter Visit Diagnoses Not on filedocumented in this encounter Care Teams Package Designer Relationship Specialty Start Date End Date Kimberly Jon ANP [address] [place] [phone] PCP - General Family Medicine 06/24/22 Alex Mares, SerenityD [address] [place] [address] Pharmacist Internal Medicine 06/07/24 documented as of this encounter
[2025-01-31 11:56] LABS: Bacterial Vaginosis PCR NEGATIVE (Negative); Candida Group PCR NOT DETECTED (Not Detect); Candida glab krusei PCR DETECTED (Not Detect); Trichomonas vaginalis PCR NOT DETECTED (Not Detect)
== END 2025-01-30 16:28 | disposition home or self-care (01) ==
LOC: HO.HHCLNP 16:27
PROVIDERS: Visit Provider Nurse Practitioner Primary Care
DX: N89.8 Other specified noninflammatory disorders of vagina (principal)
CPT/HCPCS: 81515

== ENCOUNTER 2025-02-07 10:21 | Outpatient (REF) | payer OTHER, SELFPAY ==
--- OUTSIDE RECORDS SUMMARY | 2025-02-07 11:09 | XMS_ITS | Encounter Summary ---
Author Organization [employer] Address 75 [facility] 7t [place] [address] Care Team Providers Care Technical Sales Associate Name Role Phone Kimberly Jon Primary Care Provider [phone] Alex Mares PharmD Unavailable [phone] Encounter Details Date Type Department Care Team ([facility] st Contact Info) Description 08/21/2023 Orders Only [facility] CHC MED & PEDS [address] [place], [place] [phone] Marisel Asencio LPN Social History Tobacco Use [...] Description 03/06/2025 10:30 AM EDT Office Visit [facility] MEDICINE [address] [place] [address] Kimberly Jon ANP [address] [place] [address] 04/14/2025 9:30 AM EDT Medication Management [facility] [address] [place] [address] Alex Mares, Laura [address] [place] [address] documented as of this encounter Visit Diagnoses Not on filedocumented in this encounter Care Teams Technical Sales Associate Relationship Specialty Start Date End Date Kimberly Jon ANP [address] [place] [address] PCP - General Family Medicine 06/24/22 Alex Mares, SerenityD [address] [place] [phone] Pharmacist Internal Medicine 06/07/24 documented as of this encounter
--- OUTSIDE RECORDS SUMMARY | 2025-02-07 11:09 | XMS_ITS | Encounter Summary ---
Author Organization [employer] Address [address] [place] [address] 7t [place] [address] Care Team Providers Care Behavioral Pediatrician Name Role Phone Kimberly Jon Primary Care Provider [phone] Alex Mares PharmD Unavailable [phone] Encounter Details Date Type Department Care Team (Late Contact Info) Description 07/20/2023 Orders Only [facility] CHC MED & PEDS [address] [place], [place] [phone] Genoveva Ga LPN Social History Tobacco Use [...] Description 03/06/2025 10:30 AM EDT Office Visit [facility] MEDICINE [address] [place], [place] [phone] Kimberly Jon ANP [address], [place] [phone] 04/14/2025 9:30 AM EDT Medication Management [facility] MEDICINE [address] [place] [address] Alex Mares, Laura [address] [place] [address] documented as of this encounter Visit Diagnoses Not on filedocumented in this encounter Care Teams Behavioral Pediatrician Relationship Specialty Start Date End Date Kimberly Jon ANP [address] [place] [phone] PCP - General Family Medicine 06/24/22 Alex Mares, Laura [address] [place] [phone] Pharmacist Internal Medicine 06/07/24 documented as of this encounter
--- OUTSIDE RECORDS SUMMARY | 2025-02-07 11:09 | XMS_ITS | Encounter Summary ---
Author Organization [employer] Address [address] [place] [address] 7t [place] [address] Care Team Providers Care Warning Coordination Meteorologist Name Role Phone Kimberly Jon Primary Care Provider [phone] Alex Mares PharmD Unavailable [phone] Reason for Visit * Reason Comments Med Refill Encounter Details Date Type Department Care Team (Late st Contact Info) Description 03/23/2023 Refill [facility] MED[facility]INE [address] [place] [address] [facility] [address] [place], [place] [phone] Social History Tobacco Use Types Packs/Day Years [...] 03/06/2025 10:30 AM EDT Office Visit [facility] MED[facility]INE [address] [place], [place] [phone] Kimberly Jon ANP [address] [place], [place] [phone] 04/14/2025 9:30 AM EDT Medication Management [facility] MED[facility] [address] [place] [address] Alex Mares, Laura [address] [place] [address] documented as of this encounter Visit Diagnoses Not on filedocumented in this encounter Care Teams Warning Coordination Meteorologist Relationship Specialty Start Date End Date Kimberly Jon ANP [address] [place] [phone] PCP - General Family Medicine 06/24/22 Alex Mares, Laura [address] [place] [phone] Pharmacist Internal Medicine 06/07/24 documented as of this encounter
--- OUTSIDE RECORDS SUMMARY | 2025-02-07 11:09 | XMS_ITS | Encounter Summary ---
Author Organization [employer] Address [address] [facility] 7t [place] [address] Care Team Providers Care Inside Contractor Sales Name Role Phone Kimberly Jon Primary Care Provider [phone] Alex Mares PharmD Unavailable [phone] Encounter Details Date Type Department Care Team ([facility] st Contact Info) Description 08/17/2023 Orders Only [facility] MED & PEDS [address] [place], [place] [phone] Genoveva Ga LPN Social History Tobacco Use [...] Description 03/06/2025 10:30 AM EDT Office Visit [facility] MEDICINE [address] [place] [phone] Kimberly Jon ANP [address] [place] [address] 04/14/2025 9:30 AM EDT Medication Management [facility] [address] [place] [address] Alex Mares, Laura [address] [place] [address] documented as of this encounter Visit Diagnoses Not on filedocumented in this encounter Care Teams Inside Contractor Sales Relationship Specialty Start Date End Date Kimberly Jon ANP [address] [place] [phone] PCP - General Family Medicine 06/24/22 Alex Mares, SerenityD [address] [place] [phone] Pharmacist Internal Medicine 06/07/24 documented as of this encounter
--- OUTSIDE RECORDS SUMMARY | 2025-02-07 11:09 | XMS_ITS | Encounter Summary ---
Author Organization [email or web address] Address 75 [facility] 7t [place] [address] Care Team Providers Care Cold Water Machine Operator Name Role Phone Kimberly Jon Primary Care Provider [phone] Alex Mares PharmD Unavailable [phone] Encounter Details Date Type Department Care Team (Late st Contact Info) Description 03/23/2023 Orders Only [facility] MED & PEDS [address] [place], [place] [phone] Genoveva Ga LPN Social History Tobacco Use [...] Description 03/06/2025 10:30 AM EDT Office Visit [facility] MEDICINE [address] [place], [place] [phone] Kimberly Jon ANP [address] [place], [place] [phone] 04/14/2025 9:30 AM EDT Medication Management [facility] MEDICINE [address] [place], [place] [phone] Alex Mares, PharmD [address] [place] [address] documented as of this encounter Visit Diagnoses Not on filedocumented in this encounter Care Teams Cold Water Machine Operator Relationship Specialty Start Date End Date Kimberly Jon ANP [address] [place] [address] PCP - General Family Medicine 06/24/22 Alex Mares, SerenityD [address] [place] [phone] Pharmacist Internal Medicine 06/07/24 documented as of this encounter
--- OUTSIDE RECORDS SUMMARY | 2025-02-07 11:09 | XMS_ITS | Encounter Summary ---
Author Organization [employer] Address [address] [place] [address] 7t [place] [address] Care Team Providers Care Security Support Analyst Name Role Phone Kimberly Jon Primary Care Provider [phone] Alex Mares PharmD Unavailable [phone] Encounter Details Date Type Department Care Team (Late st Contact Info) Description 11/03/2022 Orders Only [facility] CHC MED & PEDS [address] [place], [place] [phone] Genoveva Ga LPN Social History Tobacco Use [...] Description 03/06/2025 10:30 AM EDT Office Visit [facility] MEDICINE [address] [place] [phone] Kimberly Jon ANP [address] [place], [place] [phone] 04/14/2025 9:30 AM EDT Medication Management [facility] MEDICINE [address] [place], [place] [phone] Alex Mares, PharmD [address] [place], [place] [phone] documented as of this encounter Procedures Procedure [...] Sensitivity Troponin I (03/10/2023 1:12 PM EDT) [facility] TROPONIN I HIGH SENSITIVITY <2.7 <3.5 - 17.0 ng/L [facility] Comment:The Nichole high sens itivity Troponin-I results should beused in conjunction with other diagnostic information suchas ECG, clinical observations and information, and patientsymptoms to aid in the diagnosis of UT. 03/10/2023 1:12 PM EDT 03/10/2023 1:16 PM EDT [facility] External Provider LAB BLO OD ORDERABLES Final Result [facility] [address] [place] [address] [phone] * (ABNORMAL) Magnesium (03/10/2023 1:12 PM EDT) Pathologist [facility] Magnesium 1.3(LL) 1.6 - 2.6 mg/dL [facility] Comment:Critical value for M AG: Results called to and read amanday: NAKIA Person calling: SHAI Date: 03/10/23 Time: 1350 03/10/2023 1:12 PM EDT 03/10/2023 1:16 PM EDT [facility] External Provider LAB BLO OD ORDERABLES Final Result [facility] [address] [place] [address] [phone] * (ABNORMAL) Basic Metabolic Panel (03/10/2023 1:12 PM EDT) Sodium 137 135 - 145 mmol/L [facility] Potassium 4.2 3.3 - 5.1 mmol/L [facility] Chloride 104 96 - 108 mmol/L [facility] Carbon Dioxide 24 22 - 29 mmol/L [facility] Anion Gap 13 12 - 20 [facility] Urea Nitrogen (BUN) 19(H) 9 - 16 mg/dL [facility] Creatinine, Serum 0.87 0.5 - 1.4 mg/dL [facility] Creatinine Clr Calc Pharmacy 46.2 [facility] Comment:Provided height and weight: 157.48 cm,59.874 kg.eGFR (calculated from the MDRD study equation) and eCrCl(calculated from the Cockcroft-Gault equation) are based ondifferent parameters and may not yield comparable results.If eCrCl result is absurd, please check patient'sheight/weight. Estimated Glomerular Filt Rate >60 [facility] Comment:NOTE: For -Am erican individuals, multiply the result by 1.210.Chronic Kidney Disease: Estimated GFR < 60 mL/min/1.31g4Tosikj Kidney Disease: Estimated GFR < 15 mL/min/1.73m2 Glucose 206(H) 60 - 115 mg/dL [facility] Calcium 9.8 8.4 - 10.2 mg/dL [facility] 03/10/2023 1:12 PM EDT 03/10/2023 1:16 PM EDT [facility] External Provider LAB BLO OD ORDERABLES Final Result Performing Organization Address City/[facility]/ZIP Co de Phone Number [facility] [address] [place] [address] [phone] * Hepatic Function Panel (03/10/2023 1:12 PM EDT) Bilirubin, Total 0.6 0.0 - 1.0 mg/dL [facility] Bilirubin, Direct 0.2 0.0 - 0.5 mg/dL [facility] Aspartate Amino Transferase 20 5 - 31 U/L [facility] Alanine Aminotransferase 23 0 - 31 U/L [facility] Total Protein 7.0 6.5 - 8.0 g/dL [facility] Albumin Level 4.4 3.5 - 5.0 g/dL [facility] Alkaline Phosphatase 65 39 - 117 U/L [facility] 03/10/2023 1:12 PM EDT 03/10/2023 1:16 PM EDT [facility] External Provider LAB BLO OD ORDERABLES Final Result Performing Organization Address [facility] Co de Phone Number [facility] [address] [place] [address] [phone] * B Type Natriuretic Peptide (BNP) (03/10/2023 1:12 PM EDT) B Type Natriuretic Peptide 49 <100 pg/mL [facility] Comment:For those patients w ho are being treated with Natrecor(nesiritide, recombinant BNP), BNP testing should beperformed at least two hours post treatment in order toensure that only endogenous levels of BNP are detected. 03/10/2023 1:12 PM EDT 03/10/2023 1:16 PM EDT [facility] External Provider LAB BLO OD ORDERABLES Final Result Performing Organization Address [facility] Co de Phone Number [facility] [address] [place] [phone] * Prothrombin Time-INR (03/10/2023 1:12 PM EDT) Prothrombin Time 11.3 10.0 - 13.1 SEC [facility] INTERNATIONAL NORM RATIO 1.0 0.9 - 1.1 [facility] Comment:INTERNATIONAL NORMAL IZED RATIO (INR) [...] 1:12 PM EDT 03/10/2023 1:16 PM EDT [facility] External Provider LAB BLO OD ORDERABLES Final Result Performing Organization Address [facility] Co de Phone Number [facility] [address] [place] [phone] * (ABNORMAL) Urinalysis, Complete, with Reflex to Culture (03/10/2023 1:12 PM EDT) Color Urine Yellow [facility] Appearance Urine Clear [facility] PH 7.0 5.0 - 9.0 [facility] Glucose Urine UA >=1000(A) Negative mg/dL [facility] Urine Blood Negative Negative [facility] Specific Coyote - Urine 1.020 1.005 - 1.025 [facility] Urine Protein Negative Neg-Trace mg/dL [facility] Urine Ketones Negative Negative mg/dL [facility] Nitrite Urine Negative Negative [facility] Leukocyte Esterase Urine Negative Negative [facility] RBC Urine 0-2 0 - 2 /HPF [facility] Urine WBC 0-5 0 - 5 /HPF [facility] Urine Squamous Epithelial Cell 0-2 0 - 2 /HPF [facility] Urine Bacteria None Seen None Seen [facility] Hyaline Casts, Urine 0-2 0 - 2 /LPF [facility] 03/10/2023 1:12 PM EDT 03/10/2023 1:16 PM EDT Narrative [facility] - 03/10/2023 1:22 PM EDT [id number], Clean Catch [facility] External Provider LAB URI NE ORDERABLES Final Result [facility] [address] [place] [address] [phone] * (ABNORMAL) CBC auto differential (03/10/2023 1:12 PM EDT) White Blood Count 6.0 4.8 - 10.8 X10*3/uL [facility] Red Blood Count 3.95(L) 4.20 - 5.50 X10*6/uL [facility] Hemoglobin 11.8(L) 12.0 - 16.0 g/dl [facility] Hematocrit 36.0(L) 37.0 - 47.0 % [facility] Mean Corpuscular Volume 91.1 80.0 - 98.0 fL [facility] Mean Corpuscular Hemoglobin 29.9 27.0 - 33.0 pg [facility] Mean Corpuscular HGB Conc 32.8 31.0 - 35.0 g/dl [facility] Red Cell Distribution Width 13.7 11.0 - 16.0 % [facility] Platelet Count 352 160 - 400 X10*3/uL [facility] Mean Platelet Volume 10.2 9.4 - 12.3 fL [facility] Neutrophils Percent Auto 51.2 45 - 73 % [facility] Imm Gran Pct Auto 0.5(H) 0.0 - 0.4 % [facility] Lymphocytes Percent Auto 36.8 20 - 40 % [facility] Monocytes Percent Auto 8.0 2 - 11 % [facility] Eosinophils Percent Auto 2.2 0 - 4 % [facility] Basophils Percent Auto 1.3 0 - 2 % [facility] NRBC Pct Auto 0.0 0.0 - 0.2 /100WBC [facility] Neutrophils Absolute Auto 3.1 2.0 - 8.3 x10*3/uL [facility] Imm Gran Abs Auto 0.03 0.00 - 0.03 X10*3/uL [facility] Lymphocytes Absolute Auto 2.2 1.2 - 4.9 X10*3/uL [facility] Monocytes Absolute Auto 0.5 0.1 - 1.2 X10*3/uL [facility] Eosinophils Absolute Auto 0.1 0.0 - 0.4 X10*3/uL [facility] Basophils Absolute Auto 0.1 0.0 - 0.2 X10*3/uL [facility] NRBC Abs Auto 0.000 0.0 - 0.012 X10*3/uL [facility] 03/10/2023 1:12 PM EDT 03/10/2023 1:16 PM EDT [facility] External Provider LAB BLO OD ORDERABLES Final Result [facility] [address] [place] [address] [phone] documented in this encounter Visit Diagnoses Not on filedocumented in this encounter Care Teams Security Support Analyst Relationship Specialty Start Date End Date Kimberly Jon ANP [address] [place] [address] PCP - General Family Medicine 06/24/22 Alex Mares, Laura [address] [place] [address] Pharmacist Internal Medicine 06/07/24 documented as of this encounter
--- OUTSIDE RECORDS SUMMARY | 2025-02-07 11:09 | XMS_ITS | Encounter Summary ---
Author Organization [employer] Address [address] [facility] 7t [place] [address] Care Team Providers Care Camouflage Specialist Name Role Phone Kimberly Jon Primary Care Provider Alex Mares PharmD Unavailable [phone] Encounter Details Date Type Department Care Team ([facility] Contact Info) Description 12/29/2022 Abstract [facility] ADULT DENTAL [address] [place] [address] Dk Saldana, STALIN [address] [place] [address] Social History Tobacco Use Types Packs/Day Years [...] Upcoming Encounters Date Type Department Care Team ([facility] Contact Info) Description 03/06/2025 10:30 AM EDT Office Visit [facility] MEDICINE [address] [place] [address] Kimberly Jon ANP [address] [place] [phone] 04/14/2025 9:30 AM EDT Medication Management [facility] MEDICINE [address] [place] [address] [phone] Alex Mares, Laura [address] [place] [address] documented as of this encounter Visit Diagnoses Not on filedocumented in this encounter Care Teams Camouflage Specialist Relationship Specialty Start Date End Date Kimberly Jon ANP [address] [place] [address] [phone] PCP - General Family Medicine 06/24/22 Alex Mares, PharmD [address] [place] [address] [phone] Pharmacist Internal Medicine 06/07/24 documented as of this encounter
--- OUTSIDE RECORDS SUMMARY | 2025-02-07 11:09 | XMS_ITS | Encounter Summary ---
Author Organization [employer] Address [address] [place] [address] 7t [place] [address] Care Team Providers Care End Finder Twisting Department Name Role Phone Kimberly Jon Primary Care Provider [phone] Alex Mares PharmD Unavailable [phone] Encounter Details Date Type Department Care Team ([facility] Contact Info) Description 06/21/2023 Orders Only [facility] CH[facility] MED & PEDS [address] [place], [place] [phone] Genoveva Ga LPN Social History Tobacco Use [...] 10:30 AM EDT Office Visit [facility] MEDICINE [address] [place], [place] [phone] Kimberly Jon ANP [address] [place], [place] [phone] 04/14/2025 9:30 AM EDT Medication Management [facility] MEDICINE [address] [place] [address] Alex Mares, Laura [address] [place] [address] documented as of this encounter Visit Diagnoses Not on filedocumented in this encounter Care Teams End Finder Twisting Department Relationship Specialty Start Date End Date Kimberly Jon ANP [address] [place] [phone] PCP - General Family Medicine 06/24/22 Alex Mares, Laura [address] [place] [phone] Pharmacist Internal Medicine 06/07/24 documented as of this encounter
--- OUTSIDE RECORDS SUMMARY | 2025-02-07 11:10 | XMS_ITS | Encounter Summary ---
Author Organization [employer] Address 75 [facility] 7t [place] [address] Care Team Providers Care Mold Making Plastics Sheets Supervisor Name Role Phone Kimberly Jon Primary Care Provider [phone] Alex Mares PharmD Unavailable [phone] Encounter Details Date Type Department Care Team ([facility] st Contact Info) Description 04/30/2024 Telephone [facility] ADULT DENTAL [address] [place], [place] [phone] Dk Saldana, STALIN [address] [place], [place] [phone] Social History Tobacco Use Types Packs/Day Years [...] 10:30 AM EDT Office Visit [facility] MEDICINE [address] [place] [phone] Kimberly Jon ANP [address] [place] [address] 04/14/2025 9:30 AM EDT Medication Management [facility] MEDICINE [address] [place] [address] Alex Mares PharmD [address] [place] [phone] documented as of this encounter Visit Diagnoses Not on filedocumented in this encounter Care Teams Mold Making Plastics Sheets Supervisor Relationship Specialty Start Date End Date Kimberly Jon ANP [address] [place] [phone] PCP - General Family Medicine 06/24/22 Alex Mares, Laura [address] [place] [phone] Pharmacist Internal Medicine 06/07/24 documented as of this encounter
--- OUTSIDE RECORDS SUMMARY | 2025-02-07 11:10 | XMS_ITS | Clinical Summary ---
Author Organization [employer] Address [address] [facility] [address] [place] [address] Care Team Providers Care Custom Protection Officer Name Role Phone Shahla Akin STILL Primary Care Provider [phone] Alex Mares PharmD Unavailable [phone] Allergies Active Allergy Reactions Criticality Noted Date [...] 01/05/20 24 Active Lancets (OneTouch Delica Plus [id number]) misc TEST BLOOD SUGAR 3 TIMES A [...] tablet 1 08/26/20 24 Active Continuous Glucose Pigment Supplier (FreeStyle Edgardo 2 [place]) deviceIndications :Type 2 diabetes mellitus with hyperlipidemia [...] 40 MG tabletIndications :Essential hypertension,Pulm onary hypertension ([facility]/HCC) TAKE 1 TABLET BY MOUTH TWICE DAILY IN THE MORNING AND IN THE EVENING 180 tablet 3 11/25/19 25 Active Acetaminophen Extra Strength 500 MG tabletIndications :Pain TAKE 1 TABLET BY MOUTH EVERY 6 HOURS NEEDED 90 tablet 12/20/19 25 Active magnesium oxide (Mag-Ox) 400 MG tabletIndications :Hypomagnesemia TAKE 1 TABLET BY MOUTH EVERY DAY 30 tablet 1 01/01/20 25 Active Jardiance 25 MGIndications:Polly betes mellitus with coincident hypertension (CMS/HCC) ([facility]) TAKE 1 TABLET BY MOUTH EVERY MORNING 90 tablet 01/29/20 25 Active metoprolol tartrate (Lopressor) 50 MG tablet TAKE 1 TABLET BY MOUTH EVERY MORNING and TAKE 1 AND 1/2 TABLETS BY MOUTH EVERY EVENING 225 tablet 01/29/20 25 Active omeprazole (PriLOSEC) [address] capsule TAKE 1 CAPSULE BY MOUTH EVERY MORNING BEFORE BREAKFAST 90 capsule 01/29/20 25 Active mometasone (Nasonex) 50 MCG/ACT nasal sprayIndications: Nasal congestion INSTILL 2 SPRAYS IN EACH NOSTRIL ONCE DAILY NEEDED FOR ALLERGIES 17 g 02/01/20 25 Active omeprazole (PriLOSEC) [address] capsule TAKE 1 CAPSULE BY MOUTH EVERY MORNING BEFORE BREAKFAST 90 capsule 10/25/20 24 2024 Discontinued(R eorder (will not trigger notification to Pharmacy)) Jardiance 25 MGIndications:Polly betes mellitus with coincident hypertension (CMS/[facility]) ([facility]) TAKE 1 TABLET BY MOUTH EVERY MORNING 90 tablet 10/28/20 24 2024 Discontinued(R eorder (will not trigger notification to Pharmacy)) metoprolol tartrate (Lopressor) 50 MG tablet TAKE 1 TABLET BY MOUTH EVERY MORNING and TAKE 1 AND 1/2 TABLETS BY MOUTH EVERY EVENING 225 tablet 10/28/20 24 2024 Discontinued(R eorder (will not trigger notification to Pharmacy)) mometasone (Nasonex) 50 MCG/ACT nasal sprayIndications: Nasal congestion INSTILL 2 SPRAYS IN EACH NOSTRIL ONCE DAILY NEEDED FOR ALLERGIES 17 g 11/27/19 25 2024 Discontinued fluconazole (Diflucan) 150 MG tabletIndications :Vaginal itching Take 1 tablet (150 mg) by mouth 1 (one) time for 1 dose. 1 tablet 01/31/20 25 2024 Active Problems Problem Noted Date Diagnosed Date [...] PNA (PCV 20 +/- past PPSV): PCV13 2016 and PPSV23, agrees to PCV 20 TDap/Td: [...] Encounters Date Type Department Care Team Description 01/31/2025 Telephone [facility] [address] [place] [phone] Akin Gale ANP 01/30/2025 10:00 AM EDT Office Visit [facility] [address] [place] [phone] Akin Gale ANP Vaginal itching (Primary Dx); Essential hypertension; Hyperlipidemia associated with type 2 diabetes mellitus ([facility]/HCC) 01/30/2025 Refill [facility] [address] [place] [address] Akin Gale ANP Nasal congestion 01/30/2025 Travel 01/27/2025 Refill [facility] [address] [place] [phone] Akin Gale ANP Diabetes mellitus with coincident hypertension (CMS/HCC) ([facility]/HCC) 01/21/2025 Patient Outreach [facility] [address] [place] [phone] Akin Gale ANP Pre-visit Planning (SDOH Screening negative and Tobacco screening negative) 01/17/2025 Telephone [facility] [address] [place] [phone] Akin Gale ANP Pre-op Exam 01/06/2025 Travel 12/31/2024 Refill [facility] [address] [place] [phone] Akin Gale ANP Hypomagnesemia 12/22/2024 Orders Only [facility] External Provider, [facility] 12/17/2024 Refill [facility] [address] [place] [address] Akin Gale ANP Pain 12/02/2024 Telephone [facility] [address] [place] [phone] Sandra Álvarez [place] January recall 11/26/2024 Refill [facility] [address] [place] [address] Akin Gale ANP Nasal congestion 11/24/2024 Refill [facility] [address], [place] [phone] Akin Gale ANP Essential hypertension; Pulmonary hypertension ([facility]/HCC) 11/20/2024 Refill [facility] [address] [place] [address] Akin Gale ANP Pain from Last 3 Months Immunizations Name Administration [...] Description 03/06/2025 10:30 AM EDT Office Visit [facility] [address] [place] [address] Akin Gale, ANP [address], [place] [phone] 04/14/2025 9:30 AM EDT Medication Management [facility] [address], [place] [phone] Alex Mares, PharmD [address], [place] [phone] Health Maintenance Due Date Last Done Comments [...] Procedure Name Priority Date/Time Associated Diagnosis Comments BACTERIAL VAGINOSIS PANEL Routine 01/30/2025 10:46 AM EDT Vaginal itching POCT GLYCATED HEMOGLOBIN, TOTAL Routine 01/06/2025 9:27 AM EDT Type 2 diabetes mellitus with hyperlipidemia ([facility]/HCC) ([facility]) CT CERVICAL SPINE WO CONTRAST Routine 12/22/2024 [...] Relevant to Health Maintenance Results * (ABNORMAL) Bacterial Vaginosis Panel (01/30/2025 10:46 AM EDT) TRICHOMONAS VAGINALIS DETECTION BY PCR NOT DETECTED Not Detect [facility] BACTERIAL VAGINOSIS DETECTION BY PCR NEGATIVE Negative [facility] Comment:The BV organism targ ets of the Xpert Xpress MVP test can becommensal in women; Xpert Xpress MVP positive results forbacterial vaginosis should be considered in conjunction withother clinical and patient information to determine thedisease status. Organisms that are not detected by the XpertXpress MVP test have also been reported to be associatedwith BV and aerobic vaginitis.The Xpert Xpress MVP test performance has not been evaluatedin patients under the age of 14. JOANN GROUP DETECTION BY PCR NOT DETECTED Not Detect [facility] Joann glab krusei PCR DETECTED(A) Not Detect [facility] Swab Vaginal structure / Unknown 01/30/2025 10:46 AM EDT 01/30/2025 4:27 PM EDT [facility] MICROBIOLOGY - GENERAL ORDER YOU Final Result [facility] [address] [place] [phone] * (ABNORMAL) POCT HGB A1C (01/06/2025 9:27 AM EDT) Hemoglobin A1C 7.5(A) 4.0 - 6.0 % QC Media Lot # [id number] Lot# Expiration Date [id number] Blood 01/06/2025 9:27 AM EDT Akin Shahla STILL POINT OF CARE TEST ENTER/EDIT OR DERABLES Final Result * CT Cervical Spine w/o Contrast (12/22/2024 10:31 PM EST) Anatomical Region Laterality Modality Spine, C-spine Computed Tomogra phy 12/22/2024 10:3 1 PM EST Narrative 12/22/2024 10:34 PM EST ? [facility] ?[address] ?[place] [address] ? CT Scan Report ? Signed ? Patient: Jacquelyn Scott S ?MR#: [id number] ? : 1950 ?Acct:[id number] ? Age/Sex: 74 / F ?ADM Date: 12/22/24 ? Loc: HO.ED ? Attending Dr: ? Ordering Physician: Connor Ngo MD ?? Date of Service: 12/22/24 ?? Procedure(s): CT cervical spine wo IV con ?? Accession Number(s): [id number] ? cc: AKIN GALE NP; Connor Ngo MD ? Report Number: ?? [id number]: Total DLP = ??293.00 mGy-cm ? CLINICAL [...] MD in OV> ? 12/22/243 ? DD/ 2231 ? TD/TT: 12/22/24 2231 ? Classroom Instructor: ? Procedure Note Donotuseinterpreter, Image - 12/22/[address] [address] [address] Scan Report Signed Patient: Jacquelyn Scott SMR#: [id number] : 1Acct:[id number] Age/Sex: 74 / FADM Date: 12/22/24 Loc: HO.ED Attending Dr: Ordering Physician: Connor Ngo MD Date of Service: 12/22/24 Procedure(s): CT cervical spine wo IV con Accession Number(s): [id number] cc: AKIN GALE NP; Connor Ngo MD Report Number: [id number]: Total DLP = 293.00 mGy-cm CLINICAL HISTORY: [...] in OV> 12/22/242232 DD/ 30 TD/TT: 12/22/242230 Classroom Instructor: [facility] External Provider IMG CT PROCEDURES Edited Result - Final * Albumin, Random Urine W/Creatinine (09/06/2024 12:05 PM EST) Creatinine, Urine 39.05 mg/dL [facility] Microalbumin Urine <5.0 mg/L [facility] Microalbum Creatinine Ratio Ur TNP <30 ug/mg cr [facility] Comment:Unable to calculate albumin/creatinine ratio due to lowmicroalbumin or creatinine result. 09/06/2024 12:0 5 PM EST 09/06/2024 1:26 PM EST Akin [facility] LAB URINE ORDERABLES Final Resul t [facility] [address] [place] [address] [phone] * (ABNORMAL) Lipid Panel, Standard (07/05/2024 11:26 AM EDT) Triglycerides 170(H) <150 mg/dL [facility] Comment:Desirable Triglyceri de: less than 150 mg/dLBorderline High Triglyceride 150-199 mg/dLHigh Triglyceride: 200-499 mg/dLVery High Triglyceride: greater than or equal to 5OO mg/dL Cholesterol 133 <200 mg/dL [facility] Comment:Desirable Cholestero l: less than 200 mg/dLBorderline High Cholesterol: 200-239 mg/dLHigh Cholesterol: greater than 239 mg/dL LDL Cholesterol Calculated 56 <100 mg/dL [facility] Comment:Desirable LDL: less than 100 mg/dLNear Optimal/Above Optimal LDL: 110- 129 mg/dLBorderline High LDL: 130-159 mg/dLHigh LDL: 160-189 mg/dLVery High LDL: greater than or equal to 190 mg/dL HDL Cholesterol 43 >40 mg/dL [facility] Comment:Desirable HDL: great er than 40 mg/dL Note: This HDL assay may give artificially low results in patients with liver disease. Blood Venous blood specimen / Unknown 07/05/2024 11:26 AM EDT 07/05/2024 1:26 PM EDT us Akin Gale ANP LAB BLOOD ORDERABLES Final Resul t [facility] [address] [place] [address] [phone] * BI Mammogram Screening Tomosynthesis Bilateral (01/02/2024 10:25 AM EST) Anatomical Region Laterality Modality Breast Bilateral Mammography 01/02/2024 10:2 5 AM EST Narrative 01/16/2024 10:15 AM EDT ? [facility] ? [address] ?[place] [address] ? Mammography Report ? Signed ? Patient: Jacquelyn Scott ?MR#: [id number] ? : 1950 ?Acct:[id number] ? Age/Sex: 73 / F ?ADM Date: 03/05/24 ? Loc: HO.MAMMO ? Attending Dr: Akin Gale AIRPLANE CLEANER ? Ordering Physician: AKIN GALE NP ?Results: 2Benign Fin ?? dings ? Date of Service: 03/05/24 ?Follow Up: 1 Year From Orig ?? inal Mammogram ? Procedure(s): MM tomosynthesis screening BI ?? Accession Number(s): [id number] ? cc: SHAHLA,AKIN DIXON ? EXAMINATION: ?? [...] MD in OV> ?01/16/24 1011 ? DD/ ? TD/TT: ? Classroom Instructor: ? Procedure Note Javier, Image - 03/19/2024 Ivone [facility] [address] [place], [place] [address] Mammography Report Signed Patient: Jacquelyn Scott [facility]#: [id number] : 1Acct:[id number] Age/Sex: 73 / FADM Date: 01/02/24 Loc: HO.MAMMO Attending Dr: Akin Gale AIRPLANE CLEANER Ordering Physician: AKIN GALE NPResults: 2Benign Selwyn karimi Date of Service: 01/02/24Follow Up: 1 Year From Orig inal Mammogram Procedure(s): MM tomosynthesis screening BI Accession Number(s): [id number] cc: AKIN GALE NP EXAMINATION: MM SCREENING [...] in OV> 01/16/24 1011 DD/ 1025 TD/TT: Classroom Instructor: Akin Gale ANP IMG BI PROCEDURES Final Result from Last 3 Months or Most Recently Relevant to Health Maintenance Insurance [facility] Address: [address] [place] [address] DENTAL - DQ [facility] SNP Care Teams Custom Protection Officer Relationship Specialty Start Date End Date Akin Gale ANP [address] [place] [address] PCP - General Family Medicine 06/24/22 Alex Mares, SerenityD [address] [place] [phone] Pharmacist Internal Medicine 06/07/24
== END 2025-02-07 10:22 | disposition home or self-care (01) ==
LOC: HO.MAMMO 10:21
PROVIDERS: PCP Nurse Practitioner Primary Care; Visit Provider Nurse Practitioner Primary Care
DX: Z12.31 Encounter for screening mammogram for malignant neoplasm of breast (principal)
CPT/HCPCS: 77063; 77067

== ENCOUNTER → 2025-02-07 10:30 | Outpatient (BNV) | payer OTHER, SELFPAY | PROVIDERS: PCP Nurse Practitioner Primary Care; Visit Provider Internal Medicine | DX: Z12.31 Encounter for screening mammogram for malignant neoplasm of breast (principal) | CPT/HCPCS: 77063; 77067 ==

== ENCOUNTER 2025-03-11 09:32 | Outpatient (AMB) | payer OTHER, SELFPAY ==
--- NOTE | 2025-03-11 09:33 | A.OFFVIS_ITS ---
Intake Visit Reasons: Pre-Rt Cubital, CTR 03/17/25 Intake Note: Jacquelyn is a 75 year old female who presents today for a pre op appointment for her right cubital carpal tunnel release 03/17/25 AR. Allergies shellfish derived [shellfish] Allergy (Severe, Verified 03/11/25 09:41) Anaphylaxis HPI HPI Pre-Rt Cubital, CTR 03/17/25: Details: Jacquelyn is a 75 year old right hand dominant Diabetic Tajik speaking woman who returns to discuss her right carpal & cubital tunnel syndrome. She is seen with her daughter, who is acting as a clay puddler. She complains of numbness in all the fingers of her right hand. Symptoms intermittent, but daily, worse at night. She also complains of her hand shaking . She complains of discomfort radiating from her elbow down into her hand. She is a Diabetic, her most recent HgA1c was 7.5% on 01/06/25 [facility] Medical History (Updated 03/11/25 @ 09:45 by Alejandro Don) Hyperlipidemia Hypothyroid Diabetes HTN (hypertension) GERD (gastroesophageal reflux disease) Surgical History History of colonoscopy Social History Alcohol intake: never Patient Tobacco Use Status: Never used Tobacco Review of Systems Const All systems reviewed & are unremarkable except as noted in HPI and below Physical Exam Const General: cooperative, healthy appearing and no acute distress Orientation/consciousness: patient oriented x3 HEENT Head: Yes normocephalic and Yes atraumatic Eyes EOM: EOMs intact bilaterally Resp Effort & Inspection: normal respiratory effort and able to speak in complete sentences Cardio Jugular venous distension: no JVD Skin General skin exam: turgor normal Rashes: no rashes Neuro General: patient oriented x3 Extrem Other: Evaluation of Right Upper Extremity: The patient is alert, oriented, and in no acute distress Neuro: Median, Ulnar, Radial nerves motor and sensory intact and sensation is normal to the tips of all digits No thenar or intrinsic wasting Good APB muscle belly firing and good finger cross Vascular: Cap refill brisk ROM: She can make a fist and extend all her digits No locking or catching Skin: No lacerations or abrasions. General: No Ecchymosis. No Erythema or evidence of infection. Nerve Conduction Study: IMPRESSION: 1. [id number] right median neuropathy across carpal tunnel. 2. Mild right ulnar neuropathy across cubital tunnel. Octavio Campbell MD 10/08/2024 Psych Appearance: grossly normal Affect: normal affect Attitude: cooperative Assessment & Plan Assessment & Plan (1) Right carpal tunnel syndrome: Code(s): G56.01 - Carpal tunnel syndrome, right upper limb Category: Medical (2) Cubital tunnel syndrome on right: Code(s): G56.21 - Lesion of ulnar nerve, right upper limb Category: Medical (3) Diabetes: Code(s): E11.9 - Type 2 diabetes mellitus without complications Category: Medical Plan Assessment & Plan: 1. Right carpal tunnel syndrome, mild-moderate Symptoms intermittent, but daily, worse at night 2. Right cubital tunnel syndrome, mild Symptom intermittent, but daily, worse at night I educated her about these conditions I discussed operative and non-operative treatment options The patient would like to proceed with surgery The risks and benefits of operative treatment were discussed with the patient and the patient wishes to proceed with surgery. These risks include, but are n ot limited to risk of damage to blood vessels, nerves, tendons, infection, recurrence, incomplete relief of preoperative symptoms, persistent pain, possible need for further surgery and the risks associated with regional blocks and anesthesia. The plan is to take the patient to the operating room sometime on 03/17/25 for the following procedures: 1. Right carpal tunnel release, under general 2. Right cubital tunnel release, under general All of the preoperative paperwork including the consent was reviewed today. All the patient's questions were answered. The patient understands that they will be contacted by our construction scheduler soon to schedule this procedure She denies blood thinners, asthma, heart, lung, kidney issues She is a Diabetic, her most recent HgA1c was 7.5% on 01/06/25. They will need an updated HgA1c that is <8.1% in order to proceed with surgery, and they expressed understanding. She is on Jardiance and she is aware that this should be stopped 3 days prior to surgery Scribed for Joana Grissom MD by Alejandro Don medical manager, on 03/11/25 at 10:00 AM, EST. Coding Level of Care Code Est Pt Level 4 (08693) Diagnoses Right carpal tunnel syndrome G56.01 Cubital tunnel syndrome on right G56.21 Diabetes E11.9
== END 2025-03-11 10:14 | disposition home or self-care (01) ==
LOC: HO.HOS 09:32
PROVIDERS: PCP Nurse Practitioner Primary Care; Visit Provider Orthopaedic Surgery
DX: G56.01 Carpal tunnel syndrome, right upper limb (principal); G56.21 Lesion of ulnar nerve, right upper limb; E11.9 Type 2 diabetes mellitus without complications
CPT/HCPCS: 99024

== ENCOUNTER → 2025-03-17 07:29 | Day surgery (SDC) | payer OTHER, SELFPAY ==
[2025-03-13 12:16] VITALS: BMI 21.0
--- NOTE | 2025-03-13 13:05 | P.CONAN_ITS ---
HPI - Anesthesia Eval Consult details Narrative: 75yo F for Right Cubital Tunnel Release, Carpal Tunnel Release Medically optimized per PCP Pt with [facility] ED visit from outpatient pain clinic. HTN and TACHY with injection of Versed 2mg. Per ED note, unlikely d/t versed as patient had held all medications for days prior to visit and was not feeling well before versed was admin'd. Na was low - will repeat DOS PMFSH Active Problems Active Problems: All Active Problems Diabetes (Acute) Right carpal tunnel syndrome (Acute) Cubital tunnel syndrome on right (Acute) Sacroiliac joint pain (Acute) Sacroiliitis (Acute) Past Medical History Medical History LBBB (left bundle branch block) Hyperlipidemia Hypothyroid Diabetes HTN (hypertension) GERD (gastroesophageal reflux disease) Surgical History Surgical History History of surgery History of colonoscopy Social History Social History Alcohol intake: never Patient Tobacco Use Status: Never used Tobacco Use of substances other than those prescribed or required for medical reasons: No Advance Directives: No Advance Directives Information Provided: Yes Patient : No Poor oral hygiene: No Meds Allergies Allergy/AdvReac Type Severity Reaction Status Date / Time shellfish derived [shellfish] Allergy Severe Anaphylaxis Verified 03/11/25 09:41 Home Medications ?Medication ?Instructions ?Recorded ?Confirmed ?Last Taken ?Type atorvastatin 40 mg tablet 40 mg PO BEDTIME 07/28/22 03/13/25 Unknown History calcium 600 mg (as 1 tab PO DAILY 07/28/22 03/13/25 Unknown History carbonate)-vitamin D3 10 mcg (400 unit) tablet cetirizine 10 mg tablet 10 mg PO DAILY 07/28/22 03/13/25 Unknown History empagliflozin 25 mg tablet 25 mg PO DAILY 07/28/22 03/13/25 03/13/25 History (Jardiance) fluticasone propionate 50 1 spray intranasal DAILY 07/28/22 03/13/25 Unknown History mcg/actuation nasal spray,suspension gabapentin 100 mg capsule 100 mg PO TID 07/28/22 03/13/25 Unknown History hydrochlorothiazide 12.5 mg tablet 12.5 mg PO DAILY 07/28/22 03/13/25 Unknown History levothyroxine 75 mcg tablet 75 mcg PO DAILY 07/28/22 03/13/25 03/17/25 History lisinopril 40 mg tablet 40 mg PO BID 07/28/22 03/13/25 Unknown History metformin 500 mg tablet,extended 1,000 mg PO BID 07/28/22 03/13/25 Unknown History release 24 hr metoprolol tartrate 50 mg tablet 75 mg PO DAILY 07/28/22 03/13/25 03/17/25 History omeprazole 20 mg capsule,delayed 20 mg PO QAM 07/28/22 03/13/25 03/17/25 History release aspirin 81 mg tablet,delayed 81 mg PO DAILY 01/21/25 03/17/25 03/10/25 History release (Adult Aspirin Regimen) blood sugar diagnostic (Wishbone.orgTouch #10 ea 01/21/25 01/21/25 Unknown History Ultra Test strips) lancets 33 gauge (Wishbone.orgTouch Delica #100 ea 01/21/25 01/21/25 Unknown History Plus Lancet) mometasone 50 mcg/actuation nasal 2 spray intranasal DAILY PRN Nasal 01/21/25 03/13/25 Unknown History spray Congestion vitamin with calcium 1 tab PO DAILY 01/21/25 03/13/25 Unknown History no.72-iron 27 mg-folic acid 1 mg tablet ( Vitamins Plus Low Iron) Exam Height,Weight and Vital Signs: Height 5 ft 2 in Weight 52.163 kg Pertinent Lab Results Pertinent Lab Results: 02/2025 CBC and BMP from [facility] OK except Na low at 129 Narrative Narrative: EKG 02/2025 Ventricular Rate: 83 BPM Atrial Rate: 83 BPM P-R Interval: 138 ms QRS Duration: 118 ms Q-T Interval: 386 ms QTC Calculation(Bazett): 453 ms P [place]: -11 degrees R [place]: 6 degrees T [place]: 89 degrees Normal sinus rhythm Minimal voltage criteria for LVH, may be normal variant ( Rogelio product ) Septal infarct , age undetermined Abnormal ECG No previous ECGs available Confirmed by BHAKTI GRANADO MD ([id number]) on 03/05/2025 3:48:22 PM Assessment and Plan Assessment Anesthesia Assessment: Chart Reviewed
[2025-03-17 07:39] VITALS: BMI 21.9
[2025-03-17 07:41] VITALS: BP 149/64; PULSE 71; RESP 16; TEMP 36.1; O2SAT 99
[2025-03-17 07:48] LABS: Glucose, Whole Blood 116 mg/dL (60-115)
--- NOTE | 2025-03-17 08:37 | MHC.SHP ---
Pre-Procedural Eval Section A - 24 Hr Update-Section A only Date of Service: 03/17/25 The patient is an INPATIENT: No Changes since office visit: No Cold of Flu in the past 2 weeks, No New Medical Problems, No Changes in Medication and No Patient answered all questions The patient has been examined within 24 hours of the surgical procedure. The History & Physical has been completed within 30 days and I have reviewed it.: Yes Section B - Complete if H&P > 30 days Chief Complaint: Lesion of ulnar nerve, right upper limb Allergies: Allergies Allergy/AdvReac Type Severity Reaction Status Date / Time shellfish derived [shellfish] Allergy Severe Anaphylaxis Verified 03/11/25 09:41 Plan I have reviewed the history and physical and performed a pertinent physical examination on my patient. No changes have occurred unless specified. Time Spent With Patient Time: Total time managing care of this patient today ____ minutes.
--- NOTE | 2025-03-17 08:40 | P.OP_ITS ---
Operative Note Operative Note Date of Service: 03/17/25 Narrative: Operative Note Narrative: Preop diagnosis: 1. Left Cubital tunnel syndrome 2. Left carpal tunnel syndrome Postop diagnosis: Same Procedure: 1. Left Cubital Tunnel Release 2. Left carpal tunnel release Surgeon: Joana Grissom MD Radiology Equipment Servicer: None Anesthesia: General Anesthesia Findings: Thickening and fibrosis about the ulnar nerve at the cubital tunnel. The ulnar nerve came to the edge but did not fully subluxate with elbow flexion. Implants: none Tourniquet time: 24 minutes EBL: 5.0 ml Specimen: none Drains: None Complications: None Disposition: Brought to the recovery room in stable condition Plan: Follow-up in 10-14 days for wound check, and suture removal Indications: The patient is 75 years old with left cubital tunnel syndrome and left carpal tunnel syndrome . The risks and benefits of operative treatment, including but not limited to risk of damage to blood vessels, nerves, tendons, infection, recurrence, persistent pain or numbness, incomplete resolution of preoperative symptoms, or need for further surgery were discussed with the patient and they wished to proceed with surgery. Procedure: Once consent was obtained patient was brought back to the operating suite and placed in the operating table in a supine position. Perioperative antibiotics and anesthesia was administered by the anesthesia team. The limb was prepped and draped in a standard surgical fashion, and a sterile tourniquet applied to the proximal aspect of the left upper extremity. The limb was elevated exsanguinated with Esmarch bandage and the tourniquet inflated to 250 mm of mercury for a total tourniquet time of minutes. Once assured that we had a good block, a 2.0 cm longitudinal incision was made centered over the left carpal tunnel. The incision was made through the skin to the subcutaneous tissues using a #15 blade. Dissection was made down to the level of the transverse carpal ligament with care being taken to protect the palmar cutaneous nerve. Once the transverse carpal ligament was clearly visualized, a longitudinal incision was made in the transverse carpal ligament 1st using a #15 blade, then using tenotomy scissors under direct visualization. Care was taken to look for and protect the motor branch of the median nerve when seen in this area. Once satisfied with our carpal tunnel release the wound was irrigated with normal saline. A 6 cm gently curved but longitudinally oriented incision was made centered over the cubital tunnel of the left upper extremity. Incision was made through the skin to the subcutaneous tissues using a # 15 Blade. I then dissected down to the level of the medial epicondyle and the cubital tunnel using tenotomy scissors. Care was taken to protect the medial antebrachial cutaneous nerve. The ulnar nerve was identified just posterior to the medial intermuscular septum. The ulnar nerve was released in a proximal to distal direction using tenotomy in iris scissors while directly visualizing and protecting the ulnar nerve. Thickening and fibrosis was appreciated about the ulnar nerve as it passed through the cubital tunnel. The ulnar nerve was assessed as I passed the elbow through full flexion and extension and was found to come to the edge but not actually subluxate in full flexion.. At this point the tourniquet was deflated and hemostasis obtained with a brief period of local pressure and bipolar electrocautery. The wound was copiously irrigated with normal saline. The subcutaneous layer was closed with 4-0 Vicryl suture, and the skin edges were reapproximated with 5-0 nylon suture. The wound was infiltrated with some 0.25% plain Marcaine for postop pain control and sterile dressings were applied. The patient appears to have tolerated the procedure well and with no complications. All digits were well vascularized at the conclusion of the case.
[2025-03-17] MEDS: Lactated Ringers 1,000 ML 100 ML IVCONT (08:47)
--- NOTE | 2025-03-17 11:20 | HO.ANESPROP2 ---
[facility] Active Problems Active Problems: All Active Problems Right carpal tunnel syndrome (Acute) Cubital tunnel syndrome on right (Acute) Sacroiliac joint pain (Acute) Sacroiliitis (Acute) Diabetes (Acute) Past Medical History Medical History LBBB (left bundle branch block) Hyperlipidemia Hypothyroid Diabetes HTN (hypertension) GERD (gastroesophageal reflux disease) Functional capacity: independent ambulation Patient : No Family History Family history of problems with anesthesia: No Surgical History Surgical History History of surgery History of colonoscopy History of Problems with Anesthesia: No Social History Social History Alcohol intake: never Patient Tobacco Use Status: Never used Tobacco Use of substances other than those prescribed or required for medical reasons: No Advance Directives: No Advance Directives Information Provided: Yes Patient : No Poor oral hygiene: No Meds Allergies Allergy/AdvReac Type Severity Reaction Status Date / Time shellfish derived [shellfish] Allergy Severe Anaphylaxis Verified 03/11/25 09:41 Active Medications: Current Medications Lactated Ringer's (Lr) 1,000 mls @ 100 mls/hr IVCONT .Q10H ROLAND Last Admin: 03/17/25 08:47 Dose: 100 mls/hr Home Medications ?Medication ?Instructions ?Recorded ?Confirmed ?Last Taken ?Type atorvastatin 40 mg tablet 40 mg PO BEDTIME 07/28/22 03/13/25 Unknown History calcium 600 mg (as 1 tab PO DAILY 07/28/22 03/13/25 Unknown History carbonate)-vitamin D3 10 mcg (400 unit) tablet cetirizine 10 mg tablet 10 mg PO DAILY 07/28/22 03/13/25 Unknown History empagliflozin 25 mg tablet 25 mg PO DAILY 07/28/22 03/13/25 03/13/25 History (Jardiance) fluticasone propionate 50 1 spray intranasal DAILY 07/28/22 03/13/25 Unknown History mcg/actuation nasal spray,suspension gabapentin 100 mg capsule 100 mg PO TID 07/28/22 03/13/25 Unknown History hydrochlorothiazide 12.5 mg tablet 12.5 mg PO DAILY 07/28/22 03/13/25 Unknown History levothyroxine 75 mcg tablet 75 mcg PO DAILY 07/28/22 03/13/25 03/17/25 History lisinopril 40 mg tablet 40 mg PO BID 07/28/22 03/13/25 Unknown History metformin 500 mg tablet,extended 1,000 mg PO BID 07/28/22 03/13/25 Unknown History release 24 hr metoprolol tartrate 50 mg tablet 75 mg PO DAILY 07/28/22 03/13/25 03/17/25 History omeprazole 20 mg capsule,delayed 20 mg PO QAM 07/28/22 03/13/25 03/17/25 History release aspirin 81 mg tablet,delayed 81 mg PO DAILY 01/21/25 03/17/25 03/10/25 History release (Adult Aspirin Regimen) blood sugar diagnostic (HiperScanTouch #10 ea 01/21/25 01/21/25 Unknown History Ultra Test strips) lancets 33 gauge (OneTouch Delica #100 ea 01/21/25 01/21/25 Unknown History Plus Lancet) mometasone 50 mcg/actuation nasal 2 spray intranasal DAILY PRN Nasal 01/21/25 03/13/25 Unknown History spray Congestion vitamin with calcium 1 tab PO DAILY 01/21/25 03/13/25 Unknown History no.72-iron 27 mg-folic acid 1 mg tablet ( Vitamins Plus Low Iron) Exam Height,Weight and Vital Signs: Height 5 ft 2 in Weight 54.3 kg Last Vital Signs Temp 96.9 F 03/17/25 07:41 Pulse 71 03/17/25 07:41 Resp 16 03/17/25 07:41 BP 149/64 H 03/17/25 07:41 Pulse Ox 99 03/17/25 07:41 O2 Del Method Room Air 03/17/25 07:41 Pertinent Lab Results Pertinent Lab Results: Laboratory Tests 03/17/25 07:44 POC Glucose 116 H Airway Mallampati Class: II TM Dist: >3cm Heart: rrr Lungs: cta Assessment and Plan Assessment Anesthesia Assessment: Anesthesia Plan Discussed and Chart Reviewed Final Anesthetic Review Family History of Problems with Anesthesia: No History of Problems with Anesthesia: No NPO: No ASA Class: II Final Preanesthetic Review: No Changes in Pt Med Stat, Meds/Allgs Chart Reviewed, Consent Obtained/Reviewed and Anes Risks/Benef Reviewed Patient Risk: Low Procedure Risk: Low Anesthetic Plan Anesthetic Plan: GA Disposition: Standard PACU
[2025-03-17] MEDS: ceFAZolin Sodium/Dextrose,Iso 2 GM/50 ML PIGGYBACK IV (11:50)
[2025-03-17] MEDS: Acetaminophen 1,000 MG/100 ML PIGGYBACK 400 MG IV (12:07)
[2025-03-17 13:01] VITALS: BP 126/63; PULSE 65; RESP 16; TEMP 36.2; O2SAT 98
[2025-03-17 13:06] VITALS: BP 130/58; PULSE 67; RESP 16; O2SAT 98
[2025-03-17 13:11] VITALS: BP 134/62; PULSE 45; RESP 16; O2SAT 94
[2025-03-17 13:16] VITALS: BP 156/46; PULSE 77; RESP 16; O2SAT 96
[2025-03-17 13:31] VITALS: BP 159/62; PULSE 66; RESP 16; TEMP 36.2; O2SAT 96
== END | disposition home or self-care (01) ==
PROVIDERS: PCP Nurse Practitioner Primary Care; Visit Provider Orthopaedic Surgery
PROC: (CPT 64718; principal; 2025-03-17 09:30)
PROC: (CPT 64721; 2025-03-17 09:30)
DX: G56.01 Carpal tunnel syndrome, right upper limb (principal); G56.21 Lesion of ulnar nerve, right upper limb; R20.0 Anesthesia of skin; E11.9 Type 2 diabetes mellitus without complications; I10 Essential (primary) hypertension; E78.5 Hyperlipidemia, unspecified; E03.9 Hypothyroidism, unspecified; K21.9 Gastro-esophageal reflux disease without esophagitis; Z79.82 Long term (current) use of aspirin; Z79.84 Long term (current) use of oral hypoglycemic drugs; Z79.899 Other long term (current) drug therapy; Z91.013 Allergy to seafood
CPT/HCPCS: 64721; 64718; 82947; J0131; J0690; J1100; J2003; J2004; J2405; J2704; J3010

== ENCOUNTER → 2025-03-17 07:29 | Outpatient (BNV) | payer OTHER, SELFPAY | PROVIDERS: PCP Nurse Practitioner Primary Care; Visit Provider Orthopaedic Surgery | DX: G56.02 Carpal tunnel syndrome, left upper limb (principal); G56.22 Lesion of ulnar nerve, left upper limb | CPT/HCPCS: 64718; 64721 ==

== ENCOUNTER 2025-03-31 09:37 | Outpatient (AMB) | payer OTHER, SELFPAY ==
--- NOTE | 2025-03-31 09:40 | MHC.OFFVIS ---
Vital Signs 03/31/25 09:44 Height 5 ft 2 in Weight 119 lb BMI 21.8 Intake Visit Reasons: Rt Cubital, CTR 03/17/25 Intake Note: Jacquelyn is a 75 year old povya-bbjy-fiqgqgim female who presents today post operatively s/p left carpal tunnel release and left cubital release DOS: 03/17/[address] Joana Grissom. patients states CTS has resolved. Sutures removed and steri strips applied. Folder Stitcher Operator Name: Mikala RAMIREZ/RAYMON Allergies shellfish derived [shellfish] Allergy (Severe, Verified 03/31/25 09:45) Anaphylaxis HPI HPI Rt Cubital, CTR 03/17/25: Details: Jacquelyn is a 75 year old qllal-jcdj-ceiyeqoj female who presents today post operatively s/p left carpal tunnel release and left cubital release DOS: 03/17/[address] Joana Grissom. patients states CTS has resolved. Denies any redness, swelling, pain, discharge at the incision sites. Patient reports that she is very satisfied with her surgical and recovery course. Sutures removed and steri strips applied. 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 Neuro: Normal sensation of the tips of all digits of the right hand at this time Vascular: Cap refill brisk Pain: No tenderness to palpation about the incision sites on the medial right elbow and volar right wrist No pain with range of motion of the right hand or elbow ROM: Patient is able to make a closed fist and extend all digits of the right hand fully and without difficulty Pronation and supination of the right wrist full and intact Patient is able to extend the right elbow fully and flex to approximately 150 degrees with no difficulty Skin: Well approximated and well healing incision sites noted on the volar aspect of the right wrist and the medial aspect of the right elbow No lacerations or abrasions. General: No ecchymosis, erythema, or evidence of infection. Psych: Appears grossly normal Affect normal Attitude cooperative Assessment & Plan Assessment & Plan (1) Right carpal tunnel syndrome: Code(s): G56.01 - Carpal tunnel syndrome, right upper limb Category: Medical (2) Cubital tunnel syndrome on right: Code(s): G56.21 - Lesion of ulnar nerve, right upper limb Category: Medical Plan 1. Status post right cubital and carpal tunnel releases DOS 03/17/2025 With complete symptom resolution postoperatively Patient appears to be recovering well postoperatively Patient is educated about the typical recovery course 2 lb weight limit for a further 2 weeks in the right hand No further acute follow-up indicated, as patient is recovering very well Patient is amenable to this plan Follow-up as needed Coding Level of Care Code Global (73817) Diagnoses Right carpal tunnel syndrome G56.01 Cubital tunnel syndrome on right G56.21
[2025-03-31 09:44] VITALS: BMI 21.8
--- OUTSIDE RECORDS SUMMARY | 2025-03-31 10:18 | XMS_ITS | Encounter Summary ---
Author Organization [employer] Address [address] [place] [address] [address] [place] [address] Care Team Providers Care Tow Bar Driver Name Role Phone Kimberly Jon Primary Care Provider Alex Mares PharmD Unavailable [phone] Encounter Details Date Type Department Care Team (Late st Contact Info) Description 08/17/2023 Orders Only [facility] PEDS [address] [place], [place] [phone] Genoveva Ga LPN Social History Tobacco Use [...] t he electric, gas, oil or water [employer] threatened to shut off services in your [...] Care Team (Late st Contact Info) Description 04/15/2025 9:30 AM EDT Medication Management [facility] [address] [place] [phone] Alex Mares, Laura [address] [place] [phone] 06/09/2025 11:15 AM EDT Office Visit [facility] [address] [place] [phone] Kimberly Jon ANP [address] [place] [phone] documented as of this encounter Visit Diagnoses Not on filedocumented in this encounter Care Teams Tow Bar Driver Relationship Specialty Start Date End Date Kimberly Jon ANP [address] [place] [phone] PCP - General Family Medicine 06/24/22 Alex Mares, Laura [address] [place] [phone] Pharmacist Internal Medicine 06/07/24 documented as of this encounter
== END 2025-03-31 10:14 | disposition home or self-care (01) ==
LOC: HO.HOS 09:38
PROVIDERS: PCP Nurse Practitioner Primary Care
DX: G56.01 Carpal tunnel syndrome, right upper limb (principal); G56.21 Lesion of ulnar nerve, right upper limb
CPT/HCPCS: 99024

== ENCOUNTER → 2025-03-31 09:37 | Outpatient (BNVA) | payer OTHER, SELFPAY | PROVIDERS: PCP Nurse Practitioner Primary Care | DX: Z09 Encounter for follow-up examination after completed treatment for conditions other than malignant neoplasm (principal); Z86.69 Personal history of other diseases of the nervous system and sense organs; Z98.890 Other specified postprocedural states | CPT/HCPCS: 99212 ==

== ENCOUNTER 2025-05-07 11:06 | Day surgery (SDC) | payer OTHER, SELFPAY ==
--- OUTSIDE RECORDS SUMMARY | 2025-04-10 17:09 | XMS_ITS | Encounter Summary ---
Author Organization [employer] Address [address] [place] [address] [address] [place] [address] Care Team Providers Care Hobbing Machine Operator Name Role Phone Kimberly Jon Primary Care Provider [phone] Alex Mares PharmD Unavailable [phone] Encounter Details Date Type Department Care Team (Late st Contact Info) Description 08/17/2023 Orders Only [facility] MED & PEDS [address] [place], [place] [phone] Genoveva Ga LPN Social History Tobacco Use [...] t he electric, gas, oil or water [employer] threatened to shut off services in your [...] Description 04/15/2025 9:30 AM EDT Medication Management [facility] [address] [place] [phone] Alex Mares, Laura [address] [place] [phone] 06/09/2025 11:15 AM EDT Office Visit [facility] [address] [place] [phone] Kimberly Jon ANP [address] [place] [phone] documented as of this encounter Visit Diagnoses Not on filedocumented in this encounter Care Teams Hobbing Machine Operator Relationship Specialty Start Date End Date Kimberly Jon ANP [address] [place] [phone] PCP - General Family Medicine 06/24/22 Alex Mares, Laura [address] [place] [phone] Pharmacist Internal Medicine 06/07/24 documented as of this encounter
[2025-05-05 15:20] VITALS: BMI 21.8
--- NOTE | 2025-05-06 09:17 | HO.ANESPROP2 ---
Documented by User: Kymberly Cannon NP 05/06/25 09:19 HPI - Anesthesia Eval Consult details Narrative: 75yo F for Upper Endoscopy and Colonoscopy Anesthesia Pre-Procedure Meds Is the patient on any of the following meds?: GLP1/DPP4 and SGLT2 Inhib PMFSH Active Problems Active Problems: All Active Problems Right carpal tunnel syndrome (Acute) Cubital tunnel syndrome on right (Acute) Sacroiliac joint pain (Acute) Sacroiliitis (Acute) Diabetes (Acute) Past Medical History Medical History LBBB (left bundle branch block) Hyperlipidemia Hypothyroid Diabetes HTN (hypertension) GERD (gastroesophageal reflux disease) Family History Family history of problems with anesthesia: No Surgical History Surgical History (Updated 05/05/25 @ 15:14 by Gloria Sue RN) History of carpal tunnel surgery of right wrist (03/17/25) History of surgery History of colonoscopy History of Problems with Anesthesia: No Social History Social History (Updated 03/31/25 @ 09:49 by [facility]) Alcohol intake: never Patient Tobacco Use Status: Never used Tobacco Have you been hit, kicked, punched, or otherwise hurt by someone within the past year? 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 Meds Allergies Allergy/AdvReac Type Severity Reaction Status Date / Time shellfish derived (shellfish) Allergy Severe Anaphylaxis Verified 03/31/25 09:45 Home Medications ?Medication ?Instructions ?Recorded ?Confirmed ?Last Taken ?Type atorvastatin 40 mg tablet 40 mg PO BEDTIME 07/28/22 05/05/25 Unknown History calcium 600 mg (as 1 tab PO DAILY 07/28/22 05/05/25 Unknown History carbonate)-vitamin D3 10 mcg (400 unit) tablet cetirizine 10 mg tablet 10 mg PO DAILY 07/28/22 05/05/25 Unknown History empagliflozin 25 mg tablet 25 mg PO DAILY 07/28/22 05/05/25 05/04/25 History (Jardiance) fluticasone propionate 50 1 spray intranasal DAILY 07/28/22 05/05/25 Unknown History mcg/actuation nasal spray,suspension gabapentin 100 mg capsule 100 mg PO TID 07/28/22 05/05/25 Unknown History hydrochlorothiazide 12.5 mg tablet 12.5 mg PO DAILY 07/28/22 05/05/25 Unknown History levothyroxine 75 mcg tablet 75 mcg PO DAILY 07/28/22 05/05/25 03/17/25 History lisinopril 40 mg tablet 40 mg PO BID 07/28/22 05/05/25 Unknown History metformin 500 mg tablet,extended 1,000 mg PO BID 07/28/22 05/05/25 Unknown History release 24 hr metoprolol tartrate 50 mg tablet 75 mg PO DAILY 07/28/22 05/05/25 03/17/25 History omeprazole 20 mg capsule,delayed 20 mg PO QAM 07/28/22 05/05/25 03/17/25 History release aspirin 81 mg tablet,delayed 81 mg PO DAILY 01/21/25 05/05/25 05/03/25 History release (Adult Aspirin Regimen) blood sugar diagnostic ([employer] Dispatchuch #10 ea 01/21/25 01/21/25 Unknown History Ultra Test strips) lancets 33 gauge ([employer] Dispatchuch Delica #100 ea 01/21/25 01/21/25 Unknown History Plus Lancet) mometasone 50 mcg/actuation nasal 2 spray intranasal DAILY PRN Nasal 01/21/25 05/05/25 Unknown History spray Congestion vitamin with calcium 1 tab PO DAILY 01/21/25 05/05/25 Unknown History no.72-iron 27 mg-folic acid 1 mg tablet ( Vitamins Plus Low Iron) sitagliptin phosphate 100 mg 100 mg PO DAILY 05/05/25 05/05/25 05/04/25 History tablet (Januvia) Exam Height,Weight and Vital Signs: Height 5 ft 2 in Weight 53.977 kg Narrative Narrative: EKG 11/2024 Vent. Rate : 82 BPM Atrial Rate : 82 BPM P-R Int : 132 ms QRS Dur : 116 ms QT Int : 386 ms P-R-T Axes : 32 19 123 degrees QTcB Int : 450 ms Normal sinus rhythm Left bundle branch block Abnormal ECG When compared with ECG of 28-Jun-2024 13:36, No significant changes seen Assessment and Plan Assessment Anesthesia Assessment: Anesthesia Plan Discussed and PAT Visit Final Anesthetic Review Family History of Problems with Anesthesia: No History of Problems with Anesthesia: No Documented by User: Edgard Rodriguez MD 05/07/25 12:13 PMFSH Past Medical History Medical History LBBB (left bundle branch block) Hyperlipidemia Hypothyroid Diabetes HTN (hypertension) GERD (gastroesophageal reflux disease) Surgical History Surgical History (Updated 05/05/25 @ 15:14 by Gloria Sue RN) History of carpal tunnel surgery of right wrist (03/17/25) History of surgery History of colonoscopy Social History Social History (Updated 03/31/25 @ 09:49 by Mikala Bains [facility]) Alcohol intake: never Patient Tobacco Use Status: Never used Tobacco Have you been hit, kicked, punched, or otherwise hurt by someone within the past year? 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 Meds Allergies Allergy/AdvReac Type Severity Reaction Status Date / Time shellfish derived (shellfish) Allergy Severe Anaphylaxis Verified 03/31/25 09:45 Home Medications ?Medication ?Instructions ?Recorded ?Confirmed ?Last Taken ?Type atorvastatin 40 mg tablet 40 mg PO BEDTIME 07/28/22 05/05/25 Unknown History calcium 600 mg (as 1 tab PO DAILY 07/28/22 05/05/25 Unknown History carbonate)-vitamin D3 10 mcg (400 unit) tablet cetirizine 10 mg tablet 10 mg PO DAILY 07/28/22 05/05/25 Unknown History empagliflozin 25 mg tablet 25 mg PO DAILY 07/28/22 05/05/25 05/04/25 History (Jardiance) fluticasone propionate 50 1 spray intranasal DAILY 07/28/22 05/05/25 Unknown History mcg/actuation nasal spray,suspension gabapentin 100 mg capsule 100 mg PO TID 07/28/22 05/05/25 Unknown History hydrochlorothiazide 12.5 mg tablet 12.5 mg PO DAILY 07/28/22 05/05/25 Unknown History levothyroxine 75 mcg tablet 75 mcg PO DAILY 07/28/22 05/05/25 03/17/25 History lisinopril 40 mg tablet 40 mg PO BID 07/28/22 05/05/25 Unknown History metformin 500 mg tablet,extended 1,000 mg PO BID 07/28/22 05/05/25 Unknown History release 24 hr metoprolol tartrate 50 mg tablet 75 mg PO DAILY 07/28/22 05/05/25 03/17/25 History omeprazole 20 mg capsule,delayed 20 mg PO QAM 07/28/22 05/05/25 03/17/25 History release aspirin 81 mg tablet,delayed 81 mg PO DAILY 01/21/25 05/05/25 05/03/25 History release (Adult Aspirin Regimen) blood sugar diagnostic (AudigenceTouch #10 ea 01/21/25 01/21/25 Unknown History Ultra Test strips) lancets 33 gauge (OneTouch Delica #100 ea 01/21/25 01/21/25 Unknown History Plus Lancet) mometasone 50 mcg/actuation nasal 2 spray intranasal DAILY PRN Nasal 01/21/25 05/05/25 Unknown History spray Congestion vitamin with calcium 1 tab PO DAILY 01/21/25 05/05/25 Unknown History no.72-iron 27 mg-folic acid 1 mg tablet ( Vitamins Plus Low Iron) sitagliptin phosphate 100 mg 100 mg PO DAILY 05/05/25 05/05/25 05/04/25 History tablet (Januvia) Exam Airway Mallampati Class: II TM Dist: >3cm Neck ROM: Full Partial: Upper and Lower Heart: ok Lungs: ok Assessment and Plan Assessment Anesthesia Assessment: Chart Reviewed Final Anesthetic Review NPO: Yes ASA Class: III Final Preanesthetic Review: No Changes in Pt Med Stat, Meds/Allgs Chart Reviewed, Consent Obtained/Reviewed and Anes Risks/Benef Reviewed Patient Risk: Intermediate Procedure Risk: Intermediate Anesthetic Plan Anesthetic Plan: Agree w/ Assess. and Plan and TIVA Disposition: Standard PACU
[2025-05-07 11:31] VITALS: BP 165/67; PULSE 80; RESP 20; TEMP 37; O2SAT 98; BMI 20.8
[2025-05-07 11:47] LABS: Glucose, Whole Blood 191 mg/dL (60-115)
[2025-05-07] MEDS: Lactated Ringers 1,000 ML 100 ML IVCONT (11:49)
--- NOTE | 2025-05-07 13:04 | MHC.SHP ---
Pre-Procedural Eval Section A - 24 Hr Update-Section A only Date of Service: 05/07/25 Section B - Complete if H&P > 30 days Chief Complaint: gerd,screening Relevant Family History (Specify if Yes): No Relevant Social History: None Present Medications: see Short Stay Collaborative assessment Medical History: Significant History (Hyperlipidemia Hypothyroid Diabetes HTN (hypertension) GERD (gastroesophageal reflux disease)) History of Previous Operations: Relevant previous surgery/procedure and date(s) ( History of colonoscopy) Allergies: Allergies Allergy/AdvReac Type Severity Reaction Status Date / Time shellfish derived (shellfish) Allergy Severe Anaphylaxis Verified 03/31/25 09:45 Review of Systems Sugical H&P ROS: Negative: Constitution, Cardiovascular, Respiratory, Neurological, Psychiatric, Hem-Onc, Allergic/Immunologic, Gastrointestinal, Genitourinary, Musculoskeletal, Integumentary, Endocrine and Eyes/Ears/Nose/Throat Exam Surgical H&P Exam: Normal: HEENT, Normal: Heart, Normal: Lungs, Normal: Extremities, Normal: Abdomen, Normal: Skin and Normal: Neurological Plan Diagnosis/Plan: Unchanged I have reviewed the history and physical and performed a pertinent physical examination on my patient. No changes have occurred unless specified. EGD also for dysphagia Time Spent With Patient Time: Total time managing care of this patient today ____ minutes.
--- NOTE | 2025-05-07 13:39 | HO.OPN-COLON ---
Colonoscopy Operative Note Operative Note Date of Service: 05/07/25 Narrative: Operative Information Procedure Description: EGD, Colonoscopy Indication: dysphagia, pos cologuard Anesthesia: MAC FLEXIBLE TRANSORAL UPPER GASTROINTESTINAL ENDOSCOPY AND COLONOSCOPY PROCEDURE NOTE UPPER ENDOSCOPY Consent: Indications for the procedure and potential complications of bleeding, perforation, reaction to medications and missed diagnosis were discussed with the patient and informed consent was obtained. Instrument: Olympus GIF H 190 J mid size upper endoscope Monitoring: Vital signs and clinical assessment, continuous EKG monitoring, Pulse oximetry, Carbon Dioxide monitoring and blood pressure monitoring were done throughout the procedure. Procedure: The patient was placed in the left lateral decubitis position and pre-procedure medications were administered and a bite block was placed. The endoscope was inserted into the mouth and advanced under direct vision to the third part of duodenum. A careful inspection was made as the upper endoscope was withdrawn including a retroflexed examination of the proximal stomach; Findings and interventions are described below. Findings: Larynx:normal Esophagus: GE junction at 37 cm, diaphragm hiatus at 37 cm, normal mucosa with patulous and incompetent LES. Balloon dilation done in lower esophagus and UES, no tears seen, bx taken from distal esophagus Stomach: patchy erythema Biopsies were obtained. Grade 2 flap valve on retroflexed examination of the cardia. Duodenum: mild duodenitis, bx taken Intervention: Biopsies as noted above, balloon dilation COLONOSCOPY Instrument: Olympus variable stiffness pediatric scope 190L Colonoscopy Monitoring: Vital signs and clinical assessment, continuous EKG monitoring, Pulse oximetry, Carbon Dioxide monitoring and blood pressure monitoring were done throughout the procedure. Colon withdrawal time was 12 minutes. Procedure: The patient was placed in the left lateral decubitis position and pre-procedure medications were administered. After a digital rectal examination of the ano-rectum, the video colonoscope was inserted into the rectum and advanced through the colon to the cecum/TI. The colonoscope was slowly withdrawn in a retrograde panoramic fashion and the colon mucosa was carefully examined including a retroflexed view of the rectum. Findings and interventions are described below. Procedure Difficulty:moderate Findings: Terminal Ileum-normal Cecum:normal Ascending Colon: 10 mm sessile polyp removed with cold snare Transverse Colon -normal Descending Colon:normal Sigmoid Colon: mild diverticulosis Rectum: Retroflexion with small internal hemorrhoids, grade I Anorectum - normal Colon preparation: [place] Bowel Preparation Scale Right colon; 1-2 Transverse colon: 2 Left colon; 2 (0 = Unprepared colon segment with mucosa not seen due to solid stool that cannot be cleared. 1 = Portion of mucosa of the colon segment seen, but other areas of the colon segment not well seen due to staining, residual stool and/or opaque liquid. 2 = Minor amount of residual staining, small fragments of stool and/or opaque liquid, but mucosa of colon segment seen well. 3 = Entire mucosa of colon segment seen well with no residual staining, small fragments of stool or opaque liquid) Impression and Post Procedure Diagnosis: Endoscopy Findings: lax LES gastritis Colonoscopy Findings: diverticulosis colon polyp internal hemorrhoids Plan: Await Pathology results Repeat Colonoscopy in 3 years due to areas of fair prep on the right or earlier if clinically indicated High fiber diet leaflet avoid straining at stool, epsom salts and sitz bath, anusol supps or cream GERD precautions --can increase PPI if needed Above findings were reviewed with the patient and relevant handouts were provided if indicated.
[2025-05-07 13:45] VITALS: BP 137/62; PULSE 84; RESP 16; TEMP 37; O2SAT 95
[2025-05-07 14:00] VITALS: BP 131/62; PULSE 72; RESP 16; O2SAT 95
[2025-05-07 14:14] VITALS: BP 149/55; PULSE 67; RESP 16; O2SAT 98
== END 2025-05-07 14:38 | disposition home or self-care (01) ==
PROVIDERS: PCP Nurse Practitioner Primary Care; Visit Provider Internal Medicine Gastroenterology
PROC: (CPT 45385; principal; 2025-05-07 13:20)
DX: R19.5 Other fecal abnormalities (principal); D12.2 Benign neoplasm of ascending colon; K57.30 Diverticulosis of large intestine without perforation or abscess without bleeding; K64.0 First degree hemorrhoids; K21.9 Gastro-esophageal reflux disease without esophagitis; K29.50 Unspecified chronic gastritis without bleeding; K22.89 Other specified disease of esophagus; K29.80 Duodenitis without bleeding; K44.9 Diaphragmatic hernia without obstruction or gangrene; I10 Essential (primary) hypertension; E78.5 Hyperlipidemia, unspecified; E03.9 Hypothyroidism, unspecified; E11.9 Type 2 diabetes mellitus without complications; Z79.84 Long term (current) use of oral hypoglycemic drugs; Z79.82 Long term (current) use of aspirin; Z79.899 Other long term (current) drug therapy; Z91.013 Allergy to seafood
CPT/HCPCS: 45385; 43249; 43239; 82947; 88305; 88313; 88342; C1726; J2003; J2704

== ENCOUNTER → 2025-05-07 11:06 | Outpatient (BNV) | payer OTHER, SELFPAY | PROVIDERS: PCP Nurse Practitioner Primary Care; Visit Provider Internal Medicine Gastroenterology | DX: Z12.11 Encounter for screening for malignant neoplasm of colon (principal); R19.5 Other fecal abnormalities; K63.5 Polyp of colon; K57.90 Diverticulosis of intestine, part unspecified, without perforation or abscess without bleeding; K22.0 Achalasia of cardia; K29.70 Gastritis, unspecified, without bleeding | CPT/HCPCS: 43239; 43249; 45385 ==

== ENCOUNTER 2025-05-27 10:29 | Outpatient (AMB) | payer OTHER, SELFPAY ==
--- NOTE | 2025-05-27 10:30 | A.OFFVIS_ITS ---
Vital Signs 05/27/25 10:31 Height 5 ft 2 in Weight 115 lb BMI 21.0 BP 132/64 Blood Pressure Location Rt brachial Position Sitting Pulse 72 Pulse Source Pulse Oximeter Pulse Oximetry (%) 96 Oxygen Delivery Method Room Air Intake Visit Reasons: double [place] Intake Note: Est pt for GERD mgmt. S/P duo. CC: Pt denies any GI sx or concerns at this time. Cupola Tender Helper Required: Yes Cupola Tender Helper Services: Cupola Tender Helper Offered & Declined Accompanied by: Data Management Analyst Allergies shellfish derived (shellfish) Allergy (Severe, Verified 05/27/25 10:30) Anaphylaxis HPI HPI double Mos[place]eda: Details: LAST VISIT Screen for colon cancer Plan Patient denies any cardiac or respiratory symptoms.? Patient reports occasional acid reflux, takes omeprazole with results. History of reflux for several years. Will send patient for upper endoscopy as well. Denies any issues with anesthesia in the past.? Denies any history of sleep apnea.? No history infectious diseases in the past or present.? Patient is on low-dose aspirin.? No family or personal history of colon cancer or polyps.? Patient denies melena, hematochezia, unintentional weight loss or ribbon like stools.? Discussed at length the pre- procedure,? prep, diet & medications as well as what to expect prior, during and after the procedure.?? Stressed the importance of good bowel prep.? Recommended the use of Vaseline or Calmoseptine OTC & baby wipes with bowel movements to promote comfort.? ?Patient verbalizes understanding and agrees to plan of care.? She was given the opportunity to ask questions and all questions answered.? We will see her after the procedure.? New PNV,calcium 90-ybki-bewzs acid 27 mg iron- 1 mg ( Vitamins Plus Low Iron) 1 tab PO DAILY polyethylene glycol 3350 (Miralax) As directed by gastroenterology department at [facility] 238 grams PO ONCE 238 grams 0RF Z12.11 mometasone 50 mcg/actuation administer into each nostril 2 sprays intranasal DAILY PRN bisacodyl (Dulcolax (bisacodyl)) take 4 tabs at noon the day before your colonoscopy 20 mg (4 x 5 mg) PO ONCE 4 tabs 0RF 1 day Z12.11 UPPER ENDOSCOPY AND COLONOSCOPY Findings: Larynx:normal Esophagus: GE junction at 37 cm, diaphragm hiatus at 37 cm, normal mucosa with patulous and incompetent LES. Balloon dilation done in lower esophagus and UES, no tears seen, bx taken from distal esophagus Stomach: patchy erythema Biopsies were obtained. Grade 2 flap valve on retroflexed examination of the cardia. Duodenum: mild duodenitis, bx taken Intervention: Biopsies as noted above, balloon dilation COLONOSCOPY Instrument: Olympus variable stiffness pediatric scope 190L Colonoscopy Monitoring: Vital signs and clinical assessment, continuous EKG monitoring, Pulse oximetry, Carbon Dioxide monitoring and blood pressure monitoring were done throughout the procedure. Colon withdrawal time was 12 minutes. Procedure: The patient was placed in the left lateral decubitis position and pre-procedure medications were administered. After a digital rectal examination of the ano-rectum, the video colonoscope was inserted into the rectum and advanced through the colon to the cecum/TI. The colonoscope was slowly withdrawn in a retrograde panoramic fashion and the colon mucosa was carefully examined including a retroflexed view of the rectum. Findings and interventions are described below. Procedure Difficulty:moderate Findings: Terminal Ileum-normal Cecum:normal Ascending Colon: 10 mm sessile polyp removed with cold snare Transverse Colon -normal Descending Colon:normal Sigmoid Colon: mild diverticulosis Rectum: Retroflexion with small internal hemorrhoids, grade I Anorectum - normal Colon preparation: [place] Bowel Preparation Scale Right colon; 1-2 Transverse colon: 2 Left colon; 2 (0 = Unprepared colon segment with mucosa not seen due to solid stool that cannot be cleared. 1 = Portion of mucosa of the colon segment seen, but other areas of the colon segment not well seen due to staining, residual stool and/or opaque liquid. 2 = Minor amount of residual staining, small fragments of stool and/or opaque liquid, but mucosa of colon segment seen well. 3 = Entire mucosa of colon segment seen well with no residual staining, small fragments of stool or opaque liquid) Impression and Post Procedure Diagnosis: Endoscopy Findings: lax LES gastritis Colonoscopy Findings: diverticulosis colon polyp internal hemorrhoids Plan: Await Pathology results Repeat Colonoscopy in 3 years due to areas of fair prep on the right or earlier if clinically indicated High fiber diet leaflet avoid straining at stool, epsom salts and sitz bath, anusol supps or cream GERD precautions --can increase PPI if needed PATHOLOGY RESULTS Diagnosis A. Duodenum, biopsy: Duodenal mucosa within normal limits. B. Stomach, biopsy: Oxyntic mucosa with mild chronic inactive inflammation; no Helicobacter organisms seen. C. Esophagus, distal, biopsy: Squamous epithelium within normal limits; no inflammation seen. D. Colon, ascending, polypectomy: Tubular adenoma; negative for high-grade dysplasia or carcinoma TODAY'S VISIT Patient is here today for follow-up and to discuss upper endoscopy and colonoscopy results. Patient denies any ill effects from the prep, anesthesia procedure itself. Patient reports to be feeling well, however she continues to have epigastric pain and burning depending on what she eats. Patient reports that she is moving her bowels without any issues. Denies melena, hematochezia, unintentional weight loss or ribbon like stools. Patient reports occasional dyspepsia without dysphagia or odynophagia. Currently she is on omeprazole feels like it might not be working well for her. Patient takes Tums in the afternoon on as needed basis. 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 Review of Systems Const Denies weight gain and Denies weight loss ENT Reports no additional complaints, Denies dysphagia and Denies odynophagia Card Reports no additional complaints Resp Reports no additional complaints GI Denies abdominal pain, Denies belching, Denies melena, Denies bloating, Denies change in bowel habits, Denies dysphagia, Denies excessive flatus, Denies dyspepsia, Reports heartburn (Occasional), Denies diarrhea, Denies loose stools, Denies nausea, Denies odynophagia and Denies vomiting Reports no additional complaints Musc Reports no additional complaints Neuro Reports no additional complaints Psych Reports no additional complaints Endo Reports no additional complaints Physical Exam Vital Signs: Last Vital Signs Pulse 72 05/27/25 10:31 BP 132/64 05/27/25 10:31 Pulse Ox 96 05/27/25 10:31 Oxygen Delivery Method Room Air 05/27/25 10:31 BMI result Body Mass Index 21.0 Const General: healthy appearing, no acute distress and well developed Nutritional Appearance: well nourished Orientation/consciousness: patient oriented x3 Resp Effort & Inspection: normal respiratory effort, able to speak in complete sentences, no tracheal deviation and symmetric chest movement Auscultation: clear to auscultation bilaterally Cardio Rate: regular rate GI Inspection: Yes normal to inspection and No distended Palpation (GI): Soft to palpation, not firm, nontender and No hepatosplenomegaly present Auscultation: normal bowel sounds General: Yes no CVA tenderness Back/Spine/Pelvis Back: no CVA tenderness Skin General skin exam: elasticity normal, turgor normal and dry skin Neuro General: patient oriented x3 Psych Appearance: grossly normal Mental Status: mental status grossly normal Assessment & Plan Assessment & Plan (1) GERD (gastroesophageal reflux disease): Code(s): K21.9 - Gastro-esophageal reflux disease without esophagitis Category: Medical Qualifiers: Esophagitis presence: without esophagitis Qualified Code(s): K21.9 - Gastro-esophageal reflux disease without esophagitis (2) Status post colonoscopy: Code(s): Z98.890 - Other specified postprocedural states Plan Colonoscopy in 3 years due to suboptimal prep. Patient will stop taking omeprazole and will start her on pantoprazole in the morning and famotidine at bedtime. Avoid dietary triggers in late night snacking. Staying upright for minimal 3 hours after meals discussed with patient. Patient will follow-up in 3 months, sooner on as needed basis. She is agreeable to this plan and verbalizes understanding of instructions. She was given the opportunity to ask questions and all questions answered. Thank you for allowing me participate in her care Medications: New famotidine (Pepcid) 20 mg PO BEDTIME 30 tabs 3RF K21.9 - Gastro-esophageal reflux disease without esophagitis pantoprazole take one tablet half an hour before breakfast 40 mg PO DAILY 30 tabs 3RF K21.9 - Gastro-esophageal reflux disease without esophagitis Coding Level of Care Code Est Pt Level 4 (15590) Complex EM visit Add On G2211 Diagnoses Gastroesophageal reflux disease without esophagitis K21.9 Esophagitis presence: without esophagitis Status post colonoscopy Z98.890 Time Spent (min) 35 Comment 25 minutes spent with patient and additional 10 minutes spent reviewing her records
[2025-05-27 10:31] VITALS: BP 132/64; PULSE 72; O2SAT 96; BMI 21.0
--- OUTSIDE RECORDS SUMMARY | 2025-05-27 11:28 | XMS_ITS | Encounter Summary ---
Author Organization [employer] Address [address] [place] [address] [address] [place] [address] Care Team Providers Care Arrow Point Attacher Name Role Phone Kimberly Jon Primary Care Provider [phone] Alex Mares PharmD Unavailable [phone] Encounter Details Date Type Department Care Team (Late st Contact Info) Description 08/17/2023 Orders Only [facility] [address] [place], [place] [phone] Genoveva Ga LPN Social History Tobacco Use [...] t he electric, gas, oil or water [employer] threatened to shut off services in your [...] Care Team (Late st Contact Info) Description 06/09/2025 11:15 AM EDT Office Visit [facility] MEDICINE [address] [place] [phone] Kimberly Jon ANP [address] [place] [address] 09/08/2025 9:30 AM EST Medication Management [facility] MEDICINE [address] [place] [phone] Alex Mares, Laura [address] [place] [phone] documented as of this encounter Visit Diagnoses Not on filedocumented in this encounter Care Teams Arrow Point Attacher Relationship Specialty Start Date End Date Kimberly Jon ANP [address] [place] [phone] PCP - General Family Medicine 06/24/22 Alex Mares, PharmD [address] [place] [phone] Pharmacist Internal Medicine 06/07/24 documented as of this encounter
== END 2025-05-27 10:48 | disposition home or self-care (01) ==
LOC: HO.HGI 10:29
PROVIDERS: PCP Nurse Practitioner Primary Care; Visit Provider Nurse Practitioner Family
DX: K21.9 Gastro-esophageal reflux disease without esophagitis (principal); Z98.890 Other specified postprocedural states
CPT/HCPCS: 99214; G2211

== ENCOUNTER → 2025-05-27 10:29 | Outpatient (BNVA) | payer OTHER, SELFPAY | PROVIDERS: PCP Nurse Practitioner Primary Care; Visit Provider Nurse Practitioner Family | DX: K21.9 Gastro-esophageal reflux disease without esophagitis (principal); Z98.890 Other specified postprocedural states | CPT/HCPCS: 99212 ==

== ENCOUNTER 2025-07-14 13:28 | Outpatient (REF) | payer OTHER, SELFPAY ==
--- OUTSIDE RECORDS SUMMARY | 2025-07-14 10:15 | XMS_ITS | Encounter Summary ---
Author Organization [employer] Address [address] [place] [address] [address] [place] [address] Care Team Providers Care Kitchen Steward/Stewardess Name Role Phone Kimberly Jon Primary Care Provider [phone] Alex Mares PharmD Unavailable [phone] Reason for Visit * Reason Comments follow up Encounter Details Date Type Department Care Team ([facility] st Contact Info) Description 07/14/2025 10:15 AM EDT Office Visit [facility] MEDICINE [address] [place], [place] [phone] Gabby Vasquez CNM [address] [place], [place] [phone] Candidal vulvitis (Primary Dx) Social History Tobacco [...] kg/m?? Physical Exam Exam conducted with a gas dispenser present (declined). Constitutional: Appearance: Normal appearance. Genitourinary: [...] Description 07/21/2025 10:00 AM EDT Clinical Support [facility] MED[facility] [address] [place], [place] [phone] 08/01/2025 11:00 AM EDT Office Visit [facility] ADULT DENTAL [address] [place] [address] Dk Saldana, DMD [address] [place] [address] 09/08/2025 9:30 AM EST Medication Management [facility] MEDICINE [address] [place] [address] Alex Mares PharmD [address] [place] [address] Scheduled Orders Name Type Priority Associated Diagnoses Orde r Schedule Bacterial Vaginosis Panel Microbiology Routine Candidal vulvitis Ordered: 07/14/2025 documented as of this encounter Goals Goal Patient Goal Type Associated Problems Recent Progress Patient-Stated? Author Blood Pressure < 140/90 Blood Pressure 160/68(2024 10:47 AM EDT) No Alex Mares PharmD Hemoglobin A1c < 7 Result Component 6.9( 10:08 AM EDT) No Alex Mares PharmD documented as of this encounter Visit Diagnoses Diagnosis Candidal vulvitis- Primary documented in this encounter Additional Health Concerns Assessment Noted Time PHQ-9 Depression Total Score: 0 06/09/20 25 11:07 AM EDT documented as of this encounter Care Teams Kitchen Steward/Stewardess Relationship Specialty Start Date End Date Kimberly Jon, TESSY [address] [place] [phone] PCP - General Family Medicine 06/24/22 Alex Mares, Laura [address] [place] [phone] Pharmacist Internal Medicine 06/07/24 documented as of this encounter
--- OUTSIDE RECORDS SUMMARY | 2025-07-14 18:42 | XMS_ITS | Encounter Summary ---
Author Organization [employer] Address [address] [place] [address] 7t [place] [address] Care Team Providers Care Geothermal Heat Pump Machinist Name Role Phone Kimberly Jon Primary Care Provider [phone] Alex Mares PharmD Unavailable [phone] Encounter Details Date Type Department Care Team (Late st Contact Info) Description 06/21/2023 Orders Only [facility] MED & PEDS [address] [place], [place] [phone] Genoveva Ga LPN Social History Tobacco Use [...] Description 07/21/2025 10:00 AM EDT Clinical Support [facility] MEDICINE [address] [place], [place] [phone] 08/01/2025 11:00 AM EDT Office Visit [facility] ADULT DENTAL 230 [place], [place] [phone] Dk Saldana DMD [address] [place], [place] [phone] 09/08/2025 9:30 AM EST Medication Management [facility] MEDICINE [address] [place], [place] [phone] Alex Mares, PharmD [address] [place] [phone] documented as of this encounter Visit Diagnoses Not on filedocumented in this encounter Care Teams Geothermal Heat Pump Machinist Relationship Specialty Start Date End Date Kimberly Jon ANP [address] [place] [address] [phone] PCP - General Family Medicine 06/24/22 Alex Mares, PharmD [address] [place] [address] [phone] Pharmacist Internal Medicine 06/07/24 documented as of this encounter
--- OUTSIDE RECORDS SUMMARY | 2025-07-14 18:42 | XMS_ITS | Encounter Summary ---
Author Organization [employer] Address [address] [place] [address] 7t [place] [address] Care Team Providers Care Lan Manager Name Role Phone Kimberly Jon Primary Care Provider [phone] Alex Mares PharmD Unavailable [phone] Encounter Details Date Type Department Care Team (Late st Contact Info) Description 07/20/2023 Orders Only [facility] CHC MED & PEDS [address] [place], [place] [phone] Genoveva Ga LPN Social History Tobacco Use [...] Description 07/21/2025 10:00 AM EDT Clinical Support [facility] MEDICINE 230 [place], [place] [phone] 08/01/2025 11:00 AM EDT Office Visit [facility] ADULT DENTAL 230 [place], [place] [phone] Dk Saldana DMD 230 [place], [place] [phone] 09/08/2025 9:30 AM EST Medication Management [facility] MEDICINE [address] [place], [place] [phone] Alex Mares, PharmD [address] [place] [phone] documented as of this encounter Visit Diagnoses Not on filedocumented in this encounter Care Teams Lan Manager Relationship Specialty Start Date End Date Kimberly Jon ANP [address] [place] [address] [phone] PCP - General Family Medicine 06/24/22 Alex Mares, PharmD [address] [place] [address] [phone] Pharmacist Internal Medicine 06/07/24 documented as of this encounter
--- OUTSIDE RECORDS SUMMARY | 2025-07-14 18:42 | XMS_ITS | Encounter Summary ---
Author Organization [employer] Address [address] [facility] 7t [place] [address] Care Team Providers Care Torch Cutter Name Role Phone Kimberly Jon Primary Care Provider [phone] Alex Mares PharmD Unavailable [phone] Encounter Details Date Type Department Care Team ([facility] st Contact Info) Description 08/17/2023 Orders Only [facility] CH[facility] MED & PEDS [address] [place], [place] [phone] Genoveva Ga LPN Social History Tobacco Use [...] Description 07/21/2025 10:00 AM EDT Clinical Support [facility] MEDICINE 230 [place] [address] 08/01/2025 11:00 AM EDT Office Visit [facility] ADULT DENTAL [address] [place], [place] [phone] Dk Saldana, DMD 230 [place] [address] 09/08/2025 9:30 AM EST Medication Management [facility] MEDICINE [address] [place] [address] Alex Mares, PharmD 230 [place] [address] documented as of this encounter Visit Diagnoses Not on filedocumented in this encounter Care Teams Torch Cutter Relationship Specialty Start Date End Date Kimberly Jon ANP [address] [place] [phone] PCP - General Family Medicine 06/24/22 Alex Mares, PharmD [address] [place] [address] Pharmacist Internal Medicine 06/07/24 documented as of this encounter
--- OUTSIDE RECORDS SUMMARY | 2025-07-14 18:42 | XMS_ITS | Encounter Summary ---
Author Organization [employer] Address [address] [facility] 7t [place] [address] Care Team Providers Care Retail Aide Name Role Phone Kimberly Jon Primary Care Provider [phone] Alex Mares PharmD Unavailable [phone] Encounter Details Date Type Department Care Team ([facility] st Contact Info) Description 08/21/2023 Orders Only [facility] CHC MED & PEDS [address] [place], [place] [phone] Marisel Asencio LPN Social History Tobacco Use [...] Description 07/21/2025 10:00 AM EDT Clinical Support [facility] MEDICINE 230 [place] [address] 08/01/2025 11:00 AM EDT Office Visit [facility] ADULT DENTAL [address] [place], [place] [phone] Dk Saldana, DMD 230 [place] [address] 09/08/2025 9:30 AM EST Medication Management [facility] MEDICINE [address] [place] [address] Alex Mares, PharmD 230 [place] [address] documented as of this encounter Visit Diagnoses Not on filedocumented in this encounter Care Teams Retail Aide Relationship Specialty Start Date End Date Kimberly Jon ANP [address] [place] [phone] PCP - General Family Medicine 06/24/22 Alex Mares, PharmD [address] [place] [address] Pharmacist Internal Medicine 06/07/24 documented as of this encounter
--- OUTSIDE RECORDS SUMMARY | 2025-07-14 18:42 | XMS_ITS | Encounter Summary ---
Author Organization [employer] Address [address] [place] [address] 7t [place] [address] Care Team Providers Care Pasteurizing Supervisor Name Role Phone Kimberly Jon Primary Care Provider [phone] Alex Mares PharmD Unavailable [phone] Encounter Details Date Type Department Care Team (Late st Contact Info) Description 11/03/2022 Orders Only [facility] CHC MED & PEDS [address] [place], [place] [phone] Genoveva Ga LPN Social History Tobacco Use [...] Description 07/21/2025 10:00 AM EDT Clinical Support [facility] MEDICINE 230 [place] [address] 08/01/2025 11:00 AM EDT Office Visit [facility] ADULT DENTAL 230 [place], [place] [phone] Dk Saldana DMD 230 [place] [address] 09/08/2025 9:30 AM EST Medication Management [facility] MEDICINE 230 [place] [address] Alex Mares, PharmD 230 [place] [address] documented as of this encounter Procedures Procedure [...] Sensitivity Troponin I (03/10/2023 1:12 PM EDT) TROPONIN I HIGH SENSITIVITY <2.7 <3.5 - 17.0 ng/L [facility] Comment:The Nichole high sens itivity Troponin-I results should beused in conjunction with other diagnostic information suchas ECG, clinical observations and information, and patientsymptoms to aid in the diagnosis of NH. 03/10/2023 1:12 PM EDT 03/10/2023 1:16 PM EDT us [facility] External Provider LAB BLO OD ORDERABLES Final Result [facility] [address] [place] [address] [phone] * (ABNORMAL) Magnesium (03/10/2023 1:12 PM EDT) Magnesium 1.3(LL) 1.6 - 2.6 mg/dL [facility] Comment:Critical value for M AG: Results called to and read gladis: NAKIA Person calling: SHAI Date: 03/10/23 Time: 1350 03/10/2023 1:12 PM EDT 03/10/2023 1:16 PM EDT us [facility] External Provider LAB BLO OD ORDERABLES Final Result [facility] [address] [place] [address] [phone] * (ABNORMAL) Basic Metabolic Panel (03/10/2023 1:12 PM EDT) Sodium 137 135 - 145 mmol/L [facility] Potassium 4.2 3.3 - 5.1 mmol/L [facility] Chloride 104 96 - 108 mmol/L [facility] Carbon Dioxide 24 22 - 29 mmol/L [facility] Anion Gap 13 12 - 20 [facility] Urea Nitrogen (BUN) 19(H) 9 - 16 mg/dL [facility] Creatinine, Serum 0.87 0.5 - 1.4 mg/dL [facility] Creatinine Clr Calc Pharmacy 46.2 [facility] Comment:Provided height and weight: 157.48 cm,59.874 kg.eGFR (calculated from the MDRD study equation) and eCrCl(calculated from the Cockcroft-Gault equation) are based ondifferent parameters and may not yield comparable results.If eCrCl result is absurd, please check patient'sheight/weight. Estimated Glomerular Filt Rate >60 [facility] Comment:NOTE: For -Am erican individuals, multiply the result by 1.210.Chronic Kidney Disease: Estimated GFR < 60 mL/min/1.02q0Bmfnms Kidney Disease: Estimated GFR < 15 mL/min/1.73m2 Glucose 206(H) 60 - 115 mg/dL [facility] Calcium 9.8 8.4 - 10.2 mg/dL [facility] 03/10/2023 1:12 PM EDT 03/10/2023 1:16 PM EDT [facility] External Provider LAB BLO OD ORDERABLES Final Result Performing Organization Address [facility] [employer] de Phone Number [facility] [address] [place] [phone] Hepatic Function Panel (03/10/2023 1:12 PM EDT) Bilirubin, Total 0.6 0.0 - 1.0 mg/dL [facility] Bilirubin, Direct 0.2 0.0 - 0.5 mg/dL [facility] Aspartate Amino Transferase 20 5 - 31 U/L [facility] Alanine Aminotransferase 23 0 - 31 U/L [facility] Total Protein 7.0 6.5 - 8.0 g/dL [facility] Albumin Level 4.4 3.5 - 5.0 g/dL [facility] Alkaline Phosphatase 65 39 - 117 U/L [facility] 03/10/2023 1:12 PM EDT 03/10/2023 1:16 PM EDT [facility] External Provider LAB BLO OD ORDERABLES Final Result Performing Organization Address [facility] Co de Phone Number [facility] [address] [place] [phone] * B Type Natriuretic Peptide (BNP) (03/10/2023 1:12 PM EDT) B Type Natriuretic Peptide 49 <100 pg/mL [facility] Comment:For those patients w ho are being treated with Natrecor(nesiritide, recombinant BNP), BNP testing should beperformed at least two hours post treatment in order toensure that only endogenous levels of BNP are detected. 03/10/2023 1:12 PM EDT 03/10/2023 1:16 PM EDT [facility] External Provider LAB BLO OD ORDERABLES Final Result Performing Organization Address [facility] de Phone Number [facility] [address] [place] [phone] * Prothrombin Time-INR (03/10/2023 1:12 PM EDT) Prothrombin Time 11.3 10.0 - 13.1 SEC [facility] INTERNATIONAL NORM RATIO 1.0 0.9 - 1.1 [facility] Comment:INTERNATIONAL NORMAL IZED RATIO (INR) [...] 1:12 PM EDT 03/10/2023 1:16 PM EDT [facility] External Provider LAB BLO OD ORDERABLES Final Result Performing Organization Address [facility] de Phone Number [facility] [address] [place] [phone] * (ABNORMAL) Urinalysis, Complete, with Reflex to Culture (03/10/2023 1:12 PM EDT) Color Urine Yellow [facility] Appearance Urine Clear [facility] PH 7.0 5.0 - 9.0 [facility] Glucose Urine UA >=1000(A) Negative mg/dL [facility] Urine Blood Negative Negative [facility] Specific [place] - Urine 1.020 1.005 - 1.025 [facility] Urine Protein Negative Neg-Trace mg/dL [facility] Urine Ketones Negative Negative mg/dL [facility] Nitrite Urine Negative Negative [facility] Leukocyte Esterase Urine Negative Negative [facility] RBC Urine 0-2 0 - 2 /HPF [facility] Urine WBC 0-5 0 - 5 /HPF [facility] Urine Squamous Epithelial Cell 0-2 0 - 2 /HPF [facility] Urine Bacteria None Seen None Seen [facility] Hyaline Casts, Urine 0-2 0 - 2 /LPF [facility] 03/10/2023 1:12 PM EDT 03/10/2023 1:16 PM EDT Narrative [facility] - 03/10/2023 1:22 PM EDT [id number], Clean Catch us [facility] External Provider LAB URI NE ORDERABLES Final Result [facility] [address] [place] [phone] * (ABNORMAL) CBC auto differential (03/10/2023 1:12 PM EDT) White Blood Count 6.0 4.8 - 10.8 X10*3/uL [facility] Red Blood Count 3.95(L) 4.20 - 5.50 X10*6/uL [facility] Hemoglobin 11.8(L) 12.0 - 16.0 g/dl [facility] Hematocrit 36.0(L) 37.0 - 47.0 % [facility] Mean Corpuscular Volume 91.1 80.0 - 98.0 fL [facility] Mean Corpuscular Hemoglobin 29.9 27.0 - 33.0 pg [facility] Mean Corpuscular HGB Conc 32.8 31.0 - 35.0 g/dl [facility] Red Cell Distribution Width 13.7 11.0 - 16.0 % [facility] Platelet Count 352 160 - 400 X10*3/uL [facility] Mean Platelet Volume 10.2 9.4 - 12.3 fL [facility] Neutrophils Percent Auto 51.2 45 - 73 % [facility] Imm Gran Pct Auto 0.5(H) 0.0 - 0.4 % [facility] Lymphocytes Percent Auto 36.8 20 - 40 % [facility] Monocytes Percent Auto 8.0 2 - 11 % [facility] Eosinophils Percent Auto 2.2 0 - 4 % [facility] Basophils Percent Auto 1.3 0 - 2 % [facility] NRBC Pct Auto 0.0 0.0 - 0.2 /100WBC [facility] Neutrophils Absolute Auto 3.1 2.0 - 8.3 x10*3/uL [facility] Imm Gran Abs Auto 0.03 0.00 - 0.03 X10*3/uL [facility] Lymphocytes Absolute Auto 2.2 1.2 - 4.9 X10*3/uL [facility] Monocytes Absolute Auto 0.5 0.1 - 1.2 X10*3/uL [facility] Eosinophils Absolute Auto 0.1 0.0 - 0.4 X10*3/uL [facility] Basophils Absolute Auto 0.1 0.0 - 0.2 X10*3/uL [facility] NRBC Abs Auto 0.000 0.0 - 0.012 X10*3/uL [facility] 03/10/2023 1:12 PM EDT 03/10/2023 1:16 PM EDT us [facility] External Provider LAB BLO OD ORDERABLES Final Result [facility] [address] [place] [address] [phone] documented in this encounter Visit Diagnoses Not on filedocumented in this encounter Care Teams Pasteurizing Supervisor Relationship Specialty Start Date End Date Kimberly Jon ANP [address] [place] [address] [phone] PCP - General Family Medicine 06/24/22 Alex Mares, PharmD [address] [place] [address] [phone] Pharmacist Internal Medicine 06/07/24 documented as of this encounter
--- OUTSIDE RECORDS SUMMARY | 2025-07-14 18:42 | XMS_ITS | Encounter Summary ---
Author Organization [employer] Address [address] [place] [address] 7t [place] [address] Care Team Providers Care Supervisor Metal Cans Name Role Phone Kimberly Jon Primary Care Provider [phone] Alex Mares PharmD Unavailable [phone] Reason for Visit * Reason Comments Med Refill Encounter Details Date Type Department Care Team (Late st Contact Info) Description 03/23/2023 Refill [facility] [address] [place], [place] [phone] [place] [facility] 230 [place], [place] [phone] Social History Tobacco Use Types Packs/Day Years [...] Description 07/21/2025 10:00 AM EDT Clinical Support [facility] [address] [place], [place] [phone] 08/01/2025 11:00 AM EDT Office Visit [facility] ADULT DENTAL [address] [place], [place] [phone] Dk Saldana DMD [address] [place], [place] [phone] 09/08/2025 9:30 AM EST Medication Management [facility] MEDICINE [address] [place], [place] [phone] Alex Mares, PharmD [address] [place] [phone] documented as of this encounter Visit Diagnoses Not on filedocumented in this encounter Care Teams Supervisor Metal Cans Relationship Specialty Start Date End Date Kimberly Jon ANP [address] [place] [address] [phone] PCP - General Family Medicine 06/24/22 Alex Mares, PharmD [address] [place] [address] [phone] Pharmacist Internal Medicine 06/07/24 documented as of this encounter
--- OUTSIDE RECORDS SUMMARY | 2025-07-14 18:42 | XMS_ITS | Encounter Summary ---
Author Organization [employer] [facility] Address [address] [place] [address] 7t [place] [address] Care Team Providers Care Bulk Materials Handling Plant Operator Name Role Phone Kimberly Jon Primary Care Provider [phone] Alex Mares PharmD Unavailable [phone] Encounter Details Date Type Department Care Team ([facility] st Contact Info) Description 12/29/2022 Abstract [facility] ADULT DENTAL 230 [place], [place] [phone] Dk Saldana DMD [address] [place], [place] [phone] Social History Tobacco Use Types Packs/Day Years [...] EDT Clinical Support [facility] MEDICINE [address] [place], [place] [phone] 08/01/2025 11:00 AM EDT Office Visit [facility] ADULT DENTAL [address] [place], [place] [phone] Dk Saldana, DMD [address] [place], [place] [phone] 09/08/2025 9:30 AM EST Medication Management [facility] MED[facility]INE [address] [place] [address] Alex Mares, PharmCris [address] [place] [address] documented as of this encounter Visit Diagnoses Not on filedocumented in this encounter Care Teams Bulk Materials Handling Plant Operator Relationship Specialty Start Date End Date Kimberly Jon ANP [address] [place] [address] [phone] PCP - General Family Medicine 06/24/22 Alex Mares, PharmD [address] [place] [address] [phone] Pharmacist Internal Medicine 06/07/24 documented as of this encounter
--- OUTSIDE RECORDS SUMMARY | 2025-07-14 18:42 | XMS_ITS | Encounter Summary ---
Author Organization [employer] Address [address] [place] [address] 7t [place] [address] Care Team Providers Care Runner Worker Name Role Phone Kimberly Jon Primary Care Provider [phone] Alex Mares PharmD Unavailable [phone] Encounter Details Date Type Department Care Team (Late st Contact Info) Description 03/23/2023 Orders Only [facility] CH[facility] MED & PEDS [address] [place], [place] [phone] Genoveva Ga LPN Social History Tobacco Use [...] Description 07/21/2025 10:00 AM EDT Clinical Support [facility] MEDICINE 230 [place], [place] [phone] 08/01/2025 11:00 AM EDT Office Visit [facility] ADULT DENTAL [address] [place], [place] [phone] Dk Saldana, STALIN [address] [place] [address] 09/08/2025 9:30 AM EST Medication Management [facility] MEDICINE [address] [place] [address] Alex Mares, PharmD 230 [place] [address] documented as of this encounter Visit Diagnoses Not on filedocumented in this encounter Care Teams Runner Worker Relationship Specialty Start Date End Date Kimberly Jon ANP [address] [place] [address] PCP - General Family Medicine 06/24/22 Alex Mares, PharmD [address] [place] [phone] Pharmacist Internal Medicine 06/07/24 documented as of this encounter
--- OUTSIDE RECORDS SUMMARY | 2025-07-14 18:43 | XMS_ITS | Clinical Summary ---
Author Organization [facility] [employer] Address [address] [place] [address] Care Team Providers Care Professor Of Forest Planning Name Role Phone Akin Gale Primary Care Provider [phone] Alex Mares PharmD Unavailable [phone] Allergies Active Allergy Reactions Criticality Noted Date [...] as directed 1 kit 01/05/20 24 Active Calcium Carb-Cholecalcife rol 600-10 MG-MCG tablet TAKE 1 TABLET BY MOUTH TWICE DAILY IN THE MORNING AND IN THE EVENING 180 tablet 3 07/30/20 24 Active 27-1 MG tabletIndications :Healthcare maintenance TAKE [...] day. 90 tablet 3 11/07/19 25 Active lisinopril 40 MG tabletIndications :Essential hypertension,Pulm onary hypertension (CMS/HCC) TAKE 1 TABLET BY MOUTH TWICE DAILY IN THE MORNING AND IN THE EVENING 180 tablet 3 11/25/19 25 Active Lancets (OneTouch Delica Plus [id number]) misc TEST BLOOD SUGAR THREE TIMES DAILY 100 each 02/25/20 25 Active aspirin (Aspirin Low Dose) 81 MG EC tablet TAKE 1 TABLET BY MOUTH EVERY MORNING 90 tablet 1 02/25/20 25 Active cetirizine (ZyrTEC) 10 MG tablet TAKE 1 TABLET BY MOUTH EVERY MORNING 30 tablet 5 03/20/20 25 Active gabapentin (Neurontin) 100 MG capsuleIndication s:Pain TAKE 1 CAPSULE BY MOUTH THREE TIMES DAILY IN THE MORNING, EVENING, AND BEDTIME 90 capsule 3 03/20/20 25 Active levothyroxine (Synthroid, Levoxyl) 75 MCG tablet TAKE 1 TABLET BY MOUTH EVERY MORNING 30 tablet 5 03/20/20 25 Active metFORMIN XR (Glucophage-XR) 500 MG 24 hr tabletIndications :Hyperlipidemia associated with type 2 diabetes mellitus ([facility]) TAKE 2 TABLETS BY MOUTH ONCE DAILY AT NOON and TAKE 1 TABLET BY MOUTH EVERY EVENING WITH MEALS 90 tablet 03/20/20 25 Active Acetaminophen Extra Strength 500 MG tabletIndications :Pain Take 1 tablet (500 mg) by mouth every 6 (six) hours if needed (neck pain). 90 tablet 04/10/20 25 Active Jardiance 25 MGIndications:Polly betes mellitus with coincident hypertension (CMS/HCC) ([facility]) TAKE 1 TABLET BY MOUTH EVERY MORNING 90 tablet 04/23/20 25 Active metoprolol tartrate (Lopressor) 50 MG tablet TAKE 1 TABLET BY MOUTH EVERY MORNING and TAKE 1 AND 1/2 TABLETS BY MOUTH EVERY EVENING 225 tablet 04/23/20 25 Active magnesium oxide (Mag-Ox) 400 MG tabletIndications :Hypomagnesemia Take 1 tablet (400 mg) by mouth Once per day. 30 tablet 2 06/09/20 25 Active mometasone (Nasonex) 50 MCG/ACT nasal sprayIndications: Nasal congestion INSTILL 2 SPRAYS IN EACH NOSTRIL ONCE DAILY NEEDED FOR ALLERGIES 17 g 06/09/20 25 Active glucose blood (OneTouch Ultra Test) test strip TEST BLOOD SUGAR THREE TIMES DAILY 100 strip 11 06/11/20 25 Active hydroCHLOROthiazi de 12.5 MG tablet TAKE 1 TABLET BY MOUTH EVERY MORNING 90 tablet 3 06/19/20 Active terconazole (Terazol 7) 0.4 % vaginal cream Insert 1 applicator into the vagina at bedtime for 14 days. 45 g 1 07/14/20 25 2024 Active hydroCHLOROthiazi de 12.5 MG tablet TAKE 1 TABLET BY MOUTH EVERY MORNING 90 tablet 3 07/02/20 24 2024 Discontinued clotrimazole (Lotrimin) 1 % creamIndications: Candidal vulvitis Apply topically 2 times daily for 28 days. 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 Cont ASA, high intensity statin Cervical radiculopathy 06/09/2025 Chronic lumbar radiculopathy 06/09/2025 Cubital tunnel syndrome on right 06/09/2025 Right carpal tunnel syndrome 06/09/2025 Status post colonoscopy 06/09/2025 Overview (06/09/2025): C-scope w/ [facility] 05/07/25, repeat 3 years d/t suboptimal prep. EGD w/ gastritis, incompetent LES, mild duodenitis Torticollis 06/07/2024 History of tooth extraction 01/25/2024 Open fracture of tooth 01/23/2024 Headache 05/08/2023 Sacroiliitis 05/08/2023 Healthcare maintenance 12/30/2022 Overview [...] m ellitus 01/21/2019 Diverticula of intestine 07/27/2018 Acquired hypothyroidism 08/14/2015 Allergic rhinitis 08/14/2015 Chronic abdominal pain 08/14/2015 Hypertension associated with diabetes 08/14/2015 Pulmonary hypertension 08/14/2015 Overview (06/09/2025): Following w/ cards Rosacea 08/14/2015 Left bundle branch block 10/21/2013 Resolved Problems Problem Noted Date Diagnosed Date Resolved Date Acute low back pain 04/06/2018 06/09/20 25 Encounters Date Type Department Care Team Description 07/14/2025 10:15 AM EDT Office Visit [facility] [address] [place] [address] Gabby Vasquez CNM Candidal vulvitis (Primary Dx) 07/14/2025 Refill [facility] [address] [place] [address] Akin Gale ANP Pain 07/14/2025 Travel 07/11/[address] 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 diabetes mellitus (CMS/HCC); Pulmonary hypertension (CMS/HCC); Status post colonoscopy; Hypomagnesemia; Nasal congestion 06/09/2025 Travel 06/06/2025 Telephone [facility] [address] [place] [address] Akin Gale ANP chart prep 05/30/2025 11:00 AM EDT Office Visit [facility] ADULT DENTAL [address] [place] [address] Tang-Chu, Tracie, DDS Fracture of denture (Primary Dx) 05/30/2025 Refill [facility] [address] [place] [address] Akin Gale ANP Nasal congestion 05/12/2025 Travel 05/07/2025 Orders Only GENERIC EXTERNAL DATA DEPARTMENT Provider, Generic External Data 05/07/2025 Refill [facility] [address] [place] [phone] Akin Gale ANP 04/22/2025 Refill [facility] [address] [place] [address] Akin Gale ANP Diabetes mellitus with coincident hypertension (CMS/HCC) ([facility]) from Last 3 Months Immunizations Immunization Administration Dates Next Due Hep B, adult [...] 6.4 oz) 07/14/2025 10:47 AM EDT Height 157.5 cm (5' 2 ) 06/09/2025 11:06 AM EDT Body Mass Index 21.47 06/09/2025 11:06 AM EDT Plan of Treatment Upcoming Encounters Date Type Department Care Team (Late st Contact Info) Description 07/21/2025 10:00 AM EDT Clinical Support [facility] [address] [place] [phone] 08/01/2025 11:00 AM EDT Office Visit [facility] ADULT DENT[facility] [address] [place] [address] Dk Saldana, STALIN [address] [place] [address] 09/08/2025 9:30 AM EST Medication Management [facility] [address] [place] [phone] Alex Mares, PharmD [address] [place] [address] Health Maintenance Due Date Last Done Comments CT Colonography 1950 Dental Oral Exam 1950 Dental Prophylaxis 1950 Dental X-Ray: Bitewings 1950 FIT DNA/Cologuard 1950 FIT 1950 FOBT 1950 Sigmoidoscopy 1950 Diabetes: Foot Exam 1961 Hepatitis C Screening 1969 Hepatitis A Vaccines (1 of 2 - Risk 2-dose series) 1970 COVID-19 Vaccine ( season) 2025 01/21/2021, 12/24/2020 Influenza Vaccine (#1) 2025 , 08/11/2023, 07/14/2022, Additional history exists Lipid Panel 07/05/2025 07/05/2024, 04/29, 05/05/2022, Additional history exists Diabetes: Hemoglobin A1C 08/12/2025 025, 01/06/2025, 09/06/2024, Additional history exists Diabetes: Urine Protein Screening 09/06/2025 09/06/2024, 05/10/2023, 05/05/2022, Additional history exists SDOH Screening 01/21/2026 01/21/2025 Alcohol/Substance Use Screening 01/30/2026 01/30/2025 Mammogram 02/07/2026 02/07/2025, 03/0 02/2024, 05/25/2022, Additional history exists Depression Screening 06/09/2026 06/09/2025, 06/09/20 Tobacco Screening 07/14/2026 07/14/2025 Eye Exam 10/11/2026 Dental X-Ray: Full Mouth 02/13/2027 02/13/2024 HPV/Cotest 07/14/2027 07/14/2022, 02/10/2017 Pap Smear 07/14/2027 07/14/2022 Colonoscopy 05/07/2028 05/07/2025 Colorectal Cancer Screening 05/07/2028 DTaP/Tdap/Td Vaccines (4 - Td or Tdap) 05/15/2033 05/15/2023, 02/27/2016, 07/10/2012 Hepatitis B Vaccines Completed 10/04/2016, 06/09/2016, 05/09/2016 Zoster Vaccines Completed 05/22/2020, 12/28, 01/29/2015 Pneumococcal Vaccine: 50+ Years Completed 03/05/2024, 06/23/2017, 05/09/2016, Additional history exists RSV Patients and Patients Aged 60 years or older Completed 07/30/2024 HIB Vaccines Aged Out No longer eligi ble based on patient's age to complete this topic HPV Vaccines Aged Out No longer eligi ble based on patient's age to complete this topic IPV Vaccines Aged Out No longer eligi ble based on patient's age to complete this topic Meningococcal B Vaccine Aged Out No l onger eligible based on patient's age to complete [...] Pressure 160/68(2024 10:47 AM EDT) No Alex Mares, Laura Hemoglobin A1c < 7 Result Component 6.9( 10:08 AM EDT) No Alex Mares PharmD Procedures Procedure Name Priority Date/Time Associated Diagnosis Comments LIMITED ORAL EVALUATION - PROBLEM FOCUSED Routine 05/30/2025 11:00 AM EDT Fracture of denture POCT GLYCATED HEMOGLOBIN, TOTAL Routine 05/12/2025 10:08 AM EDT Type 2 diabetes mellitus with hyperlipidemia (CMS/HCC) ([facility]) HEMATOXYLIN AND EOSIN STAIN Routine 05/07/2025 1:29 PM EDT GLUCOSE, WHOLE BLOOD Routine 05/07/2025 11:42 AM EDT HM COLONOSCOPY Routine 05/07/2025 BI MAMMOGRAM SCREENING TOMOSYNTHESIS BILATERAL Routine 02/07/2025 10:30 AM EDT ALBUMIN, RANDOM URINE W/CREATININE Routine 09/06/2024 12:05 PM EST LIPID PANEL, STANDARD Routine 07/05/2024 11:26 AM EDT Type 2 diabetes mellitus with hyperlipidemia (CMS/HCC) (CMS/HCC) PANORAMIC RADIOGRAPHIC IMAGE Routine 02/13/2024 3:30 PM EDT THINPREP IMAGING PAP AND HPV MRNA E6/E7 WITH REFLEX TO HPV 16,18/45 Routine 07/14/2022 10:13 AM EDT from Last 3 Months or Most Recently Relevant to Health Maintenance Results * (ABNORMAL) POCT HGB A1C (05/12/2025 10:08 AM EDT) Hemoglobin A1C 6.9(A) 4.0 - 5.7 % QC Media Lot # [id number] Lot# Expiration Date [id number] Blood 05/12/2025 10:0 8 AM EDT Critical access hospital POINT OF CARE TEST ENTER/EDIT OR DERABLES Final Result * Hematoxylin and Eosin Stain (05/07/2025 1:29 PM EDT) 05/07/2025 1:29 PM EDT 05/07/2025 2:45 PM EDT Narrative [facility] - 05/09/2025 3:12 PM EDT ----- ------- Name: Jacquelyn Scott Age/Sex: 75/F : 1950 [facility]#: [id number] Unit#: [id number] Attend Dr: Lizz Mosqueda MD Re05/07/25 [place] [facility] [place] [facility] Disch: ----- ------- SPEC : [id number] RECD: 05/07/25-1445 STATUS: ELENO VALADEZ NUM: [id number] PAT: 05/07/25-[address]: Lizz Mosqueda MD ENTERED: 05/07/25-1502 SP TYPE: Surgical OTHR DR: AKIN GALE LEATHER SORTER ORDERED: HE Stain/9, Gross Micro L4/4, IHC, Special st. 2/2, H. pylori, AB/PAS/2 Diagnosis A. Duodenum, biopsy: Duodenal mucosa within normal limits. B. Stomach, biopsy: Oxyntic mucosa with mild chronic inactive inflammation; no Helicobacter organisms seen. C. Esophagus, distal, biopsy: Squamous epithelium within normal limits; no inflammation seen. D. Colon, ascending, polypectomy: Tubular adenoma; negative for high-grade dysplasia or carcinoma. Clinical History Pre-Op Dx: GERD Post-Op Dx: Gastritis, decomp ileus Microscopic Description A-D. Microscopic sections examined. No metaplastic changes are seen, supported by AB/PAS stains (A and B); no Helicobacter organisms are seen, supported by H. pylori immunostain (B). Material Received A. Duodenal biopsy B. Stomach biopsy C. Distal esophagus biopsy D. Ascending colon polyp Gross Description Received in 4 parts. A. Received in formalin labeled duodenal biopsy are 3 fragments of pink white soft tissue measuring 0.2-0.3 cm in greatest dimension which are wrapped in lens paper and entirely submitted for microscopic examination, 3 pieces in cassette A. B. Received in formalin labeled stomach biopsy is a fragment of ortiz-white soft tissue measuring 0.4 cm in greatest dimension which is wrapped in lens paper and entirely submitted for microscopic examination, 1 piece in cassette B. C. Received in formalin labeled distal esophagus biopsy is a fragment of translucent, CONTINUED ON NEXT PAGE ----- ------- Name: Jennifer Scottz Philip Age/Sex: 75/F : 1950 Unit#: [id number] Attend Dr: Lizz Mosqueda MD Re05/07/25 Status: [facility] Location: [facility] Disch: ----- ------- SPEC : [id number] RECD: 05/07/25-5 STATUS: DOMINIQUEAshley STEPHENSChapito NUM: [id number] PAT: 05/07/25-[address] [facility] [address]: Lizz Mosqueda MD ENTERED: 05/07/25-7544 SP TYPE: Surgical OTHR DR: AKIN GALE NP ORDERED: HE Stain/9, Gross Micro L4/4, IHC, Special st. 2/2, H. pylori, AB/PAS/2 Gross Description (Continued) white soft tissue measuring 0.2 cm in greatest dimension which is wrapped in lens paper and entirely submitted for microscopic examination, 1 piece in cassette C. D. Received in formalin labeled ascending colon polyp is a portion of ortiz-white soft tissue measuring 0.5 cm in greatest dimension which is wrapped in lens paper and entirely submitted for microscopic examination, 1 piece in cassette D. ([facility]) Special studies ordered and performed: Immunostain for H. pylori on B; AB/PAS stains on A and B IHC S/NG Disclaimer NOTE: Unless otherwise stated, all tissue is formalin-fixed and paraffin-embedded. Some or all of the immunohistochemical tests reported herein may have been developed and their performance characteristics determined by [facility]. They have not been cleared or approved by the U.S. Food and Drug Administration (FDA). However, the FDA has determined that such clearance or approval is not necessary. This laboratory is certified under the Clinical Laboratory Improvement Amendments of 1988 (CLIA) as qualified to perform high complexity clinical laboratory testing. Copies To: Lizz Mosqueda MD [facility] [address] [place] [id number] AKIN GALE NP [address] [place] [address] ----- ------- Signed (signature on file) Juan Coughlin MD 05/09/25 1512 ----- ------- END OF REPORT us Generic External Data Provider LAB BLOOD ORDERAB LES Final Result [facility] [address] [place] [address] [phone] * (ABNORMAL) Glucose, Whole Blood (05/07/2025 11:42 AM EDT) Glucose, Whole Blood 191(H) 60 - 115 mg/dL [facility] Comment:METER #: [id number] 05/07/2025 11:4 2 AM EDT 05/07/2025 11:47 AM EDT us Generic External Data Provider LAB BLOOD ORDERAB LES Final Result [facility] [address] [place] [address] [phone] * Hm Colonoscopy (05/07/2025) Colonoscopy Normal Normal Narrative Samantha Crook - 05/07/2025 Recommended 3 years . See see external hospital admission note on 05/07/2025 Historical Provider HEALTH MAINTENANCE Final Result * BI Mammogram Screening Tomosynthesis Bilateral (02/07/2025 10:30 AM EDT) Anatomical Region Laterality Modality Breast Bilateral Mammography 02/07/2025 10:3 0 AM EDT Narrative 02/14/2025 5:17 PM EDT [address] [place] [id number] Mammography Report Signed Patient: Jacquelyn Scott MR#: [id number] : 1950 Acct:[id number] Age/Sex: 74 / F ADM Date: 02/07/25 Loc: HO.MAMMO Attending Dr: Akin Gale NP Ordering Physician: AKIN GALE NP Results: 1Negative Date of Service: 02/07/25 Follow Up: 1 Year From Orig ina Mammogram Procedure(s): MM tomosynthesis screening BI Accession Number(s): [id number] cc: AKIN GALE NP EXAMINATION: MM SCREENING DIGITAL BREAST TOMOSYNTHESIS, BILATERAL CLINICAL INFORMATION: Screening. Asymptomatic. COMPARISON: Mammography: Comparison is made with available priors TECHNIQUE: Digital breast mammography with tomosynthesis is performed in both the craniocaudal and mediolateral oblique views along with computer-aided detection (CAD). FINDINGS: There are scattered areas of fibroglandular density (ACR BI-RADS breast composition Category b). There are no significant masses, abnormal calcifications, or other abnormalities. MM/MM tomosynthesis screening BI IMPRESSION: No mammographic evidence of malignancy. ASSESSMENT: BI-RADS BI-RADS 1 - Negative RECOMMENDATION: Routine annual mammography screening. 1 year F/U This examination should not preclude the clinical evaluation of a suspicious palpable abnormality. This patient's information was entered into a reminder system with a target due date for their next mammogram. Electronically signed by: Kaitlyn Joyner DO 02/14/2025 05:14 PM EDT RP Dictated By: Kaitlyn Joyner DO Signed By: <Electronically signed by Kaitlyn Joyner DO in OV> 02/14/25 1714 DD/ 1030 TD/TT: 02/07/25 1047 Compensation And Benefits Analyst: Procedure Note Donotuseinterpreter, Image - 02/14/2025 [facility] [address] [place] [address] Mammography Report Signed Patient: Jacquelyn Scott [facility]#: [id number] : 1950cct:[id number] Age/Sex: 74 / FADM Date: 02/07/25 Loc: HO.MAMMO Attending Dr: Akin Gale NP Ordering Physician: AKIN GALE NPResults: 1Negative Date of Service: 02/07/25Follow Up: 1 Year From Orig inal Mammogram Procedure(s): MM tomosynthesis screening BI Accession Number(s): [id number] cc: AKIN GALE NP EXAMINATION: MM SCREENING DIGITAL BREAST TOMOSYNTHESIS, BILATERAL CLINICAL INFORMATION: Screening. Asymptomatic. COMPARISON: Mammography: Comparison is made with available priors TECHNIQUE: Digital breast mammography with tomosynthesis is performed in both the craniocaudal and mediolateral oblique views along with computer-aided detection (CAD). FINDINGS: There are scattered areas of fibroglandular density (ACR BI-RADS breast composition Category b). There are no significant masses, abnormal calcifications, or other abnormalities. MM/MM tomosynthesis screening BI IMPRESSION: No mammographic evidence of malignancy. ASSESSMENT: BI-RADS BI-RADS 1 - Negative RECOMMENDATION: Routine annual mammography screening. 1 year F/U This examination should not preclude the clinical evaluation of a suspicious palpable abnormality. This patient's information was entered into a reminder system with a target due date for their next mammogram. Electronically signed by: Kaitlyn Joyner DO 02/14/2025 05:14 PM EDT RP Dictated By: Kaitlyn Joyner DO Signed By: <Electronically signed by Kaitlyn Joyner DO in OV> 02/14/25 1714 DD/ 1030 TD/TT: 02/07/25 1047 Compensation And Benefits Analyst: us Akin Gale ANP IMG BI PROCEDURES Edited Result - Final * Albumin, Random Urine W/Creatinine (09/06/2024 12:05 PM EST) Creatinine, Urine 39.05 mg/dL [facility] Microalbumin Urine <5.0 mg/L [facility] Microalbum Creatinine Ratio Ur TNP <30 ug/mg cr [facility] Comment:Unable to calculate albumin/creatinine ratio due to lowmicroalbumin or creatinine result. 09/06/2024 12:0 5 PM EST 09/06/2024 1:26 PM EST us Akin Gale ANP LAB URINE ORDERABLES Final Resul t [facility] [address] [place] [phone] [phone] * (ABNORMAL) Lipid Panel, Standard (07/05/2024 11:26 AM EDT) Triglycerides 170(H) <150 mg/dL [facility] Comment:Desirable Triglyceri de: less than 150 mg/dLBorderline High Triglyceride 150-199 mg/dLHigh Triglyceride: 200-499 mg/dLVery High Triglyceride: greater than or equal to 5OO mg/dL Cholesterol 133 <200 mg/dL [facility] Comment:Desirable Cholestero l: less than 200 mg/dLBorderline High Cholesterol: 200-239 mg/dLHigh Cholesterol: greater than 239 mg/dL LDL Cholesterol Calculated 56 <100 mg/dL [facility] Comment:Desirable LDL: less than 100 mg/dLNear Optimal/Above Optimal LDL: 110- 129 mg/dLBorderline High LDL: 130-159 mg/dLHigh LDL: 160-189 mg/dLVery High LDL: greater than or equal to 190 mg/dL HDL Cholesterol 43 >40 mg/dL [facility] Comment:Desirable HDL: great er than 40 mg/dL Note: This HDL assay may give artificially low results in patients with liver disease. Blood Venous blood specimen / Unknown 07/05/2024 11:26 AM EDT 07/05/2024 1:26 PM EDT [facility] Gale [facility] LAB BLOOD ORDERABLES Final Resul t [facility] [address] [place] [phone] * THINPREP TIS PAP AND HPV mRNA E6/E7 WITH REFLEX TO HPV 16,18/45 (07/14/2022 10:13 AM EDT) Clinical Information: None given [facility] COMMENT SEE COMMENT [facility] Comment: EXPLANATORY NOTE: The Pap is a screening test for cervical cancer. It is not a diagnostic test and is subject to false negative and false positive results. It is most reliable when a satisfactory sample, regularly obtained, is submitted with relevant clinical findings and history, and when the Pap result is evaluated along with historic and current clinical information. COMMENT: This Pap test has been evaluated with computer assisted technology. [facility] Cytotechnologis t: SEE COMMENT [facility] Comment: ED, CT(ASCP) CT screening location: [address] [address] HPV nRNA E6/E7 Not Detected Not Detected [facility] Comment: Methodology: Sleeve Setter Lockstitch-Mediated Amplification This assay detects E6/E7 viral messenger RNA (mRNA) from 14 high-risk HPV types (16,18,31,33,35,39,45,51,52,56,58,59,66,68). Cervical sources are required for HPV testing. If a vaginal source from a patient who has had a total hysterectomy with removal of cervix was submitted, please contact the testing laboratory for alternative testing options. For additional information, please refer to http://education.YumZing/faq/WHP586s3 (This link if provided for information/ educational purposes only.) Interpretation/ Result: Negative for intraepithelial lesion or malignancy. [facility] LMP: PM [facility] Prev. BX: NONE GIVEN [facility] Prev. PAP: 2017 NIL/HPV NEG,2014 NIL HPV NEG [facility] SOURCE: None given [facility] Statement Of Adequacy: SEE COMMENT [facility] Comment: Satisfactory for evaluation. Endocervical/transformation zone component absent. Partially obscuring inflammation 07/14/2022 10:1 3 AM EDT us Gabby OCHOA LAB PATHOLOGY ORDERABLES Final Result [facility] [address] from Last 3 Months or Most Recently Relevant to Health Maintenance Insurance [address] [place] [id number] [facility] [address] [place] [phone] DENTAL - [facility] Care Teams Professor Of Forest Planning Relationship Specialty Start Date End Date Akin Gale ANP [address] [place] [address] PCP - General Family Medicine 06/24/22 Alex Mares, SerenityD [address] [place] [address] Pharmacist Internal Medicine 06/07/24
--- OUTSIDE RECORDS SUMMARY | 2025-07-14 18:43 | XMS_ITS | Encounter Summary ---
Author Organization [employer] Address [address] [facility] 7t [place] [address] Care Team Providers Care Cleaner Laboratory Equipment Name Role Phone Kimberly Jon Primary Care Provider [phone] Alex Mares PharmD Unavailable Encounter Details Date Type Department Care Team (Latest Contact Info) Description 07/14/2025 Travel Social History Tobacco Use Types Packs/Day [...] Description 07/21/2025 10:00 AM EDT Clinical Support [facility] [address] [place] [address] 08/01/2025 11:00 AM EDT Office Visit [facility] ADULT DENTAL [address] [place] [address] Dk Saldana, DMD [address] [place] [address] 09/08/2025 9:30 AM EST Medication Management [facility] [address] [place] [address] Alex Mares PharmD [address] [place] [address] documented as of this encounter Goals Goal Patient Goal Type Associated Problems Recent Progress Patient-Stated? Author Blood Pressure < 140/90 Blood Pressure 160/68(2024 10:47 AM EDT) No Alex Mares, PharmD Hemoglobin A1c < 7 Result Component 6.9( 10:08 AM EDT) No Alex Mares PharmCris documented as of this encounter Visit Diagnoses Not on filedocumented in this encounter Additional Health Concerns Assessment Noted Time PHQ-9 Depression Total Score: 0 06/09/20 11:07 AM EDT documented as of this encounter Care Teams Cleaner Laboratory Equipment Relationship Specialty Start Date End Date Kimberly Jon ANP [address] [place] [address] PCP - General Family Medicine 06/24/22 Alex Mares, SerenityD [address] [place] [phone] Pharmacist Internal Medicine 06/07/24 documented as of this encounter
--- OUTSIDE RECORDS SUMMARY | 2025-07-14 18:43 | XMS_ITS | Encounter Summary ---
Author Organization [employer] Address 75 [facility] 7t [place] [address] Care Team Providers Care Electric Trucker Name Role Phone Kimberly Jon Primary Care Provider [phone] Alex Mares PharmD Unavailable [phone] Encounter Details Date Type Department Care Team ([facility] st Contact Info) Description 04/30/2024 Telephone [facility] ADULT DENTAL [address] [place], [place] [phone] Dk Saldana, STALIN [address] [place], [place] [phone] Social History Tobacco Use Types Packs/Day Years [...] Description 07/21/2025 10:00 AM EDT Clinical Support [facility] MED[facility]INE [address] [place] [phone] 08/01/2025 11:00 AM EDT Office Visit [facility] ADULT DENTAL [address] [place] [address] Dk Saldana, DMD [address] [place] [address] 09/08/2025 9:30 AM EST Medication Management [facility] MEDICINE [address] [place] [address] Alex Mares, Laura [address] [place] [address] documented as of this encounter Visit Diagnoses Not on filedocumented in this encounter Care Teams Electric Trucker Relationship Specialty Start Date End Date Kimberly Jon ANP [address] [place] [phone] PCP - General Family Medicine 06/24/22 Alex Mares, Laura [address] [place] [address] Pharmacist Internal Medicine 06/07/24 documented as of this encounter
--- OUTSIDE RECORDS SUMMARY | 2025-07-14 18:43 | XMS_ITS | Encounter Summary ---
Author Organization [employer] Address [address] [place] [address] 7t [place] [address] Care Team Providers Care Fleet Assistant Name Role Phone Kimberly Jon Primary Care Provider [phone] Alex Mares PharmD Unavailable [phone] Reason for Visit * Reason Comments Med Refill Encounter Details Date Type Department Care Team ([facility] st Contact Info) Description 07/14/[address] [facility] [address] [place], [place] [phone] Kimberly Jon ANP 230 [place], [place] [phone] Pain Social History Tobacco Use Types Packs/Day [...] Description 07/21/2025 10:00 AM EDT Clinical Support [facility] [address] [place] [address] 08/01/2025 11:00 AM EDT Office Visit [facility] ADULT DENTAL [address] [place] [address] Dk Saldana, STALIN [address] [place] [address] 09/08/2025 9:30 AM EST Medication Management [facility] [address] [place] [phone] Alex Mares PharmD 230 [place] [address] documented as of this encounter Goals Goal [...] documented as of this encounter Care Teams Fleet Assistant Relationship Specialty Start Date End Date Kimberly Jon ANP 230 [place] [address] PCP - General Family Medicine 06/24/22 Alex Mares PharmD 230 [place] [address] Pharmacist Internal Medicine 06/07/24 documented as of this encounter
--- OUTSIDE RECORDS SUMMARY | 2025-07-14 18:43 | XMS_ITS | Encounter Summary ---
Author Organization [employer] Address 75 [facility] 7t [place] [address] Care Team Providers Care Location And Measurement Technician Name Role Phone Kimberly Jon Primary Care Provider [phone] Alex Mares PharmD Unavailable [phone] Reason for Visit * Reason Onset Date Comments CHART PREP 07/11/2025 Encounter Details Date Type Department Care Team ([facility] st Contact Info) Description 07/11/2025 Telephone [facility] MEDICINE [address] [place], [place] [phone] Gabby Vasquez CNM [address] [place], [place] [phone] CHART PREP Social History Tobacco Use Types Packs/Day Years [...] Telephone Encounter - Sandra Álvarez [place] - 07/11/2025 12:01 PM EDT Chart Prep Labs: not done from 05/12/25 and 06/09/25 Images: not applicable Referrals: not applicable Vaccines due: Covid and Flu Screenings: not applicable Overdue care gaps: Not applicable documented in this encounter Plan of Treatment Upcoming Encounters Date Type Department Care Team (Late st Contact Info) Description 07/21/2025 10:00 AM EDT Clinical Support [facility] MEDICINE [address] [place] [address] 08/01/2025 11:00 AM EDT Office Visit [facility] ADULT DENTAL [address] [place] [address] Dk Saldana, DMD [address] [place] [address] 09/08/2025 9:30 AM EST Medication Management [facility] MEDICINE [address] [place] [phone] Alex Marse, PharmD [address] [place] [address] documented as of this encounter Goals Goal [...] documented as of this encounter Care Teams Location And Measurement Technician Relationship Specialty Start Date End Date Kimberly Jon ANP [address] [place] [address] PCP - General Family Medicine 06/24/22 Alex Mares PharmD [address] [place] [address] Pharmacist Internal Medicine 06/07/24 documented as of this encounter
== END 2025-07-14 13:29 | disposition home or self-care (01) ==
LOC: HO.HHCLNP 13:28
PROVIDERS: Visit Provider Advanced Practice Midwife
DX: Z13.89 Encounter for screening for other disorder (principal)
CPT/HCPCS: 81515

== ENCOUNTER 2025-07-15 18:12 | Outpatient (REF) | payer OTHER, SELFPAY ==
--- OUTSIDE RECORDS SUMMARY | 2025-07-14 10:15 | XMS_ITS | Encounter Summary ---
Author Organization [employer] Address [address] [place] [address] [address] [place] [address] Care Team Providers Care Senior Gl Accountant Name Role Phone Kimberly Jon Primary Care Provider [phone] Alex Mares PharmD Unavailable [phone] Reason for Visit * Reason Comments follow up Encounter Details Date Type Department Care Team ([facility] st Contact Info) Description 07/14/2025 10:15 AM EDT Office Visit [facility] MEDICINE [address] [place], [place] [phone] Gabby Vasquez CNM [address] [place] [address], [place] [phone] Candidal vulvitis (Primary Dx) Social History Tobacco Use Types Packs/Day Years Used Date Smoking Tobacco: Never Passive Smoke Exposure: Never Smokeless Tobacco: Never Tobacco Cessation:Counseling Given: Not Answered Alcohol Use Standard Drinks/Week Comments Never 0 (1 standard drink = 0.6 oz pur e alcohol) Depression Answer Date Recorded Patient Health Questionnaire-9 Score 0 06/09/2025 Patient Health Questionnaire-9 Score 0 06/09/2025 Last PHQ-9: Questionnaire Data Not on file 0 06/09/2025 Housing Stability Answer Date Recorded What is [...] Date Recorded Patient Health Questionnaire-2 Score 0 06/09/2025 Internet Access Answer Date Recorded Internet Access [...] Sign Reading Time Taken Comments Blood Pressure 160/68 07/14/2025 10:47 AM EDT Pulse 59 07/14/2025 10:47 AM EDT Temperature 36.7 C (98.1 F) 07/14/2025 10:47 AM EDT Respiratory Rate 14 07/14/2025 10:47 AM EDT Oxygen Saturation 96% 07/14/2025 10:47 AM EDT Inhaled Oxygen Concentration - - Weight 53.3 kg (117 lb 6.4 oz) 07/14/2025 10:47 AM EDT Height - - Body Mass Index 21.47 06/09/2025 11:06 AM EDT documented in this encounter Progress Notes * Gabby Vasquez CNM - 07/14/2025 10:15 AM EDT Subjective Patient ID: Jacquelyn Scott is a 75 y.o. female who presents for skin check Here for vaginal symptoms. Treated for dianne with clotrimazole by PCP 06/09/2025. Used cream for aweek then stopped as she didn't think it was helpful. Still notes external itch. No urinary symptoms, no vaginal discharge, no bleeding. Positive dianne glabrata/krusei 01/2025. Last visit with me in 2022. Pap NIL/HPV neg 06/2022. Menopausal at 50. [address] fib[address]. [address] 05/2024 with calcified fibroids. Group Home AMAB partner x 50+ years, no safety concerns. Mammogram BIRADS 1, cat b 01/2025. Normal BMD 04/2022. Hgb A1C 6.9 in 04/2025. BP elevated today, denies chest pain, headache or SOB. Reports she is taking all medication as prescribed. Review of Systems Constitutional: Negative for chills and fever. Genitourinary: Negative for dysuria, hematuria, pelvic pain, vaginal bleeding, vaginal discharge and vaginal pain. Objective BP (!) 160/68 (BP Location: Left arm, Patient Position: Sitting, BP Cuff Size: Adult) Pulse 59 Temp 98.1 ??F (36.7 ??C) (Oral) Resp 14 Wt 117 lb 6.4 oz (53.3 kg) SpO2 96% BMI 21.47 kg/m?? Physical Exam Exam conducted with a clinical supervisor present (declined). Constitutional: Appearance: Normal appearance. Genitourinary: Labia: Right: Rash and lesion present. No tenderness or injury. Left: No rash, tenderness, lesion or injury. Vagina: Normal. No signs of injury and foreign body. No vaginal discharge, erythema, tenderness, bleeding, lesions or prolapsed vaginal christensen. Comments: Fissure and erythema between right inner and outer labia, suggestive of dianne as some satellite lesions noted. Neurological: Mental Status: She is alert. Psychiatric: Mood and Affect: Mood normal. Behavior: Behavior normal. Assessment/Plan Diagnoses and all orders for this visit: Candidal vulvitis Will trial terconazole, swab sent in case still krusei/glabrata and unresponsive to current treatment. Use cream externally and internally nightly x 2 weeks. If no improvement in 1 week, or not fullyresolved by 2 weeks, please let me know. Discussed BP with PCP. Will have RNs do BP check in next week, has cuff at home. Other orders - terconazole (Terazol 7) 0.4 % vaginal cream; Insert 1 applicator into the vagina at bedtime for 14 days. documented in this encounter Plan of Treatment Upcoming Encounters Date Type Department Care Team (Late st Contact Info) Description 07/21/2025 10:00 AM EDT Clinical Support [facility] MEDICINE [address] [place] [address], [place] [phone] 08/01/2025 11:00 AM EDT Office Visit [facility] ADULT DENTAL [address] [place] [address] Dk Saldana, DMD [address] [place] [address] 09/08/2025 9:30 AM EST Medication Management [facility] MEDICINE [address] [place] [address] Alex Mares PharmD [address] [place] [address] Scheduled Orders Name Type Priority Associated Diagnoses Orde r Schedule Bacterial Vaginosis Panel Microbiology Routine Candidal vulvitis Ordered: 07/14/2025 documented as of this encounter Goals Goal Patient Goal Type Associated Problems Recent Progress Patient-Stated? Author Blood Pressure < 140/90 Blood Pressure 160/68(2024 10:47 AM EDT) No Alex Marse PharmD Hemoglobin A1c < 7 Result Component 6.9( 10:08 AM EDT) No Alex Mares PharmD documented as of this encounter Visit Diagnoses Diagnosis Candidal vulvitis- Primary documented in this encounter Additional Health Concerns Assessment Noted Time PHQ-9 Depression Total Score: 0 06/09/20 25 11:07 AM EDT documented as of this encounter Care Teams Senior Gl Accountant Relationship Specialty Start Date End Date Kimberly Jon, TESSY [address] [place] [phone] PCP - General Family Medicine 06/24/22 Alex Mares, Laura [address] [place] [phone] Pharmacist Internal Medicine 06/07/24 documented as of this encounter
--- OUTSIDE RECORDS SUMMARY | 2025-07-15 19:18 | XMS_ITS | Encounter Summary ---
Author Organization [employer] Address [address] [facility] 7t [place] [address] Care Team Providers Care Grievance Coordinator Name Role Phone Kimberly Jon Primary Care Provider [phone] Alex Mares PharmD Unavailable [phone] Encounter Details Date Type Department Care Team ([facility] st Contact Info) Description 04/30/2024 Telephone [facility] ADULT DENTAL 230 [place], [place] [phone] Dk Saldana, STALIN 230 [place], [place] [phone] Social History Tobacco Use Types Packs/Day Years [...] Description 07/21/2025 10:00 AM EDT Clinical Support [facility] MED[facility] [address] [place] [address] 08/01/2025 11:00 AM EDT Office Visit [facility] ADULT DENTAL [address] [place] [address] Dk Saldana, DMD [address] [place] [address] 09/08/2025 9:30 AM EST Medication Management [facility] MED[facility]INE [address] [place] [address] Alex Mares, Laura [address] [place] [address] documented as of this encounter Visit Diagnoses Not on filedocumented in this encounter Care Teams Grievance Coordinator Relationship Specialty Start Date End Date Kimberly Jon ANP [address] [place] [phone] PCP - General Family Medicine 06/24/22 Alex Mares, Laura [address] [place] [phone] Pharmacist Internal Medicine 06/07/24 documented as of this encounter
--- OUTSIDE RECORDS SUMMARY | 2025-07-15 19:18 | XMS_ITS | Encounter Summary ---
Author Organization [employer] Address [address] [place] [address] 7t [place] [address] Care Team Providers Care Financial Sales Professional Name Role Phone Kimberly Jon Primary Care Provider [phone] Alex Mares PharmD Unavailable [phone] Reason for Visit * Reason Comments Med Refill Encounter Details Date Type Department Care Team (Late st Contact Info) Description 03/23/2023 Refill [facility] MED[facility]INE 230 [place], [place] [phone] [place] FNP 230 [place], [place] [phone] Social History Tobacco Use Types Packs/Day Years [...] Description 07/21/2025 10:00 AM EDT Clinical Support [facility] 230 [place], [place] [phone] 08/01/2025 11:00 AM EDT Office Visit [facility] ADULT DENTAL [address] [place], [place] [phone] Dk Saldana DMD [address] [place], [place] [phone] 09/08/2025 9:30 AM EST Medication Management [facility] MED[facility]INE [address] [place], [place] [phone] Alex Mares, PharmD [address] [place] [phone] documented as of this encounter Visit Diagnoses Not on filedocumented in this encounter Care Teams Financial Sales Professional Relationship Specialty Start Date End Date Kimberly Jon ANP [address] [place] [address] [phone] PCP - General Family Medicine 06/24/22 Alex Mares, PharmD [address] [place] [address] [phone] Pharmacist Internal Medicine 06/07/24 documented as of this encounter
--- OUTSIDE RECORDS SUMMARY | 2025-07-15 19:18 | XMS_ITS | Encounter Summary ---
Author Organization [facility] Address [address] [place] [address] 7t [place] [address] Care Team Providers Care Assistant Site Manager Name Role Phone Kimberly Jon Primary Care Provider [phone] Alex Mares PharmD Unavailable [phone] Encounter Details Date Type Department Care Team ([facility] Contact Info) Description 12/29/2022 Abstract [facility] ADULT DENTAL [address] [place], [place] [phone] Dk Saldana DMD [address] [place], [place] [phone] Social History Tobacco Use Types Packs/Day Years [...] Description 07/21/2025 10:00 AM EDT Clinical Support [facility] MEDICINE [address] [place], [place] [phone] 08/01/2025 11:00 AM EDT Office Visit [facility] ADULT DENTAL [address] [place], [place] [phone] Dk Saldana, DMD [address] [place], [place] [phone] 09/08/2025 9:30 AM EST Medication Management [facility] [address] [place] [address] Alex Mares, PharmCris 230 [place] [address] documented as of this encounter Visit Diagnoses Not on filedocumented in this encounter Care Teams Assistant Site Manager Relationship Specialty Start Date End Date Kimberly Jon ANP [address] [place] [address] [phone] PCP - General Family Medicine 06/24/22 Alex Mares, PharmD [address] [place] [address] [phone] Pharmacist Internal Medicine 06/07/24 documented as of this encounter
--- OUTSIDE RECORDS SUMMARY | 2025-07-15 19:18 | XMS_ITS | Encounter Summary ---
Author Organization [employer] Address 75 [facility] 7t [place] [address] Care Team Providers Care Arcade Game Technician Name Role Phone Kimberly Jon Primary Care Provider [phone] Alex Mares PharmD Unavailable [phone] Encounter Details Date Type Department Care Team [...] Description 07/21/2025 10:00 AM EDT Clinical Support [facility] MEDICINE [address] [place] [address] 08/01/2025 11:00 AM EDT Office Visit [facility] ADULT DENTAL [address] [place] [address] Dk Saldana, DMD [address] [place] [address] 09/08/2025 9:30 AM EST Medication Management [facility] MED[facility] [address] [place] [address] Alex Mares PharmD [address] [place] [phone] documented as of this encounter Goals Goal [...] documented as of this encounter Care Teams Arcade Game Technician Relationship Specialty Start Date End Date Kimberly Jon ANP 230 [place] [address] PCP - General Family Medicine 06/24/22 Alex Mares, SerenityD [address] [place] [address] Pharmacist Internal Medicine 06/07/24 documented as of this encounter
--- OUTSIDE RECORDS SUMMARY | 2025-07-15 19:18 | XMS_ITS | Encounter Summary ---
Author Organization [employer] Address 75 [facility] 7t [place] [address] Care Team Providers Care Electric Serviceman Name Role Phone Kimberly Jon Primary Care Provider [phone] Alex Mares PharmD Unavailable [phone] Encounter Details Date Type Department Care Team ([facility] st Contact Info) Description 08/17/2023 Orders Only [facility] [address] [place], [place] [phone] Genoveva Ga LPN Social History Tobacco Use [...] Description 07/21/2025 10:00 AM EDT Clinical Support [facility] [address] [place] [address] 08/01/2025 11:00 AM EDT Office Visit [facility] ADULT DENTAL [address] [place], [place] [phone] Dk Saldana, DMD 230 [place] [address] 09/08/2025 9:30 AM EST Medication Management [facility] [address] [place] [address] Alex Mares, PharmD 230 [place] [address] documented as of this encounter Visit Diagnoses Not on filedocumented in this encounter Care Teams Electric Serviceman Relationship Specialty Start Date End Date Kimberly Jon ANP [address] [place] [address] PCP - General Family Medicine 06/24/22 Alex Mares, PharmD [address] [place] [address] Pharmacist Internal Medicine 06/07/24 documented as of this encounter
--- OUTSIDE RECORDS SUMMARY | 2025-07-15 19:18 | XMS_ITS | Encounter Summary ---
Author Organization [employer] Address [address] [place] [address] 7[address] [place] [address] Care Team Providers Care Travel Agency Manager Name Role Phone Kimberly Jon Primary Care Provider [phone] Alex Mares PharmD Unavailable [phone] Encounter Details Date Type Department Care Team (Late st Contact Info) Description 11/03/2022 Orders Only [facility] [address] [place], [place] [phone] Genoveva Ga LPN Social History Tobacco Use [...] Description 07/21/2025 10:00 AM EDT Clinical Support [facility] [address] [place] [address] 08/01/2025 11:00 AM EDT Office Visit [facility] AD[facility] [address] [place], [place] [phone] Dk Saldana DMD [address] [place] [address] 09/08/2025 9:30 AM EST Medication Management [facility] [address] [place] [address] Alex Mares, PharmD [address] [place] [address] documented as of this encounter Procedures Procedure [...] HIGH SENSITIVITY <2.7 <3.5 - 17.0 ng/L [facility] Comment:The Nichole high sens itivity Troponin-I results should beused in conjunction with other diagnostic information suchas ECG, clinical observations and information, and patientsymptoms to aid in the diagnosis of MN. 03/10/2023 1:12 PM EDT 03/10/2023 1:16 PM EDT us [facility] External Provider LAB BLO OD ORDERABLES Final Result [facility] [address] [place] [address] [phone] * (ABNORMAL) Magnesium (03/10/2023 1:12 PM EDT) Magnesium 1.3(LL) 1.6 - 2.6 mg/dL [facility] Comment:Critical value for M AG: Results called to and read gladis: NAKIA Person calling: SHAI Date: 03/10/23 Time: 1350 03/10/2023 1:12 PM EDT 03/10/2023 1:16 PM EDT us [facility] External Provider LAB BLO OD ORDERABLES Final Result [facility] [address] [place] [address] [phone] * (ABNORMAL) Basic Metabolic Panel (03/10/2023 1:12 PM EDT) Sodium 137 135 - 145 mmol/L [facility] Potassium 4.2 3.3 - 5.1 mmol/L [facility] Chloride 104 96 - 108 mmol/L [facility] Carbon Dioxide 24 22 - 29 mmol/L [facility] Anion Gap 13 12 - 20 [facility] Urea Nitrogen (BUN) 19(H) 9 - 16 mg/dL [facility] Creatinine, Serum 0.87 0.5 - 1.4 mg/dL [facility] Creatinine Clr Calc Pharmacy 46.2 [facility] Comment:Provided height and weight: 157.48 cm,59.874 kg.eGFR (calculated from the MDRD study equation) and eCrCl(calculated from the Cockcroft-Gault equation) are based ondifferent parameters and may not yield comparable results.If eCrCl result is absurd, please check patient'sheight/weight. Estimated Glomerular Filt Rate >60 [facility] Comment:NOTE: For -Am erican individuals, multiply the result by 1.210.Chronic Kidney Disease: Estimated GFR < 60 mL/min/1.70v2Jbpixm Kidney Disease: Estimated GFR < 15 mL/min/1.73m2 Glucose 206(H) 60 - 115 mg/dL [facility] Calcium 9.8 8.4 - 10.2 mg/dL [facility] 03/10/2023 1:12 PM EDT 03/10/2023 1:16 PM EDT [facility] External Provider LAB BLO OD ORDERABLES Final Result Performing Organization Address [facility] Co de Phone Number [facility] [address] [place] [phone] * Hepatic Function Panel (03/10/2023 1:12 PM EDT) Bilirubin, Total 0.6 0.0 - 1.0 mg/dL [facility] Bilirubin, Direct 0.2 0.0 - 0.5 mg/dL [facility] Aspartate Amino Transferase 20 5 - 31 U/L [facility] Alanine Aminotransferase 23 0 - 31 U/L [facility] Total Protein 7.0 6.5 - 8.0 g/dL [facility] Albumin Level 4.4 3.5 - 5.0 g/dL [facility] Alkaline Phosphatase 65 39 - 117 U/L [facility] 03/10/2023 1:12 PM EDT 03/10/2023 1:16 PM EDT [facility] External Provider LAB BLO OD ORDERABLES Final Result Performing Organization Address [facility] Co de Phone Number [facility] [address] [place] [phone] * B Type Natriuretic Peptide (BNP) (03/10/2023 1:12 PM EDT) B Type Natriuretic Peptide 49 <100 pg/mL [facility] Comment:For those patients w ho are being treated with Natrecor(nesiritide, recombinant BNP), BNP testing should beperformed at least two hours post treatment in order toensure that only endogenous levels of BNP are detected. 03/10/2023 1:12 PM EDT 03/10/2023 1:16 PM EDT [facility] External Provider LAB BLO OD ORDERABLES Final Result Performing Organization Address [facility] de Phone Number [facility] [address] [place] [phone] * Prothrombin Time-INR (03/10/2023 1:12 PM EDT) Prothrombin Time 11.3 10.0 - 13.1 SEC [facility] INTERNATIONAL NORM RATIO 1.0 0.9 - 1.1 [facility] Comment:INTERNATIONAL NORMAL IZED RATIO (INR) REFERENCE [...] 1:12 PM EDT 03/10/2023 1:16 PM EDT [facility] External Provider LAB BLO OD ORDERABLES Final Result Performing Organization Address [facility] de Phone Number [facility] [address] [place] [phone] * (ABNORMAL) Urinalysis, Complete, with Reflex to Culture (03/10/2023 1:12 PM EDT) Color Urine Yellow [facility] Appearance Urine Clear [facility] PH 7.0 5.0 - 9.0 [facility] Glucose Urine UA >=1000(A) Negative mg/dL [facility] Urine Blood Negative Negative [facility] Specific [place] - Urine 1.020 1.005 - 1.025 [facility] Urine Protein Negative Neg-Trace mg/dL [facility] Urine Ketones Negative Negative mg/dL [facility] Nitrite Urine Negative Negative [facility] Leukocyte Esterase Urine Negative Negative [facility] RBC Urine 0-2 0 - 2 /HPF [facility] Urine WBC 0-5 0 - 5 /HPF [facility] Urine Squamous Epithelial Cell 0-2 0 - 2 /HPF [facility] Urine Bacteria None Seen None Seen [facility] Hyaline Casts, Urine 0-2 0 - 2 /LPF [facility] 03/10/2023 1:12 PM EDT 03/10/2023 1:16 PM EDT Narrative [facility] - 03/10/2023 1:22 PM EDT [id number], Clean Catch us [facility] External Provider LAB URI NE ORDERABLES Final Result [facility] [address] [place] [phone] * (ABNORMAL) CBC auto differential (03/10/2023 1:12 PM EDT) White Blood Count 6.0 4.8 - 10.8 X10*3/uL [facility] Red Blood Count 3.95(L) 4.20 - 5.50 X10*6/uL [facility] Hemoglobin 11.8(L) 12.0 - 16.0 g/dl [facility] Hematocrit 36.0(L) 37.0 - 47.0 % [facility] Mean Corpuscular Volume 91.1 80.0 - 98.0 fL [facility] Mean Corpuscular Hemoglobin 29.9 27.0 - 33.0 pg [facility] Mean Corpuscular HGB Conc 32.8 31.0 - 35.0 g/dl [facility] Red Cell Distribution Width 13.7 11.0 - 16.0 % [facility] Platelet Count 352 160 - 400 X10*3/uL [facility] Mean Platelet Volume 10.2 9.4 - 12.3 fL [facility] Neutrophils Percent Auto 51.2 45 - 73 % [facility] Imm Gran Pct Auto 0.5(H) 0.0 - 0.4 % [facility] Lymphocytes Percent Auto 36.8 20 - 40 % [facility] Monocytes Percent Auto 8.0 2 - 11 % [facility] Eosinophils Percent Auto 2.2 0 - 4 % [facility] Basophils Percent Auto 1.3 0 - 2 % [facility] NRBC Pct Auto 0.0 0.0 - 0.2 /100WBC [facility] Neutrophils Absolute Auto 3.1 2.0 - 8.3 x10*3/uL [facility] Imm Gran Abs Auto 0.03 0.00 - 0.03 X10*3/uL [facility] Lymphocytes Absolute Auto 2.2 1.2 - 4.9 X10*3/uL [facility] Monocytes Absolute Auto 0.5 0.1 - 1.2 X10*3/uL [facility] Eosinophils Absolute Auto 0.1 0.0 - 0.4 X10*3/uL [facility] Basophils Absolute Auto 0.1 0.0 - 0.2 X10*3/uL [facility] NRBC Abs Auto 0.000 0.0 - 0.012 X10*3/uL [facility] 03/10/2023 1:12 PM EDT 03/10/2023 1:16 PM EDT us [facility] External Provider LAB BLO OD ORDERABLES Final Result [facility] [address] [place] [address] [phone] documented in this encounter Visit Diagnoses Not on filedocumented in this encounter Care Teams Travel Agency Manager Relationship Specialty Start Date End Date Kimberly Jon ANP [address] [place] [phone] PCP - General Family Medicine 06/24/22 Alex Mares, PharmD [address] [place] [phone] Pharmacist Internal Medicine 06/07/24 documented as of this encounter
--- OUTSIDE RECORDS SUMMARY | 2025-07-15 19:18 | XMS_ITS | Clinical Summary ---
Author Organization [employer] Address [address] [facility] [address]t [place] [address] Care Team Providers Care Research Methodologist Name Role Phone Akin Gale Primary Care Provider [phone] Alex Mares PharmD Unavailable [phone] Allergies Active Allergy Reactions Criticality Noted Date [...] 11/25/19 25 Active Lancets (OneTouch Delica Plus [id number]) misc TEST BLOOD SUGAR THREE TIMES DAILY 100 each 3 02/25/20 25 Active aspirin (Aspirin Low Dose) [...] WITH MEALS 90 tablet 03/20/20 25 Active Jardiance 25 MGIndications:Polly betes mellitus [...] MOUTH EVERY MORNING 90 tablet 3 06/19/20 25 Active terconazole (Terazol 7) 0.4 % vaginal cream Insert 1 applicator into the vagina at bedtime for 14 days. 45 g 1 07/14/20 25 2024 Active Acetaminophen Extra Strength 500 MG tabletIndications :Pain TAKE 1 TABLET BY MOUTH EVERY 6 HOURS NEEDED FOR PAIN OF NECK 90 tablet 07/15/20 Active hydroCHLOROthiazi de 12.5 MG tablet TAKE 1 TABLET BY MOUTH EVERY MORNING 90 tablet 3 07/02/20 24 2024 Discontinued Acetaminophen Extra Strength 500 MG tabletIndications :Pain Take 1 tablet (500 mg) by mouth every 6 (six) hours if needed (neck pain). 90 tablet 04/10/20 25 2024 Discontinued clotrimazole (Lotrimin) 1 % creamIndications: [...] Description 07/14/2025 10:15 AM EDT Office Visit [facility] [address] [place] [phone] Gabby Vasquez CNM Candidal vulvitis (Primary Dx) 07/14/2025 Refill [facility] [address] [place] [address] Akin Gale ANP Pain 07/14/2025 Travel 07/11/2025 Telephone [facility] [address] [place] [phone] Gabby Vasquez CNM CHART PREP 06/19/2025 Refill [facility] [address] [place] [address] Akin Gale ANP 06/11/2025 Refill [facility] [address] [place] [address] Akin Gale ANP 06/09/2025 11:15 AM EDT Office Visit [facility] [address] [place] [phone] Akin Gale ANP Candidal vulvitis (Primary Dx); Type 2 diabetes mellitus with hyperlipidemia (CMS/HCC) (CMS/HCC); Atherosclerosis of aorta (CMS/HCC); Hypertension associated with diabetes (CMS/HCC); 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 diabetes mellitus (CMS/HCC); Pulmonary hypertension (CMS/HCC); Status post colonoscopy; Hypomagnesemia; Nasal congestion 06/09/2025 Travel 06/06/2025 Telephone [facility] [address] [place] [phone] Akin Gale ANP chart prep 05/30/2025 11:00 AM EDT Office Visit [facility] ADULT DENTAL [address] [place] [address] Tracie Voss, DDS Fracture of denture (Primary Dx) 05/30/2025 Refill [facility] [address] [place] [address] Akin Gale ANP Nasal congestion 05/12/2025 Travel 05/07/2025 Orders Only GENERIC EXTERNAL DATA DEPARTMENT Provider, Generic External Data 05/07/2025 Refill [facility] [address] [place] [phone] Akni Gale ANP 04/22/2025 Refill [facility] [address] [place] [address] Akin Gale ANP Diabetes mellitus with coincident hypertension (CMS/HCC) (CMS/HCC) from Last 3 Months Immunizations Immunization Administration [...] your housing situation today? I have bud katiuska 06/06/[address] you li [...] Description 07/21/2025 10:00 AM EDT Clinical Support [facility] [address] [place] [address] 08/01/2025 11:00 AM EDT Office Visit [facility] ADULT DENTAL [address] [place] [address] Dk Saldana, TSALIN [address] [place] [address] 09/08/2025 9:30 AM EST Medication Management [facility] [address] [place] [address] Alex Mares, PharmD [address] [place] [address] Health Maintenance Due Date Last Done Comments [...] Use Screening 01/30/2026 01/30/2025 Mammogram 02/07/2026 02/07/2025, 0302/2024, 05/25/2022, Additional history exists Depression Screening 06/09/2026 [...] Type 2 diabetes mellitus with hyperlipidemia (CMS/HCC) ([facility]) HEMATOXYLIN AND EOSIN STAIN Routine 05/07/2025 1:29 PM EDT GLUCOSE, WHOLE BLOOD Routine 05/07/2025 11:42 AM EDT HM COLONOSCOPY Routine 05/07/2025 BI MAMMOGRAM SCREENING TOMOSYNTHESIS BILATERAL Routine 02/07/2025 10:30 AM EDT ALBUMIN, RANDOM URINE W/CREATININE Routine 09/06/2024 12:05 PM EST LIPID PANEL, STANDARD Routine 07/05/2024 11:26 AM EDT Type 2 diabetes mellitus with hyperlipidemia (CMS/HCC) ([facility]/HCC) PANORAMIC RADIOGRAPHIC IMAGE Routine 02/13/2024 3:30 PM EDT THINPREP IMAGING PAP AND HPV MRNA E6/E7 WITH REFLEX TO HPV 16,18/45 Routine 07/14/2022 10:13 AM EDT from Last 3 Months or Most Recently Relevant to Health Maintenance Results * (ABNORMAL) POCT HGB A1C (05/12/2025 10:08 AM EDT) Hemoglobin A1C 6.9(A) 4.0 - 5.7 % QC Media Lot # [id number] Lot# Expiration Date ,[id number] Blood 05/12/2025 10:0 8 AM EDT Replaced by [facility] POINT OF CARE TEST ENTER/EDIT OR DERABLES Final Result * Hematoxylin and Eosin Stain (05/07/2025 1:29 PM EDT) 05/07/2025 1:29 PM EDT 05/07/2025 2:45 PM EDT Narrative [facility] - 05/09/2025 3:12 PM EDT ----- ------- Name: Jacquelyn Scott Age/Sex: 75/F : [address] [facility]#: [id number] Unit#: [id number] Attend Dr: Lizz Mosqueda MD Re05/07/25 Status: [facility] Location: [facility] Disch: ----- ------- SPEC : [id number] RECD: 05/07/25-1445 STATUS: [facility] NUM: [id number] PAT: 05/07/25-[address] [facility] [address]: Lizz Mosqueda MD ENTERED: 05/07/25-1502 SP TYPE: Surgical OTHR DR: AKIN GALE DIRECTOR BUILDING ORDERED: HE Stain/9, Gross Micro L4/4, IHC, [...] CONTINUED ON NEXT PAGE ----- ------- Name: Jacquelyn Scott Age/Sex: 75/F : 1950 Unit#: [id number] Attend Dr: Lizz Mosqueda MD Re05/07/25 Status: [facility] Location: [facility] Disch: ----- ------- SPEC : [id number] RECD: 05/07/25-7877 STATUS: [facility] NUM: [id number] PAT: 05/07/25-[address] [facility] [address]: Lizz Mosqueda MD ENTERED: 05/07/25-4661 SP TYPE: Surgical OTHR DR: AKIN GALE [...] microscopic examination, 1 piece in cassette D. ([facility]) Special studies ordered and performed: Immunostain for H. pylori on B; AB/PAS stains on A and B IHC S/NG Disclaimer NOTE: Unless otherwise stated, all tissue is formalin-fixed and paraffin-embedded. Some or all of the immunohistochemical tests reported herein may have been developed and their performance characteristics determined by [facility]. They have not been cleared or approved by the U.S. Food and Drug Administration (FDA). However, the FDA has determined that such clearance or approval is not necessary. This laboratory is certified under the Clinical Laboratory Improvement Amendments of 1988 (CLIA) as qualified to perform high complexity clinical laboratory testing. Copies To: Lizz Mosqueda MD [facility] [address] [place] [address] [phone] AKIN GALE NP [address] [address] ----- ------- Signed (signature on file) Juan Coughlin MD 05/09/25 1512 ----- ------- END OF REPORT us Generic External Data Provider LAB BLOOD ORDERAB LES Final Result [facility] [address] [place] [address] [phone] * (ABNORMAL) Glucose, Whole Blood (05/07/2025 11:42 AM EDT) Glucose, Whole Blood 191(H) 60 - 115 mg/dL [facility] Comment:METER #: [id number] 05/07/2025 11:4 2 AM EDT 05/07/2025 11:47 AM EDT us Generic External Data Provider LAB BLOOD ORDERAB LES Final Result [facility] [address] [place] [address] [phone] * Hm Colonoscopy (05/07/2025) Colonoscopy Normal Normal Narrative Samantha Crook - 05/07/2025 Recommended 3 years . See see external hospital admission note on 05/07/2025 Historical Provider HEALTH MAINTENANCE Final Result * BI Mammogram Screening Tomosynthesis Bilateral (02/07/2025 10:30 AM EDT) Anatomical Region Laterality Modality Breast Bilateral Mammography 02/07/2025 10:3 0 AM EDT Narrative 02/14/2025 5:17 PM EDT [address] [place] [address] Mammography Report Signed Patient: Jacquelyn Scott MR#: [id number] : 1950 Acct:[id number] Age/Sex: 74 / F ADM Date: 02/07/25 Loc: HO.MAMMO Attending Dr: Akin Gale NP Ordering Physician: AKIN GALE NP Results: 1Negative Date of Service: 02/07/25 Follow Up: 1 Year From Orig inal Mammogram Procedure(s): MM tomosynthesis screening BI Accession Number(s): [id number] cc: AKIN GALE NP EXAMINATION: MM SCREENING [...] 02/14/25 1714 DD/ 1030 TD/TT: 02/07/25 1047 Membership Secretary: Procedure Note Donotuseinterpreter, Image - 02/14/2025 [facility] [address] [place] [address] Mammography Report Signed Patient: Jacquelyn Scott [facility]#: [id number] : 1950cct:[id number] Age/Sex: 74 / FADM Date: 02/07/25 Loc: HO.MAMMO Attending Dr: Akin Gale NP Ordering Physician: AKIN GALE NPResults: 1Negative Date of Service: 02/07/25Follow Up: 1 Year From Orig inal Mammogram Procedure(s): MM tomosynthesis screening BI Accession Number(s): [id number] cc: AKIN GALE NP EXAMINATION: MM SCREENING [...] 02/14/25 1714 DD/ 1030 TD/TT: 02/07/25 1047 Membership Secretary: us Akin STILL IMG BI PROCEDURES Edited Result - Final * Albumin, Random Urine W/Creatinine (09/06/2024 12:05 PM EST) Creatinine, Urine 39.05 mg/dL [facility] Microalbumin Urine <5.0 mg/L [facility] Microalbum Creatinine Ratio Ur TNP <30 ug/mg cr [facility] Comment:Unable to calculate albumin/creatinine ratio due to lowmicroalbumin or creatinine result. 09/06/2024 12:0 5 PM EST 09/06/2024 1:26 PM EST us Akin Gale ANP LAB URINE ORDERABLES Final Resul t [facility] [address] [place], [place] [phone] * (ABNORMAL) Lipid Panel, Standard (07/05/2024 11:26 AM EDT) Triglycerides 170(H) <150 mg/dL [facility] Comment:Desirable Triglyceri de: less than 150 mg/dLBorderline High Triglyceride 150-199 mg/dLHigh Triglyceride: 200-499 mg/dLVery High Triglyceride: greater than or equal to 5OO mg/dL Cholesterol 133 <200 mg/dL [facility] Comment:Desirable Cholestero l: less than 200 mg/dLBorderline High Cholesterol: 200-239 mg/dLHigh Cholesterol: greater than 239 mg/dL LDL Cholesterol Calculated 56 <100 mg/dL [facility] Comment:Desirable LDL: less than 100 mg/dLNear Optimal/Above Optimal LDL: 110- 129 mg/dLBorderline High LDL: 130-159 mg/dLHigh LDL: 160-189 mg/dLVery High LDL: greater than or equal to 190 mg/dL HDL Cholesterol 43 >40 mg/dL [facility] Comment:Desirable HDL: great er than 40 mg/dL Note: This HDL assay may give artificially low results in patients with liver disease. Blood Venous blood specimen / Unknown 07/05/2024 11:26 AM EDT 07/05/2024 1:26 PM EDT Replaced by [facility] LAB BLOOD ORDERABLES Final Resul t [facility] [address] [place] [phone] * THINPREP TIS PAP AND HPV mRNA E6/E7 WITH REFLEX TO HPV 16,18/45 (07/14/2022 10:13 AM EDT) Clinical Information: None given [facility] COMMENT SEE COMMENT [facility] [...] has been evaluated with computer assisted technology. [facility] Cytotechnologis t: SEE COMMENT [facility] Comment: ED, CT(ASCP) CT screening location: [address] [address] HPV nRNA E6/E7 Not Detected Not Detected [facility] Comment: Methodology: Petroleum Sampler-Mediated Amplification This assay detects E6/E7 viral messenger RNA (mRNA) from 14 high-risk HPV types (16,18,31,33,35,39,45,51,52,56,58,59,66,68). Cervical sources are required for HPV testing. If a vaginal source from a patient who has had a total hysterectomy with removal of cervix was submitted, please contact the testing laboratory for alternative testing options. For additional information, please refer to [email or web address] (This link if provided for information/ educational [...] Final Result [facility] [address] from Last 3 Months or Most Recently Relevant to Health Maintenance Insurance [facility] Care Teams Research Methodologist Relationship Specialty Start Date End Date Akin Gale ANP [address] [place] [address] PCP - General Family Medicine 06/24/22 Alex Mares PharmD [address] [place], [place] Pharmacist Internal Medicine 06/07/24
--- OUTSIDE RECORDS SUMMARY | 2025-07-15 19:18 | XMS_ITS | Encounter Summary ---
Author Organization [employer] Address [address] [place] [address] 7t [place] [address] Care Team Providers Care Hand Cloth Examiner Name Role Phone Kimberly Jon Primary Care Provider [phone] Alex Mares PharmD Unavailable [phone] Reason for Visit * Reason Comments Med Refill Encounter Details Date Type Department Care Team ([facility] st Contact Info) Description 07/14/2025 Refill [facility] MEDICINE [address] [place], [place] [phone] Kimberly Jon ANP 230 [place], [place] [phone] Pain Social History Tobacco Use Types Packs/Day [...] Description 07/21/2025 10:00 AM EDT Clinical Support [facility] MEDICINE [address] [place] [phone] 08/01/2025 11:00 AM EDT Office Visit [facility] ADULT DENTAL [address] [place] [address] Dk Saldana, STALIN 230 [place] [address] 09/08/2025 9:30 AM EST Medication Management [facility] MED[facility]INE [address] [place] [address] Alex Mares PharmD 230 [place] [address] documented as of this encounter Goals Goal [...] documented as of this encounter Care Teams Hand Cloth Examiner Relationship Specialty Start Date End Date Kimberly Jon ANP 230 [place] [address] PCP - General Family Medicine 06/24/22 Alex Mares PharmD 230 [place] [address] Pharmacist Internal Medicine 06/07/24 documented as of this encounter
--- OUTSIDE RECORDS SUMMARY | 2025-07-15 19:18 | XMS_ITS | Encounter Summary ---
Author Organization [employer] Address [address] [place] [address] 7t [place] [address] Care Team Providers Care Acid Crane Operator Name Role Phone Kimberly Jon Primary Care Provider [phone] Alex Mares PharmD Unavailable [phone] Encounter Details Date Type Department Care Team (Late st Contact Info) Description 07/20/2023 Orders Only [facility] CHC MED & PEDS [address] [place], [place] [phone] Genoveva Ga LPN Social History Tobacco Use [...] AM EDT Clinical Support [facility] MEDICINE [address] [place], [place] [phone] 08/01/2025 11:00 AM EDT Office Visit [facility] ADULT DENTAL [address] [place], [place] [phone] Dk Saldana DMD 230 [place], [place] [phone] 09/08/2025 9:30 AM EST Medication Management [facility] MEDICINE [address] [place], [place] [phone] Alex Mares, PharmD [address] [place] [phone] documented as of this encounter Visit Diagnoses Not on filedocumented in this encounter Care Teams Acid Crane Operator Relationship Specialty Start Date End Date Kimberly Jon ANP [address] [place] [address] [phone] PCP - General Family Medicine 06/24/22 Alex Mares, PharmD [address] [place] [address] [phone] Pharmacist Internal Medicine 06/07/24 documented as of this encounter
--- OUTSIDE RECORDS SUMMARY | 2025-07-15 19:18 | XMS_ITS | Encounter Summary ---
Author Organization [employer] Address [address] [facility] 7t [place] [address] Care Team Providers Care Materials Scheduler Name Role Phone Kimberly Jon Primary Care Provider Alex Mares PharmD Unavailable [phone] Encounter Details Date Type Department Care Team ([facility] st Contact Info) Description 08/21/2023 Orders Only [facility] CHC MED & PEDS [address] [place], [place] [phone] Marisel Asencio LPN Social History Tobacco Use [...] Description 07/21/2025 10:00 AM EDT Clinical Support [facility] MEDICINE 230 [place] [address] 08/01/2025 11:00 AM EDT Office Visit [facility] ADULT DENTAL [address] [place], [place] [phone] Dk Saldana, DMD 230 [place] [address] 09/08/2025 9:30 AM EST Medication Management [facility] MEDICINE [address] [place] [address] Alex Mares, PharmD 230 [place] [address] documented as of this encounter Visit Diagnoses Not on filedocumented in this encounter Care Teams Materials Scheduler Relationship Specialty Start Date End Date Kimberly Jon ANP [address] [place] [address] PCP - General Family Medicine 06/24/22 Alex Mares, PharmD [address] [place] [address] Pharmacist Internal Medicine 06/07/24 documented as of this encounter
--- OUTSIDE RECORDS SUMMARY | 2025-07-15 19:18 | XMS_ITS | Encounter Summary ---
Author Organization [employer] Address [address] [place] [address] 7t [place] [address] Care Team Providers Care Concrete Vibrator Operator Name Role Phone Kimberly Jon Primary Care Provider [phone] Alex Mares PharmD Unavailable [phone] Encounter Details Date Type Department Care Team (Late st Contact Info) Description 03/23/[address] [facility] CHC MED & PEDS [address] [place], [place] [phone] Genoveva Ga LPN Social History Tobacco Use [...] 07/21/2025 10:00 AM EDT Clinical Support [facility] MEDICINE 230 [place], [place] [phone] 08/01/2025 11:00 AM EDT Office Visit [facility] ADULT DENTAL 230 [place], [place] [phone] Dk Saldana, STALIN [address] [place] [address] 09/08/2025 9:30 AM EST Medication Management [facility] MEDICINE 230 [place] [address] Alex Mares, PharmD 230 [place] [address] documented as of this encounter Visit Diagnoses Not on filedocumented in this encounter Care Teams Concrete Vibrator Operator Relationship Specialty Start Date End Date Kimberly Jon ANP [address] [place] [address] PCP - General Family Medicine 06/24/22 Alex Mares, PharmD [address] [place] [address] Pharmacist Internal Medicine 06/07/24 documented as of this encounter
--- OUTSIDE RECORDS SUMMARY | 2025-07-15 19:18 | XMS_ITS | Encounter Summary ---
Author Organization [employer] Address [address] [place] [address] 7t [place] [address] Care Team Providers Care Health Benefits Specialist Name Role Phone Kimberly Jon Primary Care Provider [phone] Alex Mares PharmD Unavailable [phone] Encounter Details Date Type Department Care Team (Late st Contact Info) Description 06/21/2023 Orders Only [facility] CHC MED & PEDS [address] [place], [place] [phone] Genoveva Ga LPN Social History Tobacco Use [...] 07/21/2025 10:00 AM EDT Clinical Support [facility] MEDICINE 230 [place], [place] [phone] 08/01/2025 11:00 AM EDT Office Visit [facility] ADULT DENTAL 230 [place], [place] [phone] Dk Saldana DMD 230 [place], [place] [phone] 09/08/2025 9:30 AM EST Medication Management [facility] MEDICINE [address] [place], [place] [phone] Alex Mares, PharmD [address] [place] [address] documented as of this encounter Visit Diagnoses Not on filedocumented in this encounter Care Teams Health Benefits Specialist Relationship Specialty Start Date End Date Kimberly Jon ANP [address] [place] [address] [phone] PCP - General Family Medicine 06/24/22 Alex Mares, PharmD [address] [place] [address] [phone] Pharmacist Internal Medicine 06/07/24 documented as of this encounter
--- OUTSIDE RECORDS SUMMARY | 2025-07-15 19:18 | XMS_ITS | Encounter Summary ---
Author Organization [employer] Address [address] [place] [address] 7t [place] [address] Care Team Providers Care Pre Press Operator Name Role Phone Kimberly Jon Primary Care Provider Alex Mares PharmD Unavailable [phone] Reason for Visit * Reason Onset Date Comments CHART PREP 07/11/2025 Encounter Details Date Type Department Care Team ([facility] st Contact Info) Description 07/11/2025 Telephone [facility] MEDICINE 230 [place], [place] [phone] Gabby Vasquez CNM 230 [place], [place] [phone] CHART PREP Social History Tobacco Use Types [...] 10:00 AM EDT Clinical Support [facility] MEDICINE [address] [place] [address] 08/01/2025 11:00 AM EDT Office Visit [facility] ADULT DENTAL 230 [place] [address] Dk Saldana, DMD 230 [place] [address] 09/08/2025 9:30 AM EST Medication Management [facility] MEDICINE [address] [place] [phone] Alex Mares, PharmD 230 [place] [address] documented as of this encounter Goals Goal [...] documented as of this encounter Care Teams Pre Press Operator Relationship Specialty Start Date End Date Kimberly Jon ANP 230 [place] [address] PCP - General Family Medicine 06/24/22 Alex Mares PharmD 230 [place] [address] Pharmacist Internal Medicine 06/07/24 documented as of this encounter
[2025-07-16 10:02] LABS: Bacterial Vaginosis PCR NEGATIVE (Negative); Candida Group PCR NOT DETECTED (Not Detect); Candida glab krusei PCR NOT DETECTED (Not Detect); Trichomonas vaginalis PCR NOT DETECTED (Not Detect)
== END 2025-07-15 18:13 | disposition home or self-care (01) ==
LOC: HO.LNP 18:12
PROVIDERS: Visit Provider Advanced Practice Midwife
DX: B37.31 Acute candidiasis of vulva and vagina (principal)
CPT/HCPCS: 81515

== ENCOUNTER 2025-07-28 11:06 | Outpatient (AMB) | payer OTHER, SELFPAY ==
--- NOTE | 2025-07-28 11:07 | A.OFFVIS_ITS ---
Vital Signs 07/28/25 11:08 Height 5 ft 2 in Weight 117 lb BMI 21.4 BP 142/64 H Blood Pressure Location Lt brachial Position Sitting Pulse 66 Pulse Source Pulse Oximeter Pulse Oximetry (%) 96 Oxygen Delivery Method Room Air Intake Visit Reasons: 5w Intake Note: Est pt for GERD mgmt. CC: C.O. epigastric pain persistence; however, pt reports that her pain is noticeably improved since last visit. Registered Art Therapist Required: Yes Registered Art Therapist Services: Registered Art Therapist Offered & Declined Information Interpreted: clinical only Accompanied by: Landfill Gas Collection Operator Allergies shellfish derived (shellfish) Allergy (Severe, Verified 07/28/25 11:07) Anaphylaxis HPI HPI 5w: Details: LAST VISIT: GERD (gastroesophageal reflux disease) Status post colonoscopy Plan Colonoscopy in 3 years due to suboptimal prep. Patient will stop taking omeprazole and will start her on pantoprazole in the morning and famotidine at bedtime. Avoid dietary triggers in late night snacking. Staying upright for minimal 3 hours after meals discussed with patient. Patient will follow-up in 3 months, sooner on as needed basis. She is agreeable to this plan and verbalizes understanding of instructions. She was given the opportunity to ask questions and all questions answered. ? Thank you for allowing me participate in her care New famotidine (Pepcid) 20 mg PO BEDTIME 30 tabs 3RF K21.9 pantoprazole take one tablet half an hour before breakfast 40 mg PO DAILY 30 tabs 3RF K21.9 TODAY'S VISIT Patient is here today for follow-up. Patient reports that she has been doing well since last visit. Denies any abdominal pain or discomfort. Patient was started on pantoprazole and famotidine. Takes famotidine in the evening and pantoprazole in the morning. Denies any dyspepsia, dysphagia or odynophagia. Patient denies melena, hematochezia, unintentional weight loss or ribbon like stools. Patient denies any GI concerning symptoms today. 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 Ensure that patient is taking vitamin D and calcium. Avoiding dietary triggers in late night snacking. Staying upright for minimal 3 hours after meals discussed with patient. Follow-up in 6 months. Patient is to call the office if she will have any GI concerning symptoms. Patient is agreeable to this plan and verbalizes understanding of instructions. She was given the opportunity to ask questions and all questions answered. Thank you for allowing me to participate in her care Medications: Refilled pantoprazole take one tablet half an hour before breakfast 40 mg PO DAILY 90 tabs 3RF K21.9 - Gastro-esophageal reflux disease without esophagitis famotidine (Pepcid) 20 mg PO BEDTIME 90 tabs 3RF K21.9 - Gastro-esophageal reflux disease without esophagitis Coding Level of Care Code Est Pt Level 3 (88096) Diagnoses Gastroesophageal reflux disease without esophagitis K21.9 Esophagitis presence: without esophagitis Time Spent (min) 30 Comment 20 minutes spent with patient and additional 10 minutes spent reviewing her records
[2025-07-28 11:08] VITALS: BP 142/64; PULSE 66; O2SAT 96; BMI 21.4
== END 2025-07-28 11:43 | disposition home or self-care (01) ==
LOC: HO.HGI 11:06
PROVIDERS: PCP Nurse Practitioner Primary Care; Visit Provider Nurse Practitioner Family
DX: K21.9 Gastro-esophageal reflux disease without esophagitis (principal)
CPT/HCPCS: 99213

== ENCOUNTER → 2025-07-28 11:06 | Outpatient (BNVA) | payer OTHER, SELFPAY | PROVIDERS: PCP Nurse Practitioner Primary Care; Visit Provider Nurse Practitioner Family | DX: K21.9 Gastro-esophageal reflux disease without esophagitis (principal) | CPT/HCPCS: 99212 ==

== ENCOUNTER 2025-10-09 13:38 | Outpatient (REF) | payer OTHER, SELFPAY ==
[2025-10-09 14:46] LABS: Microalbum/Creatinine Ratio Ur 9.4 ug/mg cr (<30)
== END 2025-10-09 13:39 ==
LOC: HO.LNP 13:38
PROVIDERS: Visit Provider Nurse Practitioner Primary Care
DX: E11.69 Type 2 diabetes mellitus with other specified complication (principal); E78.5 Hyperlipidemia, unspecified
CPT/HCPCS: 82043; 82570

== ENCOUNTER 2025-10-27 12:00 | Outpatient (REF) | payer OTHER, SELFPAY ==
--- OUTSIDE RECORDS SUMMARY | 2025-10-27 14:06 | XMS_ITS | Encounter Summary ---
Author Organization [employer] Address [address] [facility] 7t [place] [address] Care Team Providers Care Licensing Officer Name Role Phone Kimberly Jon Primary Care Provider [phone] Alex Mares PharmD Unavailable [phone] Reason for Visit * Reason Comments Med Refill Encounter Details Date Type Department Care Team ([facility] st Contact Info) Description 10/27/2025 Refill [facility] MEDICINE 230 [place], [place] [phone] Kimberly Jon ANP 230 [place], [place] [phone] Diabetes mellitus with coincident hypertension (HCC) Social History Tobacco Use Types Packs/Day Years Used Date Smoking Tobacco: Never Passive Smoke Exposure: Never Smokeless Tobacco: Never Alcohol Use Standard Drinks/Week Comments Never 0 (1 standard drink = 0.6 oz pur e alcohol) Alcohol Answer Date Recorded How often do you have a drink containing alcohol ? 0 10/09/2025 How many drinks containing a lcohol do you have on a typical day when you are drinking? 0 10/09/2025 How often do you have six or more drinks on one occasion? 0 10/09/2025 Depression Answer Date Recorded Patient Health Questionnaire-9 [...] the past 12 months, has t he Sports [employer], gas, oil or water company threatened to [...] Care Team (Late st Contact Info) Description 01/07/2026 3:00 PM EDT Office Visit [facility] MEDICINE [address] [place] [address] Kimberly Jon ANP [address] [place] [address] documented as of this encounter Goals Goal Patient Goal Type Associated Problems Recent Progress Patient-Stated? Author Blood Pressure < 140/90 Blood Pressure 120/60(2024 11:14 AM EST) No Alex Mares, Laura Hemoglobin A1c < 7 Result Component 6.4( 11:16 AM EST) No Alex Mares, Laura Help patients manage their type 2 diabetes Care Plan Help patients manage their type 2 diabetes No Marisel Asencio LPN Weekly blood pressure task Care Plan Weekly blood pressure task No Marisel Asencio LPN Help patients manage their type 2 diabetes Care Plan Help patients manage their type 2 diabetes No Asencio, Marisel, FITNESS STUDIES TEACHER Patient has diabetic eye disease Care Plan Patient has diabetic eye disease No Asencio[place], FITNESS STUDIES TEACHER Help patients manage their type 2 diabetes Care Plan Help patients manage their type 2 diabetes No Asencio, Marisel, FITNESS STUDIES TEACHER Patient has chronic kidney disease Care Plan Patient has chronic kidney disease No AsencioChristian[place], FITNESS STUDIES TEACHER Weekly blood pressure task Care Plan Weekly blood pressure task No AsencioChristian[place], FITNESS STUDIES TEACHER Weekly blood pressure task Care Plan Weekly blood pressure task No AsencioChristian[place], FITNESS STUDIES TEACHER Patient has diabetic eye disease Care Plan Patient has diabetic eye disease No AsencioChristianoga, FITNESS STUDIES TEACHER Patient has diabetic eye disease Care Plan Patient has diabetic eye disease No Asencio[place], FITNESS STUDIES TEACHER Patient has chronic kidney disease Care Plan Patient has chronic kidney disease No Asencio, Marisel, FITNESS STUDIES TEACHER Patient has chronic kidney disease Care Plan Patient has chronic kidney disease No Asencio, Marisel, FITNESS STUDIES TEACHER Weekly blood pressure task Care Plan Weekly blood pressure task No Pauline Morrell MA Weekly blood pressure task Care Plan Weekly blood pressure task No Pauline Morrell MA Weekly blood pressure task Care Plan Weekly blood pressure task No Pauline Morrell MA Patient has diabetic eye disease Care Plan Patient has diabetic eye disease No Pauline Morrell MA Patient has diabetic eye disease Care Plan Patient has diabetic eye disease No Pauline Morrell MA Patient has diabetic eye disease Care Plan Patient has diabetic eye disease No Pauline Morrell MA Patient has chronic kidney disease Care Plan Patient has chronic kidney disease No Pauline Morrell MA Patient has chronic kidney disease Care Plan Patient has chronic kidney disease No Pauline Morrell MA Patient has chronic kidney disease Care Plan Patient has chronic kidney disease No Pauline Morrell MA Weekly blood pressure task Care Plan Weekly blood pressure task No Jena Leslie MA Weekly blood pressure task Care Plan Weekly blood pressure task No Jena Leslie MA Weekly blood pressure task Care Plan Weekly blood pressure task No Jena Leslie MA Patient has diabetic eye disease Care Plan Patient has diabetic eye disease No Jena Leslie MA Patient has diabetic eye disease Care Plan Patient has diabetic eye disease No Jena Leslie [place] Patient has diabetic eye disease Care Plan Patient has diabetic eye disease No Jena Leslie [place] Patient has chronic kidney disease Care Plan Patient has chronic kidney disease No Jena Leslie MA Patient has chronic kidney disease Care Plan Patient has chronic kidney disease No Jena Leslie MA Patient has chronic kidney disease Care Plan Patient has chronic kidney disease No Jena Leslie MA Weekly blood pressure task Care Plan Weekly blood pressure task No Alex Olivas PharmD Weekly blood pressure task Care Plan Weekly blood pressure task No Alex Olivas PharmD Weekly blood pressure task Care Plan Weekly blood pressure task No Alex Olivas PharmD Patient has diabetic eye disease Care Plan Patient has diabetic eye disease No Alex Olivas PharmD Patient has diabetic eye disease Care Plan Patient has diabetic eye disease No Alex Olivas PharmD Patient has diabetic eye disease Care Plan Patient has diabetic eye disease No Alex Olivas PharmD Patient has chronic kidney disease Care Plan Patient has chronic kidney disease No Alex Olivas PharmD Patient has chronic kidney disease Care Plan Patient has chronic kidney disease No Alex Olivas PharmD Patient has chronic kidney disease Care Plan Patient has chronic kidney disease No Alex Olivas PharmD documented as of this encounter Visit Diagnoses Diagnosis Diabetes mellitus with coincident hypertension (HCC) documented in this encounter Additional Health Concerns Active Problems Noted Date Diagnosed Date Help patients manage their type 2 diabetes 09/23 Weekly blood pressure task 09/23/2025 Help patients manage their type 2 diabetes 09/23 Patient has diabetic eye disease 09/23/2025 Help patients manage their type 2 diabetes 09/23 Patient has chronic kidney disease 09/23/2025 Weekly blood pressure task 09/23/2025 Weekly blood pressure task 09/23/2025 Patient has diabetic eye disease 09/23/2025 Patient has diabetic eye disease 09/23/2025 Patient has chronic kidney disease 09/23/2025 Patient has chronic kidney disease 09/23/2025 Weekly blood pressure task 10/07/2025 Weekly blood pressure task 10/07/2025 Weekly blood pressure task 10/07/2025 Patient has diabetic eye disease 10/07/2025 Patient has diabetic eye disease 10/07/2025 Patient has diabetic eye disease 10/07/2025 Patient has chronic kidney disease 10/07/2025 Patient has chronic kidney disease 10/07/2025 Patient has chronic kidney disease 10/07/2025 Weekly blood pressure task 10/09/2025 Weekly blood pressure task 10/09/2025 Weekly blood pressure task 10/09/2025 Patient has diabetic eye disease 10/09/2025 Patient has diabetic eye disease 10/09/2025 Patient has diabetic eye disease 10/09/2025 Patient has chronic kidney disease 10/09/2025 Patient has chronic kidney disease 10/09/2025 Patient has chronic kidney disease 10/09/2025 Weekly blood pressure task 10/27/2025 Weekly blood pressure task 10/27/2025 Weekly blood pressure task 10/27/2025 Patient has diabetic eye disease 10/27/2025 Patient has diabetic eye disease 10/27/2025 Patient has diabetic eye disease 10/27/2025 Patient has chronic kidney disease 10/27/2025 Patient has chronic kidney disease 10/27/2025 Patient has chronic kidney disease 10/27/2025 Assessment Noted Time PHQ-9 Depression Total Score: 0 06/09/20 25 11:07 AM EDT documented as of this encounter Care Teams Licensing Officer Relationship Specialty Start Date End Date Kimberly Jon ANP [address] [place] [address] PCP - General Family Medicine 06/24/22 Alex Mares, SerenityD [address] [place] [address] Pharmacist Internal Medicine 06/07/24 documented as of this encounter
--- OUTSIDE RECORDS SUMMARY | 2025-10-27 14:06 | XMS_ITS | Encounter Summary ---
Author Organization [email or web address] Address [address] [place] [address] 7t [place] [address] Care Team Providers Care Full Roll Inspector Name Role Phone Kimberly Jon Primary Care Provider [phone] Alex Mares PharmD Unavailable [phone] Encounter Details Date Type Department Care Team (Late st Contact Info) Description 07/20/2023 Orders Only [facility] CHC MED & PEDS [address] [place], [place] [phone] Genoveva Ga LPN Social History Tobacco Use [...] Description 01/07/2026 3:00 PM EDT Office Visit [facility] MEDICINE 230 [place], [place] [phone] Kimberly Jon ANP 230 [place], [place] [phone] documented as of this encounter Visit Diagnoses Not on filedocumented in this encounter Care Teams Full Roll Inspector Relationship Specialty Start Date End Date Kimberly Jon ANP 230 [place], [place] [phone] PCP - General Family Medicine 06/24/22 Alex Mares, Laura [address] [place] [address] Pharmacist Internal Medicine 06/07/24 documented as of this encounter
--- OUTSIDE RECORDS SUMMARY | 2025-10-27 14:06 | XMS_ITS | Encounter Summary ---
Author Organization [employer] Address [address] [facility] 7t [place] [address] Care Team Providers Care Hair Baler Name Role Phone Kimberly Jon Primary Care Provider Alex Mares PharmD Unavailable [phone] Encounter Details Date Type Department Care Team ([facility] st Contact Info) Description 08/17/2023 Orders Only [facility] CHC MED & PEDS [address] [place], [place] [phone] Genoveva Ga LPN Social History Tobacco Use [...] Description 01/07/2026 3:00 PM EDT Office Visit [facility] MEDICINE 230 [place] [address] Kimberly Jon ANP [address] [place] [address] documented as of this encounter Visit Diagnoses Not on filedocumented in this encounter Care Teams Hair Baler Relationship Specialty Start Date End Date Kimberly Jon ANP [address] [place] [address] PCP - General Family Medicine 06/24/22 Alex Mares, SerenityD [address] [place] [address] Pharmacist Internal Medicine 06/07/24 documented as of this encounter
--- OUTSIDE RECORDS SUMMARY | 2025-10-27 14:06 | XMS_ITS | Clinical Summary ---
Author Organization [employer] Address [address] [facility] 7[address] [place] [address] Care Team Providers Care Marketing Services Manager Name Role Phone Akin Gale Primary Care Provider [phone] Alex Mares PharmD Unavailable [phone] Allergies Active Allergy Reactions Criticality Noted Date Comments Shellfish Allergy Low 08/16/2022 Other reaction(s): throat swelling, itching Other reaction(s): THROAT ITCHING, UNKNOWN Medications Blood Pressure kitIndications:Pu lmonary hypertension (CMS/HCC) (HCC),Essential hypertension 1 kit in the morning. 1 kit 08/11/20 23 Active Blood Glucose Monitoring Suppl (ONE TOUCH ULTRA 2) w/Device kit 1 each if needed (blood sugar). Use to test blood sugar once daily as directed 1 kit 01/05/20 24 Active SITagliptin (Januvia) 100 MG tabletIndications :Type 2 diabetes mellitus with hyperlipidemia ([facility]) Take 1 tablet (100 mg) by mouth Once per day. 90 tablet 3 11/07/19 25 Active lisinopril 40 MG tabletIndications :Essential hypertension,Pulm onary hypertension (CMS/HCC) (HCC) TAKE 1 TABLET BY MOUTH TWICE DAILY IN THE MORNING AND IN THE EVENING 180 tablet 3 11/25/19 25 Active Lancets (OneTouch Delica Plus [id number]) misc TEST BLOOD SUGAR THREE TIMES DAILY 100 each 3 02/25/20 25 Active glucose blood (OneTouch Ultra Test) test strip TEST BLOOD SUGAR THREE TIMES DAILY 100 strip 11 06/11/20 25 Active hydroCHLOROthiazi de 12.5 MG tablet TAKE 1 TABLET BY MOUTH EVERY MORNING 90 tablet 3 06/19/20 25 Active Calcium Carb-Cholecalcife rol 600-10 MG-MCG tablet TAKE 1 TABLET TWICE DAILY IN THE MORNING AND IN THE EVENING 180 tablet 3 07/30/20 Active metoprolol tartrate (Lopressor) 50 MG tablet TAKE 1 TABLET BY MOUTH EVERY MORNING and TAKE 1 AND 1/2 TABLETS BY MOUTH EVERY EVENING 225 tablet 3 07/30/20 25 Active Jardiance 25 MGIndications:Polly betes mellitus with coincident hypertension (HCC) TAKE 1 TABLET BY MOUTH EVERY MORNING 90 tablet 07/30/20 25 Active gabapentin (Neurontin) 100 MG capsuleIndication s:Pain TAKE 1 CAPSULE BY MOUTH THREE TIMES DAILY IN THE MORNING, EVENING, AND BEDTIME 90 capsule 3 08/04/20 25 Active Aspirin Low Dose 81 MG EC tablet TAKE 1 TABLET BY MOUTH EVERY MORNING 90 tablet 1 08/25/20 25 Active 27-1 MG tabletIndications :Healthcare maintenance TAKE 1 TABLET BY MOUTH EVERY MORNING WITH MEALS 90 tablet 3 09/23/20 25 Active atorvastatin (Lipitor) 40 MG tabletIndications :Type 2 diabetes mellitus with hyperlipidemia (HCC) TAKE 1 TABLET BY MOUTH AT BEDTIME 90 tablet 3 09/23/20 25 Active Acetaminophen Extra Strength 500 MG tabletIndications :Pain TAKE 1 TABLET BY MOUTH EVERY 6 HOURS NEEDED FOR PAIN OF NECK 90 tablet 5 3:09 PM EST 09/23/20 25 Active metFORMIN XR (Glucophage-XR) 500 MG 24 hr tabletIndications :Hyperlipidemia associated with type 2 diabetes mellitus (HCC) TAKE 2 TABLETS BY MOUTH EVERYDAY AT NOON and TAKE 1 TABLET BY MOUTH EVERY EVENING WITH MEALS 90 tablet 5 5 2:24 PM EST 09/29/20 25 Active cetirizine (ZyrTEC) 10 MG tablet TAKE 1 TABLET BY MOUTH EVERY MORNING 30 tablet 5 09/29/20 25 Active levothyroxine (Synthroid, Levoxyl) 75 MCG tablet TAKE 1 TABLET BY MOUTH EVERY MORNING 30 tablet 5 09/29/20 25 Active magnesium oxide (Mag-Ox) 400 MG tabletIndications :Hypomagnesemia TAKE 1 TABLET BY MOUTH EVERY MORNING 30 tablet 2 5 2:24 PM EST 09/29/20 25 Active mometasone (Nasonex) 50 MCG/ACT nasal sprayIndications: Nasal congestion INSTILL 2 SPRAYS IN EACH NOSTRIL ONCE DAILY NEEDED FOR ALLERGIES 17 g 2:24 PM EST 10/02/20 Active glucose 4 g chewable tabletIndications :Type 2 diabetes mellitus with hyperlipidemia (HCC) Chew 4 tablets (16 g) if needed for low blood sugar. 50 tablet 3 10/09/20 25 026 Active cetirizine (ZyrTEC) 10 MG tablet TAKE 1 TABLET BY MOUTH EVERY MORNING 30 tablet 5 03/20/20 25 025 Discontinued levothyroxine (Synthroid, Levoxyl) 75 MCG tablet TAKE 1 TABLET BY MOUTH EVERY MORNING 30 tablet 5 03/20/20 25 025 Discontinued metFORMIN XR (Glucophage-XR) 500 MG 24 hr tabletIndications :Hyperlipidemia associated with type 2 diabetes mellitus (HCC) TAKE 2 TABLETS BY MOUTH ONCE DAILY AT NOON and TAKE 1 TABLET BY MOUTH EVERY EVENING WITH MEALS 90 tablet 5 03/20/20 25 025 Discontinued magnesium oxide (Mag-Ox) 400 MG tabletIndications :Hypomagnesemia Take 1 tablet (400 mg) by mouth Once per day. 30 tablet 2 06/09/20 25 025 Discontinued mometasone (Nasonex) 50 MCG/ACT nasal sprayIndications: Nasal congestion INSTILL 2 SPRAYS IN EACH NOSTRIL ONCE DAILY NEEDED FOR ALLERGIES 17 g 06/09/20 25 025 Discontinued Active Problems Problem Noted Date [...] 05/03/2022 Type 2 diabetes mellitus with hyperlipidemia Overview (03/05/2024): Lab Results Component Value Date [...] 07/27/2018 Acquired hypothyroidism 08/14/2015 Allergic rhinitis 08/14/2015 Fibromyalgia 08/14/2015 Hypertension associated with diabetes 08/14/2015 Pulmonary hypertension (CMS/HCC) 08/14/2015 Overview (06/09/2025): Following w/ cards Rosacea 08/14/2015 Left bundle branch block 10/21/2013 Resolved Problems Problem Noted Date Diagnosed Date Resolved Date Acute low back pain 04/06/2018 06/09/20 25 Encounters Date Type Department Care Team Description 10/27/[address] [facility] [address] [place] [address] Akin Gale ANP Type 2 diabetes mellitus with hyperlipidemia (HCC); Diabetes mellitus with coincident hypertension (HCC) 10/27/[address] [facility] [address] [place] [address] Akin Gale ANP Diabetes mellitus with coincident hypertension (HCC) 10/26/[address] [facility] [address] [place] [address] Alex Mares, Laura Type 2 diabetes mellitus with hyperlipidemia (HCC) 10/09/2025 11:00 AM EST Office Visit [facility] [address] [place] [phone] Akin Gale ANP Type 2 diabetes mellitus with hyperlipidemia (HCC) (Primary Dx); Dysphagia, unspecified type; Hyperlipidemia associated with type 2 diabetes mellitus (HCC); Hypertension associated with diabetes (HCC) 10/09/2025 Travel 10/07/[address] [facility] [address] [place] [phone] Akin Gale ANP chart prep 10/01/[address] [facility] [address] [place] [address] Akin Gale ANP Nasal congestion 09/26/[address] [facility] [address] [place] [address] Akin Gale ANP Hyperlipidemia associated with type 2 diabetes mellitus (HCC); Hypomagnesemia 09/23/2025 Refill [facility] MED & PEDS [address] [place] [address] Akin Gale ANP Healthcare maintenance; Type 2 diabetes mellitus with hyperlipidemia (HCC); Pain 09/22/[address] [facility] [address] [place] [address] Akin Gale ANP Pain 08/25/2025 8:00 AM EDT Office Visit [facility] ADULT DENTAL [address] [place] [address] Dk Saldana, STALIN 08/24/[address] [facility] [address] [place] [address] Josephine Geronimo MD 08/21/2025 11:00 AM EDT Office Visit [facility] ADULT D[facility]AL [address] [place] [address] Dk Saldana DMD 08/04/[address] [facility] [address] [place] [address] Akin Gale ANP Pain 07/29/[address] [facility] [address] [place] [address] Akin Gale ANP 07/29/[address] [facility] [address] [place] [address] Akin Gale ANP Diabetes mellitus with coincident hypertension (CMS/HCC) ([facility]) from Last 3 Months Immunizations Immunization Administration [...] Sign Reading Time Taken Comments Blood Pressure 120/60 10/09/2025 11:14 AM EST Pulse 66 10/09/2025 11:14 AM EST Temperature 36.3 C (97.3 F) 10/09/2025 11:14 AM EST Respiratory Rate 20 10/09/2025 11:14 AM EST Oxygen Saturation 98% 10/09/2025 11:14 AM EST Inhaled Oxygen Concentration - - Weight 52.4 kg (115 lb 9.6 oz) 10/09/2025 11:14 AM EST Height 157.5 cm (5' 2 ) 10/09/2025 11:14 AM EST Body Mass Index 21.14 10/09/2025 11:14 AM EST Plan of Treatment Upcoming Encounters Date Type Department Care Team (Late st Contact Info) Description 01/07/2026 3:00 PM EDT Office Visit [facility] [address] [place], [place] [phone] Akin Gale, ANP [address] [place], [place] [phone] Health Maintenance Due Date Last Done Comments CT Colonography 1950 Dental Oral Exam 1950 Dental Prophylaxis 1950 Dental X-Ray: Bitewings 1950 FIT DNA/Cologuard 1950 FIT 1950 FOBT 1950 Sigmoidoscopy 1950 Hepatitis C Screening 1969 Hepatitis A Vaccines (1 of 2 - Risk 2-dose series) 1970 COVID-19 Vaccine ( season) 2025 01/21/2021, 12/24/2020 Influenza Vaccine (#1) 2025 , 08/11/2023, 07/14/2022, Additional history exists Lipid Panel 07/05/2025 07/05/2024, 04/29, 05/05/2022, Additional history exists Diabetes: Hemoglobin A1C 01/07/2026 025, 05/12/2025, 01/06/2025, Additional history exists SDOH Screening 01/21/2026 01/21/2025 Mammogram 02/07/2026 02/07/2025, 03/0 02/2024, 05/25/2022, Additional history exists Depression Screening 06/09/2026 06/09/2025, 06/09/20 Alcohol/Substance Use Screening 10/09/2026 10/09/2025 Diabetes: Foot Exam 10/09/2026 10/09/2025, 10/09/2025, 10/09/2025, Additional history exists Diabetes: Urine Protein Screening 10/09/2026 10/09/2025, 09/06/2024, 05/10/2023, Additional history exists Tobacco Screening 10/09/2026 10/09/2025 Eye Exam 10/11/2026 Dental X-Ray: Full Mouth [...] Pressure 120/60(2024 11:14 AM EST) No Alex Mares PharmD Hemoglobin A1c < 7 Result Component 6.4( 11:16 AM EST) No Alex Mares, Laura Help patients manage their type 2 diabetes Care Plan Help patients manage their type 2 diabetes No AsencioChristianoga, LOSS PREVENTION MANAGER Weekly blood pressure task Care Plan Weekly blood pressure task No AsencioChristianoga, LOSS PREVENTION MANAGER Help patients manage their type 2 diabetes Care Plan Help patients manage their type 2 diabetes No AsencioChristianoga, LOSS PREVENTION MANAGER Patient has diabetic eye disease Care Plan Patient has diabetic eye disease No Asencio, Marisel, LOSS PREVENTION MANAGER Help patients manage their type 2 diabetes Care Plan Help patients manage their type 2 diabetes No Asencio, Marisel, LOSS PREVENTION MANAGER Patient has chronic kidney disease Care Plan Patient has chronic kidney disease No Asencio, Marisel, LOSS PREVENTION MANAGER Weekly blood pressure task Care Plan Weekly blood pressure task No AsencioChristianoga, LOSS PREVENTION MANAGER Weekly blood pressure task Care Plan Weekly blood pressure task No Asencio, Marisel, LOSS PREVENTION MANAGER Patient has diabetic eye disease Care Plan Patient has diabetic eye disease No Asencio, Marisel, LOSS PREVENTION MANAGER Patient has diabetic eye disease Care Plan Patient has diabetic eye disease No Asencio, Marisel, LOSS PREVENTION MANAGER Patient has chronic kidney disease Care Plan Patient has chronic kidney disease No AsencioChristianoga, LOSS PREVENTION MANAGER Patient has chronic kidney disease Care Plan Patient has chronic kidney disease No Asencio, Marisel, LOSS PREVENTION MANAGER Weekly blood pressure task Care Plan Weekly [...] has chronic kidney disease No Alex Olivas PharmCris Patient has chronic kidney disease Care Plan Patient has chronic kidney disease No Alex Olivas PharmCris Procedures Procedure Name Priority Date/Time Associated Diagnosis Comments ALBUMIN, RANDOM URINE W/CREATININE Routine 10/09/2025 11:30 AM EST Type 2 diabetes mellitus with hyperlipidemia (HCC) POCT GLYCATED HEMOGLOBIN, TOTAL Routine 10/09/2025 11:16 AM EST Type 2 diabetes mellitus with hyperlipidemia (HCC) POCT GLUCOSE (CPT-86196) Routine 10/09/2025 11:16 AM EST Type 2 diabetes mellitus with hyperlipidemia (HCC) REPAIR RESIN PARTIAL DENTURE BASE, ANA Routine 08/25/2025 8:00 AM EDT CASE PRESENTATION, DETAILED AND EXTENSIVE TREATMENT PLANNING Routine 08/25/2025 8:00 AM EDT DENTURE IMPRESSION Routine 08/21/2025 11 :00 AM EDT HM COLONOSCOPY Routine 05/07/2025 BI MAMMOGRAM SCREENING TOMOSYNTHESIS BILATERAL Routine 02/07/2025 10:30 AM EDT LIPID PANEL, STANDARD Routine 07/05/2024 11:26 AM EDT Type 2 diabetes mellitus with hyperlipidemia (CMS/HCC) (CMS/HCC) PANORAMIC RADIOGRAPHIC IMAGE Routine 02/13/2024 3:30 PM EDT THINPREP IMAGING PAP AND HPV MRNA E6/E7 WITH REFLEX TO HPV 16,18/45 Routine 07/14/2022 10:13 AM EDT from Last 3 Months or Most Recently Relevant to Health Maintenance Results * Albumin, Random Urine W/Creatinine (10/09/2025 11:30 AM EST) Creatinine, Urine 63.36 mg/dL [facility] Microalbumin Urine 6.0 mg/L [facility] Microalbum Creatinine Ratio Ur 9.4 <30 ug/mg cr [facility] Comment:Albumin/Creatinine R atio Reference Ranges: Normal: < 30 ug/mg creatinine Microalbuminuria: 30 - 300 ug/mg creatinineClinical Albuminuria: > 300 ug/mg creatinine Urine (Urine, Random) 10/09/2025 11:30 AM EST 10/09/2025 1:38 PM EST Akin STILL LAB URINE ORDERABLES Final Resul t [facility] [address] [place] [phone] * (ABNORMAL) POCT Hgb A1c (10/09/2025 11:16 AM EST) Hemoglobin A1C 6.4(A) 4.0 - 5.7 % QC Media Lot # [id number] Lot# Expiration Date Blood 10/09/2025 11:1 6 AM EST Akin Gale ANP POINT OF CARE TEST ENTER/EDIT OR DERABLES Final Result * POCT Glucose (10/09/2025 11:16 AM EST) Pathologist [facility] Glucose Blood, POC 151 60 - 200 mg/dL QC Media Lot # [id number] Lot# Expiration Date Blood Capillary blood specimen / Unknown 10/09/2025 11:16 AM EST Akin Gale ANP POINT OF CARE TEST ENTER/EDIT OR DERABLES Final Result * Hm Colonoscopy (05/07/2025) Pathologist [facility] Colonoscopy Normal Normal Narrative Samantha Crook - 05/07/2025 Recommended 3 years . See see external hospital admission note on 05/07/2025 Historical Provider HEALTH MAINTENANCE Final Result * BI Mammogram Screening Tomosynthesis Bilateral (02/07/2025 10:30 AM EDT) Anatomical Region Laterality Modality Breast Bilateral Mammography 02/07/2025 10:3 0 AM EDT Narrative 02/14/2025 5:17 PM EDT [facility] [address] [place] [address] Mammography Report Signed Patient: Jacquelyn Scott MR#: [id number] : 1950 Acct:[id number] Age/Sex: 74 / F ADM Date: 02/07/25 Loc: HO.MAMMO Attending Dr: Akin Gale NP Ordering Physician: AKIN GALE NP Results: 1Negative Date of Service: 02/07/25 Follow Up: 1 Year From Orig inal Mammogram Procedure(s): MM tomosynthesis screening BI Accession Number(s): [id number] cc: AKIN GALE NP EXAMINATION: MM SCREENING [...] 02/14/25 1714 DD/ 1030 TD/TT: 02/07/25 1047 Outer Diameter Grinder Tool: Procedure Note Donotuseinterpreter, Image - 02/14/2025 [facility] [address] [place] [address] Mammography Report Signed Patient: Jacquelyn Scott [facility]#: [id number] : 1950cct:[id number] Age/Sex: 74 / FADM Date: 02/07/25 Loc: HO.MAMMO Attending Dr: Akin Gale SUPERVISING CHEF Ordering Physician: AKIN GALE NPResults: 1Negative Date of Service: 02/07/25Follow Up: 1 Year From Orig inal Mammogram Procedure(s): MM tomosynthesis screening BI Accession Number(s): [id number] cc: AKIN GALE NP EXAMINATION: MM SCREENING [...] 02/14/25 1714 DD/ 1030 TD/TT: 02/07/25 1047 Outer Diameter Grinder Tool: Akin STILL [facility] BI PROCEDURES Edited Result - Final * (ABNORMAL) Lipid Panel, Standard (07/05/2024 11:26 AM EDT) Triglycerides 170(H) <150 mg/dL [facility] Comment:Desirable Triglyceri de: less than 150 mg/dLBorderline High Triglyceride 150-199 mg/dLHigh Triglyceride: 200-499 mg/dLVery High Triglyceride: greater than or equal to 5OO mg/dL Cholesterol 133 <200 mg/dL [facility] Comment:Desirable Cholestero l: less than 200 mg/dLBorderline High Cholesterol: 200-239 mg/dLHigh Cholesterol: greater than 239 mg/dL LDL Cholesterol Calculated 56 <100 mg/dL [facility] Comment:Desirable LDL: less than 100 mg/dLNear Optimal/Above Optimal LDL: 110- 129 mg/dLBorderline High LDL: 130-159 mg/dLHigh LDL: 160-189 mg/dLVery High LDL: greater than or equal to 190 mg/dL HDL Cholesterol 43 >40 mg/dL [facility] Comment:Desirable HDL: great er than 40 mg/dL Note: This HDL assay may give artificially low results in patients with liver disease. Blood Venous blood specimen / Unknown 07/05/2024 11:26 AM EDT 07/05/2024 1:26 PM EDT Akin Gale [facility] BLOOD ORDERABLES Final Resul t [facility] [address] [place] [phone] * THINPREP TIS PAP AND HPV mRNA E6/E7 WITH REFLEX TO HPV 16,18/45 (07/14/2022 10:13 AM EDT) Clinical Information: None given [facility] COMMENT SEE COMMENT [facility] [...] along with historic and current clinical information. Comment: This Pap test has been evaluated with computer assisted technology. [employer] [facility] Cytotechnologis t: SEE COMMENT [facility] Comment: ED, CT(ASCP) CT screening location: [place] [address] HPV nRNA E6/E7 Not Detected Not Detected [facility] Comment: Methodology: Food Service Assistant-Mediated Amplification This assay detects E6/E7 viral messenger RNA (mRNA) from 14 high-risk HPV types (16,18,31,33,35,39,45,51,52,56,58,59,66,68). Cervical sources are required for HPV testing. If a vaginal source from a patient who has had a total hysterectomy with removal of cervix was submitted, please contact the testing laboratory for alternative testing options. For additional information, please refer to [email or web address]/MXF011w0 (This link if provided for information/ educational purposes only.) Interpretation/ Result: Negative for intraepithelial lesion or malignancy. [facility] LMP: PM [facility] Prev. BX: NONE GIVEN [facility] Prev. PAP: 2016 NIL/HPV NEG,2014 NIL HPV NEG [facility] SOURCE: None given [facility] Statement Of Adequacy: SEE COMMENT [facility] Comment: Satisfactory for evaluation. Endocervical/transformation zone component absent. Partially obscuring inflammation 07/14/2022 10:1 3 AM EDT us Gabby Vasquez CNM LAB PATHOLOGY ORDERABLES Final Result [facility] [address] from Last 3 Months or Most Recently Relevant to Health Maintenance Additional Health Concerns Active Problems Noted Date [...] 10/27/2025 Patient has chronic kidney disease 10/27/2025 Insurance [employer] DENTAL - DQ [employer] [facility] Care Teams Marketing Services Manager Relationship Specialty Start Date End Date Akin Gale ANP [address] [place], [place] PCP - General Family Medicine 06/24/22 Alex Mares, SerenityD [address] [place] [phone] Pharmacist Internal Medicine 06/07/24
--- OUTSIDE RECORDS SUMMARY | 2025-10-27 14:06 | XMS_ITS | Encounter Summary ---
Author Organization [employer] [facility] Address [address] [place] [address] 7[address] [place] [address] Care Team Providers Care Warehouse Picker Name Role Phone Kimberly Jon Primary Care Provider [phone] Alex Mares PharmD Unavailable [phone] Reason for Visit * Reason Comments Med Refill Encounter Details Date Type Department Care Team (Late st Contact Info) Description 03/23/2023 Refill [facility] [address] [place] [address] JosephineSaray powell FNP [address] [place], [place] [phone] Social History Tobacco Use Types Packs/Day Years [...] Description 01/07/2026 3:00 PM EDT Office Visit [facility] [address] [place], [place] [phone] Kimberly Jon ANP [address] [place] [address] documented as of this encounter Visit Diagnoses Not on filedocumented in this encounter Care Teams Warehouse Picker Relationship Specialty Start Date End Date Kimberly Jon ANP [address] [place], [place] [phone] PCP - General Family Medicine 06/24/22 Alex Mares, Laura [address] [place] [address] Pharmacist Internal Medicine 06/07/24 documented as of this encounter
--- OUTSIDE RECORDS SUMMARY | 2025-10-27 14:06 | XMS_ITS | Encounter Summary ---
Author Organization [employer] Address [address] [place] [address] [address] [place] [address] Care Team Providers Care Laundry Assistant Name Role Phone Kimberly Jon Primary Care Provider [phone] Alex Mares PharmD Unavailable [phone] Encounter Details Date Type Department Care Team (Late st Contact Info) Description 06/21/[address] [facility] [address] [place], [place] [phone] Genoveva Ga LPN Social History Tobacco Use [...] PM EDT Office Visit [facility] [address] [place], [place] [phone] Kimberly Jon ANP [address] [place], [place] [phone] documented as of this encounter Visit Diagnoses Not on filedocumented in this encounter Care Teams Laundry Assistant Relationship Specialty Start Date End Date Kimberly Jon ANP [address] [place], [place] [phone] PCP - General Family Medicine 06/24/22 Alex Mares, Laura [address] [place] [address] Pharmacist Internal Medicine 06/07/24 documented as of this encounter
--- OUTSIDE RECORDS SUMMARY | 2025-10-27 14:06 | XMS_ITS | Encounter Summary ---
Author Organization [employer] Address [address] [place] [address] 7[address] [place] [address] Care Team Providers Care Cam Milling Machine Operator Name Role Phone Kimberly Jon Primary Care Provider [phone] Alex Mares PharmD Unavailable [phone] Encounter Details Date Type Department Care Team (Late st Contact Info) Description 03/23/2023 Orders Only [facility] & PEDS [address] [place], [place] [phone] Genoveva Ga LPN Social History Tobacco Use [...] Description 01/07/2026 3:00 PM EDT Office Visit [facility] MED[facility] [address] [place] [address] Kimberly Jon ANP [address] [place] [address] documented as of this encounter Visit Diagnoses Not on filedocumented in this encounter Care Teams Cam Milling Machine Operator Relationship Specialty Start Date End Date Kimberly Jon ANP [address] [place], [place] [phone] PCP - General Family Medicine 06/24/22 Alex Mares, PharmD [address] [place] [address] [place] [address] Pharmacist Internal Medicine 06/07/24 documented as of this encounter
--- OUTSIDE RECORDS SUMMARY | 2025-10-27 14:06 | XMS_ITS | Encounter Summary ---
Author Organization [employer] Address 75 [facility] 7t [place] [address] Care Team Providers Care Bed Manager Name Role Phone Kimberly Jon Primary Care Provider [phone] Alex Mares PharmD Unavailable [phone] Encounter Details Date Type Department Care Team ([facility] st Contact Info) Description 10/27/2025 Refill [facility] [address] [place], [place] [phone] Kimberly Jon ANP [address] [place], [place] [phone] Type 2 diabetes mellitus with hyperlipidemia (HCC); Diabetes mellitus with coincident hypertension (HCC) Social [...] the past 12 months, has t he [employer], gas, oil or water [employer] threatened to shut off services in your [...] Description 01/07/2026 3:00 PM EDT Office Visit [facility] [address] [place] [address] Kimberly Jon ANP [address] [place] [address] documented as of this encounter Goals Goal [...] their type 2 diabetes No Asencio, Marisel, BUSINESS ANALYTICS FACULTY MEMBER Patient has diabetic eye disease Care Plan Patient has diabetic eye disease No AsencioChristianoga, BUSINESS ANALYTICS FACULTY MEMBER Help patients manage their type 2 diabetes Care Plan Help patients manage their type 2 diabetes No Asencio, Marisel, BUSINESS ANALYTICS FACULTY MEMBER Patient has chronic kidney disease Care Plan Patient has chronic kidney disease No AsencioChristianoga, BUSINESS ANALYTICS FACULTY MEMBER Weekly blood pressure task Care Plan Weekly blood pressure task No AsencioChristianoga, BUSINESS ANALYTICS FACULTY MEMBER Weekly blood pressure task Care Plan Weekly blood pressure task No AsencioChristianoga, BUSINESS ANALYTICS FACULTY MEMBER Patient has diabetic eye disease Care Plan Patient has diabetic eye disease No AsencioChristianoga, BUSINESS ANALYTICS FACULTY MEMBER Patient has diabetic eye disease Care Plan Patient has diabetic eye disease No AsencioChristianoga, BUSINESS ANALYTICS FACULTY MEMBER Patient has chronic kidney disease Care Plan Patient has chronic kidney disease No Asencio, Marisel, BUSINESS ANALYTICS FACULTY MEMBER Patient has chronic kidney disease Care Plan Patient has chronic kidney disease No Asencio, Marisel, BUSINESS ANALYTICS FACULTY MEMBER Weekly blood pressure task Care Plan Weekly [...] Patient has diabetic eye disease No Alex Olivas, PharmD Patient has diabetic eye disease Care Plan Patient has diabetic eye disease No Alex Olivas PharmD Patient has diabetic eye disease Care Plan Patient has diabetic eye disease No Alex Olivas, PharmD Patient has chronic kidney disease Care Plan Patient has chronic kidney disease No Alex Olivas, PharmD Patient has chronic kidney disease Care Plan Patient has chronic kidney disease No Alex Olivas PharmD Patient has chronic kidney disease Care Plan Patient has chronic kidney disease No Alex Olivas PharmD documented as of this encounter Visit Diagnoses Diagnosis Type 2 diabetes mellitus with hyperlipidemia (HCC) Diabetes mellitus with coincident hypertension (HCC) documented [...] documented as of this encounter Care Teams Bed Manager Relationship Specialty Start Date End Date Kimberly Jon ANP [address] [place] [address] PCP - General Family Medicine 06/24/22 Alex Mares, Laura [address] [place] [address] Pharmacist Internal Medicine 06/07/24 documented as of this encounter
--- OUTSIDE RECORDS SUMMARY | 2025-10-27 14:06 | XMS_ITS | Encounter Summary ---
Author Organization [employer] Address 75 [facility] 7t [place] [address] Care Team Providers Care Hydramatic Specialist Name Role Phone Kimberly Jon Primary Care Provider [phone] Alex Mares PharmD Unavailable [phone] Reason for Visit * Reason Comments Med Refill Encounter Details Date Type Department Care Team ([facility] st Contact Info) Description 10/26/2025 Refill [facility] 230 [place], [place] [phone] Alex Mares, PharmD [address] [place], [place] [phone] Type 2 diabetes mellitus with hyperlipidemia (HCC) Social History Tobacco Use Types Packs/Day [...] Description 01/07/2026 3:00 PM EDT Office Visit [facility] [address] [place] [address] Kimberly Jon ANP [address] [place] [address] documented as of this encounter Goals Goal [...] their type 2 diabetes No Asencio, Marisel, ANIMAL HOSPITAL CLERK Patient has diabetic eye disease Care Plan Patient has diabetic eye disease No Asencio, Marisel, ANIMAL HOSPITAL CLERK Help patients manage their type 2 diabetes Care Plan Help patients manage their type 2 diabetes No Asencio, Marisel, ANIMAL HOSPITAL CLERK Patient has chronic kidney disease Care Plan Patient has chronic kidney disease No Asencio, Marisel, ANIMAL HOSPITAL CLERK Weekly blood pressure task Care Plan Weekly blood pressure task No AsencioChristianoga, ANIMAL HOSPITAL CLERK Weekly blood pressure task Care Plan Weekly blood pressure task No Asencio, Marisel, ANIMAL HOSPITAL CLERK Patient has diabetic eye disease Care Plan Patient has diabetic eye disease No AsencioChristianoga, ANIMAL HOSPITAL CLERK Patient has diabetic eye disease Care Plan Patient has diabetic eye disease No Asencio, Marisel, ANIMAL HOSPITAL CLERK Patient has chronic kidney disease Care Plan Patient has chronic kidney disease No Asencio, Marisel, ANIMAL HOSPITAL CLERK Patient has chronic kidney disease Care Plan Patient has chronic kidney disease No Asencio, Marisel, ANIMAL HOSPITAL CLERK Weekly blood pressure task Care Plan Weekly [...] Care Plan Patient has chronic kidney disease Catherine Jena Leslie MA documented as of this encounter Visit Diagnoses Diagnosis Type 2 diabetes mellitus with hyperlipidemia (HCC) documented in this encounter Additional Health [...] 10/09/2025 Patient has chronic kidney disease 10/09/2025 Assessment Noted Time PHQ-9 Depression Total Score: 0 06/09/20 11:07 AM EDT documented as of this encounter Care Teams Hydramatic Specialist Relationship Specialty Start Date End Date Kimberly Jon ANP [address] [place] [phone] PCP - General Family Medicine 06/24/22 Alex Mares, SerenityD [address] [place] [address] [place] [address] Pharmacist Internal Medicine 06/07/24 documented as of this encounter
--- OUTSIDE RECORDS SUMMARY | 2025-10-27 14:06 | XMS_ITS | Encounter Summary ---
Author Organization [employer] Address 75 [facility] 7t [place] [address] Care Team Providers Care Cookie Breaker Name Role Phone Kimberly Jon Primary Care Provider [phone] Alex Mares PharmD Unavailable [phone] Encounter Details Date Type Department Care Team ([facility] st Contact Info) Description 08/21/2023 Orders Only [facility] CHC MED & PEDS [address] [place], [place] [phone] Marisel Asencio LPN Social History Tobacco Use [...] Description 01/07/2026 3:00 PM EDT Office Visit [facility] MEDICINE 230 [place] [address] Kimberly Jon ANP [address] [place] [address] documented as of this encounter Visit Diagnoses Not on filedocumented in this encounter Care Teams Cookie Breaker Relationship Specialty Start Date End Date Kimberly Jon ANP [address] [place] [phone] PCP - General Family Medicine 06/24/22 Alex Mares, SerenityD [address] [place] [phone] Pharmacist Internal Medicine 06/07/24 documented as of this encounter
--- OUTSIDE RECORDS SUMMARY | 2025-10-27 14:06 | XMS_ITS | Encounter Summary ---
Author Organization [employer] Address [address] [place] [address] 7t [place] [address] Care Team Providers Care Skid Machine Operator Name Role Phone Kimberly Jon Primary Care Provider [phone] Alex Mares PharmD Unavailable [phone] Encounter Details Date Type Department Care Team (Late st Contact Info) Description 11/03/2022 Orders Only [facility] CHC MED & PEDS [address] [place], [place] [phone] Genoveva Ga LPN Social History Tobacco Use [...] 3:00 PM EDT Office Visit [facility] MEDICINE 230 [place], [place] [phone] Kimberly Jon ANP [address] [place], [place] [phone] documented as of this encounter Procedures Procedure [...] HIGH SENSITIVITY <2.7 <3.5 - 17.0 ng/L [facility] Comment:The Nichole high sens itivity Troponin-I results should beused in conjunction with other diagnostic information suchas ECG, clinical observations and information, and patientsymptoms to aid in the diagnosis of [place]. 03/10/2023 1:12 PM EDT 03/10/2023 1:16 PM EDT [facility] External Provider LAB BLO OD ORDERABLES Final Result [facility] [address] [place] [phone] * (ABNORMAL) Magnesium (03/10/2023 1:12 PM EDT) Magnesium 1.3(LL) 1.6 - 2.6 mg/dL [facility] Comment:Critical value for M AG: Results called to and read amanday: NAKIA Person calling: SHAI Date: 03/10/23 Time: 1350 03/10/2023 1:12 PM EDT 03/10/2023 1:16 PM EDT [facility] External Provider LAB BLO OD ORDERABLES Final Result [facility] [address] [place] [address] [phone] * (ABNORMAL) Basic Metabolic Panel (03/10/2023 1:12 PM EDT) Sodium 137 135 - 145 mmol/L [facility] Potassium 4.2 3.3 - 5.1 mmol/L [facility] Chloride 104 96 - 108 mmol/L [facility] Carbon Dioxide 24 22 - 29 mmol/L [facility] Anion Gap 13 12 - 20 [facility] Urea Nitrogen (BUN) 19(H) 9 - 16 mg/dL [facility] Creatinine, Serum 0.87 0.5 - 1.4 mg/dL [facility] Creatinine Clr Calc Pharmacy 46.2 [facility] Comment:Provided height and weight: 157.48 cm,59.874 kg.eGFR (calculated from the MDRD study equation) and eCrCl(calculated from the Cockcroft-Gault equation) are based ondifferent parameters and may not yield comparable results.If eCrCl result is absurd, please check patient'sheight/weight. Estimated Glomerular Filt Rate >60 [facility] Comment:NOTE: For -Am erican individuals, multiply the result by 1.210.Chronic Kidney Disease: Estimated GFR < 60 mL/min/[id number] Kidney Disease: Estimated GFR < 15 mL/min/1.73m2 Glucose 206(H) 60 - 115 mg/dL [facility] Calcium 9.8 8.4 - 10.2 mg/dL [facility] 03/10/2023 1:12 PM EDT 03/10/2023 1:16 PM EDT [facility] External Provider LAB BLO OD ORDERABLES Final Result [facility] [address] [place] [address] [phone] * Hepatic Function Panel (03/10/2023 1:12 PM EDT) Bilirubin, Total 0.6 0.0 - 1.0 mg/dL [facility] Bilirubin, Direct 0.2 0.0 - 0.5 mg/dL [facility] Aspartate Amino Transferase 20 5 - 31 U/L [facility] Alanine Aminotransferase 23 0 - 31 U/L [facility] Total Protein 7.0 6.5 - 8.0 g/dL [facility] Albumin Level 4.4 3.5 - 5.0 g/dL [facility] Alkaline Phosphatase 65 39 - 117 U/L [facility] 03/10/2023 1:12 PM EDT 03/10/2023 1:16 PM EDT [facility] External Provider LAB BLO OD ORDERABLES Final Result Performing Organization Address City/[facility]/ZIP Co de Phone Number [facility] [address] [place] [address] [phone] * B Type Natriuretic Peptide (BNP) (03/10/2023 1:12 PM EDT) Pathologist [facility] B Type Natriuretic Peptide 49 <100 pg/mL [facility] Comment:For those patients w ho are being treated with Natrecor(nesiritide, recombinant BNP), BNP testing should beperformed at least two hours post treatment in order toensure that only endogenous levels of BNP are detected. 03/10/2023 1:12 PM EDT 03/10/2023 1:16 PM EDT [facility] External Provider LAB BLO OD ORDERABLES Final Result Performing Organization Address City/[facility]/ZIP Co de Phone Number [facility] [address] [place] [address] [phone] * Prothrombin Time-INR (03/10/2023 1:12 PM EDT) Prothrombin Time 11.3 10.0 - 13.1 SEC [facility] INTERNATIONAL NORM RATIO 1.0 0.9 - 1.1 [facility] Comment:INTERNATIONAL NORMAL IZED RATIO (INR) REFERENCE [...] PM EDT 03/10/2023 1:16 PM EDT us [facility] External Provider LAB BLO OD ORDERABLES Final Result Performing Organization Address City/State/[facility] Co de Phone Number [facility] [address] [place] [phone] * (ABNORMAL) Urinalysis, Complete, with Reflex to Culture (03/10/2023 1:12 PM EDT) Color Urine Yellow [facility] Appearance Urine Clear [facility] PH 7.0 5.0 - 9.0 [facility] Glucose Urine UA >=1000(A) Negative mg/dL [facility] Urine Blood Negative Negative [facility] Specific [place] - Urine 1.020 1.005 - 1.025 [facility] Urine Protein Negative Neg-Trace mg/dL [facility] Urine Ketones Negative Negative mg/dL [facility] Nitrite Urine Negative Negative [facility] Leukocyte Esterase Urine Negative Negative [facility] RBC Urine 0-2 0 - 2 /HPF [facility] Urine WBC 0-5 0 - 5 /HPF [facility] Urine Squamous Epithelial Cell 0-2 0 - 2 /HPF [facility] Urine Bacteria None Seen None Seen [facility] Hyaline Casts, Urine 0-2 0 - 2 /LPF [facility] 03/10/2023 1:12 PM EDT 03/10/2023 1:16 PM EDT Narrative [facility] - 03/10/2023 1:22 PM EDT [id number], Clean Catch [facility] External Provider LAB URI NE ORDERABLES Final Result [facility] [address] [place] [address] [phone] * (ABNORMAL) CBC auto differential (03/10/2023 1:12 PM EDT) White Blood Count 6.0 4.8 - 10.8 X10*3/uL [facility] Red Blood Count 3.95(L) 4.20 - 5.50 X10*6/uL [facility] Hemoglobin 11.8(L) 12.0 - 16.0 g/dl [facility] Hematocrit 36.0(L) 37.0 - 47.0 % [facility] Mean Corpuscular Volume 91.1 80.0 - 98.0 fL [facility] Mean Corpuscular Hemoglobin 29.9 27.0 - 33.0 pg [facility] Mean Corpuscular HGB Conc 32.8 31.0 - 35.0 g/dl [facility] Red Cell Distribution Width 13.7 11.0 - 16.0 % [facility] Platelet Count 352 160 - 400 X10*3/uL [facility] Mean Platelet Volume 10.2 9.4 - 12.3 fL [facility] Neutrophils Percent Auto 51.2 45 - 73 % [facility] Imm Gran Pct Auto 0.5(H) 0.0 - 0.4 % [facility] Lymphocytes Percent Auto 36.8 20 - 40 % [facility] Monocytes Percent Auto 8.0 2 - 11 % [facility] Eosinophils Percent Auto 2.2 0 - 4 % [facility] Basophils Percent Auto 1.3 0 - 2 % [facility] NRBC Pct Auto 0.0 0.0 - 0.2 /100WBC [facility] Neutrophils Absolute Auto 3.1 2.0 - 8.3 x10*3/uL [facility] Imm Gran Abs Auto 0.03 0.00 - 0.03 X10*3/uL [facility] Lymphocytes Absolute Auto 2.2 1.2 - 4.9 X10*3/uL [facility] Monocytes Absolute Auto 0.5 0.1 - 1.2 X10*3/uL [facility] Eosinophils Absolute Auto 0.1 0.0 - 0.4 X10*3/uL [facility] Basophils Absolute Auto 0.1 0.0 - 0.2 X10*3/uL [facility] NRBC Abs Auto 0.000 0.0 - 0.012 X10*3/uL [facility] 03/10/2023 1:12 PM EDT 03/10/2023 1:16 PM EDT us [facility] External Provider LAB BLO OD ORDERABLES Final Result [facility] [address] [place] [address] [phone] documented in this encounter Visit Diagnoses Not on filedocumented in this encounter Care Teams Skid Machine Operator Relationship Specialty Start Date End Date Kimberly Jon ANP [address] [place] [address] PCP - General Family Medicine 06/24/22 Alex Mares PharmD [address] [place] [address] Pharmacist Internal Medicine 06/07/24 documented as of this encounter
--- OUTSIDE RECORDS SUMMARY | 2025-10-27 14:06 | XMS_ITS | Encounter Summary ---
Author Organization [employer] [facility] Address [address] [place] [address] 7t [place] [address] Care Team Providers Care Lecturer In Marketing Name Role Phone Kimberly Jon Primary Care Provider [phone] Alex Mares PharmD Unavailable [phone] Encounter Details Date Type Department Care Team (Late st Contact Info) Description 12/29/2022 Abstract [facility] ADULT DENTAL [address] [place], [place] [phone] Dk Saldana DMD [address] [place] [address] Social History Tobacco Use Types Packs/Day Years [...] Description 01/07/2026 3:00 PM EDT Office Visit [facility] MEDICINE [address] [place], [place] [phone] Kimberly Jon ANP [address] [place] [address] documented as of this encounter Visit Diagnoses Not on filedocumented in this encounter Care Teams Lecturer In Marketing Relationship Specialty Start Date End Date Kimberly Jon ANP [address] [place] [phone] PCP - General Family Medicine 06/24/22 Alex Mares PharmD [address] [place] [address] Pharmacist Internal Medicine 06/07/24 documented as of this encounter
--- OUTSIDE RECORDS SUMMARY | 2025-10-27 14:06 | XMS_ITS | Encounter Summary ---
Author Organization [facility] [employer] Address [address] [place] [address] 7t [place] [address] Care Team Providers Care Lead Android Developer Name Role Phone Kimberly Jon Primary Care Provider [phone] Alex Mares PharmD Unavailable [phone] Reason for Visit * Reason Comments Med Refill Encounter Details Date Type Department Care Team ([facility] st Contact Info) Description 07/25/2025 Refill [facility] MEDICINE [address] [place], [place] [phone] Kimberly Jon ANP [address] [place], [place] [phone] Pain Social History Tobacco Use Types Packs/Day [...] Description 01/07/2026 3:00 PM EDT Office Visit [facility] MEDICINE [address] [place] [address] Kimberly Jon ANP [address] [place] [address] documented as of this encounter Goals Goal Patient Goal Type Associated Problems Recent Progress Patient-Stated? Author Blood Pressure < 140/90 Blood Pressure 120/60(2024 11:14 AM EST) No Alex Mares PharmD Hemoglobin A1c < 7 Result Component 6.4( 11:16 AM EST) No Alex Mares PharmD documented as of this encounter Visit Diagnoses Diagnosis Pain Generalized pain documented in this encounter Additional Health Concerns Assessment Noted Time PHQ-9 Depression Total Score: 0 06/09/20 25 11:07 AM EDT documented as of this encounter Care Teams Lead Android Developer Relationship Specialty Start Date End Date Kimberly Jon ANP [address] [place] [phone] PCP - General Family Medicine 06/24/22 Alex Mares PharmD [address] [place] [phone] Pharmacist Internal Medicine 06/07/24 documented as of this encounter
--- OUTSIDE RECORDS SUMMARY | 2025-10-27 14:07 | XMS_ITS | Encounter Summary ---
Author Organization [employer] Address 75 [facility] 7t [place] [address] Care Team Providers Care Fermenter Wine Name Role Phone Kimberly Jon Primary Care Provider [phone] Alex Mares PharmD Unavailable [phone] Encounter Details Date Type Department Care Team ([facility] st Contact Info) Description 04/30/2024 Telephone [facility] ADULT DENTAL [address] [place], [place] [phone] Dk Saldana, STALIN [address] [place], [place] [phone] Social History Tobacco Use Types Packs/Day Years [...] Description 01/07/2026 3:00 PM EDT Office Visit [facility] MEDICINE [address] [place] [address] Kimberly Jon ANP [address] [place] [address] documented as of this encounter Visit Diagnoses Not on filedocumented in this encounter Care Teams Fermenter Wine Relationship Specialty Start Date End Date Kimberly Jon ANP [address] [place] [phone] PCP - General Family Medicine 06/24/22 Alex Mares, Laura [address] [place] [phone] Pharmacist Internal Medicine 06/07/24 documented as of this encounter
[2025-10-27 14:51] LABS: Alanine Aminotransferase 17 U/L (0-31); Albumin Level 4.7 g/dL (3.5-5.0); Alkaline Phosphatase 56 U/L (39-117); Aspartate Amino Transferase 27 U/L (5-31); Cholesterol 111 mg/dL (<200); HDL Cholesterol 40 mg/dL (>40); Total Protein 7.4 g/dL (6.5-8.0); Triglycerides 139 mg/dL (<150)
[2025-10-27 15:08] LABS: Magnesium 0.9 mg/dL (1.6-2.6)
== END 2025-10-27 12:01 ==
LOC: HO.HHCL 12:00
PROVIDERS: PCP Nurse Practitioner Primary Care; Visit Provider Nurse Practitioner Primary Care
DX: E11.69 Type 2 diabetes mellitus with other specified complication (principal); E78.5 Hyperlipidemia, unspecified; E83.42 Hypomagnesemia
CPT/HCPCS: 36415; 80061; 80076; 83735

== ENCOUNTER 2025-10-29 13:31 | Outpatient (REF) | payer OTHER, SELFPAY ==
--- OUTSIDE RECORDS SUMMARY | 2025-10-29 14:56 | XMS_ITS | Encounter Summary ---
Author Organization [employer] Address 75 [facility] 7t [place] [address] Care Team Providers Care Director Community Health Nursing Name Role Phone Kimberly Jon Primary Care Provider [phone] Alex Mares PharmD Unavailable [phone] Encounter Details Date Type Department Care Team ([facility] st Contact Info) Description 08/21/2023 Orders Only [facility] CHC MED & PEDS [address] [place], [place] [phone] Marisel Asencio LPN Social History Tobacco Use [...] Description 01/07/2026 3:00 PM EDT Office Visit [facility] MEDICINE [address] [place] [phone] Kimberly Jon ANP [address] [place] [address] 01/16/2026 9:30 AM EDT Medication Management [address] [phone] Alex Mares, Laura [address] [place] [address] documented as of this encounter Visit Diagnoses Not on filedocumented in this encounter Care Teams Director Community Health Nursing Relationship Specialty Start Date End Date Kimberly Jon ANP [address] [place] [phone] PCP - General Family Medicine 06/24/22 Alex Mares PharmD [address] [place] [address] Pharmacist Internal Medicine 06/07/24 documented as of this encounter
--- OUTSIDE RECORDS SUMMARY | 2025-10-29 14:56 | XMS_ITS | Encounter Summary ---
Author Organization [employer] Address 75 [facility] 7t [place] [address] Care Team Providers Care Wearing Apparel Assembler Name Role Phone Kimberly Jon Primary Care Provider [phone] Alex Mares PharmD Unavailable [phone] Encounter Details Date Type Department Care Team ([facility] st Contact Info) Description 08/17/2023 Orders Only [facility] CHC MED & PEDS [address] [place], [place] [phone] Genoveva Ga LPN Social History Tobacco Use [...] 01/07/2026 3:00 PM EDT Office Visit [facility] MEDICINE [address] [place] [phone] Kimberly Jon ANP [address] [place] [address] 01/16/2026 9:30 AM EDT Medication Management [address] [address] Alex Mares, Laura [address] [place] [address] documented as of this encounter Visit Diagnoses Not on filedocumented in this encounter Care Teams Wearing Apparel Assembler Relationship Specialty Start Date End Date Kimberly Jon ANP [address] [place] [phone] PCP - General Family Medicine 06/24/22 Alex Mares PharmD [address] [place] [address] Pharmacist Internal Medicine 06/07/24 documented as of this encounter
--- OUTSIDE RECORDS SUMMARY | 2025-10-29 14:56 | XMS_ITS | Encounter Summary ---
Author Organization [employer] Address [address] [place] [address] 7t [place] [address] Care Team Providers Care Park Superintendent Name Role Phone Kimberly Jon Primary Care Provider [phone] Alex Mares PharmD Unavailable [phone] Encounter Details Date Type Department Care Team (Late st Contact Info) Description 07/20/2023 Orders Only [facility] PEDS [address] [place], [place] [phone] Genoveva Ga LPN Social History Tobacco Use [...] Description 01/07/2026 3:00 PM EDT Office Visit [facility] MEDICINE [address] [place] [address] [phone] Kimberly Jon ANP [address] [place] [address] [phone] 01/16/2026 9:30 AM EDT Medication Management [facility] [address] [place] [address] Alex Mares, PharmD [address] [place] [address] documented as of this encounter Visit Diagnoses Not on filedocumented in this encounter Care Teams Park Superintendent Relationship Specialty Start Date End Date Kimberly Jon ANP [address] [place] [address] PCP - General Family Medicine 06/24/22 Alex Mares, PharmD [address] [place] [address] Pharmacist Internal Medicine 06/07/24 documented as of this encounter
--- OUTSIDE RECORDS SUMMARY | 2025-10-29 14:57 | XMS_ITS | Encounter Summary ---
Author Organization [employer] Address [address] [place] [address] 7t [place] [address] Care Team Providers Care Psychologist Research Assistant Name Role Phone Kimberly Jon Primary Care Provider [phone] Alex Mares PharmD Unavailable [phone] Encounter Details Date Type Department Care Team (Late st Contact Info) Description 03/23/2023 Orders Only [facility] MED & PEDS [address] [place], [place] [phone] Genoveva Ga LPN Social History Tobacco Use [...] 3:00 PM EDT Office Visit [facility] MEDICINE [address] [place] [address] [phone] Kimberly Jon ANP [address] [place], [place] [phone] 01/16/2026 9:30 AM EDT Medication Management [facility] MEDICINE [address] [place], [place] [phone] Alex Mares, PharmD [address] [place] [address] documented as of this encounter Visit Diagnoses Not on filedocumented in this encounter Care Teams Psychologist Research Assistant Relationship Specialty Start Date End Date Kimberly Jon ANP [address] [place] [address] PCP - General Family Medicine 06/24/22 Alex Mares PharmD [address] [place] [address] Pharmacist Internal Medicine 06/07/24 documented as of this encounter
--- OUTSIDE RECORDS SUMMARY | 2025-10-29 14:57 | XMS_ITS | Encounter Summary ---
Author Organization [employer] Address [address] [facility] 7t [place] [address] Care Team Providers Care Airport Operations Duty Manager Name Role Phone Kimberly Jon Primary Care Provider [phone] Alex Mares PharmD Unavailable [phone] Encounter Details Date Type Department Care Team ([facility] Contact Info) Description 10/28/2025 Telephone [facility] MEDICINE [address] [place], [place] [phone] Kimberly Jon ANP [address] [place], [place] [phone] Social History Tobacco Use Types Packs/Day Years [...] encounter Miscellaneous Notes * Telephone Encounter - Aggie Sheldon - 10/28/2025 3:30 PM EST Normal lab test letter sent on 10/28/2025. documented in this encounter Plan of Treatment Upcoming Encounters Date Type Department Care Team (Late st Contact Info) Description 01/07/2026 3:00 PM EDT Office Visit [facility] MEDICINE [address] [place] [phone] Kimberly Jon, TESSY [address] [place] [address] 01/16/2026 9:30 AM EDT Medication Management [facility] MEDICINE [address] [place] [phone] Alex Mares, PharmD [address] [place] [address] documented as of this encounter Goals Goal Patient Goal Type Associated Problems Recent Progress Patient-Stated? Author Blood Pressure < 140/90 Blood Pressure 120/60(2024 11:14 AM EST) No Alex Mares PharmD Hemoglobin A1c < 7 Result Component 6.4( 11:16 AM EST) No Alex Mares, Laura Help patients manage their type 2 diabetes Care Plan Help patients manage their type 2 diabetes No AsencioChristianoga, FREIGHT WEIGHER Weekly blood pressure task Care Plan Weekly blood pressure task No AsencioChristianoga, FREIGHT WEIGHER Help patients manage their type 2 diabetes Care Plan Help patients manage their type 2 diabetes No AsencioChristianoga, FREIGHT WEIGHER Patient has diabetic eye disease Care Plan Patient has diabetic eye disease No Asencio, Marisel, FREIGHT WEIGHER Help patients manage their type 2 diabetes Care Plan Help patients manage their type 2 diabetes No Asencio, Marisel, FREIGHT WEIGHER Patient has chronic kidney disease Care Plan Patient has chronic kidney disease No Asencio, Marisel, FREIGHT WEIGHER Weekly blood pressure task Care Plan Weekly blood pressure task No AsencioChristianoga, FREIGHT WEIGHER Weekly blood pressure task Care Plan Weekly blood pressure task No Asencio, Marisel, FREIGHT WEIGHER Patient has diabetic eye disease Care Plan Patient has diabetic eye disease No Asencio, Marisel, FREIGHT WEIGHER Patient has diabetic eye disease Care Plan Patient has diabetic eye disease No Asencio, Marisel, FREIGHT WEIGHER Patient has chronic kidney disease Care Plan Patient has chronic kidney disease No AsencioChristianoga, FREIGHT WEIGHER Patient has chronic kidney disease Care Plan Patient has chronic kidney disease No Asencio, Marisel, FREIGHT WEIGHER Weekly blood pressure task Care Plan Weekly [...] Plan Patient has chronic kidney disease No Karina Morrell [place] Weekly blood pressure task Care Plan Weekly blood pressure task No Kamila Leslieshira [place] Weekly blood pressure task Care Plan Weekly blood pressure task No Anuj [facility] [place] Weekly blood pressure task Care Plan Weekly blood pressure task No Anuj [place], [place] Patient has diabetic eye disease Care Plan Patient has diabetic eye disease No Kamila Leslieshira [place] Patient has diabetic eye disease Care Plan Patient has diabetic eye disease No Anuj [place], [place] Patient has diabetic eye disease Care Plan Patient has diabetic eye disease No Anuj [place], [place] Patient has chronic kidney disease Care Plan Patient has chronic kidney disease No Kamila Leslieshira [place] Patient has chronic kidney disease Care Plan Patient has chronic kidney disease No Anuj Jena [place] Patient has chronic kidney disease Care Plan Patient has chronic kidney disease No Kamila Leslieshira [place] Weekly blood pressure task Care Plan Weekly blood pressure task No Alex Olivas PharmD Weekly blood pressure task Care Plan Weekly blood pressure task No Alex Olivas PharmD Weekly blood pressure task Care Plan Weekly blood pressure task No Alex Olivas, PharmD Patient has diabetic [...] chronic kidney disease No Alex Olivas, PharmD Weekly blood pressure task Care Plan Weekly blood pressure task No Krystal Veloz MD Weekly blood pressure task Care Plan Weekly blood pressure task No Krystal Veloz MD Weekly blood pressure task Care Plan Weekly blood pressure task No Krystal Veloz MD Patient has diabetic eye disease Care Plan Patient has diabetic eye disease No Krystal Veloz MD Patient has diabetic eye disease Care Plan Patient has diabetic eye disease No Krystal Veloz MD Patient has diabetic eye disease Care Plan Patient has diabetic eye disease No Krystal Veloz MD Patient has chronic kidney disease Care Plan Patient has chronic kidney disease No Krystal Veloz MD Patient has chronic kidney disease Care Plan Patient has chronic kidney disease No Krystal Veloz MD Patient has chronic kidney disease Care Plan Patient has chronic kidney disease No Krystal Veloz MD Weekly blood pressure task Care Plan Weekly blood pressure task No Kayce Mg RN Weekly blood pressure task Care Plan Weekly blood pressure task No Kayce Mg RN Weekly blood pressure task Care Plan Weekly blood pressure task No Kayce Mg RN Patient has diabetic eye disease Care Plan Patient has diabetic eye disease No Kayce Mg RN Patient has diabetic eye disease Care Plan Patient has diabetic eye disease No Kayce Mg RN Patient has diabetic eye disease Care Plan Patient has diabetic eye disease No Kayce Mg RN Patient has chronic kidney disease Care Plan Patient has chronic kidney disease No Kayce Mg RN Patient has chronic kidney disease Care Plan Patient has chronic kidney disease No Kayce Mg RN Patient has chronic kidney disease Care Plan Patient has chronic kidney disease No Kayce Mg RN Weekly blood pressure task Care Plan Weekly blood pressure task No Kimberly Jon ANP Weekly blood pressure task Care Plan Weekly blood pressure task No Kimberly Jon ANP Weekly blood pressure task Care Plan Weekly blood pressure task No Kimberly Jon ANP Patient has diabetic eye disease Care Plan Patient has diabetic eye disease No Kimberly Jon ANP Patient has diabetic eye disease Care Plan Patient has diabetic eye disease No Kimberly Jon ANP Patient has diabetic eye disease Care Plan Patient has diabetic eye disease No Kimberly Jon ANP Patient has chronic kidney disease Care Plan Patient has chronic kidney disease No Kimberly Jon ANP Patient has chronic kidney disease Care Plan Patient has chronic kidney disease No Kimberly Jon ANP Patient has chronic kidney disease Care Plan Patient has chronic kidney disease No Kimberly Jon ANP Weekly blood pressure task Care Plan Weekly blood pressure task No Kimberly Jon ANP Weekly blood pressure task Care Plan Weekly blood pressure task No Kimberly Jon ANP Weekly blood pressure task Care Plan Weekly blood pressure task No Kimberly Jon ANP Patient has diabetic eye disease Care Plan Patient has diabetic eye disease No Kimberly Jon ANP Patient has diabetic eye disease Care Plan Patient has diabetic eye disease No Kimberly Jon ANP Patient has diabetic eye disease Care Plan Patient has diabetic eye disease No Kimberly Jon ANP Patient has chronic kidney disease Care Plan Patient has chronic kidney disease No Kimberly Jon ANP Patient has chronic kidney disease Care Plan Patient has chronic kidney disease No Kimberly Jon ANP Patient has chronic kidney disease Care Plan Patient has chronic kidney disease No Kimberly Jon ANP Weekly blood pressure task Care Plan Weekly blood pressure task No Ricardo Falk Weekly blood pressure task Care Plan Weekly blood pressure task No Ricardo Fakl Weekly blood pressure task Care Plan Weekly blood pressure task No Ricardo Falk Patient has diabetic eye disease Care Plan Patient has diabetic eye disease No Ricardo Falk Patient has diabetic eye disease Care Plan Patient has diabetic eye disease No Ricardo Falk Patient has diabetic eye disease Care Plan Patient has diabetic eye disease No Ricardo Falk Patient has chronic kidney disease Care Plan Patient has chronic kidney disease No Ricardo Falk Patient has chronic kidney disease Care Plan Patient has chronic kidney disease No Ricardo Falk Patient has chronic kidney disease Care Plan Patient has chronic kidney disease No Ricardo Falk Weekly blood pressure task Care Plan Weekly blood pressure task No Aggie Sheldon Weekly blood pressure task Care Plan Weekly blood pressure task No Aggie Sheldon Weekly blood pressure task Care Plan Weekly blood pressure task No Aggie Sheldon Patient has diabetic eye disease Care Plan Patient has diabetic eye disease No Aggie Sheldon Patient has diabetic eye disease Care Plan Patient has diabetic eye disease No Aggie Sheldon Patient has diabetic eye disease Care Plan Patient has diabetic eye disease No Aggie Sheldon Patient has chronic kidney disease Care Plan Patient has chronic kidney disease No Aggie Sheldon Patient has chronic kidney disease Care Plan Patient has chronic kidney disease No Aggie Sheldon Patient has chronic kidney disease Care Plan Patient has chronic kidney disease No Aggie Sheldon documented as of this encounter Visit Diagnoses Not on filedocumented in this encounter Additional Health Concerns Active [...] 10/27/2025 Patient has chronic kidney disease 10/27/2025 Weekly blood pressure task 10/27/2025 Weekly blood pressure task 10/27/2025 Weekly blood pressure task 10/27/2025 Patient has diabetic eye disease 10/27/2025 Patient has diabetic eye disease 10/27/2025 Patient has diabetic eye disease 10/27/2025 Patient has chronic kidney disease 10/27/2025 Patient has chronic kidney disease 10/27/2025 Patient has chronic kidney disease 10/27/2025 Weekly blood pressure task 10/27/2025 Weekly blood pressure task 10/27/2025 Weekly blood pressure task 10/27/2025 Patient has diabetic eye disease 10/27/2025 Patient has diabetic eye disease 10/27/2025 Patient has diabetic eye disease 10/27/2025 Patient has chronic kidney disease 10/27/2025 Patient has chronic kidney disease 10/27/2025 Patient has chronic kidney disease 10/27/2025 Weekly blood pressure task 10/28/2025 Weekly blood pressure task 10/28/2025 Weekly blood pressure task 10/28/2025 Patient has diabetic eye disease 10/28/2025 Patient has diabetic eye disease 10/28/2025 Patient has diabetic eye disease 10/28/2025 Patient has chronic kidney disease 10/28/2025 Patient has chronic kidney disease 10/28/2025 Patient has chronic kidney disease 10/28/2025 Weekly blood pressure task 10/28/2025 Weekly blood pressure task 10/28/2025 Weekly blood pressure task 10/28/2025 Patient has diabetic eye disease 10/28/2025 Patient has diabetic eye disease 10/28/2025 Patient has diabetic eye disease 10/28/2025 Patient has chronic kidney disease 10/28/2025 Patient has chronic kidney disease 10/28/2025 Patient has chronic kidney disease 10/28/2025 Weekly blood pressure task 10/28/2025 Weekly blood pressure task 10/28/2025 Weekly blood pressure task 10/28/2025 Patient has diabetic eye disease 10/28/2025 Patient has diabetic eye disease 10/28/2025 Patient has diabetic eye disease 10/28/2025 Patient has chronic kidney disease 10/28/2025 Patient has chronic kidney disease 10/28/2025 Patient has chronic kidney disease 10/28/2025 Weekly blood pressure task 10/28/2025 Weekly blood pressure task 10/28/2025 Weekly blood pressure task 10/28/2025 Patient has diabetic eye disease 10/28/2025 Patient has diabetic eye disease 10/28/2025 Patient has diabetic eye disease 10/28/2025 Patient has chronic kidney disease 10/28/2025 Patient has chronic kidney disease 10/28/2025 Patient has chronic kidney disease 10/28/2025 Assessment Noted Time PHQ-9 Depression Total Score: 0 06/09/20 25 11:07 AM EDT documented as of this encounter Care Teams Airport Operations Duty Manager Relationship Specialty Start Date End Date Kimberly Jon ANP [address] [place] [address] PCP - General Family Medicine 06/24/22 Alex Mares PharmD [address] [place] [address] Pharmacist Internal Medicine 06/07/24 documented as of this encounter
--- OUTSIDE RECORDS SUMMARY | 2025-10-29 14:57 | XMS_ITS | Encounter Summary ---
Author Organization [employer] Address [address] [facility] 7t [place] [address] Care Team Providers Care Equipment Superintendent Name Role Phone Kimberly Jon Primary Care Provider [phone] Alex Mares PharmD Unavailable [phone] Encounter Details Date Type Department Care Team ([facility] st Contact Info) Description 10/27/2025 Refill [facility] MEDICINE [address] [place], [place] [phone] Kimberly Jon ANP [address] [place], [place] [phone] Type 2 diabetes mellitus with hyperlipidemia (HCC); [...] the past 12 months, has t he [employer], gas, oil or water [employer] threatened to shut off services in your [...] encounter Miscellaneous Notes * Telephone Encounter - Kayce Garnica RN - 10/27/2025 3:09 PM EST T/C from [facility] labs with a critical result for pt. Magnesium 0.9 at this time. documented in this encounter Plan of Treatment Upcoming Encounters Date Type Department Care Team (Late st Contact Info) Description 01/07/2026 3:00 PM EDT Office Visit [facility] MEDICINE [address] [place] [phone] Kimberly Jon, ANP [address] [place] [address] 01/16/2026 9:30 AM EDT Medication Management [facility] MEDICINE [address] [place] [phone] Alex Mares, PharmD [address] [place] [phone] documented as of this encounter Goals Goal Patient Goal Type Associated Problems Recent Progress Patient-Stated? Author Blood Pressure < 140/90 Blood Pressure 120/60(2024 11:14 AM EST) Alex Kelly PharmD Hemoglobin A1c < 7 Result Component 6.4( 11:16 AM EST) No Alex Mares, Laura Help patients manage their type 2 diabetes Care Plan Help patients manage their type 2 diabetes No AsencioChristianoga, OIL REFINER Weekly blood pressure task Care Plan Weekly blood pressure task No AsencioChristianoga, OIL REFINER Help patients manage their type 2 diabetes Care Plan Help patients manage their type 2 diabetes No AsencioChristianoga, OIL REFINER Patient has diabetic eye disease Care Plan Patient has diabetic eye disease No Asencio Marisel, OIL REFINER Help patients manage their type 2 diabetes Care Plan Help patients manage their type 2 diabetes No AsencioChristianoga, OIL REFINER Patient has chronic kidney disease Care Plan Patient has chronic kidney disease No AsencioChristianoga, OIL REFINER Weekly blood pressure task Care Plan Weekly blood pressure task No AsencioChristianoga, OIL REFINER Weekly blood pressure task Care Plan Weekly blood pressure task No AsencioChristianoga, OIL REFINER Patient has diabetic eye disease Care Plan Patient has diabetic eye disease No AsencioChristianoga, OIL REFINER Patient has diabetic eye disease Care Plan Patient has diabetic eye disease No AsencioChristianoga, OIL REFINER Patient has chronic kidney disease Care Plan Patient has chronic kidney disease No AsencioChristianoga, OIL REFINER Patient has chronic kidney disease Care Plan Patient has chronic kidney disease No AsencioChristianoga, OIL REFINER Weekly blood pressure task Care Plan Weekly [...] Weekly blood pressure task No Jena Leslie [place] Weekly blood pressure task Care Plan Weekly blood pressure task No Kamila Leslieshira [place] Weekly blood pressure task Care Plan Weekly blood pressure task No Kamila Leslieshira [place] Patient has diabetic eye disease Care Plan Patient has diabetic eye disease No Kamila Leslieshira [place] Patient has diabetic eye disease Care Plan Patient has diabetic eye disease No Kamila Leslieshira [place] Patient has diabetic eye disease Care Plan Patient has diabetic eye disease No Kamila Leslieshira [place] Patient has chronic kidney disease Care Plan Patient has chronic kidney disease No Kamila Leslieshira [place] Patient has chronic kidney disease Care Plan Patient has chronic kidney disease No Kamila Leslieshneymar [place] Patient has chronic kidney disease Care Plan Patient has chronic kidney disease No Kamila Leslieshira [place] Weekly blood pressure task Care Plan Weekly [...] chronic kidney disease No Alex Olivas PharmD Weekly blood pressure [...] Plan Patient has diabetic eye disease No Magdiel, Krystal, MD Patient has diabetic eye disease Care Plan Patient has diabetic eye disease Krystal Tran MD Patient has chronic kidney disease Care Plan Patient has chronic kidney disease Krystal Tran MD Patient has chronic kidney disease Care Plan Patient has chronic kidney disease Krystal Tran MD Patient has chronic kidney disease Care Plan Patient has chronic kidney disease Krystal Tran MD Weekly blood pressure task Care Plan [...] Care Plan Patient has chronic kidney disease Kayce Dyson RN Patient has chronic kidney disease Care Plan Patient has chronic kidney disease Kayce Dyson RN documented as of this encounter Visit Diagnoses [...] documented as of this encounter Care Teams Equipment Superintendent Relationship Specialty Start Date End Date Kimberly Jon ANP [address] [place] [phone] PCP - General Family Medicine 06/24/22 Alex Mares, PharmD [address] [place] [address] Pharmacist Internal Medicine 06/07/24 documented as of this encounter
--- OUTSIDE RECORDS SUMMARY | 2025-10-29 14:57 | XMS_ITS | Encounter Summary ---
Author Organization [employer] Address [address] [place] [address] 7t [place] [address] Care Team Providers Care Customer Service And Sales Consultant Name Role Phone Kimberly Jon Primary Care Provider [phone] Alex Mares PharmD Unavailable [phone] Encounter Details Date Type Department Care Team (Late st Contact Info) Description 11/03/2022 Orders Only [facility] MED & PEDS [address] [place], [place] [phone] Genoveva Ga LPN Social History Tobacco Use [...] Description 01/07/2026 3:00 PM EDT Office Visit [facility] MEDICINE [address] [place] [phone] Kimberly Jon ANP [address] [place] [phone] 01/16/2026 9:30 AM EDT Medication Management [facility] MEDICINE [address] [place] [phone] Alex Mares, PharmD [address], [place] [phone] documented as of this encounter Procedures Procedure [...] Troponin I (03/10/2023 1:12 PM EDT) Pathologist [facility] TROPONIN I HIGH SENSITIVITY <2.7 <3.5 - 17.0 ng/L [facility] Comment:The Nichole high sens itivity Troponin-I results should beused in conjunction with other diagnostic information suchas ECG, clinical observations and information, and patientsymptoms to aid in the diagnosis of [place]. 03/10/2023 1:12 PM EDT 03/10/2023 1:16 PM EDT us [employer] External Provider LAB BLO OD ORDERABLES Final Result [facility] [address] [place] [phone] * (ABNORMAL) Magnesium (03/10/2023 1:12 PM EDT) Pathologist [facility] Magnesium 1.3(LL) 1.6 - 2.6 mg/dL [facility] Comment:Critical value for M AG: Results called to and read gladis: NAKIA Person calling: SHAI Date: 03/10/23 Time: 1350 03/10/2023 1:12 PM EDT 03/10/2023 1:16 PM EDT us [employer] External Provider LAB BLO OD ORDERABLES Final Result [facility] [address] [place] [address] [phone] * (ABNORMAL) Basic Metabolic Panel (03/10/2023 1:12 PM EDT) Sodium 137 135 - 145 mmol/L [facility] Potassium 4.2 3.3 - 5.1 mmol/L [facility] Chloride 104 96 - 108 mmol/L [facility] Carbon Dioxide 24 22 - 29 mmol/L [facility] Anion Gap 13 12 - 20 [facility] Urea Nitrogen (BUN) 19(H) 9 - 16 mg/dL [facility] Creatinine, Serum 0.87 0.5 - 1.4 mg/dL [facility] Creatinine Clr Calc Pharmacy 46.2 [facility] Comment:Provided height and weight: 157.48 cm,59.874 kg.eGFR (calculated from the MDRD study equation) and eCrCl(calculated from the Cockcroft-Gault equation) are based ondifferent parameters and may not yield comparable results.If eCrCl result is absurd, please check patient'sheight/weight. Estimated Glomerular Filt Rate >60 [facility] Comment:NOTE: For -Am erican individuals, multiply the result by 1.210.Chronic Kidney Disease: Estimated GFR < 60 mL/min/1.21p1Pfwbpp Kidney Disease: Estimated GFR < 15 mL/min/1.73m2 Glucose 206(H) 60 - 115 mg/dL [facility] Calcium 9.8 8.4 - 10.2 mg/dL [facility] 03/10/2023 1:12 PM EDT 03/10/2023 1:16 PM EDT [facility] External Provider LAB BLO OD ORDERABLES Final Result Performing Organization Address [facility] Co de Phone Number [facility] [address] [place] [address] [phone] * Hepatic Function Panel (03/10/2023 1:12 PM EDT) Bilirubin, Total 0.6 0.0 - 1.0 mg/dL [facility] Bilirubin, Direct 0.2 0.0 - 0.5 mg/dL [facility] Aspartate Amino Transferase 20 5 - 31 U/L [facility] Alanine Aminotransferase 23 0 - 31 U/L [facility] Total Protein 7.0 6.5 - 8.0 g/dL [facility] Albumin Level 4.4 3.5 - 5.0 g/dL [facility] Alkaline Phosphatase 65 39 - 117 U/L [facility] 03/10/2023 1:12 PM EDT 03/10/2023 1:16 PM EDT Result [facility] External Provider LAB BLO OD ORDERABLES Final Result Performing Organization Address [facility] de Phone Number [facility] [address] [place] [address] [phone] * B Type Natriuretic Peptide (BNP) (03/10/2023 1:12 PM EDT) B Type Natriuretic Peptide 49 <100 pg/mL [facility] Comment:For those patients w ho are being treated with Natrecor(nesiritide, recombinant BNP), BNP testing should beperformed at least two hours post treatment in order toensure that only endogenous levels of BNP are detected. 03/10/2023 1:12 PM EDT 03/10/2023 1:16 PM EDT [facility] External Provider LAB BLO OD ORDERABLES Final Result Performing Organization Address [facility]/ZIP Co de Phone Number [facility] [address] [place] [phone] * Prothrombin Time-INR (03/10/2023 1:12 PM EDT) [facility] Signature Prothrombin Time 11.3 10.0 - 13.1 SEC [facility] INTERNATIONAL NORM RATIO 1.0 0.9 - 1.1 [facility] Comment:INTERNATIONAL NORMAL IZED RATIO (INR) REFERENCE [...] 1:12 PM EDT 03/10/2023 1:16 PM EDT [facility] External Provider LAB BLO OD ORDERABLES Final Result Performing Organization Address [facility] Co de Phone Number [facility] [address] [place] [phone] * (ABNORMAL) Urinalysis, Complete, with Reflex to Culture (03/10/2023 1:12 PM EDT) Color Urine Yellow [facility] Appearance Urine Clear [facility] PH 7.0 5.0 - 9.0 [facility] Glucose Urine UA >=1000(A) Negative mg/dL [facility] Urine Blood Negative Negative [facility] Specific [place] - Urine 1.020 1.005 - 1.025 [facility] Urine Protein Negative Neg-Trace mg/dL [facility] Urine Ketones Negative Negative mg/dL [facility] Nitrite Urine Negative Negative [facility] Leukocyte Esterase Urine Negative Negative [facility] RBC Urine 0-2 0 - 2 /HPF [facility] Urine WBC 0-5 0 - 5 /HPF [facility] Urine Squamous Epithelial Cell 0-2 0 - 2 /HPF [facility] Urine Bacteria None Seen None Seen [facility] Hyaline Casts, Urine 0-2 0 - 2 /LPF [facility] 03/10/2023 1:12 PM EDT 03/10/2023 1:16 PM EDT Narrative [facility] - 03/10/2023 1:22 PM EDT [id number], Clean Catch us [employer] External Provider LAB URI NE ORDERABLES Final Result [facility] [address] [place] [phone] [phone] * (ABNORMAL) CBC auto differential (03/10/2023 1:12 PM EDT) White Blood Count 6.0 4.8 - 10.8 X10*3/uL [facility] Red Blood Count 3.95(L) 4.20 - 5.50 X10*6/uL [facility] Hemoglobin 11.8(L) 12.0 - 16.0 g/dl [facility] Hematocrit 36.0(L) 37.0 - 47.0 % [facility] Mean Corpuscular Volume 91.1 80.0 - 98.0 fL [facility] Mean Corpuscular Hemoglobin 29.9 27.0 - 33.0 pg [facility] Mean Corpuscular HGB Conc 32.8 31.0 - 35.0 g/dl [facility] Red Cell Distribution Width 13.7 11.0 - 16.0 % [facility] Platelet Count 352 160 - 400 X10*3/uL [facility] Mean Platelet Volume 10.2 9.4 - 12.3 fL [facility] Neutrophils Percent Auto 51.2 45 - 73 % [facility] Imm Gran Pct Auto 0.5(H) 0.0 - 0.4 % [facility] Lymphocytes Percent Auto 36.8 20 - 40 % [facility] Monocytes Percent Auto 8.0 2 - 11 % [facility] Eosinophils Percent Auto 2.2 0 - 4 % [facility] Basophils Percent Auto 1.3 0 - 2 % [facility] NRBC Pct Auto 0.0 0.0 - 0.2 /100WBC [facility] Neutrophils Absolute Auto 3.1 2.0 - 8.3 x10*3/uL [facility] Imm Gran Abs Auto 0.03 0.00 - 0.03 X10*3/uL [facility] Lymphocytes Absolute Auto 2.2 1.2 - 4.9 X10*3/uL [facility] Monocytes Absolute Auto 0.5 0.1 - 1.2 X10*3/uL [facility] Eosinophils Absolute Auto 0.1 0.0 - 0.4 X10*3/uL [facility] Basophils Absolute Auto 0.1 0.0 - 0.2 X10*3/uL [facility] NRBC Abs Auto 0.000 0.0 - 0.012 X10*3/uL [facility] 03/10/2023 1:12 PM EDT 03/10/2023 1:16 PM EDT [facility] External Provider LAB BLO OD ORDERABLES Final Result Performing Organization Address City/State/[facility] Co de Phone Number [facility] [address] [place] [address] [phone] documented in this encounter Visit Diagnoses Not on filedocumented in this encounter Care Teams Customer Service And Sales Consultant Relationship Specialty Start Date End Date Kimberly Jon ANP [address] [place] [address] PCP - General Family Medicine 06/24/22 Alex Mares PharmD [address] [place] [phone] Pharmacist Internal Medicine 06/07/24 documented as of this encounter
--- OUTSIDE RECORDS SUMMARY | 2025-10-29 14:57 | XMS_ITS | Encounter Summary ---
Author Organization [employer] [facility] Address [address] [place] [address] 7t [place] [address] Care Team Providers Care Jacquard Card Cutter Name Role Phone Kimberly Jon Primary Care Provider [phone] Alex Mares PharmD Unavailable [phone] Encounter Details Date Type Department Care Team (Late st Contact Info) Description 12/29/2022 Abstract [facility] ADULT DENTAL [address] [place], [place] [phone] Dk Saldana DMD [address] [place] [address] Social History Tobacco Use Types Packs/Day Years [...] Description 01/07/2026 3:00 PM EDT Office Visit [facility] MEDICINE [address] [place], [place] [phone] Kimberly Jon ANP [address] [place] [address] 01/16/2026 9:30 AM EDT Medication Management [facility] MEDICINE [address] [place], [place] [phone] Alex Mares, Laura [address] [place] [address] documented as of this encounter Visit Diagnoses Not on filedocumented in this encounter Care Teams Jacquard Card Cutter Relationship Specialty Start Date End Date Kimberly Jon ANP [address] [place] [address] [phone] PCP - General Family Medicine 06/24/22 Alex Mares, PharmD [address] [place] [address] [phone] Pharmacist Internal Medicine 06/07/24 documented as of this encounter
--- OUTSIDE RECORDS SUMMARY | 2025-10-29 14:57 | XMS_ITS | Encounter Summary ---
Author Organization [employer] Address [address] [facility] 7t [place] [address] Care Team Providers Care Multiple Resaw Operator Name Role Phone Kimberly Jon Primary Care Provider [phone] Alex Mares PharmD Unavailable [phone] Encounter Details Date Type Department Care Team ([facility] Contact Info) Description 10/27/2025 Orders Only [facility] MEDICINE [address] [place], [place] [phone] Kimberly Jon ANP [address] [place], [place] [phone] Social History Tobacco Use Types Packs/Day Years [...] the past 12 months, has t he [employer], gas, oil or water company threatened to [...] Description 01/07/2026 3:00 PM EDT Office Visit [facility] MEDICINE [address] [place] [phone] Kimberly Jon ANP [address] [place] [address] 01/16/2026 9:30 AM EDT Medication Management [facility] MEDICINE [address] [place] [phone] Alex Mares, SerenityD [address] [place] [phone] documented as of this encounter Goals Goal Patient Goal Type Associated Problems Recent Progress Patient-Stated? Author Blood Pressure < 140/90 Blood Pressure 120/60(2024 11:14 AM EST) No Alex Mares, PharmCris Hemoglobin A1c < 7 Result Component 6.4( 11:16 AM EST) No Alex Mares, PharmD Help patients manage their type 2 diabetes Care Plan Help patients manage their type 2 diabetes No Asencio, Marisel, GUEST SERVICES ASSOCIATE Weekly blood pressure task Care Plan Weekly blood pressure task No Asencio, Marisel, GUEST SERVICES ASSOCIATE Help patients manage their type 2 diabetes Care Plan Help patients manage their type 2 diabetes No Asencio, Marisel, GUEST SERVICES ASSOCIATE Patient has diabetic eye disease Care Plan Patient has diabetic eye disease No Asencio, Marisel, GUEST SERVICES ASSOCIATE Help patients manage their type 2 diabetes Care Plan Help patients manage their type 2 diabetes No Asencio, Marisel, GUEST SERVICES ASSOCIATE Patient has chronic kidney disease Care Plan Patient has chronic kidney disease No Asencio, Marisel, GUEST SERVICES ASSOCIATE Weekly blood pressure task Care Plan Weekly blood pressure task No AsencioChristian[place], GUEST SERVICES ASSOCIATE Weekly blood pressure task Care Plan Weekly blood pressure task No Asencio, Marisel, GUEST SERVICES ASSOCIATE Patient has diabetic eye disease Care Plan Patient has diabetic eye disease No AsencioChristianoga, GUEST SERVICES ASSOCIATE Patient has diabetic eye disease Care Plan Patient has diabetic eye disease No AsencioChristianoga, GUEST SERVICES ASSOCIATE Patient has chronic kidney disease Care Plan Patient has chronic kidney disease No Asencio, Marisel, GUEST SERVICES ASSOCIATE Patient has chronic kidney disease Care Plan Patient has chronic kidney disease No Asencio, Marisel, GUEST SERVICES ASSOCIATE Weekly blood pressure task Care Plan Weekly [...] Care Plan Weekly blood pressure task No [place], [place] Patient has diabetic eye disease Care Plan Patient has diabetic eye disease No [place] Patient has diabetic eye disease Care Plan Patient has diabetic eye disease No [facility] [place] Patient has diabetic eye disease Care Plan Patient has diabetic eye disease No [place] Patient has chronic kidney disease Care Plan Patient has chronic kidney disease No [place] Patient has chronic kidney disease Care Plan Patient has chronic kidney disease No [facility] [place] Patient has chronic kidney disease Care Plan Patient has chronic kidney disease No [facility] [place] Weekly blood pressure task Care Plan [...] task Care Plan Weekly blood pressure task Kayce Dyson RN Weekly blood pressure task Care Plan Weekly blood pressure task No Kayce Mg RN Patient has diabetic eye disease Care Plan Patient has diabetic eye disease No Kayce Mg RN Patient has diabetic eye disease Care Plan Patient has diabetic eye disease Kayce Dyson RN Patient has diabetic eye disease Care Plan Patient has diabetic eye disease Kayce Dyson RN Patient has chronic kidney disease Care Plan Patient has chronic kidney disease Kayce Dyson RN Patient has chronic kidney disease Care Plan Patient has chronic kidney disease Kayce Dyson RN Patient has chronic kidney disease Care Plan Patient has chronic kidney disease No Kayce Mg RN documented as of this encounter Procedures Procedure Name Priority Date/Time Associated Diagnosis Comments HEPATIC FUNCTION PANEL Routine 10/27/2025 12:05 PM EST LIPID PANEL, STANDARD Routine 10/27/2025 12:05 PM EST documented in this encounter Results * (ABNORMAL) Lipid Panel, Standard (10/27/2025 12:05 PM EST) Triglycerides 139 <150 mg/dL [facility] Comment:Desirable Triglyceri de: less than 150 mg/dLBorderline High Triglyceride 150-199 mg/dLHigh Triglyceride: 200-499 mg/dLVery High Triglyceride: greater than or equal to 5OO mg/dL Cholesterol 111 <200 mg/dL [facility] Comment:Desirable Cholestero l: less than 200 mg/dLBorderline High Cholesterol: 200-239 mg/dLHigh Cholesterol: greater than 239 mg/dL LDL Cholesterol Calculated 44 <100 mg/dL [facility] Comment:Desirable LDL: less than 100 mg/dLNear Optimal/Above Optimal LDL: 110- 129 mg/dLBorderline High LDL: 130-159 mg/dLHigh LDL: 160-189 mg/dLVery High LDL: greater than or equal to 190 mg/dL HDL Cholesterol 40(L) >40 mg/dL [facility] Comment:Desirable HDL: great er than 40 mg/dL Note: This HDL assay may give artificially low results in patients with liver disease. 10/27/2025 12:0 5 PM EST 10/27/2025 1:47 PM EST Kimberly Jon ANP LAB BLOOD ORDERABLES Final Resul t Performing Organization Address [facility] de Phone Number [facility] [address] [place] [phone] * Hepatic Function Panel (10/27/2025 12:05 PM EST) Bilirubin, Total 0.4 0.0 - 1.0 mg/dL [facility] Bilirubin, Direct 0.2 0.0 - 0.5 mg/dL [facility] Aspartate Amino Transferase 27 5 - 31 U/L [facility] Alanine Aminotransferase 17 0 - 31 U/L [facility] Total Protein 7.4 6.5 - 8.0 g/dL [facility] Albumin Level 4.7 3.5 - 5.0 g/dL [facility] Alkaline Phosphatase 56 39 - 117 U/L [facility] 10/27/2025 12:0 5 PM EST 10/27/2025 1:47 PM EST Kimberly Jon [facility] LAB BLOOD ORDERABLES Final Resul t Performing Organization Address [facility] Phone Number [facility] [address] [place] [phone] documented in this encounter Visit Diagnoses [...] documented as of this encounter Care Teams Multiple Resaw Operator Relationship Specialty Start Date End Date Kimberly Jon ANP [address] [place] [address] PCP - General Family Medicine 06/24/22 Alex Mares PharmD [address] [place] [address] Pharmacist Internal Medicine 06/07/24 documented as of this encounter
--- OUTSIDE RECORDS SUMMARY | 2025-10-29 14:57 | XMS_ITS | Encounter Summary ---
Author Organization [employer] Address [address] [place] [address] 7[address] [place] [address] Care Team Providers Care Stave Log Ripsaw Operator Name Role Phone Kimberly Jon Primary Care Provider [phone] Alex Mares PharmD Unavailable [phone] Encounter Details Date Type Department Care Team ([facility] st Contact Info) Description 10/28/2025 Results Follow-Up [facility] MEDICINE [address] [place], [place] [phone] Kimberly Jon ANP [address] [place] [address] Hepatic Function Panel, Lipid Panel, Standard Social History Tobacco Use Types Packs/Day Years [...] the past 12 months, has t he [employer], gas, oil or water company threatened to [...] as of this encounter Miscellaneous Notes * Result Encounter Note - TESSY Hernandez - 10/28/2025 12:21 PM EST Lipids at goal. Letter generated documented in this encounter Plan of Treatment Upcoming Encounters Date Type Department Care Team (Late st Contact Info) Description 01/07/2026 3:00 PM EDT Office Visit [facility] MEDICINE [address] [place] [phone] Kimberly oJn ANP [address] [place] [phone] 01/16/2026 9:30 AM EDT Medication Management [facility] MEDICINE [address] [place] [phone] Alex Mares, PharmD [address] [place] [phone] documented as of this encounter Goals Goal Patient Goal Type Associated Problems Recent Progress Patient-Stated? Author Blood Pressure < 140/90 Blood Pressure 120/60(2024 11:14 AM EST) Alex Kelly PharmD Hemoglobin A1c < 7 Result Component 6.4( 11:16 AM EST) No Alex Mares PharmD Help patients manage their type 2 diabetes Care Plan Help patients manage their type 2 diabetes No AsencioChristianoga, MANAGER INTERNATIONAL Weekly blood pressure task Care Plan Weekly blood pressure task No AsencioChristianoga, MANAGER INTERNATIONAL Help patients manage their type 2 diabetes Care Plan Help patients manage their type 2 diabetes No AsencioChristianoga, MANAGER INTERNATIONAL Patient has diabetic eye disease Care Plan Patient has diabetic eye disease No AsencioChristianoga, MANAGER INTERNATIONAL Help patients manage their type 2 diabetes Care Plan Help patients manage their type 2 diabetes No AsencioChristianoga, MANAGER INTERNATIONAL Patient has chronic kidney disease Care Plan Patient has chronic kidney disease No AsencioChristianoga, MANAGER INTERNATIONAL Weekly blood pressure task Care Plan Weekly blood pressure task No AsencioChristianoga, MANAGER INTERNATIONAL Weekly blood pressure task Care Plan Weekly blood pressure task No AsencioChristianoga, MANAGER INTERNATIONAL Patient has diabetic eye disease Care Plan Patient has diabetic eye disease No AsencioChristianoga, MANAGER INTERNATIONAL Patient has diabetic eye disease Care Plan Patient has diabetic eye disease No AsencioChristianoga, MANAGER INTERNATIONAL Patient has chronic kidney disease Care Plan Patient has chronic kidney disease No AsencioChristianoga, MANAGER INTERNATIONAL Patient has chronic kidney disease Care Plan Patient has chronic kidney disease No AsencioChristianoga, MANAGER INTERNATIONAL Weekly blood pressure task Care Plan Weekly blood pressure task No Pauline Morrell [place] Weekly blood pressure task Care Plan Weekly blood pressure task No Pauline Morrell [place] Weekly blood pressure task Care Plan Weekly blood pressure task No Pauline Morrell [place] Patient has diabetic eye disease Care Plan Patient has diabetic eye disease No Pauline Morrlel [place] Patient has diabetic eye disease Care [...] has chronic kidney disease No Pauline [place] Patient has chronic kidney disease Care Plan Patient has chronic kidney disease No Karina [place]rell [place] Weekly blood pressure task Care Plan Weekly blood pressure task No Kamila [place], [place] Weekly blood pressure task Care Plan Weekly blood pressure task No Anuj [place] Weekly blood pressure task Care Plan Weekly blood pressure task No Anuj [place] Patient has diabetic eye disease Care Plan Patient has diabetic eye disease No Anuj [place] Patient has diabetic eye disease Care Plan Patient has diabetic eye disease No Anuj [place] Patient has diabetic eye disease Care Plan Patient has diabetic eye disease No Anuj [place] Patient has chronic kidney disease Care Plan Patient has chronic kidney disease No Kamila Leslieshira [place] Patient has chronic kidney disease Care Plan Patient has chronic kidney disease No Anuj [place] Patient has chronic kidney disease Care Plan Patient has chronic kidney disease No Anuj [place] Weekly blood pressure task Care Plan [...] Patient has chronic kidney disease No Ricardo Fakl Patient has chronic kidney disease Care Plan [...] documented as of this encounter Care Teams Stave Log Ripsaw Operator Relationship Specialty Start Date End Date Kimberly Jon ANP [address] [place] [address] PCP - General Family Medicine 06/24/22 Alex Mares PharmD [address] [place] [address] Pharmacist Internal Medicine 06/07/24 documented as of this encounter
--- OUTSIDE RECORDS SUMMARY | 2025-10-29 14:57 | XMS_ITS | Clinical Summary ---
Author Organization [employer] Address [address] [place] [address] [address] [place] [address] Care Team Providers Care V Belt Inspector Name Role Phone Akin Gale Primary Care Provider [phone] Alex Mares PharmD Unavailable Allergies Active Allergy Reactions Criticality Noted Date Comments Shellfish Allergy Low 08/16/2022 Other reaction(s): throat swelling, itching Other reaction(s): THROAT ITCHING, UNKNOWN Medications Blood Pressure kitIndications:Pu lmonary hypertension ([facility]) ([facility]),Essential hypertension 1 kit in the morning. 1 kit 08/11/20 23 Active Blood Glucose Monitoring Suppl (ONE TOUCH ULTRA 2) w/Device kit 1 each if needed (blood sugar). Use to test blood sugar once daily as directed 1 kit 01/05/20 24 Active lisinopril 40 MG tabletIndications :Essential hypertension,Pulm onary hypertension (CMS/HCC) ([facility]) TAKE 1 TABLET BY MOUTH TWICE DAILY IN THE MORNING AND IN THE EVENING 180 tablet 3 11/25/19 25 Active Lancets (OneTouch Delica Plus [id number]) misc TEST BLOOD SUGAR THREE TIMES DAILY [...] IN THE EVENING 180 tablet 3 07/30/20 25 Active metoprolol tartrate (Lopressor) 50 MG tablet TAKE 1 TABLET BY MOUTH EVERY MORNING and TAKE 1 AND 1/2 TABLETS BY MOUTH EVERY EVENING 225 tablet 3 07/30/20 25 Active gabapentin (Neurontin) 100 MG capsuleIndication s:Pain TAKE 1 CAPSULE BY MOUTH THREE TIMES DAILY IN THE MORNING, EVENING, AND BEDTIME 90 capsule 3 08/04/20 25 Active Aspirin Low Dose 81 MG EC tablet TAKE 1 TABLET BY MOUTH EVERY MORNING 90 tablet 1 08/25/20 Active 27-1 MG tabletIndications :Healthcare maintenance TAKE 1 TABLET BY MOUTH EVERY MORNING WITH MEALS 90 tablet 3 09/23/20 25 Active atorvastatin (Lipitor) 40 MG tabletIndications :Type 2 diabetes mellitus with hyperlipidemia (HCC) TAKE 1 TABLET BY MOUTH AT BEDTIME 90 tablet 3 09/23/20 Active Acetaminophen Extra Strength 500 MG tabletIndications [...] MORNING 30 tablet 5 09/29/20 25 Active mometasone (Nasonex) 50 MCG/ACT nasal sprayIndications: Nasal congestion INSTILL 2 SPRAYS IN EACH NOSTRIL ONCE DAILY NEEDED FOR ALLERGIES 17 g 5 2:24 PM EST 10/02/20 25 Active glucose 4 g chewable tabletIndications :Type 2 diabetes mellitus with hyperlipidemia (HCC) Chew 4 tablets (16 g) if needed for low blood sugar. 50 tablet 3 10/09/20 25 2025 Active Januvia 100 MG tabletIndications :Type 2 diabetes mellitus with hyperlipidemia (HCC) TAKE 1 TABLET BY MOUTH EVERYDAY AT NOON 90 tablet 3 10/28/20 25 Active empagliflozin (Jardiance) 25 MGIndications:Polly betes mellitus with coincident hypertension (HCC) Take 1 tablet (25 mg) by mouth in the morning. 90 tablet 10/28/20 25 Active magnesium oxide (Mag-Ox) 400 MG tabletIndications :Hypomagnesemia Take 1 tablet (400 mg) by mouth in the morning. 30 tablet 2 10/27/20 25 Active SITagliptin (Januvia) 100 MG tabletIndications :Type 2 diabetes mellitus with hyperlipidemia (HCC) Take 1 tablet (100 mg) by mouth Once per day. 90 tablet 3 11/07/19 25 2024 Discontinued mometasone (Nasonex) 50 MCG/ACT nasal sprayIndications: Nasal congestion INSTILL 2 SPRAYS IN EACH NOSTRIL ONCE DAILY NEEDED FOR ALLERGIES 17 g 06/09/20 25 2024 Discontinued Jardiance 25 MGIndications:Polly betes mellitus with coincident hypertension (HCC) TAKE 1 TABLET BY MOUTH EVERY MORNING 90 tablet 07/30/20 25 2024 Discontinued(R eorder (will not trigger notification to Pharmacy)) magnesium oxide (Mag-Ox) 400 MG tabletIndications :Hypomagnesemia TAKE 1 TABLET BY MOUTH EVERY MORNING 30 tablet 2 2:24 PM EST 09/29/20 25 2024 Discontinued(R eorder (will not trigger notification [...] Encounters Date Type Department Care Team Description 10/28/2025 Telephone [facility] [place] [address] Akin Gale ANP 10/28/2025 Telephone [facility] [place] [address] Akin Gale ANP Medication Question 10/28/2025 Results Follow-Up [facility] [place] [address] Akin Gale ANP Hepatic Function Panel, Lipid Panel, Standard 10/28/2025 Results Follow-Up [facility] [place] [address] Akin Gale ANP Magnesium 10/27/2025 Telephone [facility] [place] [address] Kayce Mg RN Critical Magnesium 10/27/2025 Orders Only [facility] [address] Krystal Veloz MD Hypomagnesemia 10/27/2025 Orders Only [facility] [place] [address] Akin Gale ANP 10/27/2025 Refill [facility] [place] [address] Akin Gale ANP Type 2 diabetes mellitus with hyperlipidemia (HCC); Diabetes mellitus with coincident hypertension (HCC) 10/27/2025 Refill [facility] [place] [address] Akin Gale ANP Diabetes mellitus with coincident hypertension (HCC) 10/26/2025 Refill [facility] [place] [address] Alex Mares, Laura Type 2 diabetes mellitus with hyperlipidemia (HCC) 10/09/2025 11:00 AM EST Office Visit [facility] [place] [place] [address] Akin Gale ANP Type 2 diabetes mellitus with hyperlipidemia (HCC) (Primary Dx); Dysphagia, unspecified type; Hyperlipidemia associated with type 2 diabetes mellitus (HCC); Hypertension associated with diabetes (HCC) 10/09/2025 Travel 10/07/2025 Telephone [facility] [place] [address] Akin Gale ANP chart prep 10/01/2025 Refill [facility] [address] [place] [address] Akin Gale ANP Nasal congestion 09/26/2025 Refill [facility] [address] [place] [address] Akin Gale ANP Hyperlipidemia associated with type 2 diabetes mellitus (HCC); Hypomagnesemia 09/23/2025 Refill [facility] [address] [place] [address] Akin Gale ANP Healthcare maintenance; Type 2 diabetes mellitus with hyperlipidemia (HCC); Pain 09/22/2025 Refill [facility] [address] [place] [address] Akin Gale ANP Pain 08/25/2025 8:00 AM EDT Office Visit [facility] ADULT DENTAL [address] [place] [address] Dk Saldana DMD 08/24/2025 Refill [facility] [address] [place] [address] Josephine Geronimo MD 08/21/2025 11:00 AM EDT Office Visit [facility] [address] [place] [address] Dk Saldana DMD 08/04/2025 Refill [facility] [address] [place] [address] Akin Gale ANP Pain 07/29/2025 Telephone [facility] [address] [place] [address] Akin Gale ANP 07/29/2025 Refill [facility] [address] [place] [address] Akin Gale ANP Diabetes mellitus with coincident [...] Description 01/07/2026 3:00 PM EDT Office Visit [facility] [address] [place] [phone] Akin Gale ANP [address] [place] [phone] 01/16/2026 9:30 AM EDT Medication Management [facility] [address] [place] [phone] Alex Mares, PharmD [address] [place] [address] Health Maintenance Due Date Last Done Comments CT Colonography 1950 Dental Oral Exam 1950 Dental Prophylaxis 1950 Dental X-Ray: Bitewings 1950 FIT DNA/Cologuard 1950 FIT 1950 FOBT 1950 Sigmoidoscopy 1950 Hepatitis C Screening 1969 Hepatitis A Vaccines (1 of 2 - Risk 2-dose series) 1970 COVID-19 Vaccine ( season) 2025 01/21/2021, 12/24/2020 Influenza Vaccine (#1) 2025 , 08/11/2023, 07/14/2022, Additional history exists Diabetes: Hemoglobin A1C 01/07/2026 025, 05/12/2025, 01/06/2025, Additional history exists SDOH Screening 01/21/2026 01/21/2025 Mammogram 02/07/2026 02/07/2025, 0302/2024, 05/25/2022, Additional history exists Depression Screening 06/09/2026 06/09/2025, 06/09/20 25 Alcohol/Substance Use Screening 10/09/2026 10/09/2025 Diabetes: Foot Exam 10/09/2026 10/09/2025, 10/09/2025, 10/09/2025, Additional history exists Diabetes: Urine Protein Screening 10/09/2026 10/09/2025, 09/06/2024, 05/10/2023, Additional history exists Tobacco Screening 10/09/2026 10/09/2025 Eye Exam 10/11/2026 Lipid Panel 10/27/2026 10/27/2025, 09/0 03/2024, 05/10/2023, Additional history exists Dental X-Ray: Full Mouth 02/13/2027 02/13/2024 HPV/Cotest [...] 6.4( 11:16 AM EST) No Alex Mares, PharmCris Help patients manage their type 2 diabetes Care Plan Help patients manage their type 2 diabetes No Marisel Asencio LPN Weekly blood pressure task Care Plan Weekly blood pressure task No Marisel Asencio LPN Help patients manage their type 2 diabetes Care Plan Help patients manage their type 2 diabetes No Marisel Asencio LPN Patient has diabetic eye disease Care Plan Patient has diabetic eye disease No Marisel Asencio LPN Help patients manage their type 2 diabetes Care Plan Help patients manage their type 2 diabetes No Asencio, Marisel, HEAD OF PHYSICS Patient has chronic kidney disease Care Plan Patient has chronic kidney disease No AsencioChristianoga, HEAD OF PHYSICS Weekly blood pressure task Care Plan Weekly blood pressure task No AsencioChristianoga, HEAD OF PHYSICS Weekly blood pressure task Care Plan Weekly blood pressure task No AsencioChristianoga, HEAD OF PHYSICS Patient has diabetic eye disease Care Plan Patient has diabetic eye disease No AsencioChristianoga, HEAD OF PHYSICS Patient has diabetic eye disease Care Plan Patient has diabetic eye disease No AsencioMarisel, HEAD OF PHYSICS Patient has chronic kidney disease Care Plan Patient has chronic kidney disease No AsencioChristianoga, HEAD OF PHYSICS Patient has chronic kidney disease Care Plan Patient has chronic kidney disease No AsencioChristianoga, HEAD OF PHYSICS Weekly blood pressure task Care Plan Weekly blood pressure task No Pauline Morrell MA Weekly blood pressure task Care Plan Weekly blood pressure task No Pauline Morrell MA Weekly blood pressure task Care Plan Weekly blood pressure task No Pauline Morrell MA Patient has diabetic eye disease Care Plan Patient has diabetic eye disease No aPuline Morrell MA Patient has diabetic eye disease [...] Care Plan Weekly blood pressure task No Akin Gale ANP Weekly blood pressure task Care Plan Weekly blood pressure task No Akin Gale ANP Weekly blood pressure task Care Plan Weekly blood pressure task No Akin Gale ANP Patient has diabetic eye disease Care Plan Patient has diabetic eye disease No Akin Gale ANP Patient has diabetic eye disease Care Plan Patient has diabetic eye disease No Akin Gale ANP Patient has diabetic eye disease Care Plan Patient has diabetic eye disease No Akin Glae ANP Patient has chronic kidney disease Care Plan Patient has chronic kidney disease No Akin Gale ANP Patient has chronic kidney disease Care Plan Patient has chronic kidney disease No Akin Gale ANP Patient has chronic kidney disease Care Plan Patient has chronic kidney disease No Akin Gale ANP Weekly blood pressure task Care Plan Weekly blood pressure task No Akin Gale ANP Weekly blood pressure task Care Plan Weekly blood pressure task No Akin Gale ANP Weekly blood pressure task Care Plan Weekly blood pressure task No Akin Gale ANP Patient has diabetic eye disease Care Plan Patient has diabetic eye disease No Akin Gale ANP Patient has diabetic eye disease Care Plan Patient has diabetic eye disease No Akin Gale ANP Patient has diabetic eye disease Care Plan Patient has diabetic eye disease No Akin Gale ANP Patient has chronic kidney disease Care Plan Patient has chronic kidney disease No Akin Gale ANP Patient has chronic kidney disease Care Plan Patient has chronic kidney disease No Akin Gale ANP Patient has chronic kidney disease Care Plan Patient has chronic kidney disease No Akin Gale ANP Weekly blood pressure task Care Plan [...] has chronic kidney disease No Aggie Sheldon Procedures Procedure Name Priority Date/Time Associated Diagnosis Comments LIPID PANEL, STANDARD Routine 10/27/2025 12:05 PM EST HEPATIC FUNCTION PANEL Routine 10/27/2025 12:05 PM EST MAGNESIUM Routine 10/27/2025 12:05 PM EST Hypomagnesemia ALBUMIN, RANDOM URINE W/CREATININE Routine 10/09/2025 11:30 AM EST Type 2 diabetes mellitus with hyperlipidemia (HCC) POCT GLYCATED HEMOGLOBIN, TOTAL Routine 10/09/2025 11:16 AM EST Type 2 diabetes mellitus with hyperlipidemia (HCC) POCT GLUCOSE (CPT-97103) Routine 10/09/2025 11:16 AM EST Type 2 diabetes mellitus with hyperlipidemia (HCC) REPAIR RESIN PARTIAL DENTURE BASE, ANA Routine 08/25/2025 8:00 AM EDT CASE PRESENTATION, DETAILED AND EXTENSIVE TREATMENT PLANNING Routine 08/25/2025 8:00 AM EDT DENTURE IMPRESSION Routine 08/21/2025 11 :00 AM EDT HM COLONOSCOPY Routine 05/07/2025 BI MAMMOGRAM SCREENING TOMOSYNTHESIS BILATERAL Routine 02/07/2025 10:30 AM EDT PANORAMIC RADIOGRAPHIC IMAGE Routine 02/13/2024 3:30 PM EDT THINPREP IMAGING PAP AND HPV MRNA E6/E7 WITH REFLEX TO HPV 16,18/45 Routine 07/14/2022 10:13 AM EDT from Last 3 Months or Most Recently Relevant to Health Maintenance Results * (ABNORMAL) Magnesium (10/27/2025 12:05 PM EST) Magnesium 0.9(LL) 1.6 - 2.6 mg/dL [facility] Comment:Critical value for t est(s): MAGS Results called to and readback by: KAYCE SQUIRES Person calling:[email or web address] Date:10/27/25 Time: 1508 Blood Venous blood specimen / Unknown 10/27/2025 12:05 PM EST 10/27/2025 1:47 PM EST us Akin Gale ANP LAB BLOOD ORDERABLES Final Resul t Performing Organization Address [facility] de Phone Number [facility] [address] [place] [phone] * Hepatic Function Panel (10/27/2025 12:05 PM EST) Bilirubin, Total 0.4 0.0 - 1.0 mg/dL [facility] Bilirubin, Direct 0.2 0.0 - 0.5 mg/dL [facility] Aspartate Amino Transferase 27 5 - 31 U/L [facility] Alanine Aminotransferase 17 0 - 31 U/L [facility] Total Protein 7.4 6.5 - 8.0 g/dL [facility] Albumin Level 4.7 3.5 - 5.0 g/dL [facility] Alkaline Phosphatase 56 39 - 117 U/L [facility] 10/27/2025 12:0 5 PM EST 10/27/2025 1:47 PM EST us Akin Gale ANP LAB BLOOD ORDERABLES Final Resul t Performing Organization Address [facility] Co de Phone Number [facility] [address] [place] [phone] * (ABNORMAL) Lipid Panel, Standard (10/27/2025 12:05 PM EST) Triglycerides 139 <150 mg/dL [facility] Comment:Desirable Triglyceri de: less than 150 mg/dLBorderline High Triglyceride 150-199 mg/dLHigh Triglyceride: 200-499 mg/dLVery High Triglyceride: greater than or equal to 5OO mg/dL Cholesterol 111 <200 mg/dL [facility] Comment:Desirable Cholestero l: less than 200 mg/dLBorderline High Cholesterol: 200-239 mg/dLHigh Cholesterol: greater than 239 mg/dL LDL Cholesterol Calculated 44 <100 mg/dL [facility] Comment:Desirable LDL: less than 100 mg/dLNear Optimal/Above Optimal LDL: 110- 129 mg/dLBorderline High LDL: 130-159 mg/dLHigh LDL: 160-189 mg/dLVery High LDL: greater than or equal to 190 mg/dL HDL Cholesterol 40(L) >40 mg/dL [facility] Comment:Desirable HDL: great er than 40 mg/dL Note: This HDL assay may give artificially low results in patients with liver disease. 10/27/2025 12:0 5 PM EST 10/27/2025 1:47 PM EST Akin Gale [facility] BLOOD ORDERABLES Final Resul t [facility] [address] [place] [address] [phone] * Albumin, Random Urine W/Creatinine (10/09/2025 11:30 AM EST) Creatinine, Urine 63.36 mg/dL [facility] Microalbumin Urine 6.0 mg/L [facility] Microalbum Creatinine Ratio Ur 9.4 <30 ug/mg cr [facility] Comment:Albumin/Creatinine R atio Reference Ranges: Normal: < 30 ug/mg creatinine Microalbuminuria: 30 - 300 ug/mg creatinineClinical Albuminuria: > 300 ug/mg creatinine Urine (Urine, Random) 10/09/2025 11:30 AM EST 10/09/2025 1:38 PM EST Result Vika STILL LAB URINE ORDERABLES Final Resul t [facility] [address] [facility] [place] [address] [phone] * (ABNORMAL) POCT Hgb A1c (10/09/2025 11:16 AM EST) Hemoglobin A1C 6.4(A) 4.0 - 5.7 % QC Media Lot # [id number] Lot# Expiration Date Blood 10/09/2025 11:1 6 AM EST us Akin Gale ANP POINT OF CARE TEST ENTER/EDIT OR DERABLES Final Result * POCT Glucose (10/09/2025 11:16 AM EST) Pathologist [facility] Glucose Blood, POC 151 60 - 200 mg/dL QC Media Lot # [id number] Lot# Expiration Date [id number] Blood Capillary blood specimen / Unknown 10/09/2025 11:16 AM EST Result Vika Gale ANP POINT OF CARE TEST ENTER/EDIT OR DERABLES Final Result * Hm Colonoscopy (05/07/2025) Pathologist [facility] Colonoscopy Normal Normal Narrative Samantha Crook - 05/07/2025 Recommended 3 years . See see external hospital admission note on 05/07/2025 [facility] Provider MD HEALTH MAINTENANCE Final Result * BI Mammogram Screening Tomosynthesis Bilateral (02/07/2025 10:30 AM EDT) Anatomical Region Laterality Modality Breast Bilateral Mammography 02/07/2025 10:3 0 AM EDT Narrative 02/14/2025 5:17 PM EDT [address] [place] [address] Mammography Report Signed Patient: Jacquelyn Scott MR#: [id number] : 1950 Acct:[id number] Age/Sex: 74 / F ADM Date: 02/07/25 Loc: HO.MAMMO Attending Dr: Akin Gale NP Ordering Physician: AKIN GALE NP Results: 1Negative Date of Service: 02/07/25 Follow Up: 1 Year From Orig inal Mammogram Procedure(s): MM tomosynthesis screening BI Accession Number(s): [id number] cc: AKIN GALE NP EXAMINATION: MM SCREENING [...] Kaitlyn Joyner DO 02/14/2025 05:14 PM EDT Dictated By: Kaitlyn Joyner DO Signed By: <Electronically signed by Kaitlyn Joyner DO in OV> 02/14/25 1714 DD/ 1030 TD/TT: 02/07/25 1047 Superintendent Service: Procedure Note Donotuseinterpreter, Image - 02/14/2025 [facility] [address] [place] [address] [place] [address] Mammography Report Signed Patient: Jacquelyn Scott SMR#: [id number] : 1950cct:[id number] Age/Sex: 74 / FADM Date: 02/07/25 Loc: HO.MAMMO Attending Dr: Akin Gale DIETARY TECH Ordering Physician: AKIN GALE NPResults: 1Negative Date of Service: 02/07/25Follow Up: 1 Year From Orig ina Mammogram Procedure(s): MM tomosynthesis screening BI Accession Number(s): [id number] cc: AKIN GALE NP EXAMINATION: MM SCREENING [...] Kaitlyn Joyner DO 02/14/2025 05:14 PM EDT Dictated By: Kaitlyn Joyner DO Signed By: <Electronically signed by Kaitlyn Joyner DO in OV> 02/14/25 1714 DD/ 1030 TD/TT: 02/07/25 1047 Superintendent Service: Akin Gale ANP IMG BI PROCEDURES Edited Result - Final * THINPREP TIS PAP AND HPV mRNA [...] has been evaluated with computer assisted technology. [facility] Cytotechnologis t: SEE COMMENT [facility] Comment: ED, CT(ASCP) CT screening location: [address] [address] HPV nRNA E6/E7 Not Detected Not Detected [facility] Comment: Methodology: Patient Care Technician-Mediated Amplification This assay detects E6/E7 viral messenger RNA (mRNA) from 14 high-risk HPV types (16,18,31,33,35,39,45,51,52,56,58,59,66,68). Cervical sources are required for HPV testing. If a vaginal source from a patient who has had a total hysterectomy with removal of cervix was submitted, please contact the testing laboratory for alternative testing options. For additional information, please refer to http://education.[employer]/faq/ICV883r9 (This link if provided for information/ educational purposes only.) Interpretation/ Result: Negative for intraepithelial lesion or malignancy. [facility] LMP: PM [facility] Prev. BX: NONE GIVEN [facility] Prev. PAP: 2017 NIL/HPV NEG,2015 NIL HPV NEG [facility] SOURCE: None given [facility] Statement Of Adequacy: SEE COMMENT [facility] Comment: Satisfactory for evaluation. Endocervical/transformation zone component absent. Partially obscuring inflammation 07/14/2022 10:1 3 AM EDT us Gabby OCHOA LAB PATHOLOGY ORDERABLES Final Result [facility] [address] from Last 3 Months or Most [...] 10/28/2025 Patient has chronic kidney disease 10/28/2025 Insurance [facility] Care Teams V Belt Inspector Relationship Specialty Start Date End Date Akin Gale ANP [address] [place] [address] PCP - General Family Medicine 06/24/22 Alex Mares, Laura [address] [place] [address] Pharmacist Internal Medicine 06/07/24
--- OUTSIDE RECORDS SUMMARY | 2025-10-29 14:57 | XMS_ITS | Encounter Summary ---
Author Organization [employer] Address [address] [place] [address] [address] [place] [address] Care Team Providers Care Body Die Maker Name Role Phone Kimberly Jon Primary Care Provider [phone] Alex Mares PharmD Unavailable [phone] Reason for Visit * Reason Comments Med Refill Encounter Details Date Type Department Care Team ([facility] st Contact Info) Description 10/27/2025 Refill [facility] MEDICINE [address] [place], [place] [phone] Kimberly Jon ANP [address] [place], [place] [phone] Diabetes mellitus with coincident hypertension (HCC) Social [...] Office Visit [facility] MEDICINE [address] [place] [phone] Kimberly Jon ANP [address] [place] [phone] 01/16/2026 9:30 AM EDT Medication Management [facility] MEDICINE [address] [place] [phone] Alex Mares, Laura [address] [place] [phone] documented as of this encounter Goals Goal Patient Goal Type Associated Problems Recent Progress Patient-Stated? Author Blood Pressure < 140/90 Blood Pressure 120/60(2024 11:14 AM EST) No Alex Mares, Laura Hemoglobin A1c < 7 Result Component 6.4( 11:16 AM EST) No Alex Mares, Laura Help patients manage their type 2 diabetes Care Plan Help patients manage their type 2 diabetes No Asencio, Marisel, GAS PUMPING STATION HELPER Weekly blood pressure task Care Plan Weekly blood pressure task No AsencioChristianoga, GAS PUMPING STATION HELPER Help patients manage their type 2 diabetes Care Plan Help patients manage their type 2 diabetes No Asencio, Marisel, GAS PUMPING STATION HELPER Patient has diabetic eye disease Care Plan Patient has diabetic eye disease No Asencio, Marisel, GAS PUMPING STATION HELPER Help patients manage their type 2 diabetes Care Plan Help patients manage their type 2 diabetes No Asencio, Marisel, GAS PUMPING STATION HELPER Patient has chronic kidney disease Care Plan Patient has chronic kidney disease No Asencio, Marisel, GAS PUMPING STATION HELPER Weekly blood pressure task Care Plan Weekly blood pressure task No AsencioChristianoga, GAS PUMPING STATION HELPER Weekly blood pressure task Care Plan Weekly blood pressure task No AsencioChristianoga, GAS PUMPING STATION HELPER Patient has diabetic eye disease Care Plan Patient has diabetic eye disease No AsencioChristianoga, GAS PUMPING STATION HELPER Patient has diabetic eye disease Care Plan Patient has diabetic eye disease No AsencioChristianoga, GAS PUMPING STATION HELPER Patient has chronic kidney disease Care Plan Patient has chronic kidney disease No AsencioChristianoga, GAS PUMPING STATION HELPER Patient has chronic kidney disease Care Plan Patient has chronic kidney disease No AsencioChristianoga, GAS PUMPING STATION HELPER Weekly blood pressure task Care Plan Weekly [...] Care Plan Weekly blood pressure task No [facility] [place] Patient has diabetic eye disease Care Plan Patient has diabetic eye disease No [facility] [place] Patient has diabetic eye disease Care Plan Patient has diabetic eye disease No [place], [place] Patient has diabetic eye disease Care Plan Patient has diabetic eye disease No [place], [place] Patient has chronic kidney disease Care Plan Patient has chronic kidney disease No [facility] [place] Patient has chronic kidney disease Care Plan Patient has chronic kidney disease No [facility] [place] Patient has chronic kidney disease Care Plan Patient has chronic kidney disease No [facility] [place] Weekly blood pressure task Care Plan [...] Mg RN documented as of this encounter Visit [...] documented as of this encounter Care Teams Body Die Maker Relationship Specialty Start Date End Date Kimberly Jon ANP [address] [place] [address] PCP - General Family Medicine 06/24/22 Alex Mraes PharmD [address] [place] [address] Pharmacist Internal Medicine 06/07/24 documented as of this encounter
--- OUTSIDE RECORDS SUMMARY | 2025-10-29 14:57 | XMS_ITS | Encounter Summary ---
Author Organization [employer] Address [address] [facility] 7t [place] [address] Care Team Providers Care Machine Boss Name Role Phone Kimberly Jon Primary Care Provider Alex Mares PharmD Unavailable [phone] Reason for Visit * Reason Comments Med Refill Encounter Details Date Type Department Care Team ([facility] st Contact Info) Description 10/26/2025 Refill [facility] MEDICINE [address] [place], [place] [phone] Alex Mares, PharmD [address] [place], [place] [phone] Type 2 diabetes mellitus with hyperlipidemia (HCC) [...] encounter Miscellaneous Notes * Telephone Encounter - Alex Mares PharmD - 10/28/2025 9:48 AM EST Pharmacist will renew prescription. Pharmacy will contact patient to reschedule CDTM in 3 months. documented in this encounter Plan of Treatment Upcoming Encounters Date Type Department Care Team (Late st Contact Info) Description 01/07/2026 3:00 PM EDT Office Visit [facility] MEDICINE [address] [place] [phone] Kimberly Jon, TESSY [address] [place] [address] 01/16/2026 9:30 AM EDT Medication Management [facility] MEDICINE [address] [place] [phone] Alex Mares PharmD [address] [place] [address] documented as of this encounter Goals Goal Patient Goal Type Associated Problems Recent Progress Patient-Stated? Author Blood Pressure < 140/90 Blood Pressure 120/60(2024 11:14 AM EST) Alex Kelly PharmD Hemoglobin A1c < 7 Result Component 6.4( 11:16 AM EST) No Alex Mares, Laura Help patients manage their type 2 diabetes Care Plan Help patients manage their type 2 diabetes No AsencioChristianoga, SUPERVISOR TICKET SALES Weekly blood pressure task Care Plan Weekly blood pressure task No AsencioChristianoga, SUPERVISOR TICKET SALES Help patients manage their type 2 diabetes Care Plan Help patients manage their type 2 diabetes No AsencioChristianoga, SUPERVISOR TICKET SALES Patient has diabetic eye disease Care Plan Patient has diabetic eye disease No AsencioChristianoga, SUPERVISOR TICKET SALES Help patients manage their type 2 diabetes Care Plan Help patients manage their type 2 diabetes No AsencioChristianoga, SUPERVISOR TICKET SALES Patient has chronic kidney disease Care Plan Patient has chronic kidney disease No AsencioChristianoga, SUPERVISOR TICKET SALES Weekly blood pressure task Care Plan Weekly blood pressure task No AsencioChristianoga, SUPERVISOR TICKET SALES Weekly blood pressure task Care Plan Weekly blood pressure task No AsencioChristianoga, SUPERVISOR TICKET SALES Patient has diabetic eye disease Care Plan Patient has diabetic eye disease No AsencioChristianoga, SUPERVISOR TICKET SALES Patient has diabetic eye disease Care Plan Patient has diabetic eye disease No AsencioChristianoga, SUPERVISOR TICKET SALES Patient has chronic kidney disease Care Plan Patient has chronic kidney disease No AsencioChristianoga, SUPERVISOR TICKET SALES Patient has chronic kidney disease Care Plan Patient has chronic kidney disease No AsencioChristianoga, SUPERVISOR TICKET SALES Weekly blood pressure task Care Plan Weekly [...] Care Plan Weekly blood pressure task No Jnea Leslie [place] Weekly blood pressure task Care [...] chronic kidney disease No Jena Leslie [place] documented as of this [...] documented as of this encounter Care Teams Machine Boss Relationship Specialty Start Date End Date Kimberly Jon ANP [address] [place] [address] PCP - General Family Medicine 06/24/22 Alex Mares, SerenityD [address] [place] [address] Pharmacist Internal Medicine 06/07/24 documented as of this encounter
--- OUTSIDE RECORDS SUMMARY | 2025-10-29 14:57 | XMS_ITS | Encounter Summary ---
Author Organization [employer] Address [address] [facility] 7t [place] [address] Care Team Providers Care Etl Architect Name Role Phone Kimberly Jon Primary Care Provider [phone] Alex Mares PharmD Unavailable [phone] Encounter Details Date Type Department Care Team ([facility] Contact Info) Description 10/27/2025 Orders Only [facility] MEDICINE [address] [place], [place] [phone] Krystal Veloz MD [address] [place], [place] [phone] Hypomagnesemia Social History Tobacco Use Types Packs/Day Years [...] AM EDT documented as of this encounter Progress Notes * Krystal Veloz MD - 10/27/2025 3:52 PM EST Low magnesium level notified. Will check patient's adherence. Will have her take magnesium oxide 400 mg bid for 1 week. Will recheck lab. documented in this encounter Plan of Treatment Upcoming Encounters Date Type Department Care Team (Late st Contact Info) Description 01/07/2026 3:00 PM EDT Office Visit [facility] MEDICINE [address] [place] [phone] Kimberly Jon, ANP [address] [place] [address] 01/16/2026 9:30 AM EDT Medication Management [facility] MEDICINE [address] [place] [phone] Alex Mares, PharmD [address] [place] [phone] Scheduled Orders Name Type Priority Associated Diagnoses Orde r Schedule Basic Metabolic Panel Lab Routine Hypomagnesemia Expected: 10/27/2025 (Approximate), Expires: 10/27/2026 Magnesium Lab Routine Hypomagnesemia Expected: 10/27/2025, Expires: 10/27/2026 documented as of this encounter Goals Goal [...] Plan Weekly blood pressure task No Marisel sAencio, RENTAL SALESPERSON Help patients manage their type 2 diabetes Care Plan Help patients manage their type 2 diabetes No Marisel Asencio RENTAL SALESPERSON Patient has diabetic eye disease Care Plan Patient has diabetic eye disease No Marisel Asencio, RENTAL SALESPERSON Help patients manage their type 2 diabetes Care Plan Help patients manage their type 2 diabetes No Marisel Asencio, RENTAL SALESPERSON Patient has chronic kidney disease Care Plan Patient has chronic kidney disease No Marisel Asencio, RENTAL SALESPERSON Weekly blood pressure task Care Plan Weekly blood pressure task No Marisel Asencio, RENTAL SALESPERSON Weekly blood pressure task Care Plan Weekly blood pressure task No Marisel Asencio, RENTAL SALESPERSON Patient has diabetic eye disease Care Plan Patient has diabetic eye disease No Marisel Asencio, RENTAL SALESPERSON Patient has diabetic eye disease Care Plan Patient has diabetic eye disease No Marisel Asenico, RENTAL SALESPERSON Patient has chronic kidney disease Care Plan Patient has chronic kidney disease No Marisel Asencio, RENTAL SALESPERSON Patient has chronic kidney disease Care Plan Patient has chronic kidney disease No Marisel Asencio, RENTAL SALESPERSON Weekly blood pressure task Care Plan Weekly [...] Weekly blood pressure task No Jena Leslie MD Weekly blood pressure task Care Plan Weekly blood pressure task No Kamila Leslieshira MD Weekly blood pressure task Care Plan Weekly blood pressure task No Jena Leslie MD Patient has diabetic eye disease Care Plan Patient has diabetic eye disease No Jena Leslie MD Patient has diabetic eye disease Care Plan Patient has diabetic eye disease No Jena Leslie MD Patient has diabetic eye disease Care Plan Patient has diabetic eye disease No Severino Leslieira MD Patient has chronic kidney disease Care Plan Patient has chronic kidney disease No Jena Leslie MD Patient has chronic kidney disease Care Plan Patient has chronic kidney disease No Kamila Leslieshira MD Patient has chronic kidney disease Care Plan Patient has chronic kidney disease No Jena Leslie MD Weekly blood pressure task Care Plan Weekly blood pressure task No Alex Olivas, PharmD Weekly blood pressure task Care Plan Weekly blood pressure task No Alex Olivas, PharmD Weekly blood pressure [...] Care Plan Weekly blood pressure task No Magdiel, Krystal, MD Weekly blood pressure task Care Plan Weekly blood pressure task No Krystal Veloz MD Patient has diabetic eye disease Care Plan Patient has diabetic eye disease Krystal Tran MD Patient has diabetic eye disease Care Plan Patient has diabetic eye disease Krystal Tran MD Patient has diabetic eye disease Care [...] as of this encounter Visit Diagnoses Diagnosis Hypomagnesemia Disorders of magnesium metabolism documented in this encounter Additional Health Concerns [...] documented as of this encounter Care Teams Etl Architect Relationship Specialty Start Date End Date Kimberly Jon ANP [address] [place] [address] PCP - General Family Medicine 06/24/22 Alex Mares, Laura [address] [place] [address] Pharmacist Internal Medicine 06/07/24 documented as of this encounter
--- OUTSIDE RECORDS SUMMARY | 2025-10-29 14:57 | XMS_ITS | Encounter Summary ---
Author Organization [employer] Address [address] [facility] 7t [place] [address] Care Team Providers Care Welcome Center Agent Name Role Phone Kimberly Jon Primary Care Provider [phone] Alex Mares PharmD Unavailable [phone] Reason for Visit * Reason Onset Date Comments Medication Question 10/28/2025 Encounter Details Date Type Department Care Team ([facility] st Contact Info) Description 10/28/2025 Telephone [facility] MEDICINE [address] [place], [place] [phone] Kimberly Jon ANP [address] [place], [place] [phone] Medication Question Social History Tobacco Use Types Packs/Day Years [...] t he electric, gas, oil or water [employer] threatened to shut off services in your [...] Miscellaneous Notes * Telephone Encounter - Kayce Mg RN - 10/28/2025 1:36 PM EST Return call placed to the pt daughter Nakia to inform that per the [facility] pharmacy the pt is next due for a Medbox orange picker on 11/05/2025. Currently the pt should have enough of the already prescribed Magnesium oxide in current Medbox the pt has at home. Nakia also advised to make sure the the pt has labs rechecked on 11/29/2025. * Telephone Encounter - Ricardo Falk - 10/28/2025 1:11 PM EST Tc from daughter requesting a call back regarding magnesium stating pharmacy is unable to give themthe medication due to it already being in the med box. Please contact pt at [phone]. documented in this encounter Plan of Treatment Upcoming Encounters Date Type Department Care Team (Late st Contact Info) Description 01/07/2026 3:00 PM EDT Office Visit [facility] MEDICINE [address] [place] [address] [phone] Kimberly Jon ANP [address] [place] [address] 01/16/2026 9:30 AM EDT Medication Management [facility] MEDICINE [address] [place] [address] Alex Mares, Laura [address] [place], [place] [phone] documented as of this encounter Goals Goal Patient Goal Type Associated Problems Recent Progress Patient-Stated? Author Blood Pressure < 140/90 Blood Pressure 120/60(2024 11:14 AM EST) No Alex Mares PharmD Hemoglobin A1c < 7 Result Component 6.4( 11:16 AM EST) No Alxe Mares, PharmCris Help patients manage their type 2 diabetes Care Plan Help patients manage their type 2 diabetes No Marisel Asencio DETAIL ASSEMBLER Weekly blood pressure task Care Plan Weekly blood pressure task No Christiano Asencioga, DETAIL ASSEMBLER Help patients manage their type 2 diabetes Care Plan Help patients manage their type 2 diabetes No Christiano Asencioga, DETAIL ASSEMBLER Patient has diabetic eye disease Care Plan Patient has diabetic eye disease No Christiano Asencioga, DETAIL ASSEMBLER Help patients manage their type 2 diabetes Care Plan Help patients manage their type 2 diabetes No AsencioChristianoga, DETAIL ASSEMBLER Patient has chronic kidney disease Care Plan Patient has chronic kidney disease No Asencio, Marisel, DETAIL ASSEMBLER Weekly blood pressure task Care Plan Weekly blood pressure task No AsencioChristianoga, DETAIL ASSEMBLER Weekly blood pressure task Care Plan Weekly blood pressure task No AsencioChristianoga, DETAIL ASSEMBLER Patient has diabetic eye disease Care Plan Patient has diabetic eye disease No AsencioChristianoga, DETAIL ASSEMBLER Patient has diabetic eye disease Care Plan Patient has diabetic eye disease No AsencioChristianoga, DETAIL ASSEMBLER Patient has chronic kidney disease Care Plan Patient has chronic kidney disease No Asencio, Marisel, DETAIL ASSEMBLER Patient has chronic kidney disease Care Plan Patient has chronic kidney disease No Marisel Asencio LPN Weekly blood pressure task Care Plan Weekly blood pressure task No Pauline Morrell [place] Weekly blood pressure task Care Plan Weekly blood pressure task No Karina Morrelli, SARAY Weekly blood pressure task Care Plan Weekly blood pressure task No Karina Morrelli, SARAY Patient has diabetic eye disease Care Plan Patient has diabetic eye disease No Pauline Morrell [place] Patient has diabetic eye disease Care Plan Patient has diabetic eye disease No Karina MorrelliSARAY Patient has diabetic eye disease Care Plan Patient has diabetic eye disease No Karina MorrelliSARAY Patient has chronic kidney disease Care Plan Patient has chronic kidney disease No Pauline Morrell [place] Patient has chronic kidney disease Care Plan Patient has chronic kidney disease No Karina MorrelliSARAY Patient has chronic kidney disease Care Plan Patient has chronic kidney disease No Karina MorrelliSARAY Weekly blood pressure task Care Plan Weekly blood pressure task No Severino Leslieira [place] Weekly blood pressure task Care Plan Weekly blood pressure task No VelSeverino nuñezira, [place] Weekly blood pressure task Care Plan Weekly blood pressure task No VelKamila nuñezshira, [place] Patient has diabetic eye disease Care Plan Patient has diabetic eye disease No Severino Leslieira [place] Patient has diabetic eye disease Care Plan Patient has diabetic eye disease No VelillaKamilaJena, [place] Patient has diabetic eye disease Care Plan Patient has diabetic eye disease No Severino Leslieira, [place] Patient has chronic kidney disease Care Plan Patient has chronic kidney disease No Severino Leslieira [place] Patient has chronic kidney disease Care Plan Patient has chronic kidney disease No Kamila Leslieshira, [place] Patient has chronic kidney disease Care Plan Patient has chronic kidney disease No Kamila Leslieshira, [place] Weekly blood pressure task Care Plan Weekly blood pressure task No Alex Olivas PharmD Weekly blood pressure task Care Plan Weekly blood pressure task No Aelx Olivas PharmD Weekly blood pressure task Care Plan Weekly blood pressure task No Alex Olivas, PharmD Patient has diabetic eye disease Care Plan Patient has diabetic eye disease No Alex Olivas, PharmD Patient has diabetic eye disease Care Plan Patient has diabetic eye disease No Alex Olivas, PharmD Patient has diabetic eye disease Care Plan Patient has diabetic eye disease No Rubilar, Alex, PharmD Patient has chronic kidney disease Care [...] Patient has chronic kidney disease No Kimberly Jno ANP Weekly blood pressure task Care Plan [...] documented as of this encounter Care Teams Welcome Center Agent Relationship Specialty Start Date End Date Kimberly Jon ANP [address] [place] [address] PCP - General Family Medicine 06/24/22 Alex Mares PharmD [address] [place] [address] Pharmacist Internal Medicine 06/07/24 documented as of this encounter
--- OUTSIDE RECORDS SUMMARY | 2025-10-29 14:57 | XMS_ITS | Encounter Summary ---
Author Organization [employer] [facility] Address [address] [place] [address] 7t [place] [address] Care Team Providers Care Check Clerk Name Role Phone Kimberly Jon Primary Care Provider [phone] Alex Mares PharmD Unavailable [phone] Reason for Visit * Reason Comments Med Refill Encounter Details Date Type Department Care Team (Late st Contact Info) Description 03/23/2023 Refill [facility] MEDICINE [address] [place] [address] [phone] JosephineSaray powell FNP [address] [place], [place] [phone] Social History Tobacco Use Types Packs/Day Years [...] Description 01/07/2026 3:00 PM EDT Office Visit [facility] MEDICINE [address] [place] [address] [phone] Kimberly Jon ANP [address] [place] [address] [phone] 01/16/2026 9:30 AM EDT Medication Management [facility] MEDICINE [address] [place] [address] Alex Mares, PharmD [address] [place] [address] documented as of this encounter Visit Diagnoses Not on filedocumented in this encounter Care Teams Check Clerk Relationship Specialty Start Date End Date Kimberly Jon ANP [address] [place] [address] PCP - General Family Medicine 06/24/22 Alex Mares, PharmD [address] [place] [address] Pharmacist Internal Medicine 06/07/24 documented as of this encounter
--- OUTSIDE RECORDS SUMMARY | 2025-10-29 14:57 | XMS_ITS | Encounter Summary ---
Author Organization [employer] Address [address] [facility] 7t [place] [address] Care Team Providers Care Technical Agronomist Name Role Phone Kimberly Jon Primary Care Provider [phone] Alex Mares PharmD Unavailable [phone] Reason for Visit * Reason Onset Date Comments Critical Magnesium 10/27/2025 Encounter Details Date Type Department Care Team ([facility] st Contact Info) Description 10/27/2025 Telephone [facility] [address] [place], [place] [phone] Kayce Mg RN Critical Magnesium Social History Tobacco Use Types Packs/Day Years [...] Telephone Encounter - Kayce Mg RN - 10/27/2025 3:53 PM EST TC received by [facility] labs that the pt had a critical Magnesium of 0.9. RN spoke to Dr. Veloz (covering for PCP) and the plan of care is to have the pt cook pickled meat magnesium 400 MG at the pharmacy. The ptis to take two tablets today and one per day moving forward. The pt was instructed to have magnesium rechecked on Monday10/29/2025 to check on mag levels. RN called and spoke to the pt daughter Nakia who will make sure this information is given to the pt and plan of care acted upon. documented in this encounter Plan of Treatment Upcoming Encounters Date Type Department Care Team (Late st Contact Info) Description 01/07/2026 3:00 PM EDT Office Visit [facility] [address] [place] [address] Kimberly Jon, ANP [address] [place] [address] 01/16/2026 9:30 AM EDT Medication Management [facility] [address] [place] [address] Alex Mares PharmD [address] [place] [address] documented as of this encounter Goals Goal Patient Goal Type Associated Problems Recent Progress Patient-Stated? Author Blood Pressure < 140/90 Blood Pressure 120/60(2024 11:14 AM EST) No Alex Mares PharmD Hemoglobin A1c < 7 Result Component 6.4( 11:16 AM EST) No Alex Mares, Laura Help patients manage their type 2 diabetes Care Plan Help patients manage their type 2 diabetes No Marisel Asencio, LOCKSTITCH WAISTBAND SETTER Weekly blood pressure task Care Plan Weekly blood pressure task No Marisel Asencio, LOCKSTITCH WAISTBAND SETTER Help patients manage their type 2 diabetes Care Plan Help patients manage their type 2 diabetes No Marisel Asencio, LOCKSTITCH WAISTBAND SETTER Patient has diabetic eye disease Care Plan Patient has diabetic eye disease No Christiano Asencioga, LOCKSTITCH WAISTBAND SETTER Help patients manage their type 2 diabetes Care Plan Help patients manage their type 2 diabetes No Christiano Asencioga, LOCKSTITCH WAISTBAND SETTER Patient has chronic kidney disease Care Plan Patient has chronic kidney disease No Christiano Asencioga, LOCKSTITCH WAISTBAND SETTER Weekly blood pressure task Care Plan Weekly blood pressure task No Christiano Asencioga, LOCKSTITCH WAISTBAND SETTER Weekly blood pressure task Care Plan Weekly blood pressure task No Christiano Asencioga, LOCKSTITCH WAISTBAND SETTER Patient has diabetic eye disease Care Plan Patient has diabetic eye disease No AsencioChristianoga, LOCKSTITCH WAISTBAND SETTER Patient has diabetic eye disease Care Plan Patient has diabetic eye disease No Christiano Asencioga, LOCKSTITCH WAISTBAND SETTER Patient has chronic kidney disease Care Plan Patient has chronic kidney disease No Christiano Asencioga, LOCKSTITCH WAISTBAND SETTER Patient has chronic kidney disease Care Plan Patient has chronic kidney disease No Marisel Asencio, LOCKSTITCH WAISTBAND SETTER Weekly blood pressure task Care Plan Weekly [...] Weekly blood pressure task No Jena Leslie NM Weekly blood pressure task Care Plan Weekly blood pressure task No Jena Leslie NM Patient has diabetic eye disease Care Plan Patient has diabetic eye disease No Jena Leslie NM Patient has diabetic eye disease Care Plan Patient has diabetic eye disease No Jena Leslie NM Patient has diabetic eye disease Care Plan Patient has diabetic eye disease No Jena Leslie NM Patient has chronic kidney disease Care Plan Patient has chronic kidney disease No Jena Leslie NM Patient has chronic kidney disease Care Plan Patient has chronic kidney disease No Jena Leslie NM Patient has chronic kidney disease Care Plan Patient has chronic kidney disease No Jena Leslie NM Weekly blood pressure task Care Plan Weekly [...] task Care Plan Weekly blood pressure task Krystal Tran MD Weekly blood pressure task [...] documented as of this encounter Care Teams Technical Agronomist Relationship Specialty Start Date End Date Kimberly Jon ANP [address] [place] [address] PCP - General Family Medicine 06/24/22 Alex Mares, Laura [address] [place] [address] Pharmacist Internal Medicine 06/07/24 documented as of this encounter
--- OUTSIDE RECORDS SUMMARY | 2025-10-29 14:57 | XMS_ITS | Encounter Summary ---
Author Organization [employer] Address [address] [facility] 7t [place] [address] Care Team Providers Care Fibreglass Lay Up Worker Name Role Phone Kimberly Jon Primary Care Provider [phone] Alex Mares PharmD Unavailable [phone] Encounter Details Date Type Department Care Team ([facility] Contact Info) Description 10/28/2025 Results Follow-Up [facility] MEDICINE [address] [place], [place] [phone] Kimberly Jon ANP [address] [place] [address] Magnesium Social History Tobacco Use Types Packs/Day [...] the past 12 months, has t he [employer], gas, oil or water [employer] threatened to shut off services in your [...] Encounter Note - TESSY Hernandez - 10/28/2025 12:19 PM EST Addressed by covering provider documented in this encounter Plan of Treatment Upcoming Encounters Date Type Department Care Team (Late st Contact Info) Description 01/07/2026 3:00 PM EDT Office Visit [facility] MEDICINE [address] [place] [phone] Kimberly Jon ANP [address] [place] [address] 01/16/2026 9:30 AM EDT Medication Management [facility] MED[facility]INE [address] [place] [phone] Alex Mares, PharmD [address] [place] [address] documented as of this encounter Goals Goal Patient Goal Type Associated Problems Recent Progress Patient-Stated? Author Blood Pressure < 140/90 Blood Pressure 120/60(2024 11:14 AM EST) No Alex Mares PharmD Hemoglobin A1c < 7 Result Component 6.4( 11:16 AM EST) No Alex Mares, Laura Help patients manage their type 2 diabetes Care Plan Help patients manage their type 2 diabetes No Asencio, Marisel, AGRICULTURAL SERVICES DIRECTOR Weekly blood pressure task Care Plan Weekly blood pressure task No Asencio Marisel, AGRICULTURAL SERVICES DIRECTOR Help patients manage their type 2 diabetes Care Plan Help patients manage their type 2 diabetes No Asencio, Marisel, AGRICULTURAL SERVICES DIRECTOR Patient has diabetic eye disease Care Plan Patient has diabetic eye disease No Asencio, Marisel, AGRICULTURAL SERVICES DIRECTOR Help patients manage their type 2 diabetes Care Plan Help patients manage their type 2 diabetes No Asencio, Marisel, AGRICULTURAL SERVICES DIRECTOR Patient has chronic kidney disease Care Plan Patient has chronic kidney disease No Asencio, Marisel, AGRICULTURAL SERVICES DIRECTOR Weekly blood pressure task Care Plan Weekly blood pressure task No AsencioChristianoga, AGRICULTURAL SERVICES DIRECTOR Weekly blood pressure task Care Plan Weekly blood pressure task No Asencio, Marisel, AGRICULTURAL SERVICES DIRECTOR Patient has diabetic eye disease Care Plan Patient has diabetic eye disease No Asencio, Marisel, AGRICULTURAL SERVICES DIRECTOR Patient has diabetic eye disease Care Plan Patient has diabetic eye disease No Asencio, Marisel, AGRICULTURAL SERVICES DIRECTOR Patient has chronic kidney disease Care Plan Patient has chronic kidney disease No Asencio, Marisel, AGRICULTURAL SERVICES DIRECTOR Patient has chronic kidney disease Care Plan Patient has chronic kidney disease No Asencio, Marisel, AGRICULTURAL SERVICES DIRECTOR Weekly blood pressure task Care Plan Weekly [...] Weekly blood pressure task No Jena Leslie PA Weekly blood pressure task Care Plan Weekly blood pressure task No Kamila Leslieshira PA Weekly blood pressure task Care Plan Weekly blood pressure task No Anuj [facility] PA Patient has diabetic eye disease Care Plan Patient has diabetic eye disease No Kamila Leslieshira PA Patient has diabetic eye disease Care Plan Patient has diabetic eye disease No Kamila Leslieshira PA Patient has diabetic eye disease Care Plan Patient has diabetic eye disease No Kamila Leslieshira PA Patient has chronic kidney disease Care Plan Patient has chronic kidney disease No Severino Leslieira PA Patient has chronic kidney disease Care Plan Patient has chronic kidney disease No Kamila Leslieshneymar PA Patient has chronic kidney disease Care Plan Patient has chronic kidney disease No Kamila Leslieshira PA Weekly blood pressure task Care Plan Weekly [...] Patient has chronic kidney disease No Alex Olivsa PharmD Weekly blood pressure task Care Plan Weekly blood pressure task No Krysatl Veloz MD Weekly blood pressure task Care [...] Plan Patient has diabetic eye disease No Kimberyl Jon ANP Patient has diabetic eye disease [...] documented as of this encounter Care Teams Fibreglass Lay Up Worker Relationship Specialty Start Date End Date Kimberly Jon ANP [address] [place] [address] PCP - General Family Medicine 06/24/22 Alex Mares PharmD [address] [place] [address] Pharmacist Internal Medicine 06/07/24 documented as of this encounter
--- OUTSIDE RECORDS SUMMARY | 2025-10-29 14:57 | XMS_ITS | Encounter Summary ---
Author Organization [employer] Address [address] [place] [address] 7t [place] [address] Care Team Providers Care Swimming Coach Or Instructor Name Role Phone Kimberly Jon Primary Care Provider [phone] Alex Mares PharmD Unavailable [phone] Encounter Details Date Type Department Care Team (Late st Contact Info) Description 06/21/2023 Orders Only [facility] [address] [place], [place] [phone] Genoveva Ga LPN Social History Tobacco Use [...] Description 01/07/2026 3:00 PM EDT Office Visit [facility] MEDICINE [address] [place] [phone] Kimberly Jon ANP [address] [place] [phone] 01/16/2026 9:30 AM EDT Medication Management [facility] [address] [place] [address] Alex Mares, PharmD [address] [place] [address] documented as of this encounter Visit Diagnoses Not on filedocumented in this encounter Care Teams Swimming Coach Or Instructor Relationship Specialty Start Date End Date Kimberly Jon ANP [address] [place] [address] PCP - General Family Medicine 06/24/22 Alex Mares, PharmD [address] [place] [address] Pharmacist Internal Medicine 06/07/24 documented as of this encounter
--- OUTSIDE RECORDS SUMMARY | 2025-10-29 14:58 | XMS_ITS | Encounter Summary ---
Author Organization [employer] Address [address] [facility] 7t [place] [address] Care Team Providers Care Padded Products Inspector Trimmer Name Role Phone Kimberly Jon Primary Care Provider [phone] Alex Mares PharmD Unavailable Encounter Details Date Type Department Care Team ([facility] st Contact Info) Description 04/30/2024 Telephone [facility] [address] [place], [place] [phone] Dk Saldana, STALIN [address] [place], [place] [phone] Social History Tobacco Use Types Packs/Day Years [...] Description 01/07/2026 3:00 PM EDT Office Visit [facility] MEDICINE [address] [place] [phone] Kimberly Jon ANP [address] [place] [phone] 01/16/2026 9:30 AM EDT Medication Management [address] [address] Alex Mares PharmD [address] [place] [phone] documented as of this encounter Visit Diagnoses Not on filedocumented in this encounter Care Teams Padded Products Inspector Trimmer Relationship Specialty Start Date End Date Kimberly Jon ANP [address] [place] [phone] PCP - General Family Medicine 06/24/22 Alex Mares, SerenityD [address] [place] [phone] Pharmacist Internal Medicine 06/07/24 documented as of this encounter
--- OUTSIDE RECORDS SUMMARY | 2025-10-29 14:58 | XMS_ITS | Encounter Summary ---
Author Organization [employer] Address [address] [place] [address] 7t [place] [address] Care Team Providers Care Wood Turning Lathe Operator Name Role Phone Kimberly Jon Primary Care Provider [phone] Alex Mares PharmD Unavailable Reason for Visit * Reason Comments Med Refill Encounter Details Date Type Department Care Team ([facility] st Contact Info) Description 07/25/2025 Refill [facility] MEDICINE [address] [place], [place] [phone] Kimberly Jon ANP [address] [place], [place] [phone] Pain Social History Tobacco Use Types Packs/Day [...] Office Visit [facility] MEDICINE [address] [place] [phone] Kimberly Jon ANP [address] [place] [address] 01/16/2026 9:30 AM EDT Medication Management [address] [address] Alex Mares PharmD [address] [place] [phone] documented as of this encounter Goals Goal Patient Goal Type Associated Problems Recent Progress Patient-Stated? Author Blood Pressure < 140/90 Blood Pressure 120/60(2024 11:14 AM EST) No Alex Mares PharmCris Hemoglobin A1c < 7 Result Component 6.4( 11:16 AM EST) No Alex Mares PharmD documented as of this encounter Visit Diagnoses Diagnosis Pain Generalized pain documented in this encounter Additional Health Concerns Assessment Noted Time PHQ-9 Depression Total Score: 0 06/09/20 11:07 AM EDT documented as of this encounter Care Teams Wood Turning Lathe Operator Relationship Specialty Start Date End Date Kimberly Jon, TESSY [address] [place] [address] PCP - General Family Medicine 06/24/22 Alex Mares, eSrenityD [address] [place] [phone] Pharmacist Internal Medicine 06/07/24 documented as of this encounter
[2025-10-29 17:58] LABS: Anion Gap 14 (12-20); Blood Urea Nitrogen 20 mg/dL (9-16); Calcium 9.9 mg/dL (8.4-10.2); Carbon Dioxide 27 mmol/L (22-29); Chloride 100 mmol/L (96-108); Estimated Glomerular Filt Rate > 60; Potassium 4.2 mmol/L (3.3-5.1); Sodium 137 mmol/L (135-145)
[2025-10-29 18:49] LABS: Magnesium 1.0 mg/dL (1.6-2.6)
== END 2025-10-29 13:32 | disposition home or self-care (01) ==
LOC: HO.HHCL 13:31
PROVIDERS: PCP Nurse Practitioner Primary Care; Visit Provider Family Medicine
DX: E83.42 Hypomagnesemia (principal)
CPT/HCPCS: 36415; 80048; 83735